=== PATIENT | female | born 1930 | race Caucasian/White ===

== ENCOUNTER → 2016-03-19 | Outpatient (REF) | payer OTHER ==
[2016-03-19 19:08] LABS: PERCENT SATURATION 5.4 % (13.2-37.4)
== END | disposition home or self-care (01) ==
LOC: M LAB REF 16:17
PROVIDERS: ATTEND Internal Medicine
DX: D50.9 Iron deficiency anemia, unspecified (principal)

== ENCOUNTER → 2016-05-18 | Outpatient (REF) | payer OTHER ==
[2016-05-18 20:12] LABS: PERCENT SATURATION 16.5 % (13.2-37.4)
== END ==
LOC: M LAB REF 16:25
PROVIDERS: ATTEND Internal Medicine
DX: D50.9 Iron deficiency anemia, unspecified (principal)

== ENCOUNTER → 2016-08-20 | Outpatient (REF) | payer OTHER ==
[2016-08-20 20:03] LABS: PERCENT SATURATION 17.3 % (13.2-37.4)
== END ==
LOC: M LAB REF 17:29
PROVIDERS: ATTEND Internal Medicine
DX: D50.9 Iron deficiency anemia, unspecified (principal)

== ENCOUNTER 2017-01-02 10:24 | Inpatient (IN) | payer OTHER ==
[~2017-01-02] VITALS: Ht 154.9 cm; Wt 64.1 kg
[2017-01-02] MEDS ORDERED: FLEET ENEMA PR PRN (12:30)
[2017-01-02] MEDS ORDERED: BISACODYL 10 MG SUPP PR PRN (12:30)
[2017-01-02 13:15] VITALS: BP 140/82
[2017-01-02] MEDS ORDERED: FERR1TAB8 PO (15:28)
[2017-01-02] MEDS ORDERED: ATEN25TA PO (15:28)
[2017-01-02] MEDS ORDERED: LOSA100T36 PO (15:28)
[2017-01-02] MEDS ORDERED: SLOWTAB2 PO (15:28)
[2017-01-02] MEDS ORDERED: ATOR40TA75 PO (15:28)
[2017-01-02] MEDS ORDERED: LEVO30TA PO (15:28)
[2017-01-02] MEDS ORDERED: ELIQ5TAB PO (15:28)
[2017-01-02] MEDS: ACETAMINOPHEN TAB 650MG DOSE (2X325MG) PO PRN ×2 (15:52→21:15)
[2017-01-02] MEDS: CIPROFLOXACIN 250 MG TAB PO SCH (16:58)
[2017-01-02] MEDS ORDERED: NON-FORMULARY COMPOUNDED MEDICATION TOP PRN (19:00)
[2017-01-02 20:00] VITALS: BP 156/70
--- NOTE | 2017-01-02 21:01 | PMRHPE ---
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 HISTORY OF PRESENT ILLNESS: Patient is an 86-year-old white female with longstanding history of atherosclerotic cardiovascular disease including atrial fibrillation, hypertension, hyperlipidemia. She was in her usual state of health until late in the evening of 12/27/2016 when she had sudden onset of the left sided weakness and sensory deficits along with droop and slurring of speech. She was seen within a few minutes of the emergency room at [facility] and then transported by air lift to [facility] for consideration of TPA treatment. The patient was assessed there and found to be inside the therapeutic window, had treatment with TPA, which cleared the right M1 but not M2 arteries. Patient continued to have problems with her non dominant left upper and lower extremities involving both motor and sensory deficits and the left homonymous hemianopsia, dysarthria, dysphagia for which she is on a restricted diet of pureed food and honey-thick liquids. PAST MEDICAL HISTORY: Includes [place] fibrillation Dyslipidemia. Hypertension Arthritis. Hypothyroidism. Prior polyp removal. Prior back surgery. Status post appendectomy. Bilateral cataract surgery. Bilateral hip replacement. Hysterectomy, Skin biopsy, Tonsillectomy. FAMILY HISTORY: Non-contributory in this 86-year-old lady. SOCIAL HISTORY: Patient lives with her son. She had modified independence to independence in ADLs and mobility's prior to this event. Does not use tobacco, alcohol or illicit drugs. ALLERGIES: MORPHINE and RELATED OPIATES causing cognitive problems. SULFA DRUGS, and SULFA DRUG CROSS REACTORS. MEDICATIONS: On admission Tylenol, Eliquis, atenolol, atorvastatin, Dulcolax suppository, Cipro for urinary tract infection detected with pending culture and sensitivity that was taken yesterday, ferrous sulfate, Synthroid, losartan, Slow Mag, and Fleet enema. REVIEW OF SYSTEMS: The symptoms noted above. Otherwise patient noting headache since arriving for which Tylenol was ordered. Otherwise negative 10-point review of systems. PHYSICAL EXAMINATION: Patient is a short, mildly overweight, elderly white female in very mild distress who is alert and well-oriented. She is 5' 1", weighs 68 kg on admission. VITAL SIGNS: Temperature 98.6, blood pressure 140/82, pulse 62, respirations 16, pulse oximetry 100% on room air. HEENT: Patient with some left facial droop, right tongue deviation which is mild, very mild dysarthria of speech, oral pharynx without other lesions, nares is clear, septum is midline and straight. Extraocular motion have decreased range and observation to the left space, but she does go two-thirds of the way across to the left and is fairly good and tracking without any nystagmus. Pupils are equal, round and do react to light and accommodation. Extraocular motions are described above. Hearing is fairly good. Neck is supple. LUNGS: Clear in all de paz to auscultation. CORONARY: Shows an irregularly irregular rate and rhythm with pulses in the 60 to 70 range that are 2 out of 4 in strength bilateral wrist. ABDOMEN: Is mildly obese. Bowel sounds are presents in all quadrants. No palpable tenderness or masses noted. EXTREMITIES: With functional range of motion. Decreased motor control in the left lower extremity. Upper extremity is now showing antigravity motions in the forearm musculature for pronation and supination along with flexion and extension of the elbow, adduction and abduction, forward flexion and extension of the shoulder and shoulder shrug which are generally in the 4 to 4+ range but trace left hand, left lower extremity 3+ to 4, right upper and lower extremity in the 4 to 5 range. <<9:54>> is good. NEURO: Patient is alert and oriented to person and place, time and situation and is pleasant and cooperative to examination. ASSESSMENT AND PLAN: DIAGNOSES: 1. Rehabilitation of right middle cerebral artery from embolic cerebrovascular accident (CVA) causing left homonymous hemianopsia, left hemiparesis, left hemisensory deficits, dysarthria, dysphagia: Patient admitted for neuro rehabilitation with physical, occupational and speech therapy to participate in three hours of therapy per day which based on her prior performance at [facility] she should be able to do. She is highly motivated and has a very good support system and is from the [facility]. She does have medical complexity between the atrial fibrillation and need for ongoing anticoagulation and blood pressure control to have tighter monitoring then skilled facility and will be followed here by rehabilitation nursing, physiatry and medicine service. 2. Atrial fibrillation on Eliquis with atherosclerotic cardiovascular disease including hypertension and hyperlipidemia: Patient will continue on Eliquis for clot prevention and continue on atenolol and losartan for blood pressure control along with atorvastatin for lipid control. Medicine consultants will review this and make adjustments as appropriate. Target systolic blood pressure should be in the 130s to 140s ideally. 3. Hypothyroidism. We will continue Synthroid. 4. Urinary tract infection. Patient had culture sensitive yesterday, however was recommended to be started on Bactrim even though she is allergic to Sulfa drugs, therefore we ill go ahead with Cipro 250 mg twice a day that she is not allergic to for the next 7 days and we will follow up for urinary tract infection culture and sensitivity and make appropriate changes. POST ADMISSION PHYSICIAN EVALUATION: Patient is consistent with the prior information received and preadmission screen, She does have multiple deficits both facially and motor as well as dysphagia, though very little dysarthria at this time, which does need to learn compensation for the return to living with her son locally. Patient does not have any barricades to doing three hours of therapy per day, I think she will be able to do this and benefit from it. I am anticipating a good prognosis for a return to home and 17 day estimated length of stay. TIME SPENT ON CHART REVIEW, H P AND DOCUMENTATION: Greater than 70 minutes.
[2017-01-02] MEDS: APIXABAN 5 MG TAB (ELIQUIS) PO SCH (21:08)
[2017-01-02] MEDS: MAGNESIUM CHLORIDE 64 MG TABCR (SLO MAG) PO SCH (21:12)
[2017-01-03 05:45] VITALS: BP 158/86
[2017-01-03] MEDS: LEVOTHYROXINE 25MCG TABLET (0.025MG) PO SCH (05:52)
[2017-01-03] MEDS: CIPROFLOXACIN 250 MG TAB PO SCH ×2 (05:52→18:16)
[2017-01-03 07:22] LABS: BASO % 0.6 % (0.0-1.0); EOS # 0.3 10^3/uL (0.0-0.50); EOS % 4.8 % (0.0-3.0); IMMATURE GRANULOCYTE % 0.6 % (0-0); LYMPH # 0.7 10^3/uL (1.5-4.5); MEAN CORPUSCULAR HEMOGLOBIN 28.7 pg (27.0-33.0); MEAN CORPUSCULAR HGB CONC 32.7 g/dl (32.0-36.5); MEAN CORPUSCULAR VOLUME 87.8 fl (80.0-96.0); MONO # 0.5 10^3/uL (0.0-0.8); MONO % 8.9 % (0.0-5.0); NEUTROPHILS # 3.9 10^3/uL (1.8-7.7); NEUTROPHILS % 72.1 % (36.0-66.0); PLATELET COUNT, AUTOMATED 224 10^3/uL (150-450); RED CELL DISTRIBUTION WIDTH 13.6 % (11.5-14.5); WHITE BLOOD COUNT 5.4 10^3/uL (4.0-10.0)
[2017-01-03 07:53] LABS: ALBUMIN 2.8 GM/DL (3.2-5.2); ALKALINE PHOSPHATASE 81 U/L (45-117); ALT/SGPT 27 U/L (12-78); ANION GAP 9 MEQ/L (8-16); AST/SGOT 17 U/L (15-37); BILIRUBIN,TOTAL 0.6 MG/DL (0.2-1.0); BLOOD UREA NITROGEN 15 MG/DL (7-18); CALCIUM LEVEL 8.8 MG/DL (8.8-10.2); CARBON DIOXIDE LEVEL 26 MEQ/L (21-32); CHLORIDE LEVEL 107 MEQ/L (98-107); CREATININE FOR GFR 0.65 MG/DL (0.55-1.02); GLOMERULAR FILTRATION RATE > 60.0 (>32); GLUCOSE, FASTING 107 MG/DL (83-110); SODIUM LEVEL 142 MEQ/L (136-145); TOTAL PROTEIN 5.6 GM/DL (6.4-8.2)
[2017-01-03] MEDS: APIXABAN 5 MG TAB (ELIQUIS) PO SCH ×2 (08:59→21:18)
[2017-01-03] MEDS: FERROUS SULFATE 325MG TAB PO SCH (08:59)
[2017-01-03] MEDS: ATENOLOL 25 MG TAB PO SCH (08:59)
[2017-01-03] MEDS: MAGNESIUM CHLORIDE 64 MG TABCR (SLO MAG) PO SCH ×2 (09:00→21:22)
[2017-01-03] MEDS: LOSARTAN 50 MG TAB PO SCH (09:00)
[2017-01-03] MEDS: ACETAMINOPHEN TAB 650MG DOSE (2X325MG) PO PRN ×2 (11:29→21:18)
--- NOTE | 2017-01-03 12:40 | CR.PDOC ---
[facility] Consultation Consultation CONSULTATION REPORT FOR: Dr Noriega REASON FOR CONSULTATION: Medical Management DATE OF VISIT: 01/03/17 ATTENDING: Dr. Kp Roque PCP: Dr Partida HPI: 86year oldF with a past medical history significant for embolic CVA with left hemiparesis and neglect treated with TPA [facility]. Pt was transferred to the care of JOSH Leon [facility] 01/02/17. Pt states she did not sleep well last PM. Some FERRIS currently, given tylenol. [place] dizzy when she was OOB to chair, but now resolved with resting in bed. Denies any fevers, chills, weakness, Chest Pain, Shortness of breath, cough, palpitations, abdominal pain, N/V/D or changes in bowel or bladder habits. PMHx: Embolic CVA 12/27/16 s/p TPA [facility]. Afib. eliquis anticoagulation. dyslipidemia HTN OA Hypothyroid H/O Mane's/Gastritis/H Pylori Fe def anemia PSHX: Tonsillectomy Appendectomy cataract surgery B/L Hip replacement hysterectomy back surgery colonoscopy/EGD 03/25 Michel. adenomatous polyp/gastritis. SOCHX: Resides in: [place] Marital Status: Tobacco use: denies ETOH: denies Illicit Drugs: Denies Advanced directives: none FAMHX: non contributory ROS: As noted in HPI, otherwise 11pt ROS of systems reviewed and unremarkable. PE: GEN: 86yoF, appears stated age. Well-nourished, well developed. No acute distress. Alert and oriented x 3. Pleasant, interactive. HEENT: Normocephalic, atraumatic. Pupils are equal, round, and reactive to light. Rightward gaze noted. No nystagmus appreciated. Sclera are nonicteric. Conjunctiva without injection. Nose midline. Nasal turbinates without bogginess. Left facial droop. Mild dysarthria. Moist mucous membranes. Pharynx pink and moist. Neck supple, trachea midline. No lymphadenopathy or thyromegaly appreciated. CHEST: irreg irreg, +S1, +S2. LUNGS: Clear to auscultation bilaterally. No wheezes, rales, or rhonchi. Breathing appears symmetric and easy. Patient is speaking in full sentences. No accessory muscle use. ABD: Round, soft, non-tender, non-distended. +Bowel sounds throughout. No rebound or guarding. No costovertebral angle tenderness. EXT: Pulses 2+ bilaterally dorsalis pedis and radial. No lower extremity edema appreciated. SKIN: [place], dry, warm. Capillary refill <2sec. No rashes. NEURO: Alert and oriented x 3. Left sided weakness. A&P: 86year oldF with a past medical history significant for embolic CVA with left hemiparesis and neglect treated with TPA [facility]. Pt was transferred to the care of JOSH Leon [facility] 01/02/17. 1. S/P embolic CVA/Left hemiparesis/dysarthria/dysphagia. Mgmt as per Dr Noriega/JOSH. PT/OT as per Dr Noriega/JOSH. ST as per Dr Noriega/JOSH. Bowel care as per Dr Noriega/JOSH. Pain mgmt as per Dr Noriega/JOSH. 2. Dysphagia. ST. Pureed diet/Honey thick 3. Afib, chronic. Eliquis anticoagulation. Atenolol rate control. (70s-80s) 4. HLD. Cont lipitor 40 mg daily. 5. Hypothyroid. Cont supplement. 6. HTN. Cozaar with hold parameters. Monitor need for additional antihypertensive. 7. Hypomagnesemia. Cont supplement. Check mag level. 8. Fe def anemia. Cont supplement. Monitor Hgb, trend 10-11. Fe studies WNL 08/25. 9. UTI. Plan for Cipro po x 7 days. DVT prophylaxis. Pt is on Eliquis. Thank you for your consultation. We will continue to follow along with you. Vital Signs/I&O Vital Signs Date Time Temp Pulse Resp B/P (MAP) Pulse Ox O2 Delivery O2 Flow Rate FiO2 01/03/17 08:59 85 158/86 01/03/17 05:45 98.6 18 97 Room Air I&O- Last 24 Hours up to 6 AM 01/04/17 06:00 Intake Total 120 ml Balance 120 ml Laboratory Data Labs 24H Laboratory Tests 2 01/03/17 06:31: Immature Granulocyte % (Auto) 0.6H, White Blood Count 5.4, Red Blood Count 3.76L , Hemoglobin 10.8L, Hematocrit 33.0L, Mean Corpuscular Volume 87.8, Mean Corpuscular Hemoglobin 28.7, Mean Corpuscular Hemoglobin Concent 32.7, Red Cell Distribution Width 13.6, Platelet Count 224, Neutrophils (%) (Auto) 72.1H, Lymphocytes (%) (Auto) 13.0L, Monocytes (%) (Auto) 8.9H, Eosinophils (%) (Auto) 4.8H, Basophils (%) (Auto) 0.6, Neutrophils # (Auto) 3.9, Lymphocytes # (Auto) 0.7L, Monocytes # (Auto) 0.5, Eosinophils # (Auto) 0.3, Basophils # (Auto) 0.0, Immature Granulocyte # (Auto) 0.0, Nucleated Red Blood Cells % (auto) 0.0, Anion Gap 9, Glomerular Filtration Rate > 60.0, Blood Urea Nitrogen 15, Creatinine 0.65, Sodium Level 142, Potassium Level 4.0, Chloride Level 107, Carbon Dioxide Level 26, Calcium Level 8.8, Aspartate Amino Transf (AST/SGOT) 17 , Alanine Aminotransferase (ALT/SGPT) 27, Alkaline Phosphatase 81, Total Bilirubin 0.6, Total Protein 5.6L, Albumin 2.8L, Albumin/Globulin Ratio 1.00 CBC/BMP Laboratory Tests 01/03/17 06:31 Red Blood Count 3.76 L, Mean Corpuscular Volume 87.8, Mean Corpuscular Hemoglobin 28.7, Mean Corpuscular Hemoglobin Concent 32.7, Red Cell Distribution Width 13.6, Neutrophils (%) (Auto) 72.1 H, Lymphocytes (%) (Auto) 13.0 L, Monocytes (%) (Auto) 8.9 H, Eosinophils (%) (Auto) 4.8 H, Basophils (%) (Auto) 0.6, Neutrophils # (Auto) 3.9, Lymphocytes # (Auto) 0.7 L, Monocytes # ( Auto) 0.5, Eosinophils # (Auto) 0.3, Basophils # (Auto) 0.0, Calcium Level 8.8, Aspartate Amino Transf (AST/SGOT) 17, Alanine Aminotransferase (ALT/SGPT) 27, Alkaline Phosphatase 81, Total Bilirubin 0.6, Total Protein 5.6 L, Albumin 2.8 L Allergies Coded Allergies: Sulfa Drugs (Verified Allergy, Mild, 4/2/13) RASH & N/V Sulfa Drugs Cross Reactors (Verified Allergy, Mild, 06/10/12) RASH & N/V Morphine and Related (Verified Adverse Reaction, Unknown, 01/02/17) Home Medications Scheduled Apixaban Base (Eliquis) 5 Mg Tab, 5 MG PO BID, (Reported) Atenolol (Atenolol) 25 Mg Tab, 25 MG PO DAILY, (Reported) Atorvastatin Calcium (Atorvastatin Calcium) 40 Mg Tab, 40 MG PO DAILY, (Reported ) Ferrous Sulfate (Ferrous Sulfate) 325 Mg Tab, 325 MG PO DAILY, (Reported) Levothyroxine Sodium (Levo-T) 25 Mcg Tab, 25 MCG PO DAILY, (Reported) Losartan Potassium (Losartan Potassium) 100 Mg Tab, 100 MG PO DAILY, (Reported) Magnesium Chloride (Slow-Mag 71.5-119 mg) 1 Tab Tab, 1 TAB PO BID, (Reported) Marlyn Lynn Jan 03, 2017 12:40
[2017-01-03 14:00] VITALS: BP 152/72
--- NOTE | 2017-01-03 17:40 | IPNPDOC ---
PM&R Progress Note Vegetable Grader Progress Note DATE OF SERVICE: 01/03/17 DATE OF ADMISSION: Jan 02, 2017 at 12:53 INPATIENT REHABILITATION ADMISSION DAY: #2 SUBJECTIVE: Patient is an 86-year-old white female with longstanding history of atherosclerotic cardiovascular disease including atrial fibrillation, hypertension, hyperlipidemia. She was in her usual state of health until late in the evening of 12/27/2016 when she had sudden onset of the left sided weakness and sensory deficits along with droop and slurring of speech. She was seen within a few minutes of the emergency room at [facility] and then transported by air lift to [facility] for consideration of TPA treatment. The patient was assessed there and found to be inside the therapeutic window, had treatment with TPA, which cleared the right M1 but not M2 arteries. Patient continued to have problems with her non dominant left upper and lower extremities involving both motor and sensory deficits and the left homonymous hemianopsia, dysarthria, dysphagia for which she is on a restricted diet of pureed food and honey-thick liquids. Patient seen inside her room today and notes some headache and left distal upper extremity tenderness as well as trouble sleeping last night. ALLERGIES: See Below MEDICATIONS: Reviewed, see below. OBJECTIVE: VITAL SIGNS: Please see below. PHYSICAL EXAMINATION: GENERAL: Short overweight elderly white female with fair proximal and poor distal upper extremity function and notable ranging from yellow to brownish purple in color and mild/moderate edema of the distal left upper extremity. Patient is alert and well oriented and in mild musculoskeletal distress. HEENT: Relatively unchanged from last night with left facial droop and visual field cut and mild right tongue deviation. CARDIOVASCULAR: Irregularly irregular rate and rhythm with 2 out 4 bilateral lateral radial pulses. LUNGS: All de paz clear to auscultation. ABDOMEN: Benign, nontender no palpable masses and normal bowel sounds in all quadrants. NEUROLOGICAL: Patient is alert and oriented to person, place, time and situation. Speech with mild dysarthria. Affect is slightly anxious with a little bit flattening. Memory is fair to good. Some left neglect noted. Good minus right upper and lower extremity and fair left lower extremity motor. SKIN: Left upper extremity edema with with ecchymoses ranging from yellow to brownish purple in color. LABORATORY DATA: Reviewed. Please see below. MICROBIOLOGY: Please see below. IMAGING: No new imaging. DVT prophylaxis ordered?: Christine lazcano. ASSESSMENT AND PLAN: 1. 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 Patient appears able to participate in all 3 therapies for combined 3 hours of therapy per day. 2. Anemia: H&H is 10.8 and 33.0%. 3. Atherosclerotic cardiovascular disease( atrial fibrillation, hypertension and hyperlipidemia): Currently patient is rate controlled her blood pressure running a little bit time this morning at 158/86. Medicine retirement sales consultant will review and work on adjusting medications as appropriate. REHAB. TEAM ROUNDS: Patient reviewed by rehabilitation team today and well patient at this time is a little focused on headaches and other complaints she is participating in therapy as felt to be able to the intensity and gaining from at we do anticipate this time her expected length of stay will be 21 days to achieve a level of skills that will allow her to return home with her son. Please see rehabilitation notes attached below. Patient: Kenna Nagel : 1930 Age/Sex: 86/F Unit#: [id number] Room/Bed: M4144/ User: Josephine Cheema OT OT Date: 01/03/17 16:04 Type: OT Evaluation Time In * 11:15 Time Out * 12:15 OT Treatment Time-Minutes * 60 mins Type of Therapy Provided * Individual Unit * Acute Inpatient Rehab Occupational Therapy Evaluation * Initial Diagnosis * Right MCA CVA Doctor's Order * Evaluation & Treatment Doctor's Order Details * Eval and treat 1.5 hours per day. 5 days per week. Balance, gait, left hemiparesis, left neglect and sesory deficits, L visual History of Present Illness * Pt was in her usual state of health until late in the evening of 12/27/2016 when she had sudden onset of the left sided weakness and sensory deficits along with droop and slurring of speech. She was seen within a few minutes of the emergency room at [facility] and then transported by air lift to [facility] for consideration of TPA treatment. The patient was assessed there and found to be inside the therapeutic window, had treatment with TPA. Precautions * Fall * Other * Aspiration Other Precautions * L neglect Subjective * Pt supine upon OT arrival with HOB elevated; agreeable to tx. Pt reports she is dizzy initially during eval. Prior to admission Pt was Independent ADL's * Yes Prior to Admission Other Assist Pt Required * Pt reports she was independent/mod I with all ADL at baseline. Pt does have cane for use outside of the home and standard walker she uses to assist with transferring in/out of tub at baseline. Pt does complete all cooking and laundry at home; her youngest son lives with her and completes all cleaning at home. Pain: Start of Session * 10 Pain: End of Session * 7 Pain Assessment Label * Anterior Head * Pain Note Pt c/o 12/18 headache; Angela notified and delivered medication. Upper Extremity Dominance * Right Range of Motion Assessment Label * Bilateral Shoulder * Active or Passive Active * ROM Within Normal Limits Impaired * Comment B frozen shoulders at baseline, LUE PROM WFL. Muscle Tone Assessment Label * Left Shoulder Elbow Wrist Fingers * Upper Extremity Status Tone/Synergy Decreased Strength Assessment Label * Right * Upper Extremity Strength Location Elbow Wrist Eye Specialist * Upper Extremity Status Strength 4-/5 * Comment: R shoulder- 2-/5; ANIYAH trace Movement Assessment Label * Bilateral * Upper Extremity Status Gross Motor Impaired * Other-Upper Extremity Status Gross Motor BUE shoulders significantly impaired prior to CVA. RUE distally WFL; LUE noted to have trace movement with muscle facilitation through all planes this date. Upper Body Muscle Tone Label * Bilateral * Upper Extremity Status Fine Motor Impaired * Other-Upper Extremity Status Fine Motor Pt able to complete serial oppostion with RUE with [id number] VCs for sequencing. Pt noted to have significant L neglect during evaluation, interferring with ability to attend to whole hand during testing. Sensation Assessment Label * Left * Upper Extremity Status Sensation Impaired * Other-Upper Extremity Status Sensation Pt verbally reports feeling throughout BUE, though inconsistent with LUE. Edema Present * Yes Edema Assessment Label * Left * Upper Extremity Status Edema 1+ * Edema comment Increased edema throughout LUE; recommend good support on pillows for joint protection and edema control. Eating (Feeding) * Minimum Assist Dressing-Upper Body * Total Assist Dressing-Lower Body * Total Assist Toileting * Total Assist Toilet/Commode Transfer * Total Assist Transfers * Total Assist Bed Mobility * Maximum Assist ADL Status Note * Supine to sit EOB with max assist for trunk and BLE to EOB, though pt able to initiate BLE toward EOB. Pt initially requiring min/mod assist to maintain sitting balance with use of RUE on bed rail, though with assist to come to upright and VCs for posture, pt able to prgoress to sit EOB with CGA only. Pt transferred stand pivot toward R side from EOB to w/c with max assist x2, as pt noted to lean posteriorly and laterally toward L side. Assit to readjust in chair. Pt completed UB dressing with dependent assist for BUE and pulling overhead due to significantly decreased RUE mobility. LB dressing- pt requires total assist to thread BLE and stand with assist x2 to pull up pants. Pt, again, noted to lean posteriorly with transfer. Pt returned to w/c with leg rests and pillow support for LUE. Lunch set-up in front of pt, though pt requires ongoing VCs to attend to items on L side of tray, as well as assist for minimal spillage out of L side of mouth. Pt remained seated in w/c at completion of tx with all needs met, call light in reach. Per PT; pt requires total assist for toileting transfer to commode, as well as clothing management and hygiene with assist x2 for safety. A. Eating (include only those with PO intake): * 04.Sup/Touch Assist Eating Comments: * See ADL note. C. Toileting Hygiene (not transfers): * 01.Dependent Toileting Hygiene Comments: * See ADL note. F. Upper Body Dressing (includes bra, not hospital gown): * 01.Dependent Upper Body Dressing Comments: * See ADL note. G. Lower Body Dressing (includes briefs and knee braces): * 01.Dependent H. Putting on/taking off footwear (includes TEDS and AFO): * 01.Dependent Putting on/taking off footwear Comments: * See ADL note. Sitting: Static * F+ Sitting: Dynamic * F- Standing: Static * P Standing: Dynamic * P Functional Endurance * Fair Living Quarters * House Number of Steps Inside Home * 14 Number of Steps Outside Home * 2 Home Has * Walker Other Home Accessibility Comments * Pt reports her bedroom is on the 2nd floor, with potential to set up bedroom on 1st floor. Pts home has 1/2 bath on main floor with full bath on 2nd floor. Will continue to assess DME needs. Visual Acuity * Impaired Visual Spatial * Impaired Right/Left Neglect * Not Present Midline * Impaired Proprioceptive/Kinesthesia * Impaired Praxis * Impaired Orientation * Intact Follows Commands * Intact Safety Awareness * Impaired Problem Solving * Impaired Behavior/Affect * Impaired Perception/Cognition/Psychosocial Comment * Pt A&Ox self and place. Pt noted to have flat affect and significant L neglect, impacting safety and ability to complete ADLs. Other Home Safety Status Issues * Pt noted to have 14 steps to enter bedroom. Other Discharge Recommendations * Will continue to assess. Occupational Therapy Evaluation Notes * Pt demonstrates significantly decreased independence from baseline due to recent CVA. Pt will benefit from skilled OT to maximize independence with ADL, functional transfers, visual scanning, strengthening, and safety awareness for safe discharge to least restrictive environment. OT Recommendations * OOB all meals, supervision/assistance for all meals, encourage participation with all ADL. See Acute In-Patient Rehab POC * Yes OT Interventions * Functional Training * Safety/Precautions * D/C Needs * HEP * ADL Training * Bed Mobility * Therapeutic Exercise * Balance Activities * Pt/Family Education Patient Education Completed * Yes Patient: Kenna Nagel : 1930 Age/Sex: 86/F Unit#: [id number] [facility] User: St Jareth Wray SP Date: 01/03/17 15:09 Type: ST: Adult Language Evaluation Reason for Referral * CVA Evaluation Components * Chart Review * Test Record Scanned EMR Evaluation Components Comment * [facility] Speech/Language Assessment Guide Patient Characteristics * Left Hemiparesis * Alert * Visual Deficit Visual Acuity * Glasses * Impaired * Visual Perceptual Deficit Comments * Left sided visual field cut Left neglect Weak phonation Fluency * Adequate Listening Comprehension * Follows 2 Step Commands * Follows Complex Commands * Follows Conservation * Accurately Yes/No Ques * Consistently Verbal Expression * Within Normal Limits * Low Volume Reading Comprehension * Did Not Test Reading Comprehension Comment * Will assess tomorrow Written Expression * Did Not Test Written Expression Comment * Will assess tomorrow Social Language Skills * Appropriate Eye Contact * Takes Turns * Maintains Topics Listening Deficit * Within Functional Limits Speaking Deficit * Within Functional Limits Recommendations * No Further Follow Up After Evaluation Verbal Report Provided to * Dr. Ochoa and [facility] team Problem List * Supervising PORCELAIN WAXER present throughout evaluation. Agrees w/ dx and recommendations. Kendra Hogue MS, [facility] [employer]. Patient: Kenna Nagel : 1930 Age/Sex: 86/F Unit#: [id number] Room/Bed: M4144/01 User: St Jareth Wray SP Date: 01/03/17 14:53 Type: ST: Clinical Swallowing Evalua... History * CVA/TIA Verbal expression * Adequate Able to follow commands * Adequate Cognition * Functional Nutrition/Intake method * Total Oral Current diet * Puree * Honey thick fluid Oral Structures * Upper Dentures * Lower Dentures Face and lip function * Decreased ROM * Decreased Strength Tongue function * Decreased ROM Right * Decreased Strength Left * Deviates (R)/ Protrusion Velar functioning * Left Weakness Laryngeal function * Decreased Loudness Speech Clarity * WFL Honey Thick Liquids - Oral stage difficulties * Anterior Leakage Honey Thick Liquids - Pharyngeal stage difficulties * None Suspected Honey Thick Liquids - Severity * WFL Puree - Oral stage difficulties * Anterior Leakage Puree - Pharyngeal stage difficulties * None Suspected Puree - Severity * WFL Aspiration Risk * No Visible S/S Aspiration Problem List * Weakness and decreased sensation to left side cause increased risk for aspiration. Pt has dec ROM in her neck since March, which limits her ability to use a compensatory head turn. Recommended Diet * Pureed Recommended Liquids * Honey Thick Liquid Recommended positioning * Upright in chair, as able * Head Turn Left Recommended Oral Care * Three Times per Day Compensatory Strategies Comment * Supervision during meals w/ assistance as needed Recommend Dysphagia Therapy * Yes - oral motor, breath support, compensatory strategies Other Recommendations * Meds in puree assist. Check oral cavity for residue after swallow. Supervising PORCELAIN WAXER present throughout evaluation, agrees w/ dx and recommendations. Kendra Hogue MS, [facility] [employer]. After Evaluation/Treatment Report Provided to: * Dr. Ochoa and ARU team Patient: Kenna Nagel : 1930 Age/Sex: 86/F Unit#: [id number] Room/Bed: M4144/01 User: St Kamala Turbine Room Attendant SP Date: 01/03/17 15:14 Type: ST: Cognitive Linguistic Eval Reason for Referal * CVA Location of Evaluation * [facility] Unit Cognitive Communication Evaluation Components * CLQT Language Testing Completed * Yes - WFL Oral Motor/Speech Skills WFL * No Hearing WFL * Yes Clinical Observations * L Neglect * Vision Impaired * Cooperative * Socially Appropriate Cognitive-Communication: Other Clinical Observations * Wears glasses, left visual field cut Patient Orientation * Adequate Pragmatics * WFL Memory * WFL Organization * Dec. Spatial Org For Wri. * Dec. Visual Scanning Cognitive-Communication Organization Comment * Significant left neglect Reasoning * WFL Executive Function * Dec. Flexibility Severity of Cognitive-Communication Deficit * Moderate Recommendations * Sp. Tx for Cog-Comm Skill Recommendations Comment * Supervising P[employer]CELAIN WAXER present throughout evaluation. Agrees with dx and recommendations. Kendra Hogue MS, [facility]. After Evaluation/Treatment Report Provided to: * Dr. Ochoa and ARU team TIME SPENT: Chart Review, examination and documentation minutes. Allergies Coded Allergies: Sulfa Drugs (Verified Allergy, Mild, 06/10/12) RASH & N/V Sulfa Drugs Cross Reactors (Verified Allergy, Mild, 06/10/12) RASH & N/V Morphine and Related (Verified Adverse Reaction, Unknown, 01/02/17) Vital Signs Vital Signs Date Time Temp Pulse Resp B/P (MAP) Pulse Ox O2 Delivery O2 Flow Rate FiO2 01/03/17 14:00 98.9 101 20 152/72 (98) 98 Room Air Laboratory Data CBC/BMP Laboratory Tests 01/03/17 06:31 Red Blood Count 3.76 L, Mean Corpuscular Volume 87.8, Mean Corpuscular Hemoglobin 28.7, Mean Corpuscular Hemoglobin Concent 32.7, Red Cell Distribution Width 13.6, Neutrophils (%) (Auto) 72.1 H, Lymphocytes (%) (Auto) 13.0 L, Monocytes (%) (Auto) 8.9 H, Eosinophils (%) (Auto) 4.8 H, Basophils (%) (Auto) 0.6, Neutrophils # (Auto) 3.9, Lymphocytes # (Auto) 0.7 L, Monocytes # ( Auto) 0.5, Eosinophils # (Auto) 0.3, Basophils # (Auto) 0.0, Calcium Level 8.8, Aspartate Amino Transf (AST/SGOT) 17, Alanine Aminotransferase (ALT/SGPT) 27, Alkaline Phosphatase 81, Total Bilirubin 0.6, Total Protein 5.6 L, Albumin 2.8 L Labs 24H Laboratory Tests 2 01/03/17 06:31: Immature Granulocyte % (Auto) 0.6H, White Blood Count 5.4, Red Blood Count 3.76L , Hemoglobin 10.8L, Hematocrit 33.0L, Mean Corpuscular Volume 87.8, Mean Corpuscular Hemoglobin 28.7, Mean Corpuscular Hemoglobin Concent 32.7, Red Cell Distribution Width 13.6, Platelet Count 224, Neutrophils (%) (Auto) 72.1H, Lymphocytes (%) (Auto) 13.0L, Monocytes (%) (Auto) 8.9H, Eosinophils (%) (Auto) 4.8H, Basophils (%) (Auto) 0.6, Neutrophils # (Auto) 3.9, Lymphocytes # (Auto) 0.7L, Monocytes # (Auto) 0.5, Eosinophils # (Auto) 0.3, Basophils # (Auto) 0.0, Immature Granulocyte # (Auto) 0.0, Nucleated Red Blood Cells % (auto) 0.0, Anion Gap 9, Glomerular Filtration Rate > 60.0, Blood Urea Nitrogen 15, Creatinine 0.65, Sodium Level 142, Potassium Level 4.0, Chloride Level 107, Carbon Dioxide Level 26, Calcium Level 8.8, Aspartate Amino Transf (AST/SGOT) 17 , Alanine Aminotransferase (ALT/SGPT) 27, Alkaline Phosphatase 81, Total Bilirubin 0.6, Total Protein 5.6L, Albumin 2.8L, Magnesium Level 2.0, Albumin/ Globulin Ratio 1.00 Current Medications Current Medications Current Medications Acetaminophen (Tylenol Tab) 650 mg Q6HP PRN PO PAIN / FEVER Last administered on 01/03/17 11:29; Start 01/02/17 at 15:45; Stop 02/01/17 at 15:44 Apixaban (Eliquis) 5 mg BID PO Last administered on 01/03/17 08:59; Start at 21:00; Stop 01/09/17 at 20:59 Atenolol (Tenormin) 25 mg DAILY PO Last administered on 01/03/17 08:59; Start 01/03/17 at 09:00; Stop 02/02/17 at 08:59 Atorvastatin Calcium (Lipitor) 40 mg QHS PO ; Start 01/03/17 at 21:00; Stop at 20:59 Bisacodyl (Dulcolax Suppository) 10 mg DAILYPRN PRN [place] CONSTIPATION; Start at 12:30; Stop 02/01/17 at 12:29 Ciprofloxacin (Cipro) 250 mg BID@06,18 PO Last administered on 01/03/17 05:52 ; Start 01/02/17 at 18:00; Stop 01/09/17 at 17:59 Ferrous Sulfate (Ferrous Sulfate) 325 mg DAILY PO Last administered on 08:59; Start 01/03/17 at 09:00; Stop 02/02/17 at 08:59 Home Med (Med Rec Complete!) ASDIRECTED XX ; Start 01/02/17 at 15:45; Stop at 15:45; Status DC Levothyroxine Sodium (Synthroid) 25 mcg DAILY@06 PO Last administered on 05:52; Start 01/03/17 at 06:00; Stop 02/02/17 at 05:59 Losartan Potassium (Cozaar) 100 mg DAILY PO Last administered on 01/03/17 09: 00; Start 01/03/17 at 09:00; Stop 02/02/17 at 08:59 Magnesium Chloride (Slow-Mag) 64 mg BID PO Last administered on 01/03/17 09: 00; Start 01/02/17 at 21:00; Stop 02/01/17 at 20:59 Miscellaneous (Unresolved Patient Own Med Order) SEE LABEL COMMENTS UNRESOLVED XX Last administered on 01/03/17 00:01; Start 01/03/17 at 00:01; Stop 01/03 at 10:45; Status DC Non-Formulary Medication Patient may use rubb... TIDP PRN TOP PAIN; Start at 19:00; Stop 01/03/17 at 10:52; Status DC Patient Own Medication (Patient'S Own Med) apply to neck and shoulders TIDP PRN TOP ACHES; Start 01/03/17 at 11:00; Stop 02/02/17 at 10:59 Sodium Biphosphate/ Sodium Phosphate (Fleet Enema) 1 ea DAILYPRN PRN [place] CONSTIPATION; Start 01/02/17 at 12:30; Stop 02/01/17 at 12:29 THERESA OCHOA MD Jan 03, 2017 17:40
[2017-01-03] MEDS: ATORVASTATIN 20 MG TAB PO SCH (21:18)
[2017-01-03 22:00] VITALS: BP 146/83
[2017-01-04] MEDS: CIPROFLOXACIN 250 MG TAB PO SCH ×2 (05:28→17:08)
[2017-01-04] MEDS: ACETAMINOPHEN TAB 650MG DOSE (2X325MG) PO PRN ×3 (05:29→19:44)
[2017-01-04] MEDS: LEVOTHYROXINE 25MCG TABLET (0.025MG) PO SCH (05:36)
[2017-01-04 06:00] VITALS: BP 134/74
[2017-01-04] MEDS: FERROUS SULFATE 325MG TAB PO SCH (08:23)
[2017-01-04] MEDS: MAGNESIUM CHLORIDE 64 MG TABCR (SLO MAG) PO SCH ×2 (08:23→21:02)
[2017-01-04] MEDS: ATENOLOL 25 MG TAB PO SCH (08:23)
[2017-01-04] MEDS: APIXABAN 5 MG TAB (ELIQUIS) PO SCH ×2 (08:23→21:02)
[2017-01-04] MEDS: LOSARTAN 50 MG TAB PO SCH (08:24)
--- NOTE | 2017-01-04 11:59 | IPNPDOC ---
PM&R Progress Note Supply Specialist Progress Note DATE OF SERVICE: 01/04/17 DATE OF ADMISSION: Jan 02, 2017 at 12:53 INPATIENT REHABILITATION ADMISSION DAY: #3 SUBJECTIVE: Patient is an 86-year-old white female with longstanding history of atherosclerotic cardiovascular disease including atrial fibrillation, hypertension, hyperlipidemia. She was in her usual state of health until late in the evening of 12/27/2016 when she had sudden onset of the left sided weakness and sensory deficits along with droop and slurring of speech. She was seen within a few minutes of the emergency room at [facility] and then transported by air lift to [facility] for consideration of TPA treatment. The patient was assessed there and found to be inside the therapeutic window, had treatment with TPA, which cleared the right M1 but not M2 arteries. Patient continued to have problems with her non dominant left upper and lower extremities involving both motor and sensory deficits and the left homonymous hemianopsia, dysarthria, dysphagia for which she is on a restricted diet of pureed food and honey-thick liquids. Patient seen inside her room today and notes some headache and left distal upper extremity tenderness as well as trouble sleeping last night. ALLERGIES: See Below MEDICATIONS: Reviewed, see below. OBJECTIVE: VITAL SIGNS: Please see below. PHYSICAL EXAMINATION: GENERAL: Short overweight elderly white female with fair proximal and poor distal upper extremity function and notable ranging from yellow to brownish purple in color and mild/moderate edema of the distal left upper extremity. Patient is alert and well oriented and in mild musculoskeletal distress. HEENT: Relatively unchanged from last night with left facial droop and visual field cut and mild right tongue deviation. CARDIOVASCULAR: Irregularly irregular rate and rhythm with 2 out 4 bilateral lateral radial pulses. LUNGS: All de paz clear to auscultation. ABDOMEN: Benign, nontender no palpable masses and normal bowel sounds in all quadrants. NEUROLOGICAL: Patient is alert and oriented to person, place, time and situation. Speech with mild dysarthria. Affect is slightly anxious with a little bit flattening. Memory is fair to good. Some left neglect noted. Good minus right upper and lower extremity and fair left lower extremity motor. SKIN: Left upper extremity edema with with ecchymoses ranging from yellow to brownish purple in color. LABORATORY DATA: Reviewed. Please see below. MICROBIOLOGY: Please see below. IMAGING: No new imaging. DVT prophylaxis ordered?: Tomas lazcano. ASSESSMENT AND PLAN: 1. 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 Patient appears able to participate in all 3 therapies for combined 3 hours of therapy per day. Patient reviewed by rehabilitation team yesterday. We will work away from patient's focus on headaches and other complaints she is participating in therapy as felt to be able to the intensity and gaining from at we do anticipate this time her expected length of stay will be 21 days to achieve a level of skills that will allow her to return home with her son. Anticipated Discharge Date is 01/23/17. 2. Anemia: H&H is 10.8 and 33.0%. 3. Atherosclerotic cardiovascular disease( atrial fibrillation, hypertension and hyperlipidemia): Currently patient is rate controlled her blood pressure running a little bit time this morning at 158/86. Medicine oracle application consultant will review and work on adjusting medications as appropriate. TIME SPENT: Chart Review, examination and documentation require greater than 25 minutes. Allergies Coded Allergies: Sulfa Drugs (Verified Allergy, Mild, 06/10/12) RASH & N/V Sulfa Drugs Cross Reactors (Verified Allergy, Mild, 06/10/12) RASH & N/V Morphine and Related (Verified Adverse Reaction, Unknown, 01/02/17) Vital Signs Vital Signs Date Time Temp Pulse Resp B/P (MAP) Pulse Ox O2 Delivery O2 Flow Rate FiO2 01/04/17 08:24 134/74 01/04/17 08:23 87 01/04/17 06:00 98.7 18 96 Room Air Current Medications Current Medications Current Medications Acetaminophen (Tylenol Tab) 650 mg Q6HP PRN PO PAIN / FEVER Last administered on 01/04/17 05:29; Start 01/02/17 at 15:45; Stop 02/01/17 at 15:44 Apixaban (Eliquis) 5 mg BID PO Last administered on 01/04/17 08:23; Start at 21:00; Stop 01/09/17 at 20:59 Atenolol (Tenormin) 25 mg DAILY PO Last administered on 01/04/17 08:23; Start 01/03/17 at 09:00; Stop 02/02/17 at 08:59 Atorvastatin Calcium (Lipitor) 40 mg QHS PO Last administered on 01/03/17 21: 18; Start 01/03/17 at 21:00; Stop 02/02/17 at 20:59 Bisacodyl (Dulcolax Suppository) 10 mg DAILYPRN PRN [place] CONSTIPATION; Start at 12:30; Stop 02/01/17 at 12:29 Ciprofloxacin (Cipro) 250 mg BID@06,18 PO Last administered on 01/04/17 05:28 ; Start 01/02/17 at 18:00; Stop 01/09/17 at 17:59 Ferrous Sulfate (Ferrous Sulfate) 325 mg DAILY PO Last administered on 08:23; Start 01/03/17 at 09:00; Stop 02/02/17 at 08:59 Home Med (Med Rec Complete!) ASDIRECTED XX ; Start 01/02/17 at 15:45; Stop at 15:45; Status DC Levothyroxine Sodium (Synthroid) 25 mcg DAILY@06 PO Last administered on 05:36; Start 01/03/17 at 06:00; Stop 02/02/17 at 05:59 Losartan Potassium (Cozaar) 100 mg DAILY PO Last administered on 01/04/17 08: 24; Start 01/03/17 at 09:00; Stop 02/02/17 at 08:59 Magnesium Chloride (Slow-Mag) 64 mg BID PO Last administered on 01/04/17 08: 23; Start 01/02/17 at 21:00; Stop 02/01/17 at 20:59 Miscellaneous (Unresolved Patient Own Med Order) SEE LABEL COMMENTS UNRESOLVED XX Last administered on 01/03/17 00:01; Start 01/03/17 at 00:01; Stop 01/03 at 10:45; Status DC Non-Formulary Medication Patient may use rubb... TIDP PRN TOP PAIN; Start at 19:00; Stop 01/03/17 at 10:52; Status DC Patient Own Medication (Patient'S Own Med) apply to neck and shoulders TIDP PRN TOP ACHES; Start 01/03/17 at 11:00; Stop 02/02/17 at 10:59 Sodium Biphosphate/ Sodium Phosphate (Fleet Enema) 1 ea DAILYPRN PRN [place] CONSTIPATION; Start 01/02/17 at 12:30; Stop 02/01/17 at 12:29 THERESA OCHOA MD Jan 04, 2017 11:59
[2017-01-04 14:00] VITALS: BP 146/72
[2017-01-04 20:00] VITALS: BP 148/74
[2017-01-04] MEDS: ATORVASTATIN 20 MG TAB PO SCH (21:02)
[2017-01-05 06:00] VITALS: BP 158/72
[2017-01-05] MEDS: LEVOTHYROXINE 25MCG TABLET (0.025MG) PO SCH (06:05)
[2017-01-05] MEDS: CIPROFLOXACIN 250 MG TAB PO SCH ×2 (06:05→17:53)
[2017-01-05] MEDS: ACETAMINOPHEN TAB 650MG DOSE (2X325MG) PO PRN ×3 (06:09→20:42)
[2017-01-05] MEDS: ATENOLOL 25 MG TAB PO SCH (09:15)
[2017-01-05] MEDS: MAGNESIUM CHLORIDE 64 MG TABCR (SLO MAG) PO SCH ×2 (09:15→20:42)
[2017-01-05] MEDS: LOSARTAN 50 MG TAB PO SCH (09:15)
[2017-01-05] MEDS: FERROUS SULFATE 325MG TAB PO SCH (09:15)
[2017-01-05] MEDS: APIXABAN 5 MG TAB (ELIQUIS) PO SCH ×2 (09:15→20:42)
[2017-01-05 14:00] VITALS: BP 123/58
[2017-01-05 20:00] VITALS: BP 142/80
[2017-01-05] MEDS: ATORVASTATIN 20 MG TAB PO SCH (20:42)
[2017-01-06] MEDS: MUSCLE RUB TOP PRN ×2 (01:46→21:10)
[2017-01-06] MEDS: ACETAMINOPHEN TAB 650MG DOSE (2X325MG) PO PRN ×3 (03:43→22:29)
[2017-01-06 06:00] VITALS: BP 146/62
[2017-01-06] MEDS: LEVOTHYROXINE 25MCG TABLET (0.025MG) PO SCH (06:21)
[2017-01-06] MEDS: CIPROFLOXACIN 250 MG TAB PO SCH ×2 (06:21→17:44)
[2017-01-06 07:07] LABS: MEAN CORPUSCULAR HEMOGLOBIN 28.2 pg (27.0-33.0); MEAN CORPUSCULAR HGB CONC 31.8 g/dl (32.0-36.5); MEAN CORPUSCULAR VOLUME 88.5 fl (80.0-96.0); PLATELET COUNT, AUTOMATED 210 10^3/uL (150-450); RED CELL DISTRIBUTION WIDTH 13.6 % (11.5-14.5); WHITE BLOOD COUNT 4.9 10^3/uL (4.0-10.0)
[2017-01-06] MEDS: MAGNESIUM CHLORIDE 64 MG TABCR (SLO MAG) PO SCH ×2 (08:42→20:56)
[2017-01-06] MEDS: APIXABAN 5 MG TAB (ELIQUIS) PO SCH ×2 (08:43→20:56)
[2017-01-06] MEDS: LOSARTAN 50 MG TAB PO SCH (08:43)
[2017-01-06] MEDS: FERROUS SULFATE 325MG TAB PO SCH (08:43)
[2017-01-06] MEDS: ATENOLOL 25 MG TAB PO SCH (08:43)
[2017-01-06 14:00] VITALS: BP 144/67
[2017-01-06] MEDS: ATORVASTATIN 20 MG TAB PO SCH (20:56)
[2017-01-06 20:58] VITALS: BP 158/68
[2017-01-07] MEDS: ACETAMINOPHEN TAB 650MG DOSE (2X325MG) PO PRN ×3 (03:47→17:42)
[2017-01-07 06:27] VITALS: BP 137/65
[2017-01-07] MEDS: LEVOTHYROXINE 25MCG TABLET (0.025MG) PO SCH (06:53)
[2017-01-07] MEDS: CIPROFLOXACIN 250 MG TAB PO SCH ×2 (06:53→17:42)
[2017-01-07] MEDS: LOSARTAN 50 MG TAB PO SCH (08:42)
[2017-01-07] MEDS: ATENOLOL 25 MG TAB PO SCH (08:42)
[2017-01-07] MEDS: APIXABAN 5 MG TAB (ELIQUIS) PO SCH ×2 (08:42→20:16)
[2017-01-07] MEDS: FERROUS SULFATE 325MG TAB PO SCH (08:43)
[2017-01-07] MEDS: MAGNESIUM CHLORIDE 64 MG TABCR (SLO MAG) PO SCH ×2 (08:43→20:16)
--- NOTE | 2017-01-07 11:28 | IPNPDOC ---
PM&R Progress Note Build Manager Progress Note DATE OF SERVICE: 01/07/17 DATE OF ADMISSION: Jan 02, 2017 at 12:53 INPATIENT REHABILITATION ADMISSION DAY: #6 SUBJECTIVE: Patient is an 86-year-old white female with longstanding history of atherosclerotic cardiovascular disease including atrial fibrillation, hypertension, hyperlipidemia. She was in her usual state of health until late in the evening of 12/27/2016 when she had sudden onset of the left sided weakness and sensory deficits along with droop and slurring of speech. She was seen within a few minutes of the emergency room at [facility] and then transported by air lift to [facility] for consideration of TPA treatment. The patient was assessed there and found to be inside the therapeutic window, had treatment with TPA, which cleared the right M1 but not M2 arteries. Patient continued to have problems with her non dominant left upper and lower extremities involving both motor and sensory deficits and the left homonymous hemianopsia, dysarthria, dysphagia for which she is on a restricted diet of pureed food and honey-thick liquids. Patient seen inside her room today and notes some headache and left distal upper extremity tenderness as well as trouble sleeping last night. ALLERGIES: See Below MEDICATIONS: Reviewed, see below. OBJECTIVE: VITAL SIGNS: Please see below. PHYSICAL EXAMINATION: GENERAL: Short overweight elderly white female with fair proximal and poor distal upper extremity function and notable ranging from yellow to brownish purple in color and mild/moderate edema of the distal left upper extremity. Patient is alert and well oriented and in mild musculoskeletal distress. HEENT: Mild left facial droop that is improving and visual field cut and mild right tongue deviation. CARDIOVASCULAR: Currently, Regular S1, S2 without S3, S4, or gallops. 2 out 4 bilateral lateral radial pulses. LUNGS: All de paz clear to auscultation. ABDOMEN: Benign, nontender no palpable masses and normal bowel sounds in all quadrants. NEUROLOGICAL: Patient is alert and oriented to person, place, time and situation. Speech with mild dysarthria. Affect is slightly anxious with a little bit flattening. Memory is fair to good. Some left neglect noted. Good minus right upper and lower extremity and fair left lower extremity motor. Fair proximal LUE to trace distally. SKIN: Left upper extremity edema with with ecchymoses ranging from yellow to brownish in color and fading. LABORATORY DATA: Reviewed. Please see below. MICROBIOLOGY: Please see below. IMAGING: No new imaging. DVT prophylaxis ordered?: Lew and TIA lazcano. ASSESSMENT AND PLAN: 1. 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 Patient appears able to participate in all 3 therapies for combined 3 hours of therapy per day. Patient reviewed by rehabilitation team yesterday. We will work away from patient's focus on headaches and other complaints she is participating in therapy as felt to be able to the intensity and gaining from at we do anticipate this time her expected length of stay will be 21 days to achieve a level of skills that will allow her to return home with her son. Anticipated Discharge Date is 01/23/17. 2. Anemia: H&H is 9.8 and 30.8%. 3. Atherosclerotic cardiovascular disease( atrial fibrillation, hypertension and hyperlipidemia): Currently patient is sounds to be in sinus rhythm with BP 137/65. Medicine operational risk consultant will continue to review and work on adjusting medications as appropriate. REHAB. TEAM ROUNDS: Patient reviewed with team today. She is having problems with urinary retention so, I will try some Minipress 1 mg QHS for that. She is making progress in [facility] with communication, some with swallowing, though she tends to be left body decreased awareness helped with the mirror at meals, but bolus unawareness is a risk as well, so we will restrict her meal to be brought to nursing and Tablespoon removed, and patient to be observed and coached on bolus sizes, rate and using techniques to clear the oral and oral pharynx before initiating any more feeding. In PT/OT patient is making some slow but steady progress as noted below. Anticipated D/C Date is 01/23/17. TIME SPENT: Chart Review, examination and documentation require greater than 25 minutes. Patient: Kenna Nagel : 1930 Age/Sex: 86/F Unit#: [id number] Room/Bed: M4144/01 User: Josephine CheemaJESU OT Date: 01/07/17 11:07 Type: OT Progress Time In * 07:30 Time Out * 08:40 OT Treatment Time-Minutes * 70 mins Type of Therapy Provided * Individual Precautions * Fall * Aspiration Unit * Acute Inpatient Rehab Pain Comment * No formal c/o pain this date. Subjective * Pt supine upon OT arrival, agreeable to tx. Cognition * Impaired Cognition Comments * A&Ox3. Left neglect noted, able to attend with cuing. Supine to Sit * Minimum Assist Bed Mobility Notes * Min A supine to sit EOB for support at trunk only. Pt utilizes bed rail for transfer. Sit to Stand * Moderate Assist Stand to Sit * Minimum Assist Bed to Chair * Moderate Assist Functional Transfer Notes: * Mod assist stand pivot transfer from EOB to w/c. Pt requires mod assist for sit<>stand transfers during ADLs. Bathing * Moderate Assist Dressing-Upper Body * Total Assist Dressing-Lower Body * Total Assist Grooming * Moderate Assist Eating * Minimum Assist ADL Training Note * Pt transferred to w/c and taken to bathroom for ADLs. Pt able to complete sponge bathing while seated EOB, pt able to wash chest, abdomen, and LUE with increased time, as well as B thighs. Pt requires assist for all other areas. UB dressing- pt requires assist to thread BUE into bra, adjust and fasten. Assist for threading BUE into shirt, pulling overhead, and adjusting over torso. LB dressing- pt requires assist to thread LLE into pants, pt able to thread RLE, though unable to reach to ground to pull up over leg. Pt requires assist to stand and pull up pants bilaterally. Grooming- pt able to take dentures out, requires assist to clean, and able to put back in only. Pt able to comb hair with min assist to reach the back due to decreased shoulder ROM. Following ADLs, pt remained in w/c with breakfast set-up in front of her. Pt requires assist to open all packages/items on tray, as well as orient to L side of tray. Pt able to scoop food and feed self with minimal spillage and ongoing VCs throughout meal to take rest breaks between bites for increased safety. A. Eating (include only those with PO intake): * 04.Sup/Touch Assist Eating Comments: * See ADL note. B. Oral Hygiene (includes gums in edentulous pts): * 02.Substantial/Max Assist Oral Hygiene Comments: * See ADL note. E. Shower/Bathe Self (not transfers, can be sponge bath): * 03.Partial/Mod Assist Shower/Bathe Self Comments: * See ADL note F. Upper Body Dressing (includes bra, not hospital gown): * 01.Dependent Upper Body Dressing Comments: * See ADL note G. Lower Body Dressing (includes briefs and knee braces): * 01.Dependent Lower Body Dressing Comments: * See ADL note. H. Putting on/taking off footwear (includes TEDS and AFO): * 01.Dependent Putting on/taking off footwear Comments: * See ADL note. Sit-Static * G- Sit-Dynamic * F+ Stand-Static * F Stand-Dynamic * P+ Balance Training Note * pt sitting balance assessed sitting EOB; standing assessed with use of HW. OT Intervention Note * See ADL note above. Pt remained seated in w/c with all needs met, call light in reach, awaiting PT. Safe for discharge at this time * No Patient: Kenna Nagel : 1930 Age/Sex: 86/F Unit#: [id number] [facility] User: Corinna Houston PT PT Date: 01/07/17 09:43 Type: PT Progress Note Time In * 08:50 Time Out * 09:20 PT Treatment Time-Minutes * 30 mins Type of Therapy Provided * Individual Precautions * Fall * Aspiration Unit * Acute Inpatient Rehab Pain Start of Session * 0 Pain End of Session * 0 Pain Comment * pt reports pain in her neck after being up in the w/c for a while. Nursing states they ahve given pain meds at this time. She does not rate pain and otherwise does not c/o pain. Subjective * Pt was in good spirits and willign to participate in therapy a this time. She appears to be flat in affect however does verbalize toward end of session motivation to complete therapy. "Its not happening fast enough" Cognition * Impaired Cognition Comments * A&Ox3. Left neglect noted, able to attend with cuing. Supine to Sit * Not Tested Sit to Supine * Moderate Assist Rolling * Not Tested Bed Mobility Notes * Mod A for sit to supine getting in on the left side of the bed. pt needs assist at the left side to get it safely into bed. Sit to Stand * Minimum Assist Stand to Sit * Contact Guard Assist Bed to Chair * Not Tested Chair to Bed * Moderate Assist Toilet/Commode * Total Assist Transfer Training Notes * sit to stand with CGAx1; requires Min A on initial standing secondary to posterior lean; able to correct with VCs for anterior weight shift. Min A for sitting to control descent; Min A for bed to chair for safety without use of AD to the right; SPT to R side towards wc. Needing second for transfer to the left simply due to difficulty controlling LLE to abduction. Sit-Static * G- Sit-Dynamic * F+ Stand-Static * F Stand-Dynamic * P+ Balance Training Note * pt sitting balance assessed sitting EOB; standing assessed with use of HW. Assistive Device Used * Pablo-Walker * Gait Belt Able to Maintain Weight Bearing Status * No Gait Training Note * not tested at this time due to pt needing to use the bathroom at this time. Wheelchair Distance * 25 feet Wheelchair Mobility Level of Assist * Minimum Assist Wheelchair Mobility Comment * pt self propels manual wc with B LEs from bathroom with Max VCs for safety and attention to L side. assistance to manuver in bed Level of Assist for Stairs * Not Tested Stair Training Note * not safe at this time A. Roll Left and Right: * 88.Not Attempted B. Sit to Lying: * 03.Partial/Mod Assist C. Lying to Sitting on Side of Bed: * 88.Not Attempted D. Sit to Stand: * 03.Partial/Mod Assist E. Chair/Qyr-gr-Ajigi Transfer: * 03.Partial/Mod Assist F. Toilet Transfer: * 01.Dependent G. Car Transfer: * 88.Not Attempted H. Does the patient walk?: * 1. No, indicated I. Walk 10 Feet: * 88.Not Attempted J. Walk 50' with Two Turns: * 88.Not Attempted K. Walk 150 Feet: * 88.Not Attempted L. Walking 10' on uneven surfaces: * 88.Not Attempted M. 1 Step (curb): * 88.Not Attempted N. 4 Steps (with or without railing): * 88.Not Attempted O. 12 Steps (with or without railing): * 88.Not Attempted P. Picking up Object from the Floor (from a standing): * 88.Not Attempted Q. Does the patient use a w/c (other than just transport): * 1. Yes R. Wheel 50' with 2 Turns(seated in w/c): * 88.Not Attempted RR. What type of w/c?: * 1. Manual S. Wheel 150' (seated in w/c): * 88.Not Attempted SS. What type of w/c?: * 1. Manual Lower Extremity Exercised * Bilateral Standing Exercises * Other Other Standing Exercises * sit to stand x 5 CGA to stand Min A upon gaining standing. then notes need to use the bathroom. Therapeutic Exercises Note * VCs for each sit to stand for R hand placement for safety PT Interventions * Gait Training * Wheelchair Mobility * Therapeutic Excercise * Functional Training * Bed Mobility * Balance Activities * Safety/Precautions * HEP * Pt./Family Education * D/C Needs * Neuro Re-Education PT Progress Note * Pt was agreeable and willing to work in all therapy. she does appear more motivated this session then some previous sessions however at times seems very flat in affect. Pt was willing to complete all asked of her and is very greatful for help. Pt was left supine in bed to rest with her call claros in reach prior to ST. PT Goal Note * OOB all meals. pt would benefit from over toilet commode to complete SPT Discharge Recommendations * Home w/services Safe for discharge at this time * No Patient: Kenna Nagel : 1930 Age/Sex: 86/F Unit#: [id number] Room/Bed: M4144/01 User: St Jareth Wray SP Date: 01/07/17 12:45 Type: ST Scott Cognitive Lingusti... Exercise Education Label * Executive Function * Other Cognitive Linguistic Visual scanning exercises targeting left neglect * Level of Assistance Maximal Assist Moderate Assist * Level of Assistance Comment Verbal and visual reminders to attend to left side * Tolerance Excellent * Therapeutic Exercise Yes Pt/Family Education * Therapeutic Exercise Comment Supervising [facility] present, agrees w/ tx and outcomes. MS Morena, [facility]. Patient: Kenna Nagel : 1930 Age/Sex: 86/F Unit#: [id number] Room/Bed: [place] [address] User: St Jareth Wray Date: 01/07/17 12:41 Type: ST Scott-Dysphagia Manageme... Exercise Education Label * Range of Motion Exercise * Other Dysphagia Management Abdominal breathing, sustained ah, inspirometer, OME face/lip/tongue * Measure Neck ROM and massage, bite portion control, self-monitoring * Level of Assistance Maximal Assist Moderate Assist Multi-modality Cues * Level Of Assistance Comment Clinician models, verbal cues, visual biofeedback w/ mirror * Tolerance Excellent * Therapeutic Exercise Yes Compensatory Strategies Pt/Family Education * Therapeutic Exercise Comment Supervising [facility] present, agrees w/ tx and outcomes. MS Morena, [facility]. Allergies Coded Allergies: Sulfa Drugs (Verified Allergy, Mild, 06/10/12) RASH & N/V Sulfa Drugs Cross Reactors (Verified Allergy, Mild, 06/10/12) RASH & N/V Morphine and Related (Verified Adverse Reaction, Unknown, 01/02/17) Vital Signs Vital Signs Date Time Temp Pulse Resp B/P (MAP) Pulse Ox O2 Delivery O2 Flow Rate FiO2 01/07/17 08:42 137/65 01/07/17 08:42 67 01/07/17 06:27 97.9 18 97 Room Air Current Medications Current Medications Current Medications Acetaminophen (Tylenol Tab) 650 mg Q6HP PRN PO PAIN / FEVER Last administered on 01/07/17 08:43; Start 01/02/17 at 15:45; Stop 02/01/17 at 15:44 Apixaban (Eliquis) 5 mg BID PO Last administered on 01/07/17 08:42; Start at 21:00; Stop 01/21/17 at 23:55 Atenolol (Tenormin) 25 mg DAILY PO Last administered on 01/07/17 08:42; Start 01/03/17 at 09:00; Stop 02/02/17 at 08:59 Atorvastatin Calcium (Lipitor) 40 mg QHS PO Last administered on 01/06/17 20: 56; Start 01/03/17 at 21:00; Stop 02/02/17 at 20:59 Bisacodyl (Dulcolax Suppository) 10 mg DAILYPRN PRN [place] CONSTIPATION; Start at 12:30; Stop 02/01/17 at 12:29 Ciprofloxacin (Cipro) 250 mg BID@,18 PO Last administered on 01/07/17 06:53 ; Start 01/02/17 at 18:00; Stop 01/09/17 at 17:59 Ferrous Sulfate (Ferrous Sulfate) 325 mg DAILY PO Last administered on 08:43; Start 01/03/17 at 09:00; Stop 02/02/17 at 08:59 Home Med (Med Rec Complete!) ASDIRECTED XX ; Start 01/02/17 at 15:45; Stop at 15:45; Status DC Levothyroxine Sodium (Synthroid) 25 mcg DAILY@06 PO Last administered on 06:53; Start 01/03/17 at 06:00; Stop 02/02/17 at 05:59 Losartan Potassium (Cozaar) 100 mg DAILY PO Last administered on 01/07/17 08: 42; Start 01/03/17 at 09:00; Stop 02/02/17 at 08:59 Magnesium Chloride (Slow-Mag) 64 mg BID PO Last administered on 01/07/17 08: 43; Start 01/02/17 at 21:00; Stop 02/01/17 at 20:59 Miscellaneous (Unresolved Patient Own Med Order) SEE LABEL COMMENTS UNRESOLVED XX Last administered on 01/03/17 00:01; Start 01/03/17 at 00:01; Stop 01/03 at 10:45; Status DC Non-Formulary Medication Patient may use rubb... TIDP PRN TOP PAIN; Start at 19:00; Stop 01/03/17 at 10:52; Status DC Patient Own Medication (Patient'S Own Med) apply to neck and shoulders TIDP PRN TOP ACHES Last administered on 01/06/17 21:10; Start 01/03/17 at 11:00; Stop 02/02/17 at 10:59 Sodium Biphosphate/ Sodium Phosphate (Fleet Enema) 1 ea DAILYPRN PRN [place] CONSTIPATION; Start 01/02/17 at 12:30; Stop 02/01/17 at 12:29 THERESA OCHOA MD Jan 07, 2017 11:28
[2017-01-07 14:00] VITALS: BP 151/69
[2017-01-07 20:00] VITALS: BP 124/60
[2017-01-07] MEDS: ATORVASTATIN 20 MG TAB PO SCH (20:16)
[2017-01-07] MEDS: PRAZOSIN 1 MG CAP PO SCH (20:16)
[2017-01-08] MEDS: ACETAMINOPHEN TAB 650MG DOSE (2X325MG) PO PRN ×2 (01:13→21:43)
[2017-01-08 06:00] VITALS: BP 139/62
[2017-01-08] MEDS: LEVOTHYROXINE 25MCG TABLET (0.025MG) PO SCH (06:10)
[2017-01-08] MEDS: CIPROFLOXACIN 250 MG TAB PO SCH ×2 (06:10→17:31)
[2017-01-08] MEDS: APIXABAN 5 MG TAB (ELIQUIS) PO SCH ×2 (08:29→21:42)
[2017-01-08] MEDS: MAGNESIUM CHLORIDE 64 MG TABCR (SLO MAG) PO SCH ×2 (08:29→21:42)
[2017-01-08] MEDS: FERROUS SULFATE 325MG TAB PO SCH (08:29)
[2017-01-08] MEDS: ATENOLOL 25 MG TAB PO SCH (08:33)
[2017-01-08] MEDS: LOSARTAN 50 MG TAB PO SCH (08:33)
--- NOTE | 2017-01-08 09:54 | IPNPDOC ---
PM&R Progress Note Pulp Grinder And Blender Progress Note DATE OF SERVICE: 01/08/17 DATE OF ADMISSION: Jan 02, 2017 at 12:53 INPATIENT REHABILITATION ADMISSION DAY: #7 SUBJECTIVE: Patient is an 86-year-old white female with longstanding history of atherosclerotic cardiovascular disease including atrial fibrillation, hypertension, hyperlipidemia. She was in her usual state of health until late in the evening of 12/27/2016 when she had sudden onset of the left sided weakness and sensory deficits along with droop and slurring of speech. She was seen within a few minutes of the emergency room at [facility] and then transported by air lift to [facility] for consideration of TPA treatment. The patient was assessed there and found to be inside the therapeutic window, had treatment with TPA, which cleared the right M1 but not M2 arteries. Patient continued to have problems with her non dominant left upper and lower extremities involving both motor and sensory deficits and the left homonymous hemianopsia, dysarthria, dysphagia for which she is on a restricted diet of pureed food and honey-thick liquids. Patient seen inside her room today, then in the serna after her gaiting with PT. She note no problems except for trouble sleeping at night. ALLERGIES: See Below MEDICATIONS: Reviewed, see below. OBJECTIVE: VITAL SIGNS: Please see below. PHYSICAL EXAMINATION: GENERAL: Short overweight elderly white female with fair proximal and poor distal upper extremity function and notable ranging from yellow to brownish purple in color and mild/moderate edema of the distal left upper extremity. Patient is alert and well oriented and in mild musculoskeletal distress. HEENT: Mild left facial droop that is improving and visual field cut and mild right tongue deviation. CARDIOVASCULAR: Currently, Regular S1, S2 without S3, S4, or gallops. 2 out 4 bilateral lateral radial pulses. LUNGS: All de paz clear to auscultation. ABDOMEN: Benign, nontender no palpable masses and normal bowel sounds in all quadrants. NEUROLOGICAL: Patient is alert and oriented to person, place, time and situation. Speech with mild dysarthria. Affect is slightly anxious with a little bit flattening. Memory is fair to good. Some left neglect noted. Good minus right upper and lower extremity and fair left lower extremity motor. Fair proximal LUE to trace distally. SKIN: Left upper extremity edema with with ecchymoses ranging from yellow to brownish in color and fading. LABORATORY DATA: Reviewed. Please see below. MICROBIOLOGY: Please see below. IMAGING: No new imaging. DVT prophylaxis ordered?: Lew and TIA lazcano. ASSESSMENT AND PLAN: 1. 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 Patient appears able to participate in all 3 therapies for combined 3 hours of therapy per day. 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 We will restrict her meal to be brought to nursing and Tablespoon removed, and patient to be observed and coached on bolus sizes, rate and using techniques to clear the oral and oral pharynx before initiating any more feeding. In PT/OT patient is making some slow but steady progress. This morning, she was able to ambulate with Pablo-Walker from her room about 1/3rd the length of the serna. Patient happy with the effort and the improvement. We will continue to reinforce this. Anticipated Discharge Date is 01/23/17. 2. Anemia: H&H is 9.8 and 30.8%. 3. Atherosclerotic cardiovascular disease( atrial fibrillation, hypertension and hyperlipidemia): Currently patient is sounds to be in sinus rhythm with BP 137/65. Medicine building consultant will continue to review and work on adjusting medications as appropriate. 4. Urinary Retention: Patient is having problems with urinary retention. I have started Minipress 1 mg QHS for that with some apparent early success. We will continue to monitor. 5. Insomnia: Patient getting some sleep at night but nursing notes are not clear. I will try some melatonin tonight. TIME SPENT: Chart Review, examination and documentation require greater than 25 minutes. Allergies Coded Allergies: Sulfa Drugs (Verified Allergy, Mild, 06/10/12) RASH & N/V Sulfa Drugs Cross Reactors (Verified Allergy, Mild, 06/10/12) RASH & N/V Morphine and Related (Verified Adverse Reaction, Unknown, 01/02/17) Vital Signs Vital Signs Date Time Temp Pulse Resp B/P (MAP) Pulse Ox O2 Delivery O2 Flow Rate FiO2 01/08/17 08:33 70 132/50 01/08/17 06:00 99.0 18 98 Room Air Current Medications Current Medications Current Medications Acetaminophen (Tylenol Tab) 650 mg Q6HP PRN PO PAIN / FEVER Last administered on 01/08/17 01:13; Start 01/02/17 at 15:45; Stop 02/01/17 at 15:44 Apixaban (Eliquis) 5 mg BID PO Last administered on 01/08/17 08:29; Start at 21:00; Stop 01/21/17 at 23:55 Atenolol (Tenormin) 25 mg DAILY PO Last administered on 01/08/17 08:33; Start 01/03/17 at 09:00; Stop 02/02/17 at 08:59 Atorvastatin Calcium (Lipitor) 40 mg QHS PO Last administered on 01/07/17 20: 16; Start 01/03/17 at 21:00; Stop 02/02/17 at 20:59 Bisacodyl (Dulcolax Suppository) 10 mg DAILYPRN PRN [place] CONSTIPATION; Start at 12:30; Stop 02/01/17 at 12:29 Ciprofloxacin (Cipro) 250 mg BID@06,18 PO Last administered on 01/08/17 06:10 ; Start 01/02/17 at 18:00; Stop 01/09/17 at 17:59 Ferrous Sulfate (Ferrous Sulfate) 325 mg DAILY PO Last administered on 08:29; Start 01/03/17 at 09:00; Stop 02/02/17 at 08:59 Home Med (Med Rec Complete!) ASDIRECTED XX ; Start 01/02/17 at 15:45; Stop at 15:45; Status DC Levothyroxine Sodium (Synthroid) 25 mcg DAILY@06 PO Last administered on 06:10; Start 01/03/17 at 06:00; Stop 02/02/17 at 05:59 Losartan Potassium (Cozaar) 100 mg DAILY PO Last administered on 01/08/17 08: 33; Start 01/03/17 at 09:00; Stop 02/02/17 at 08:59 Magnesium Chloride (Slow-Mag) 64 mg BID PO Last administered on 01/08/17 08: 29; Start 01/02/17 at 21:00; Stop 02/01/17 at 20:59 Miscellaneous (Unresolved Patient Own Med Order) SEE LABEL COMMENTS UNRESOLVED XX Last administered on 01/03/17 00:01; Start 01/03/17 at 00:01; Stop 01/03 at 10:45; Status DC Non-Formulary Medication Patient may use rubb... TIDP PRN TOP PAIN; Start at 19:00; Stop 01/03/17 at 10:52; Status DC Patient Own Medication (Patient'S Own Med) apply to neck and shoulders TIDP PRN TOP ACHES Last administered on 01/06/17 21:10; Start 01/03/17 at 11:00; Stop 02/02/17 at 10:59 Prazosin HCl (Minipress) 1 mg QHS PO Last administered on 01/07/17 20:16; Start 01/07/17 at 21:00; Stop 02/06/17 at 20:59 Sodium Biphosphate/ Sodium Phosphate (Fleet Enema) 1 ea DAILYPRN PRN [place] CONSTIPATION; Start 01/02/17 at 12:30; Stop 02/01/17 at 12:29 THERESA OCHOA MD Jan 08, 2017 09:54
--- NOTE | 2017-01-08 13:42 | IPNPDOC ---
Date Seen The patient was seen on 01/08/17. 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 Pt was transferred to the care of [facility] 01/02/17. Pt is currently OOB to chair eating lunch. Denies any fevers, chills, weakness, Chest Pain, Shortness of breath, cough, palpitations, abdominal pain, N/V/D or changes in bowel or bladder habits. 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 Afib. eliquis anticoagulation. dyslipidemia HTN OA Hypothyroid H/O Mane's/Gastritis/H Pylori Fe def anemia PSHX: Tonsillectomy Appendectomy cataract surgery B/L Hip replacement hysterectomy back surgery colonoscopy/EGD 03/25 Michel. adenomatous polyp/gastritis. PE: GEN: 86yoF, appears stated age. Well-nourished, well developed. No acute distress. HEENT: Normocephalic, atraumatic. Rightward gaze noted. Left facial droop. Mild dysarthria. Moist mucous membranes. CHEST: irreg irreg, +S1, +S2. LUNGS: Clear to auscultation bilaterally. No wheezes, rales, or rhonchi. Breathing appears symmetric and easy. ABD: Round, soft, non-tender, non-distended. +Bowel sounds throughout. No rebound or guarding. No costovertebral angle tenderness. EXT: No lower extremity edema appreciated. SKIN: [place], dry, warm. No rashes. NEURO: Alert and oriented x 3. Left sided weakness. A&P: 86year oldF with a past medical history significant for embolic CVA with left hemiparesis and neglect treated with TPA [facility]. Pt was transferred to the care of [facility] 01/02/17. 1. S/P embolic CVA/Left hemiparesis/dysarthria/dysphagia. Mgmt as per Dr Noriega/JOSH. PT/OT as per Dr Young. ST as per Dr Noriega/JOSH. Bowel care as per Dr Noriega/ARU. Pain mgmt as per Dr Noriega/JOSH. 2. Dysphagia. ST. Pureed diet/Honey thick 3. Afib, chronic. Eliquis anticoagulation. Atenolol rate control. (70s-80s) 4. HLD. Cont lipitor 40 mg daily. 5. Hypothyroid. Cont supplement. 6. HTN. Cozaar with hold parameters. 7. Hypomagnesemia. Cont supplement. Mag level 2.2. 8. Fe def anemia. Cont supplement. Monitor Hgb, trend 12-19. Fe studies WNL 08/25. 9. UTI. Plan for Cipro po x 7 days. DVT prophylaxis. Pt is on Eliquis. VS, I&O, 24H, Fishbone Vital Signs/I&O Vital Signs Date Time Temp Pulse Resp B/P (MAP) Pulse Ox O2 Delivery O2 Flow Rate FiO2 01/08/17 08:33 70 132/50 01/08/17 06:00 99.0 18 98 Room Air I&O- Last 24 Hours up to 6 AM 01/09/17 06:00 Intake Total 720 ml Output Total 789 ml Balance -69 ml Marlyn Lynn Jan 08, 2017 13:42
[2017-01-08 13:47] VITALS: BP 138/66
[2017-01-08 19:52] VITALS: BP 132/68
[2017-01-08] MEDS ORDERED: MAALOX 30 ML SUSP *UDC PO ONE (20:45)
[2017-01-08] MEDS: PRAZOSIN 1 MG CAP PO SCH (21:42)
[2017-01-08] MEDS: ATORVASTATIN 20 MG TAB PO SCH (21:42)
[2017-01-08] MEDS: traZODone 50 MG TAB PO SCH (21:42)
[2017-01-09] MEDS: CIPROFLOXACIN 250 MG TAB PO SCH (05:58)
[2017-01-09] MEDS: LEVOTHYROXINE 25MCG TABLET (0.025MG) PO SCH (05:58)
[2017-01-09 06:00] VITALS: BP 127/60
[2017-01-09] MEDS: FERROUS SULFATE 325MG TAB PO SCH (08:23)
[2017-01-09] MEDS: ATENOLOL 25 MG TAB PO SCH (08:23)
[2017-01-09] MEDS: APIXABAN 5 MG TAB (ELIQUIS) PO SCH ×2 (08:24→20:55)
[2017-01-09] MEDS: LOSARTAN 50 MG TAB PO SCH (08:24)
[2017-01-09] MEDS: MAGNESIUM CHLORIDE 64 MG TABCR (SLO MAG) PO SCH ×2 (08:24→20:55)
--- NOTE | 2017-01-09 10:24 | IPNPDOC ---
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 She was in her usual state of health until late in the evening of 12/27/2016 when she had sudden onset of the left sided weakness and sensory deficits along with droop and slurring of speech. She was seen within a few minutes of the emergency room at [facility] and then transported by air lift to [facility] for consideration of TPA treatment. The patient was assessed there and found to be inside the therapeutic window, had treatment with TPA, which cleared the right M1 but not M2 arteries. Patient continued to have problems with her non dominant left upper and lower extremities involving both motor and sensory deficits and the left homonymous hemianopsia, dysarthria, dysphagia for which she is on a restricted diet of pureed food and honey-thick liquids. She note no problems except for being tired. ALLERGIES: See Below MEDICATIONS: Reviewed, see below. OBJECTIVE: VITAL SIGNS: Please see below. PHYSICAL EXAMINATION: GENERAL: Short overweight elderly white female with fair proximal and poor distal upper extremity function and notable ranging from yellow to brownish purple in color and mild/moderate edema of the distal left upper extremity. Patient is alert and well oriented and in mild musculoskeletal distress. HEENT: Mild left facial droop that is improving and visual field cut and mild right tongue deviation. CARDIOVASCULAR: Currently irregularly irregular. 2 out 4 bilateral lateral radial pulses. LUNGS: All de paz clear to auscultation. ABDOMEN: Benign, nontender no palpable masses and normal bowel sounds in all quadrants. NEUROLOGICAL: Patient is alert and oriented to person, place, time and situation. Speech with mild dysarthria. Affect is slightly anxious with a little bit flattening. Memory is fair to good. Some left neglect noted. Good minus right upper and lower extremity and fair left lower extremity motor. Fair proximal LUE to trace distally. Patient turns to right and neglects left space unless directed to it. SKIN: Left upper extremity edema with with ecchymoses ranging from yellow to brownish in color and fading. LABORATORY DATA: Reviewed. Please see below. MICROBIOLOGY: Please see below. IMAGING: No new imaging. DVT prophylaxis ordered?: Lew and TIA lazcano. ASSESSMENT AND PLAN: 1. 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 Patient appears able to participate in all 3 therapies for combined 3 hours of therapy per day. She is making progress in PHOTO INTERN with communication, some with swallowing, though she tends to be left body decreased awareness helped with the mirror at meals, but bolus unawareness is a risk as well. We will restrict her meal to be brought to nursing and Tablespoon removed, and patient to be observed and coached on bolus sizes, rate and using techniques to clear the oral and oral pharynx before initiating any more feeding. In PT/OT patient is making some slow but steady progress. This morning, she is increasing her ambulation with Pablo-Walker. Patient is happy with her effort and the improvement. We will continue to reinforce this. Anticipated Discharge Date is 01/23/17. 2. Anemia: H&H is 9.8 and 30.8% on 01/07/17. 3. Atherosclerotic cardiovascular disease( atrial fibrillation, hypertension and hyperlipidemia): Currently patient is in A-Fib. with BP 127/60 and HR 60 this morning, though in the ninety's in PT gym after a walk. Medicine sap payroll consultant will continue to review and work on adjusting medications as appropriate. 4. Urinary Retention: Patient was having problems with urinary retention. I have started Minipress 1 mg QHS for that with apparent success as patient with little to no residuals on PVR. 5. Insomnia: Patient got good sleep last night on the Trazodone, so I will continue it. TIME SPENT: Chart Review, examination and documentation require greater than 25 minutes. Allergies Coded Allergies: Sulfa Drugs (Verified Allergy, Mild, 06/10/12) RASH & N/V Sulfa Drugs Cross Reactors (Verified Allergy, Mild, 06/10/12) RASH & N/V Morphine and Related (Verified Adverse Reaction, Unknown, 01/02/17) Vital Signs Vital Signs Date Time Temp Pulse Resp B/P (MAP) Pulse Ox O2 Delivery O2 Flow Rate FiO2 01/09/17 08:23 75 127/60 01/09/17 06:00 98.4 18 98 Room Air Current Medications Current Medications Current Medications Acetaminophen (Tylenol Tab) 650 mg Q6HP PRN PO PAIN / FEVER Last administered on 01/08/17 21:43; Start 01/02/17 at 15:45; Stop 02/01/17 at 15:44 Apixaban (Eliquis) 5 mg BID PO Last administered on 01/09/17 08:24; Start at 21:00; Stop 01/21/17 at 23:55 Atenolol (Tenormin) 25 mg DAILY PO Last administered on 01/09/17 08:23; Start 01/03/17 at 09:00; Stop 02/02/17 at 08:59 Atorvastatin Calcium (Lipitor) 40 mg QHS PO Last administered on 01/08/17 21: 42; Start 01/03/17 at 21:00; Stop 02/02/17 at 20:59 Bisacodyl (Dulcolax Suppository) 10 mg DAILYPRN PRN [place] CONSTIPATION; Start at 12:30; Stop 02/01/17 at 12:29 Ciprofloxacin (Cipro) 250 mg BID@06,18 PO Last administered on 01/09/17 05:58 ; Start 01/02/17 at 18:00; Stop 01/09/17 at 17:59 Ferrous Sulfate (Ferrous Sulfate) 325 mg DAILY PO Last administered on 08:23; Start 01/03/17 at 09:00; Stop 02/02/17 at 08:59 Home Med (Med Rec Complete!) ASDIRECTED XX ; Start 01/02/17 at 15:45; Stop at 15:45; Status DC Levothyroxine Sodium (Synthroid) 25 mcg DAILY@06 PO Last administered on 05:58; Start 01/03/17 at 06:00; Stop 02/02/17 at 05:59 Losartan Potassium (Cozaar) 100 mg DAILY PO Last administered on 01/09/17 08: 24; Start 01/03/17 at 09:00; Stop 02/02/17 at 08:59 Magnesium Chloride (Slow-Mag) 64 mg BID PO Last administered on 01/09/17 08:24 ; Start 01/02/17 at 21:00; Stop 02/01/17 at 20:59 Miscellaneous (Unresolved Patient Own Med Order) SEE LABEL COMMENTS UNRESOLVED XX Last administered on 01/03/17 00:01; Start 01/03/17 at 00:01; Stop 01/03 at 10:45; Status DC Non-Formulary Medication Patient may use rubb... TIDP PRN TOP PAIN; Start at 19:00; Stop 01/03/17 at 10:52; Status DC Patient Own Medication (Patient'S Own Med) apply to neck and shoulders TIDP PRN TOP ACHES Last administered on 01/06/17 21:10; Start 01/03/17 at 11:00; Stop 02/02/17 at 10:59 Prazosin HCl (Minipress) 1 mg QHS PO Last administered on 01/08/17 21:42; Start 01/07/17 at 21:00; Stop 02/06/17 at 20:59 Sodium Biphosphate/ Sodium Phosphate (Fleet Enema) 1 ea DAILYPRN PRN [place] CONSTIPATION; Start 01/02/17 at 12:30; Stop 02/01/17 at 12:29 Trazodone HCl (Desyrel) 50 mg QHS PO Last administered on 01/08/17 21:42; Start 01/08/17 at 21:00; Stop 02/07/17 at 20:59 THERESA OCHOA MD Jan 09, 2017 10:24
[2017-01-09] MEDS: ACETAMINOPHEN TAB 650MG DOSE (2X325MG) PO PRN ×2 (11:34→22:49)
[2017-01-09 14:00] VITALS: BP 130/60
[2017-01-09] MEDS ORDERED: MAALOX 30 ML SUSP *UDC PO PRN (16:30)
[2017-01-09 20:45] VITALS: BP 143/67
[2017-01-09] MEDS: ATORVASTATIN 20 MG TAB PO SCH (20:55)
[2017-01-09] MEDS: PRAZOSIN 1 MG CAP PO SCH (20:55)
[2017-01-09] MEDS: traZODone 50 MG TAB PO SCH (20:55)
[2017-01-09] MEDS: MUSCLE RUB TOP PRN (20:56)
[2017-01-10 06:00] VITALS: BP 148/67
[2017-01-10] MEDS: LEVOTHYROXINE 25MCG TABLET (0.025MG) PO SCH (06:20)
[2017-01-10] MEDS: MAGNESIUM CHLORIDE 64 MG TABCR (SLO MAG) PO SCH ×2 (08:40→20:05)
[2017-01-10] MEDS: FERROUS SULFATE 325MG TAB PO SCH (08:41)
[2017-01-10] MEDS: ATENOLOL 25 MG TAB PO SCH (08:41)
[2017-01-10] MEDS: APIXABAN 5 MG TAB (ELIQUIS) PO SCH ×2 (08:41→20:06)
[2017-01-10] MEDS: ACETAMINOPHEN TAB 650MG DOSE (2X325MG) PO PRN ×2 (08:41→20:12)
[2017-01-10] MEDS: LOSARTAN 50 MG TAB PO SCH (08:42)
[2017-01-10] MEDS: MUSCLE RUB TOP PRN ×2 (08:42→19:50)
[2017-01-10] MEDS: PANTOPRAZOLE 40MG TAB (PROTONIX) PO SCH (11:56)
[2017-01-10 14:00] VITALS: BP 143/61
[2017-01-10 20:00] VITALS: BP 133/61
[2017-01-10] MEDS: traZODone 50 MG TAB PO SCH (20:06)
[2017-01-10] MEDS: ATORVASTATIN 20 MG TAB PO SCH (20:06)
[2017-01-10] MEDS: PRAZOSIN 1 MG CAP PO SCH (20:06)
[2017-01-11] MEDS: LEVOTHYROXINE 25MCG TABLET (0.025MG) PO SCH (05:37)
[2017-01-11 06:00] VITALS: BP 134/63
[2017-01-11 07:09] LABS: MEAN CORPUSCULAR HEMOGLOBIN 28.4 pg (27.0-33.0); MEAN CORPUSCULAR HGB CONC 31.6 g/dl (32.0-36.5); MEAN CORPUSCULAR VOLUME 89.9 fl (80.0-96.0); PLATELET COUNT, AUTOMATED 201 10^3/uL (150-450); RED CELL DISTRIBUTION WIDTH 13.8 % (11.5-14.5); WHITE BLOOD COUNT 5.7 10^3/uL (4.0-10.0)
[2017-01-11] MEDS: LOSARTAN 50 MG TAB PO SCH (08:09)
[2017-01-11] MEDS: MAGNESIUM CHLORIDE 64 MG TABCR (SLO MAG) PO SCH ×2 (08:09→20:52)
[2017-01-11] MEDS: ACETAMINOPHEN TAB 650MG DOSE (2X325MG) PO PRN ×3 (08:10→20:53)
[2017-01-11] MEDS: FERROUS SULFATE 325MG TAB PO SCH (08:10)
[2017-01-11] MEDS: APIXABAN 5 MG TAB (ELIQUIS) PO SCH ×2 (08:10→20:49)
[2017-01-11] MEDS: PANTOPRAZOLE 40MG TAB (PROTONIX) PO SCH (08:10)
[2017-01-11] MEDS: ATENOLOL 25 MG TAB PO SCH (08:10)
--- NOTE | 2017-01-11 11:25 | IPNPDOC ---
PM&R Progress Note Java Designer Progress Note DATE OF SERVICE: 01/11/17 DATE OF ADMISSION: Jan 02, 2017 at 12:53 INPATIENT REHABILITATION ADMISSION DAY: #10 SUBJECTIVE: Patient is an 86-year-old white female with longstanding history of atherosclerotic cardiovascular disease including atrial fibrillation, hypertension, hyperlipidemia. She was in her usual state of health until late in the evening of 12/27/2016 when she had sudden onset of the left sided weakness and sensory deficits along with droop and slurring of speech. She was seen within a few minutes of the emergency room at [facility] and then transported by air lift to [facility] for consideration of TPA treatment. The patient was assessed there and found to be inside the therapeutic window, had treatment with TPA, which cleared the right M1 but not M2 arteries. Patient continued to have problems with her non dominant left upper and lower extremities involving both motor and sensory deficits and the left homonymous hemianopsia, dysarthria, dysphagia for which she is on a restricted diet of pureed food and honey-thick liquids. She note no problems except for being tired. ALLERGIES: See Below MEDICATIONS: Reviewed, see below. OBJECTIVE: VITAL SIGNS: Please see below. PHYSICAL EXAMINATION: GENERAL: Short overweight elderly white female with fair + proximal and poor + distal Left upper extremity function. Patient is alert and well oriented and in mild musculoskeletal distress. HEENT: Mild left facial droop that is improving and visual field cut and mild right tongue deviation. CARDIOVASCULAR: Currently irregularly irregular. 2 out 4 bilateral lateral radial pulses. LUNGS: All de paz clear to auscultation. ABDOMEN: Benign, nontender no palpable masses and normal bowel sounds in all quadrants. NEUROLOGICAL: Patient is alert and oriented to person, place, time and situation. Speech with mild dysarthria. Affect is slightly anxious with a little bit flattening. Memory is fair to good. Some left neglect noted. Good minus right upper and lower extremity and fair left lower extremity motor. Fair proximal LUE to trace distally. Patient turns to right and neglects left space unless directed to it. SKIN: Grossly intact. LABORATORY DATA: Reviewed. Please see below. MICROBIOLOGY: Please see below. IMAGING: No new imaging. DVT prophylaxis ordered?: Lew and TIA lazcano. ASSESSMENT AND PLAN: 1. 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 Patient appears able to participate in all 3 therapies for combined 3 hours of therapy per day. She is making progress in INTERSTATE PLANNER with communication, some with swallowing, though she tends to be left body decreased awareness helped with the mirror at meals, but bolus unawareness is a risk as well. In PT/OT patient is making some slow but steady progress. Patient is happy with her effort and the improvement. We will continue to reinforce this. 2. Anemia: H&H is 9.8 and 30.8% on 01/07/17. 3. Atherosclerotic cardiovascular disease( atrial fibrillation, hypertension and hyperlipidemia): Currently patient is in A-Fib. with BP 127/60 and HR 60 this morning, though in the ninety's in PT gym after a walk. Medicine food consultant will continue to review and work on adjusting medications as appropriate. 4. Urinary Retention: Patient was having problems with urinary retention. I have started Minipress 1 mg QHS for that with apparent success as patient with little to no residuals on PVR. REHAB. TEAM ROUNDS: Patient's main problem is with left body awareness and spacial awareness and coordinating left body into ADL's and mobility limiting her rate of progress. She gets some benefit with mirrors, but needs more sensory integration to allow better progress. Patient also has changed to Full Code today. We will try to get family in to assist patient during training to be ready for her to return home. Anticipated Discharge Date is still 01/23/17. TIME SPENT: Chart Review, examination and documentation require greater than 25 minutes. Patient: Kenna Nagel : 1930 Age/Sex: 86/F Unit#: [id number] Room/Bed: M4144/01 User: CAMPBELL Wood Date: 01/11/17 10:01 Type: OT Progress Time In * 07:15 Time Out * 08:24 OT Treatment Time-Minutes * 69 mins Precautions * Fall * Aspiration Unit * Acute Inpatient Rehab Pain Start of Session * 10 Pain: During Session * 10 Pain End of Session * 10 Pain Comment * pt reports 10/10 pain in back of head and neck. nursing aware and addresing. Subjective * pt agreeable to ot session, denies other c/o. Cognition * Impaired Cognition Comments * pt does demonstrate improved task initiation this session during adl routine. fewer cues to attend to task Supine to Sit * Minimum Assist Bed Mobility Notes * min assist and increased time for supine to sit t/f Sit to Stand * Contact Guard Assist Stand to Sit * Contact Guard Assist Functional Transfer Notes: * sit to/from stand x 3 trials at EOB; CGA up to min assist as pt fatigues, cues for hand placement and to control descent to bed. bed to w/c t/f with Bathing * Moderate Assist Dressing-Lower Body * Maximum Assist ADL Training Note * sponge bathing completed with min assist for buttocks/balance in standing. pt is able to use LH sponge but carryover from previous sessions appears limited. pt completes manny area while seated. UB dressing with max assist; pt lifts (lt) UE to move through bra strap and sleeve, however, does not utilize hand over hand method despite cues. pt is able to lace (rt) UE into bra strap and LS shirt. pt requires assist for fastening bra, pulling (lt) sleeve to shoulder and pulling shirt over head. grooming with min assist; pt is able to apply adhesive to dentures with assist for opening tube, cues for technique and cues to correctly orient dentures to mouth. LB dressing with max assist; pt is able to thread (rt) LE into attends and pants with assist for (lt) despite trialing dressing stick. pt is able to pull up (rt) side of each in standing with min assist for balance, assist for pulling up/down (lt). B. Oral Hygiene (includes gums in edentulous pts): * 03.Partial/Mod Assist E. Shower/Bathe Self (not transfers, can be sponge bath): * 03.Partial/Mod Assist F. Upper Body Dressing (includes bra, not hospital gown): * 02.Substantial/Max Assist G. Lower Body Dressing (includes briefs and knee braces): * 02.Substantial/Max Assist H. Putting on/taking off footwear (includes TEDS and AFO): * 01.Dependent Putting on/taking off footwear Comments: * pt is dependent at her baseline; per pt, daughter completed prior to admit Sit-Static * G- Sit-Dynamic * G- Stand-Static * F+ Stand-Dynamic * F Balance Training Note * pt requires up to moderate assist for dynamic standing balance when removing (rt) hand to engage in LB adl. supervision with cues to correct (lt) lateral lean during dynamic sitting. OT Intervention Note * pt also engages in weight bearing through all joints (lt) UE x 4 reps each (5 second hold), arom wirst, digits and shoulder shrugs, a/arom elbow flexion/ext. and forearm supination/pronation. pt does demonstrate improved task initiation as compared to previous session with this casualty underwriter. would recommend nursing/aide begin completing bathing with pt prior to ot session in order for increased focus on regaining functional dynamic standing balance and functional movement in (lt) UE. pt left in w/c with call light and bed alarm in place, (lt) arm positioned for comfort at end of session Safe for discharge at this time * No Patient: Kenna Nagel : 1930 Age/Sex: 86/F Unit#: [id number] Room/Bed: M4144/01 User: Shawanda Celaya PT [facility] PT Date: 01/11/17 12:33 Type: PT Progress Note Time In * 09:00 Time Out * 10:00 PT Treatment Time-Minutes * 60 mins Type of Therapy Provided * Individual Precautions * Fall * Aspiration Unit * Acute Inpatient Rehab Pain Comment * Pt states was given pain meds for neck pain and it has improved. Did not rate Subjective * Pt willing to participate. States that son works seasonally and is home with her for the winter. Also, has neice that will help as caregiver upon return home. 2 steps into house. moving bed to first floor. Cognition * Impaired Supine to Sit * Not Tested Sit to Supine * Not Tested Rolling * Not Tested Sit to Stand * Contact Guard Assist Stand to Sit * Contact Guard Assist Bed to Chair * Minimum Assist Chair to Bed * Minimum Assist Toilet/Commode * Moderate Assist Transfer Training Notes * needed greater assist with commode holley, possibly due to urgency to get to commode. Sit-Static * G- Sit-Dynamic * G- Stand-Static * F+ Stand-Dynamic * F Balance Training Note * dec base of support due to left LE tone often interfers with standing balance. . Ambulation Distance * 40 Feet Ambulation Level of Assist * Moderate Assist Assistive Device Used * Pablo-Walker * Gait Belt Able to Maintain Weight Bearing Status * No Gait Training Note * Verbal cues to inc left step length periodically. Narrow base of support generally. Has some difficulty controlling placement of left foot. Drifts right during amb. Wheelchair Distance * 120 feet Wheelchair Mobility Level of Assist * Moderate Assist Wheelchair Mobility Comment * Attempted using right UE but inc difficulty avoiding obstackles. Freq needing assist to get away from wall. Number of Stairs Completed * 2 Stairs Railing * Yes Railing Side * Right & Left Level of Assist for Stairs * Moderate Assist Able to Maintain Weight Bearing Status on Stairs * Yes Stair Training Note * asc/desc 4" step x 2. Verbal cues for sequence still required following initial verbal cues with instruction. A. Roll Left and Right: * 88.Not Attempted Roll Left and Right Comments: * roll to L B. Sit to Lying: * 88.Not Attempted C. Lying to Sitting on Side of Bed: * 88.Not Attempted D. Sit to Stand: * 03.Partial/Mod Assist E. Chair/Ody-zd-Axhcc Transfer: * 03.Partial/Mod Assist F. Toilet Transfer: * 03.Partial/Mod Assist G. Car Transfer: * 88.Not Attempted H. Does the patient walk?: * 2. Yes I. Walk 10 Feet: * 03.Partial/Mod Assist Walk 10 Feet Comments: * See gait note J. Walk 50' with Two Turns: * 88.Not Attempted K. Walk 150 Feet: * 88.Not Attempted L. Walking 10' on uneven surfaces: * 88.Not Attempted M. 1 Step (curb): * 88.Not Attempted N. 4 Steps (with or without railing): * 88.Not Attempted O. 12 Steps (with or without railing): * 88.Not Attempted P. Picking up Object from the Floor (from a standing): * 88.Not Attempted Q. Does the patient use a w/c (other than just transport): * 1. Yes R. Wheel 50' with 2 Turns(seated in w/c): * 88.Not Attempted RR. What type of w/c?: * 1. Manual Wheel 50' with 2 Turns Comments: * VCs for navigation S. Wheel 150' (seated in w/c): * 88.Not Attempted SS. What type of w/c?: * 1. Manual Lower Extremity Exercised * Bilateral Supine Exercises * Ankle Pumps * Quad Sets * Heel Slides * Hip Abductions * Short Arc Quads * Straight Leg Raises * Hip Adduction Sitting Exercises * Long Arc Quads * Marching * Hip Abduction * Toe Raises * Heel Raises * Other Other Sitting Exercises * with verbal and visual cues shoulder shrugs Sit-ups with ball, side leans left into ball Number of Reps Sitting * 15-20 Reps Standing Exercises * Squats Other Standing Exercises * sit to stand x 15 total Number of Reps Standing * 10-15 Reps Therapeutic Exercises Note * lacks full range with left side. Fatigues easily PT Interventions * Gait Training * Wheelchair Mobility * Therapeutic Excercise * Functional Training * Bed Mobility * Balance Activities * Safety/Precautions * HEP * Pt./Family Education * D/C Needs * Neuro Re-Education PT Progress Note * Improved ambulation distance today. Still req support to maintain balance and occ cues for sequence and symmetry with step length. Left LE drags behind with fatigue. PT Goal Note * OOB all meals. pt would benefit from over toilet commode to complete SPT Discharge Recommendations * Home w/services Patient: Kenna Nagel : 1930 Age/Sex: 86/F Unit#: [id number] Room/Bed: M4144/01 User: St Jareth Wray SP Date: 01/10/17 14:58 Type: ST Scott Cognitive Lingkaris... Exercise Education Label * Executive Function * Other Cognitive Linguistic Visual scanning targeting left neglect * Level of Assistance Maximal Assist Moderate Assist Multi-modality Cues * Level of Assistance Comment Verbal and visual cues to attend to left side * Tolerance Excellent * Therapeutic Exercise Yes Pt/Family Education * Therapeutic Exercise Comment Supervising INTERSTATE PLANNER present, agrees w/ tx and outcomes. MS Morena, [facility]INTERSTATE PLANNER. Patient: Kenna Nagel : 1930 Age/Sex: 86/F Unit#: [id number] Room/Bed: [place] [address] User: St Jareth Wray Date: 01/10/17 14:59 Type: ST Scott-Dysphagia Manageme... Exercise Education Label * Range of Motion Exercise * Other Dysphagia Management Breath support, vocal fold adduction, compensatory strategies during meal * Measure Stretching & breathing w/ min verbal cue. Max verbal cue use comp strategie * Level of Assistance Maximal Assist Moderate Assist Inconsistently * Level Of Assistance Comment Audible swallow, burp, cough during meal. Educated on risk of asp pna. * Tolerance Good * Therapeutic Exercise Yes Compensatory Strategies Pt/Family Education * Therapeutic Exercise Comment Allergies Coded Allergies: Sulfa Drugs (Verified Allergy, Mild, 06/10/12) RASH & N/V Sulfa Drugs Cross Reactors (Verified Allergy, Mild, 06/10/12) RASH & N/V Morphine and Related (Verified Adverse Reaction, Unknown, 01/02/17) Vital Signs Vital Signs Date Time Temp Pulse Resp B/P (MAP) Pulse Ox O2 Delivery O2 Flow Rate FiO2 01/11/17 08:09 134/63 01/11/17 06:00 97.6 66 18 100 Room Air Laboratory Data CBC/BMP Laboratory Tests 01/11/17 06:49 Red Blood Count 3.27 L, Mean Corpuscular Volume 89.9, Mean Corpuscular Hemoglobin 28.4, Mean Corpuscular Hemoglobin Concent 31.6 L, Red Cell Distribution Width 13.8 Labs 24H Laboratory Tests 2 01/11/17 06:49: Nucleated Red Blood Cells % (auto) 0.0 Current Medications Current Medications Current Medications Acetaminophen (Tylenol Tab) 650 mg Q6HP PRN PO PAIN / FEVER Last administered on 01/11/17 08:10; Start 01/02/17 at 15:45; Stop 02/01/17 at 15:44 Al Hydrox/Mg Hydrox/Simethicone (Mylanta) 20 ml BIDP PRN PO INDIGESTION Last administered on 01/09/17 17:03; Start 01/09/17 at 16:30; Stop 02/08/17 at 16:29 Apixaban (Eliquis) 5 mg BID PO Last administered on 01/11/17 08:10; Start at 21:00; Stop 01/21/17 at 23:55 Atenolol (Tenormin) 25 mg DAILY PO Last administered on 01/11/17 08:10; Start 01/03/17 at 09:00; Stop 02/02/17 at 08:59 Atorvastatin Calcium (Lipitor) 40 mg QHS PO Last administered on 01/10/17 20: 06; Start 01/03/17 at 21:00; Stop 02/02/17 at 20:59 Bisacodyl (Dulcolax Suppository) 10 mg DAILYPRN PRN OK CONSTIPATION; Start at 12:30; Stop 02/01/17 at 12:29 Ciprofloxacin (Cipro) 250 mg BID@06,18 PO Last administered on 01/09/17 05:58 ; Start 01/02/17 at 18:00; Stop 01/09/17 at 17:59; Status DC Ferrous Sulfate (Ferrous Sulfate) 325 mg DAILY PO Last administered on 08:10; Start 01/03/17 at 09:00; Stop 02/02/17 at 08:59 Home Med (Med Rec Complete!) ASDIRECTED XX ; Start 01/02/17 at 15:45; Stop at 15:45; Status DC Levothyroxine Sodium (Synthroid) 25 mcg DAILY@06 PO Last administered on 05:37; Start 01/03/17 at 06:00; Stop 02/02/17 at 05:59 Losartan Potassium (Cozaar) 100 mg DAILY PO Last administered on 01/11/17 08: 09; Start 01/03/17 at 09:00; Stop 02/02/17 at 08:59 Magnesium Chloride (Slow-Mag) 64 mg BID PO Last administered on 01/11/17 08:09 ; Start 01/02/17 at 21:00; Stop 02/01/17 at 20:59 Miscellaneous (Unresolved Patient Own Med Order) SEE LABEL COMMENTS UNRESOLVED XX Last administered on 01/03/17 00:01; Start 01/03/17 at 00:01; Stop 01/03 at 10:45; Status DC Non-Formulary Medication Patient may use rubb... TIDP PRN TOP PAIN; Start at 19:00; Stop 01/03/17 at 10:52; Status DC Pantoprazole Sodium (Protonix) 40 mg DAILY PO Last administered on 01/11/17 08 :10; Start 01/10/17 at 09:00; Stop 02/09/17 at 08:59 Patient Own Medication (Patient'S Own Med) apply to neck and shoulders TIDP PRN TOP ACHES Last administered on 01/10/17 19:50; Start 01/03/17 at 11:00; Stop 02/02/17 at 10:59 Prazosin HCl (Minipress) 1 mg QHS PO Last administered on 01/10/17 20:06; Start 01/07/17 at 21:00; Stop 02/06/17 at 20:59 Sodium Biphosphate/ Sodium Phosphate (Fleet Enema) 1 ea DAILYPRN PRN OK CONSTIPATION; Start 01/02/17 at 12:30; Stop 02/01/17 at 12:29 Trazodone HCl (Desyrel) 50 mg QHS PO Last administered on 01/10/17 20:06; Start 01/08/17 at 21:00; Stop 02/07/17 at 20:59 THERESA OCHOA MD Jan 11, 2017 11:25
--- NOTE | 2017-01-11 11:38 | IPNPDOC ---
Date Seen The patient was seen on 01/11/17. 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 Pt was transferred to the care of JOSH Leon [facility] 01/02/17. Pt is currently in bed and states she is feeling better overall. States she had a FERRIS this AM, but better now following Tylenol. Dtr inquiring re f/u CT head 1 week recommended as per D/C Instructions . Was recommended for f/u, Pt on Eliquis. Denies any fevers, chills, Chest Pain, Shortness of breath, cough, palpitations , abdominal pain, N/V/D or changes in bowel or bladder habits. 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 Afib. eliquis anticoagulation. dyslipidemia HTN OA Hypothyroid H/O Mane's/Gastritis/H Pylori Fe def anemia PSHX: Tonsillectomy Appendectomy cataract surgery B/L Hip replacement hysterectomy back surgery colonoscopy/EGD 03/25 Michel. adenomatous polyp/gastritis. PE: GEN: 86yoF, appears stated age. Well-nourished, well developed. No acute distress. HEENT: Normocephalic, atraumatic. Rightward gaze persists. Left facial droop. Mild dysarthria. Moist mucous membranes. CHEST: irreg irreg, +S1, +S2. LUNGS: Clear to auscultation bilaterally. No wheezes, rales, or rhonchi. Breathing appears symmetric and easy. ABD: Round, soft, non-tender, non-distended. +Bowel sounds throughout. No rebound or guarding. No costovertebral angle tenderness. EXT: No lower extremity edema appreciated. SKIN: Balm, dry, warm. No rashes. NEURO: Alert and oriented x 3. Left sided weakness. A&P: 86year oldF with a past medical history significant for embolic CVA with left hemiparesis and neglect treated with TPA [facility]. Pt was transferred to the care of JOSH Leon [facility] 01/02/17. 1. S/P embolic CVA/Left hemiparesis/dysarthria/dysphagia. Mgmt as per Dr Noriega/JOSH. PT/OT as per Dr Noriega/JOSH. ST as per Dr Noriega/JOSH. Bowel care as per Dr Noriega/JOSH. Pain mgmt as per Dr Noriega/JOSH. Outpt F/U with neurology. F/U CT head was recommended 1 week as per D/C instructions, ordered today. Pending. 2. Dysphagia. ST. Pureed diet/Honey thick 3. Afib, chronic. Eliquis anticoagulation. Atenolol rate control. (60s-70s) 4. HLD. Cont lipitor 40 mg daily. 5. Hypothyroid. Cont supplement. 6. HTN. Cozaar with hold parameters. 7. Hypomagnesemia. Cont supplement. Mag level 2.2. 8. Fe def anemia. Cont supplement. Monitor Hgb, trend 9-10. Fe studies WNL 08/25. 9. UTI. Completed Cipro po x 7 days. DVT prophylaxis. Pt is on Eliquis. VS, I&O, 24H, [facility] Vital Signs/I&O Vital Signs Date Time Temp Pulse Resp B/P (MAP) Pulse Ox O2 Delivery O2 Flow Rate FiO2 01/11/17 08:09 134/63 01/11/17 06:00 97.6 66 18 100 Room Air I&O- Last 24 Hours up to 6 AM 01/12/17 06:00 Output Total 150 ml Balance -150 ml Laboratory Data 24H LABS Laboratory Tests 2 01/11/17 06:49: Nucleated Red Blood Cells % (auto) 0.0 CBC/BMP Laboratory Tests 01/11/17 06:49 Red Blood Count 3.27 L, Mean Corpuscular Volume 89.9, Mean Corpuscular Hemoglobin 28.4, Mean Corpuscular Hemoglobin Concent 31.6 L, Red Cell Distribution Width 13.8 Marlyn Lynn Jan 11, 2017 11:38
--- NOTE | 2017-01-11 13:03 | REP ---
CT HEAD WITHOUT CONTRAST: Infarction. Areas of decreased attentuation are present in the periventricular and subcortical white matter. This represents small vessel ischemic disease. There is no intraparenchymal hemorrhage, acute infarct, mass, or midline shift. The ventricular system and cortical sulci are dilated consistent with minimal volume loss. There is no extracerebral collection. The visualized sinuses are clear. IMPRESSION: 1. Small vessel ischemic disease. 2. Minimal volume loss. Unreviewed
[2017-01-11 14:00] VITALS: BP 146/65
[2017-01-11 20:30] VITALS: BP 168/72
[2017-01-11] MEDS: traZODone 50 MG TAB PO SCH (20:49)
[2017-01-11] MEDS: PRAZOSIN 1 MG CAP PO SCH (20:52)
[2017-01-11] MEDS: ATORVASTATIN 20 MG TAB PO SCH (20:53)
[2017-01-11] MEDS: MUSCLE RUB TOP PRN (21:01)
[2017-01-12] MEDS: ACETAMINOPHEN TAB 650MG DOSE (2X325MG) PO PRN ×3 (04:05→18:14)
[2017-01-12] MEDS: LEVOTHYROXINE 25MCG TABLET (0.025MG) PO SCH (05:43)
[2017-01-12 05:44] VITALS: BP 142/64
[2017-01-12] MEDS: PANTOPRAZOLE 40MG TAB (PROTONIX) PO SCH (08:33)
[2017-01-12] MEDS: APIXABAN 5 MG TAB (ELIQUIS) PO SCH ×2 (08:34→21:17)
[2017-01-12] MEDS: LOSARTAN 50 MG TAB PO SCH (08:34)
[2017-01-12] MEDS: FERROUS SULFATE 325MG TAB PO SCH (08:34)
[2017-01-12] MEDS: ATENOLOL 25 MG TAB PO SCH (08:34)
[2017-01-12] MEDS: MAGNESIUM CHLORIDE 64 MG TABCR (SLO MAG) PO SCH ×2 (08:35→21:20)
[2017-01-12 14:00] VITALS: BP 140/64
[2017-01-12 20:00] VITALS: BP 140/65
[2017-01-12] MEDS: ATORVASTATIN 20 MG TAB PO SCH (21:17)
[2017-01-12] MEDS: PRAZOSIN 1 MG CAP PO SCH (21:19)
[2017-01-12] MEDS: traZODone 50 MG TAB PO SCH (21:19)
[2017-01-12] MEDS: MUSCLE RUB TOP PRN (21:22)
[2017-01-13] MEDS: ACETAMINOPHEN TAB 650MG DOSE (2X325MG) PO PRN ×4 (01:21→20:19)
[2017-01-13] MEDS: LEVOTHYROXINE 25MCG TABLET (0.025MG) PO SCH (05:40)
[2017-01-13 06:00] VITALS: BP 142/60
[2017-01-13 06:27] LABS: MEAN CORPUSCULAR HEMOGLOBIN 28.6 pg (27.0-33.0); MEAN CORPUSCULAR HGB CONC 31.9 g/dl (32.0-36.5); MEAN CORPUSCULAR VOLUME 89.5 fl (80.0-96.0); PLATELET COUNT, AUTOMATED 212 10^3/uL (150-450); RED CELL DISTRIBUTION WIDTH 13.7 % (11.5-14.5); WHITE BLOOD COUNT 5.8 10^3/uL (4.0-10.0)
[2017-01-13 07:05] LABS: ALKALINE PHOSPHATASE 83 U/L (45-117); ALT/SGPT 59 U/L (12-78); ANION GAP 7 MEQ/L (8-16); AST/SGOT 40 U/L (7-37); BILIRUBIN,TOTAL 0.5 MG/DL (0.2-1.0); BLOOD UREA NITROGEN 20 MG/DL (7-18); CALCIUM LEVEL 8.6 MG/DL (8.8-10.2); CARBON DIOXIDE LEVEL 28 MEQ/L (21-32); CHLORIDE LEVEL 107 MEQ/L (98-107); CREATININE FOR GFR 0.61 MG/DL (0.55-1.02); GLOMERULAR FILTRATION RATE > 60.0 (>32); GLUCOSE, FASTING 83 MG/DL (83-110); POTASSIUM SERUM 4.9 MEQ/L (3.5-5.1); SODIUM LEVEL 142 MEQ/L (136-145); TOTAL PROTEIN 5.3 GM/DL (6.4-8.2)
[2017-01-13] MEDS: PANTOPRAZOLE 40MG TAB (PROTONIX) PO SCH (09:18)
[2017-01-13] MEDS: FERROUS SULFATE 325MG TAB PO SCH (09:18)
[2017-01-13] MEDS: ATENOLOL 25 MG TAB PO SCH (09:19)
[2017-01-13] MEDS: APIXABAN 5 MG TAB (ELIQUIS) PO SCH ×2 (09:19→20:20)
[2017-01-13] MEDS: LOSARTAN 50 MG TAB PO SCH (09:19)
[2017-01-13] MEDS: MAGNESIUM CHLORIDE 64 MG TABCR (SLO MAG) PO SCH ×2 (09:20→20:19)
[2017-01-13 14:00] VITALS: BP 135/61
[2017-01-13 20:00] VITALS: BP 125/59
[2017-01-13] MEDS: MUSCLE RUB TOP PRN (20:19)
[2017-01-13] MEDS: traZODone 50 MG TAB PO SCH (20:20)
[2017-01-13] MEDS: PRAZOSIN 1 MG CAP PO SCH (20:20)
[2017-01-13] MEDS: ATORVASTATIN 20 MG TAB PO SCH (20:20)
[2017-01-14] MEDS: ACETAMINOPHEN TAB 650MG DOSE (2X325MG) PO PRN ×3 (03:59→21:32)
[2017-01-14] MEDS: LEVOTHYROXINE 25MCG TABLET (0.025MG) PO SCH (05:27)
[2017-01-14 06:00] VITALS: BP 116/56
[2017-01-14] MEDS: APIXABAN 5 MG TAB (ELIQUIS) PO SCH ×2 (09:58→21:31)
[2017-01-14] MEDS: FERROUS SULFATE 325MG TAB PO SCH (09:58)
[2017-01-14] MEDS: MAGNESIUM CHLORIDE 64 MG TABCR (SLO MAG) PO SCH ×2 (09:58→21:31)
[2017-01-14] MEDS: LOSARTAN 50 MG TAB PO SCH (09:59)
[2017-01-14] MEDS: PANTOPRAZOLE 40MG TAB (PROTONIX) PO SCH (09:59)
[2017-01-14] MEDS: ATENOLOL 25 MG TAB PO SCH (09:59)
--- NOTE | 2017-01-14 12:11 | IPNPDOC ---
Date Seen The patient was seen on 01/14/17. 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 Pt was transferred to the care of JOSH Leon [facility] 01/02/17. Pt is currently in OOB and states she is feeling better overall. Denies any fevers, chills, Chest Pain, Shortness of breath, cough, palpitations , abdominal pain, N/V/D or changes in bowel or bladder habits. 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 Afib. eliquis anticoagulation. dyslipidemia HTN OA Hypothyroid H/O Mane's/Gastritis/H Pylori Fe def anemia PSHX: Tonsillectomy Appendectomy cataract surgery B/L Hip replacement hysterectomy back surgery colonoscopy/EGD 03/25 Michel. adenomatous polyp/gastritis. PE: GEN: 86yoF, appears stated age. Well-nourished, well developed. No acute distress. HEENT: Normocephalic, atraumatic. Rightward gaze persists. Left facial droop. Mild dysarthria. Moist mucous membranes. CHEST: irreg irreg, +S1, +S2. LUNGS: Clear to auscultation bilaterally. No wheezes, rales, or rhonchi. Breathing appears symmetric and easy. ABD: Round, soft, non-tender, non-distended. +Bowel sounds throughout. No rebound or guarding. No costovertebral angle tenderness. EXT: No lower extremity edema appreciated. SKIN: [place], dry, warm. No rashes. NEURO: Alert and oriented x 3. Left sided weakness. 01/11/17 CT Head 1. Small vessel ischemic disease. 2. Minimal volume loss. A&P: 86year oldF with a past medical history significant for embolic CVA with left hemiparesis and neglect treated with TPA [facility]. Pt was transferred to the care of JOSH Leon [facility] 01/02/17. 1. S/P embolic CVA/Left hemiparesis/dysarthria/dysphagia. Mgmt as per Dr Noriega/JOSH. PT/OT as per Dr Noriega/ARU. ST as per Dr Noriega/JOSH. Bowel care as per Dr Noriega/JOSH. Pain mgmt as per Dr Noriega/JOSH. Outpt F/U with neurology. 2. Dysphagia. ST. Pureed diet/Honey thick 3. Afib, chronic. Eliquis anticoagulation. Atenolol rate control. (60s-70s) 4. HLD. Cont lipitor 40 mg daily. 5. Hypothyroid. Cont supplement. 6. HTN. Cozaar with hold parameters. 7. Hypomagnesemia. Cont supplement. Mag level 2.2. Recheck Mag level in AM. 8. Fe def anemia. Cont supplement. Monitor Hgb, trend 9-10. Fe studies WNL 08/25. 9. UTI. Completed Cipro po x 7 days. DVT prophylaxis. Pt is on Eliquis. VS, I&O, 24H, Fishbone Vital Signs/I&O Vital Signs Date Time Temp Pulse Resp B/P (MAP) Pulse Ox O2 Delivery O2 Flow Rate FiO2 01/14/17 09:59 120/60 01/14/17 09:59 70 01/14/17 06:00 99.0 18 95 Room Air Marlyn Lynn Jan 14, 2017 12:11
[2017-01-14 14:00] VITALS: BP 131/71
[2017-01-14] MEDS: NYSTATIN 500,000 U/5 ML SUSP UDC SSP SCH ×2 (15:27→21:31)
[2017-01-14 21:00] VITALS: BP 131/62
[2017-01-14] MEDS: ATORVASTATIN 20 MG TAB PO SCH (21:31)
[2017-01-14] MEDS: PRAZOSIN 1 MG CAP PO SCH (21:31)
[2017-01-14] MEDS: traZODone 50 MG TAB PO SCH (21:31)
[2017-01-14] MEDS: MUSCLE RUB TOP PRN (21:32)
[2017-01-15] MEDS: LEVOTHYROXINE 25MCG TABLET (0.025MG) PO SCH (05:57)
[2017-01-15 06:00] VITALS: BP 152/64
[2017-01-15 07:10] LABS: ALBUMIN/GLOBULIN RATIO 0.97 (1.00-1.93); ALKALINE PHOSPHATASE 81 U/L (45-117); ALT/SGPT 62 U/L (12-78); ANION GAP 4 MEQ/L (8-16); AST/SGOT 30 U/L (7-37); BILIRUBIN,TOTAL 0.5 MG/DL (0.2-1.0); BLOOD UREA NITROGEN 16 MG/DL (7-18); CALCIUM LEVEL 8.7 MG/DL (8.8-10.2); CARBON DIOXIDE LEVEL 29 MEQ/L (21-32); CHLORIDE LEVEL 107 MEQ/L (98-107); CREATININE FOR GFR 0.57 MG/DL (0.55-1.02); GLOMERULAR FILTRATION RATE > 60.0 (>32); GLUCOSE, FASTING 98 MG/DL (83-110); MAGNESIUM LEVEL 1.8 MG/DL (1.8-2.4); POTASSIUM SERUM 4.6 MEQ/L (3.5-5.1); SODIUM LEVEL 140 MEQ/L (136-145); TOTAL PROTEIN 6.1 GM/DL (6.4-8.2)
[2017-01-15] MEDS: ACETAMINOPHEN TAB 650MG DOSE (2X325MG) PO PRN ×3 (07:29→21:00)
[2017-01-15] MEDS: MAGNESIUM CHLORIDE 64 MG TABCR (SLO MAG) PO SCH ×2 (08:47→22:28)
[2017-01-15] MEDS: FERROUS SULFATE 325MG TAB PO SCH (08:48)
[2017-01-15] MEDS: NYSTATIN 500,000 U/5 ML SUSP UDC SSP SCH ×3 (08:48→22:28)
[2017-01-15] MEDS: PANTOPRAZOLE 40MG TAB (PROTONIX) PO SCH (08:48)
[2017-01-15] MEDS: ATENOLOL 25 MG TAB PO SCH (08:48)
[2017-01-15] MEDS: APIXABAN 5 MG TAB (ELIQUIS) PO SCH ×2 (08:48→22:31)
[2017-01-15] MEDS: LOSARTAN 50 MG TAB PO SCH (08:49)
[2017-01-15 14:00] VITALS: BP 150/62
--- NOTE | 2017-01-15 15:10 | IPNPDOC ---
PM&R Progress Note Scouts Progress Note DATE OF SERVICE: 01/15/17 DATE OF ADMISSION: Jan 02, 2017 at 12:53 INPATIENT REHABILITATION ADMISSION DAY: #14 SUBJECTIVE: Patient is an 86-year-old white female with longstanding history of atherosclerotic cardiovascular disease including atrial fibrillation, hypertension, hyperlipidemia. She was in her usual state of health until late in the evening of 12/27/2016 when she had sudden onset of the left sided weakness and sensory deficits along with droop and slurring of speech. She was seen within a few minutes of the emergency room at [facility] and then transported by air lift to [facility] for consideration of TPA treatment. The patient was assessed there and found to be inside the therapeutic window, had treatment with TPA, which cleared the right M1 but not M2 arteries. Patient continued to have problems with her non dominant left upper and lower extremities involving both motor and sensory deficits and the left homonymous hemianopsia, dysarthria, dysphagia for which she is on a restricted diet of pureed food and honey-thick liquids. Patient report parietal midline headache increased with activity and time sitting up and decreased with laying down and resting. ALLERGIES: See Below MEDICATIONS: Reviewed, see below. OBJECTIVE: VITAL SIGNS: Please see below. PHYSICAL EXAMINATION: GENERAL: Short overweight elderly white female with fair + proximal and poor + distal Left upper extremity function. Patient is alert and well oriented and in mild musculoskeletal distress. HEENT: Mild left facial droop that is improving and visual field cut and mild right tongue deviation. CARDIOVASCULAR: Currently irregularly irregular. 2/4 bilateral lateral radial pulses. LUNGS: All de paz clear to auscultation. ABDOMEN: Benign, nontender no palpable masses and normal bowel sounds in all quadrants. NEUROLOGICAL: Patient is alert and oriented to person, place, time and situation. Speech with mild dysarthria. Affect is slightly anxious with a little bit flattening. Memory is fair to good. Some left neglect noted. Good minus right upper and lower extremity and fair left lower extremity motor. Fair proximal LUE to trace distally. Patient turns to right and neglects left space unless directed to it. SKIN: Grossly intact. LABORATORY DATA: Reviewed. Please see below. MICROBIOLOGY: Please see below. IMAGING: No new imaging. DVT prophylaxis ordered?: Tomas lazcano. ASSESSMENT AND PLAN: 1. 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 Patient appears able to participate in all 3 therapies for combined 3 hours of therapy per day. She is making progress in [employer] with communication, some with swallowing, though she tends to be left body decreased awareness helped with the mirror at meals, but bolus unawareness is a risk as well. In PT/OT patient is making some slow and unsteady progress this last half week. Patient is happy with her effort and the improvement. We will continue to reinforce this. 2. Anemia: H&H is 9.8 and 30.7% on 01/13/17. 3. Atherosclerotic cardiovascular disease( atrial fibrillation, hypertension and hyperlipidemia): Currently patient is in A-Fib. Medicine wardrobe image consultant will continue to review and work on adjusting medications as appropriate. 4. Urinary Retention: Patient was having problems with urinary retention. I have started Minipress 1 mg QHS for that with apparent success as patient with little to no residuals on PVR. REHAB. TEAM ROUNDS: Patient's main problem is with left body awareness and spacial awareness and coordinating left body into ADL's and mobility limiting her rate of progress. She gets some benefit with mirrors, but needs more sensory integration to allow better progress. She is not progressing well in PT/ OT; however much better gains in [employer]. We will look to have Patient/Family Conference soon to try and motivate patient and to get family in to assist patient during training to be ready for her to return home. Anticipated Discharge Date is still 01/23/17. Please see therapy notes attached below. TIME SPENT: Chart Review, examination and documentation require greater than 25 minutes. Patient: Kenna Nagel : 1930 Age/Sex: 86/F Unit#: [id number] Room/Bed: M4144/01 User: Trudy Casey OT [facility] OT Date: 01/15/17 08:37 Type: OT Progress Time In * 07:15 Time Out * 08:27 OT Treatment Time-Minutes * 72 mins Type of Therapy Provided * Individual Precautions * Fall * Aspiration Unit * Acute Inpatient Rehab Pain Start of Session * 10 Pain End of Session * 0 Pain Comment * Pt initially reported 10/10 headache at top of head; RN informed and pt received pain medication. Pt reported relief by the end of the session, Subjective * Pt received for session supine in bed, pleasant and agreeable to OT session. Cognition * Impaired Cognition Comments * Ability to follow commands and L neglect appear improved today. Supine to Sit * Moderate Assist Bed Mobility Notes * Pt performed supine>sit to EOB with HOB elevated using bed rail to R side with mod A at posterior trunk and mod cues to scoot forward. Sit to Stand * Contact Guard Assist Stand to Sit * Minimum Assist Bed to Chair * Minimum Assist Functional Transfer Notes: * Pt perf sit>stand with hemiwalker with CGA but required min A to maintain standing balance once up with RUE support on hemiwalker due to L lateral lean; pt able to correct with cuing today. Pt perf functional transfers to R side with hemiwalker bed>wc and wc<>mat table with min A and cuing to slow pace; pt required assist for safe stand>sit during first two transfers as pt demo tendency to sit early, but was able to perform with CGA and verbal cue to step all the way back to the chair on third transfer. Pt also participated with wc propulsion using LEs from room>therapy gym with min assist for steering. Grooming * Minimum Assist ADL Training Note * Pt performed grooming tasks in sitting at sink including combing hair and denture care. Pt required assistance to reach back of head with combing hair due to limited R shoulder ROM and may benefit from long-handled comb. Pt issued suction cup denture brush today and was able to brush dentures with VCs only. Pt applied adhesive to dentures and inserted dentures with VCs; pt did not carry over technique to insert dentures on left side first from yesterday, but required less assistance with adjusting dentures once they were in her mouth. A. Eating (include only those with PO intake): * 05.Setup/clean up Asst Eating Comments: * See ADL note. B. Oral Hygiene (includes gums in edentulous pts): * 03.Partial/Mod Assist Oral Hygiene Comments: * See ADL note. C. Toileting Hygiene (not transfers): * 88.Not Attempted Toileting Hygiene Comments: * See ADL note. E. Shower/Bathe Self (not transfers, can be sponge bath): * 88.Not Attempted Shower/Bathe Self Comments: * Pt received sponge bath overnight; per RN, max assist required. F. Upper Body Dressing (includes bra, not hospital gown): * 02.Substantial/Max Assist G. Lower Body Dressing (includes briefs and knee braces): * 02.Substantial/Max Assist H. Putting on/taking off footwear (includes TEDS and AFO): * 02.Substantial/Max Assist Sit-Static * F+ Sit-Dynamic * F- Stand-Static * P+ Stand-Dynamic * P Balance Training Note * Sitting observed at EOB and on mat table, standing [facility] Intervention Note * Pt participated with grooming and functional mobility tasks as noted above. Pt seen in therapy gym for remainder of session. P/AAROM provided to LUE in all planes; return in pronation/supination, elbow flexion/extension and wrist flexion noted. Trace contractions palpated in L deltoid with passive shoulder flexion and abduction. Pt participated with table slide therex using RUE to support LUE x 3 sets 10 reps in orded to increase LUE strength for functional use with bilateral tasks. While seated on mat table, pt participated with dyn sitting bal task involving reaching for clips to R side, rotating at trunk and placing clips on bar set up on L side while wb through LUE in extension. Activity incorporated into treatment to counter L neglect, strengthen LUE through weight-bearing and facilitate increased core strength/sitting balance as it relates to participating with ADL routines. Pt returned to room at end of session with breakfast tray set up and call claros in reach. OT Goal Note * Continue with OT plan of care. Discharge Recommendations * Cont Rehab after D/C Patient: Kenna Nagel : 1930 Age/Sex: 86/F Unit#: [id number] Room/Bed: M4144/01 User: Shawanda Celaya, PT [facility] PT Date: 01/15/17 12:40 Type: PT Progress Note Time In * 11:30 Time Out * 12:00 PT Treatment Time-Minutes * 30 mins Type of Therapy Provided * Individual Precautions * Fall * Aspiration Unit * Acute Inpatient Rehab Pain Start of Session * 0 Pain End of Session * 0 Pain Comment * not rated but pt c/o headache. MD in room at time of PT arrival and pt informed MD of headache Cognition * Impaired Supine to Sit * Not Tested Sit to Supine * Not Tested Rolling * Not Tested Sit to Stand * Minimum Assist Stand to Sit * Minimum Assist Bed to Chair * Moderate Assist Chair to Bed * Not Tested Toilet/Commode * Not Tested Transfer Training Notes * Mod (A) for stand pivot with turn. occ verbal cues to reach for arm of chair or push from arm. often requires min phys assist to properly position self in front of chair and verbal cues for left LE positioning. Dec safety awarenss and occ attempts to sit inappropriately. left neglect causing inc difficulty with transfer to left this session. Sit-Static * F+ Sit-Dynamic * F- Stand-Static * P+ Stand-Dynamic * P Balance Training Note * standing observed with hemiwalker Ambulation Distance * 42 Feet Ambulation Level of Assist * Minimum Assist Assistive Device Used * Pablo-Walker * Gait Belt Able to Maintain Weight Bearing Status * No Gait Training Note * Verbal cues to inc step length with left. Occ loss of sequence so inc assist with support to maintain upright safely with dec base of support and poor positioning of pablo walker. Verbal cues to amb more slowly Wheelchair Distance * 0 feet Wheelchair Mobility Level of Assist * Not Tested Number of Stairs Completed * 0 Stairs Railing * Yes Railing Side * Right & Left Level of Assist for Stairs * Minimum Assist Able to Maintain Weight Bearing Status on Stairs * Yes A. Roll Left and Right: * 88.Not Attempted B. Sit to Lying: * 88.Not Attempted C. Lying to Sitting on Side of Bed: * 88.Not Attempted D. Sit to Stand: * 03.Partial/Mod Assist E. Chair/Cli-vl-Krsvh Transfer: * 03.Partial/Mod Assist Chair/Hnl-qs-Svimr Transfer Comments: * poor left LE placement which limits safety with SPT, left neglect influencing ability to safely position self F. Toilet Transfer: * 88.Not Attempted G. Car Transfer: * 88.Not Attempted H. Does the patient walk?: * 2. Yes I. Walk 10 Feet: * 03.Partial/Mod Assist Walk 10 Feet Comments: * See gait note J. Walk 50' with Two Turns: * 88.Not Attempted K. Walk 150 Feet: * 88.Not Attempted L. Walking 10' on uneven surfaces: * 88.Not Attempted M. 1 Step (curb): * 88.Not Attempted N. 4 Steps (with or without railing): * 88.Not Attempted O. 12 Steps (with or without railing): * 88.Not Attempted P. Picking up Object from the Floor (from a standing): * 88.Not Attempted Q. Does the patient use a w/c (other than just transport): * 1. Yes R. Wheel 50' with 2 Turns(seated in w/c): * 88.Not Attempted RR. What type of w/c?: * 1. Manual S. Wheel 150' (seated in w/c): * 88.Not Attempted SS. What type of w/c?: * 1. Manual Lower Extremity Exercised * Bilateral Supine Exercises * Ankle Pumps * Quad Sets * Glut Sets * Heel Slides * Hip Abductions * Short Arc Quads * Straight Leg Raises * Bridges Other Supine Exercises * 15 reps x 2 for all Sitting Exercises * Long Arc Quads * Marching * Hip Abduction * Hip Adduction * Toe Raises * Heel Raises Other Sitting Exercises * sit to stand x 10. v.cues initially manual resistance and green t-band used for hip abd/add Number of Reps Sitting * 10-15 Reps Other Standing Exercises * wt shifting with various placement goals left to improve placement of left LE Number of Reps Standing * 10-15 Reps Therapeutic Exercises Note * Great difficulty positioning left LE where desired. PT Interventions * Gait Training * Wheelchair Mobility * Therapeutic Excercise * Functional Training * Bed Mobility * Balance Activities * Safety/Precautions * HEP * Pt./Family Education * D/C Needs * Neuro Re-Education PT Progress Note * Pt continues to have limited safety awareness as evidenced by inc assist required with SPT due to poor positioning - particularly left LE. Good effort overall. Pt states is trying her best though continues to have difficulty progressing with endurance or dec assist needed with transfers or ambulation. PT Goal Note * OOB all meals. pt would benefit from over toilet commode to complete SPT Discharge Recommendations * Cont Rehab after D/C Patient: Kenna Nagel : 1930 Age/Sex: 86/F Unit#: [id number] Room/Bed: M4144/01 User: Ainsley [facility]agon [facility] SP Date: 01/14/17 13:29 Type: Tyler Cognitive Lingusti... Exercise Education Label * Executive Function * Other Cognitive Linguistic Visual scanning exercises targeting peripersonal & extrapersonal L neglect * Measure Increase in FIMS for expression and memory today. * Level of Assistance Independent Minimum Assist * Level of Assistance Comment Attends to L-side with slight time delay. Minimal verbal cues required. * Tolerance Good * Therapeutic Exercise Yes Pt/Family Education * Therapeutic Exercise Comment Supervising [employer] present, agrees w/ tx and outcomes. MS Morena, [facility]. Patient: Kenna Nagel : 1930 Age/Sex: 86/F Unit#: [id number] Room/Bed: M4144/01 User: Ainsley Aragon [facility] SP Date: 01/14/17 13:26 Type: Tyler-Dysphagia Manageme... Exercise Education Label * Range of Motion Exercise * Other Dysphagia Management Abdominal breathing, inspirometer, facial massage, compensatory strategies * Measure VF adduction w/ improved vocal quality and duration of sustained ah today * Level of Assistance Moderate Assist Minimum Assist * Level Of Assistance Comment Independent w/ 2/5 compensatory strategies. Verbal cues for 3/5. * Tolerance Good * Therapeutic Exercise Yes Pt/Family Education * Therapeutic Exercise Comment Supervising [employer] present, agrees w/ tx and outcomes. MS Morena, [facility]. Allergies Coded Allergies: Sulfa Drugs (Verified Allergy, Mild, 06/10/12) RASH & N/V Sulfa Drugs Cross Reactors (Verified Allergy, Mild, 06/10/12) RASH & N/V Morphine and Related (Verified Adverse Reaction, Unknown, 01/02/17) Vital Signs Vital Signs Date Time Temp Pulse Resp B/P (MAP) Pulse Ox O2 Delivery O2 Flow Rate FiO2 01/15/17 08:48 70 148/64 01/15/17 06:00 97.9 18 98 Room Air 97.9 Laboratory Data CBC/BMP Laboratory Tests 01/15/17 06:28 Calcium Level 8.7 L, Aspartate Amino Transf (AST/SGOT) 30, Alanine Aminotransferase (ALT/SGPT) 62, Alkaline Phosphatase 81, Total Bilirubin 0.5, Total Protein 6.1 L, Albumin 3.0 L Labs 24H Laboratory Tests 2 01/15/17 06:28: Anion Gap 4L, Glomerular Filtration Rate > 60.0, Blood Urea Nitrogen 16, Creatinine 0.57, Sodium Level 140, Potassium Level 4.6, Chloride Level 107, Carbon Dioxide Level 29, Calcium Level 8.7L, Aspartate Amino Transf (AST/SGOT) 30, Alanine Aminotransferase (ALT/SGPT) 62, Alkaline Phosphatase 81, Total Bilirubin 0.5, Total Protein 6.1L, Albumin 3.0L, Magnesium Level 1.8, Albumin/ Globulin Ratio 0.97L Current Medications Current Medications Current Medications Acetaminophen (Tylenol Tab) 650 mg Q6HP PRN PO PAIN / FEVER Last administered on 01/15/17 14:06; Start 01/02/17 at 15:45; Stop 02/01/17 at 15:44 Al Hydrox/Mg Hydrox/Simethicone (Mylanta) 20 ml BIDP PRN PO INDIGESTION Last administered on 01/09/17 17:03; Start 01/09/17 at 16:30; Stop 02/08/17 at 16:29 Apixaban (Eliquis) 5 mg BID PO Last administered on 01/15/17 08:48; Start at 21:00; Stop 01/21/17 at 23:55 Atenolol (Tenormin) 25 mg DAILY PO Last administered on 01/15/17 08:48; Start 01/03/17 at 09:00; Stop 02/02/17 at 08:59 Atorvastatin Calcium (Lipitor) 40 mg QHS PO Last administered on 01/14/17 21: 31; Start 01/03/17 at 21:00; Stop 02/02/17 at 20:59 Bisacodyl (Dulcolax Suppository) 10 mg DAILYPRN PRN [place] CONSTIPATION; Start at 12:30; Stop 02/01/17 at 12:29 Ciprofloxacin (Cipro) 250 mg BID@06,18 PO Last administered on 01/09/17 05:58 ; Start 01/02/17 at 18:00; Stop 01/09/17 at 17:59; Status DC Ferrous Sulfate (Ferrous Sulfate) 325 mg DAILY PO Last administered on 08:48; Start 01/03/17 at 09:00; Stop 02/02/17 at 08:59 Home Med (Med Rec Complete!) ASDIRECTED XX ; Start 01/02/17 at 15:45; Stop at 15:45; Status DC Levothyroxine Sodium (Synthroid) 25 mcg DAILY@06 PO Last administered on 05:57; Start 01/03/17 at 06:00; Stop 02/02/17 at 05:59 Losartan Potassium (Cozaar) 100 mg DAILY PO Last administered on 01/15/17 08: 49; Start 01/03/17 at 09:00; Stop 02/02/17 at 08:59 Magnesium Chloride (Slow-Mag) 64 mg BID PO Last administered on 01/15/17 08:47 ; Start 01/02/17 at 21:00; Stop 02/01/17 at 20:59 Miscellaneous (Unresolved Patient Own Med Order) SEE LABEL COMMENTS UNRESOLVED XX Last administered on 01/03/17 00:01; Start 01/03/17 at 00:01; Stop 01/03 at 10:45; Status DC Non-Formulary Medication Patient may use rubb... TIDP PRN TOP PAIN; Start at 19:00; Stop 01/03/17 at 10:52; Status DC Nystatin (Mycostatin) 5 ml TID SSP Last administered on 01/15/17 08:48; Start 01/14/17 at 16:00; Stop 01/19/17 at 15:59 Pantoprazole Sodium (Protonix) 40 mg DAILY PO Last administered on 01/15/17 08 :48; Start 01/10/17 at 09:00; Stop 02/09/17 at 08:59 Patient Own Medication (Patient'S Own Med) apply to neck and shoulders TIDP PRN TOP ACHES Last administered on 01/14/17 21:32; Start 01/03/17 at 11:00; Stop 02/02/17 at 10:59 Prazosin HCl (Minipress) 1 mg QHS PO Last administered on 01/14/17 21:31; Start 01/07/17 at 21:00; Stop 02/06/17 at 20:59 Sodium Biphosphate/ Sodium Phosphate (Fleet Enema) 1 ea DAILYPRN PRN [place] CONSTIPATION; Start 01/02/17 at 12:30; Stop 02/01/17 at 12:29 Trazodone HCl (Desyrel) 50 mg QHS PO Last administered on 01/14/17 21:31; Start 01/08/17 at 21:00; Stop 02/07/17 at 20:59 THERESA OCHOA MD Jan 15, 2017 15:10
[2017-01-15 20:00] VITALS: BP 154/73
[2017-01-15] MEDS: ATORVASTATIN 20 MG TAB PO SCH (22:28)
[2017-01-15] MEDS: traZODone 50 MG TAB PO SCH (22:30)
[2017-01-15] MEDS: PRAZOSIN 1 MG CAP PO SCH (22:30)
[2017-01-16] MEDS: LEVOTHYROXINE 25MCG TABLET (0.025MG) PO SCH (05:42)
[2017-01-16] MEDS: ACETAMINOPHEN TAB 650MG DOSE (2X325MG) PO PRN ×3 (05:42→20:22)
[2017-01-16 06:00] VITALS: BP 125/57
[2017-01-16] MEDS: LOSARTAN 50 MG TAB PO SCH (08:33)
[2017-01-16] MEDS: APIXABAN 5 MG TAB (ELIQUIS) PO SCH ×2 (08:33→20:23)
[2017-01-16] MEDS: NYSTATIN 500,000 U/5 ML SUSP UDC SSP SCH ×3 (08:33→20:23)
[2017-01-16] MEDS: FERROUS SULFATE 325MG TAB PO SCH (08:33)
[2017-01-16] MEDS: PANTOPRAZOLE 40MG TAB (PROTONIX) PO SCH (08:33)
[2017-01-16] MEDS: ATENOLOL 25 MG TAB PO SCH (08:34)
[2017-01-16] MEDS: MAGNESIUM CHLORIDE 64 MG TABCR (SLO MAG) PO SCH ×2 (08:34→20:21)
[2017-01-16 14:00] VITALS: BP 128/60
--- NOTE | 2017-01-16 15:04 | IPNPDOC ---
PM&R Progress Note Surgical Assistant Progress Note DATE OF SERVICE: 01/16/17 DATE OF ADMISSION: Jan 02, 2017 at 12:53 INPATIENT REHABILITATION ADMISSION DAY: #15 SUBJECTIVE: Patient is an 86-year-old white female with longstanding history of atherosclerotic cardiovascular disease including atrial fibrillation, hypertension, hyperlipidemia. She was in her usual state of health until late in the evening of 12/27/2016 when she had sudden onset of the left sided weakness and sensory deficits along with droop and slurring of speech. She was seen within a few minutes of the emergency room at [facility] and then transported by air lift to [facility] for consideration of TPA treatment. The patient was assessed there and found to be inside the therapeutic window, had treatment with TPA, which cleared the right M1 but not M2 arteries. Patient continued to have problems with her non dominant left upper and lower extremities involving both motor and sensory deficits and the left homonymous hemianopsia, dysarthria, dysphagia for which she is on a restricted diet of pureed food and honey-thick liquids. No pain or other complaints today. Need to keep her focused on needed skills for return to home within the family's ability to assist her. ALLERGIES: See Below MEDICATIONS: Reviewed, see below. OBJECTIVE: VITAL SIGNS: Please see below. PHYSICAL EXAMINATION: GENERAL: Short overweight elderly white female with fair + proximal and poor + distal Left upper extremity function. Patient is alert and well oriented and in mild musculoskeletal distress. HEENT: Mild left facial droop that is improving and visual field cut and mild right tongue deviation. CARDIOVASCULAR: Currently irregularly irregular. 2/4 bilateral lateral radial pulses. LUNGS: All de paz clear to auscultation. ABDOMEN: Benign, nontender no palpable masses and normal bowel sounds in all quadrants. NEUROLOGICAL: Patient is alert and oriented to person, place, time and situation. Speech with mild dysarthria. Affect is slightly anxious with a little bit flattening. Memory is fair to good. Some left neglect noted. Good minus right upper and lower extremity and fair left lower extremity motor. Fair proximal LUE to trace distally. Patient turns to right and neglects left space unless directed to it. SKIN: Grossly intact. LABORATORY DATA: Reviewed. Please see below. MICROBIOLOGY: Please see below. IMAGING: No new imaging. DVT prophylaxis ordered?: Tomas lazcano. ASSESSMENT AND PLAN: 1. 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 Patient appears able to participate in all 3 therapies for combined 3 hours of therapy per day. Patient 's main problem is with left body awareness and spacial awareness and coordinating left body into ADL's and mobility limiting her rate of progress. She gets some benefit with mirrors, but needs more sensory integration to allow better progress. 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 We will look to have Patient/Family Conference soon to try and motivate patient and to get family in to assist patient during training to be ready for her to return home. Anticipated Discharge Date is still 01/23/17. 2. Anemia: H&H is 9.8 and 30.7% on 01/13/17. 3. Atherosclerotic cardiovascular disease (atrial fibrillation, hypertension and hyperlipidemia): Currently patient is in A-Fib. Medicine managed services sales consultant will continue to review and work on adjusting medications as appropriate. 4. Urinary Retention: Patient was having problems with urinary retention. I have started Minipress 1 mg QHS for that with apparent success as patient with little to no residuals on PVR. TIME SPENT: Chart Review, examination and documentation require greater than 25 minutes. Allergies Coded Allergies: Sulfa Drugs (Verified Allergy, Mild, 06/10/12) RASH & N/V Sulfa Drugs Cross Reactors (Verified Allergy, Mild, 06/10/12) RASH & N/V Morphine and Related (Verified Adverse Reaction, Unknown, 01/02/17) Vital Signs Vital Signs Date Time Temp Pulse Resp B/P (MAP) Pulse Ox O2 Delivery O2 Flow Rate FiO2 01/16/17 14:00 98.7 73 18 128/60 (82) 96 Room Air Current Medications Current Medications Current Medications Acetaminophen (Tylenol Tab) 650 mg Q6HP PRN PO PAIN / FEVER Last administered on 01/16/17 13:44; Start 01/02/17 at 15:45; Stop 02/01/17 at 15:44 Al Hydrox/Mg Hydrox/Simethicone (Mylanta) 20 ml BIDP PRN PO INDIGESTION Last administered on 01/09/17 17:03; Start 01/09/17 at 16:30; Stop 02/08/17 at 16:29 Apixaban (Eliquis) 5 mg BID PO Last administered on 01/16/17 08:33; Start at 21:00; Stop 01/21/17 at 23:55 Atenolol (Tenormin) 25 mg DAILY PO Last administered on 01/16/17 08:34; Start 01/03/17 at 09:00; Stop 02/02/17 at 08:59 Atorvastatin Calcium (Lipitor) 40 mg QHS PO Last administered on 01/15/17 22: 28; Start 01/03/17 at 21:00; Stop 02/02/17 at 20:59 Bisacodyl (Dulcolax Suppository) 10 mg DAILYPRN PRN [place] CONSTIPATION; Start at 12:30; Stop 02/01/17 at 12:29 Ciprofloxacin (Cipro) 250 mg BID@06,18 PO Last administered on 01/09/17 05:58 ; Start 01/02/17 at 18:00; Stop 01/09/17 at 17:59; Status DC Ferrous Sulfate (Ferrous Sulfate) 325 mg DAILY PO Last administered on 08:33; Start 01/03/17 at 09:00; Stop 02/02/17 at 08:59 Home Med (Med Rec Complete!) ASDIRECTED XX ; Start 01/02/17 at 15:45; Stop at 15:45; Status DC Levothyroxine Sodium (Synthroid) 25 mcg DAILY@06 PO Last administered on 05:42; Start 01/03/17 at 06:00; Stop 02/02/17 at 05:59 Losartan Potassium (Cozaar) 100 mg DAILY PO Last administered on 01/16/17 08: 33; Start 01/03/17 at 09:00; Stop 02/02/17 at 08:59 Magnesium Chloride (Slow-Mag) 64 mg BID PO Last administered on 01/16/17 08:34 ; Start 01/02/17 at 21:00; Stop 02/01/17 at 20:59 Miscellaneous (Unresolved Patient Own Med Order) SEE LABEL COMMENTS UNRESOLVED XX Last administered on 01/03/17 00:01; Start 01/03/17 at 00:01; Stop 01/03 at 10:45; Status DC Non-Formulary Medication Patient may use rubb... TIDP PRN TOP PAIN; Start at 19:00; Stop 01/03/17 at 10:52; Status DC Nystatin (Mycostatin) 5 ml TID SSP Last administered on 01/16/17 08:33; Start 01/14/17 at 16:00; Stop 01/19/17 at 15:59 Pantoprazole Sodium (Protonix) 40 mg DAILY PO Last administered on 01/16/17 08 :33; Start 01/10/17 at 09:00; Stop 02/09/17 at 08:59 Patient Own Medication (Patient'S Own Med) apply to neck and shoulders TIDP PRN TOP ACHES Last administered on 01/14/17 21:32; Start 01/03/17 at 11:00; Stop 02/02/17 at 10:59 Prazosin HCl (Minipress) 1 mg QHS PO Last administered on 01/15/17 22:30; Start 01/07/17 at 21:00; Stop 02/06/17 at 20:59 Sodium Biphosphate/ Sodium Phosphate (Fleet Enema) 1 ea DAILYPRN PRN [place] CONSTIPATION; Start 01/02/17 at 12:30; Stop 02/01/17 at 12:29 Trazodone HCl (Desyrel) 50 mg QHS PO Last administered on 01/15/17 22:30; Start 01/08/17 at 21:00; Stop 02/07/17 at 20:59 THERESA OCHOA MD Jan 16, 2017 15:04
[2017-01-16 20:00] VITALS: BP 130/50
[2017-01-16] MEDS: ATORVASTATIN 20 MG TAB PO SCH (20:23)
[2017-01-16] MEDS: PRAZOSIN 1 MG CAP PO SCH (20:23)
[2017-01-16] MEDS: traZODone 50 MG TAB PO SCH (20:23)
[2017-01-16] MEDS: MUSCLE RUB TOP PRN (20:27)
[2017-01-17] MEDS: LEVOTHYROXINE 25MCG TABLET (0.025MG) PO SCH (05:36)
[2017-01-17 05:47] VITALS: BP 140/58
[2017-01-17] MEDS: ACETAMINOPHEN TAB 650MG DOSE (2X325MG) PO PRN ×2 (06:13→16:34)
[2017-01-17] MEDS: MAGNESIUM CHLORIDE 64 MG TABCR (SLO MAG) PO SCH ×2 (08:51→20:32)
[2017-01-17] MEDS: LOSARTAN 50 MG TAB PO SCH (08:51)
[2017-01-17] MEDS: FERROUS SULFATE 325MG TAB PO SCH (08:52)
[2017-01-17] MEDS: ATENOLOL 25 MG TAB PO SCH (08:52)
[2017-01-17] MEDS: APIXABAN 5 MG TAB (ELIQUIS) PO SCH ×2 (08:52→20:31)
[2017-01-17] MEDS: PANTOPRAZOLE 40MG TAB (PROTONIX) PO SCH (08:52)
[2017-01-17] MEDS: NYSTATIN 500,000 U/5 ML SUSP UDC SSP SCH ×3 (08:52→20:30)
--- NOTE | 2017-01-17 10:46 | IPNPDOC ---
Date Seen The patient was seen on 01/17/17. 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 Pt was transferred to the care of [facility] 01/02/17. Pt is currently in bed and states she is feeling fine. No new concerns at this time. Denies any fevers, chills, Chest Pain, Shortness of breath, cough, palpitations , abdominal pain, N/V/D or changes in bowel or bladder habits. 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 Afib. eliquis anticoagulation. dyslipidemia HTN OA Hypothyroid H/O Mane's/Gastritis/H Pylori Fe def anemia PSHX: Tonsillectomy Appendectomy cataract surgery B/L Hip replacement hysterectomy back surgery colonoscopy/EGD 03/25 Michel. adenomatous polyp/gastritis. PE: GEN: 86yoF, appears stated age. Well-nourished, well developed. No acute distress. HEENT: Normocephalic, atraumatic. Rightward gaze persists. Left facial droop. Mild dysarthria. Moist mucous membranes. CHEST: irreg irreg, +S1, +S2. LUNGS: Clear to auscultation bilaterally. No wheezes, rales, or rhonchi. Breathing appears symmetric and easy. ABD: Round, soft, non-tender, non-distended. +Bowel sounds throughout. No rebound or guarding. No costovertebral angle tenderness. EXT: No lower extremity edema appreciated. SKIN: [place], dry, warm. No rashes. NEURO: Alert and oriented x 3. Left sided weakness. 01/11/17 CT Head 1. Small vessel ischemic disease. 2. Minimal volume loss. 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 Pt was transferred to the care of [facility] 01/02/17. 1. S/P embolic CVA/Left hemiparesis/dysarthria/dysphagia. Mgmt as per Dr Noriega/[facility]. PT/OT as per Dr Young. ST as per Dr Noriega/[facility]. Bowel care as per Dr Noriega/[facility]. Pain mgmt as per Dr Noriega/[facility]. Outpt F/U with neurology. 2. Dysphagia. ST. Pureed diet/Honey thick 3. Afib, chronic. Eliquis anticoagulation. Atenolol rate control. (60s-70s) 4. HLD. Cont lipitor 40 mg daily. 5. Hypothyroid. Cont supplement. 6. HTN. Cozaar with hold parameters. 7. Hypomagnesemia. Cont supplement. Mag level 2.2. Recheck Mag level in AM. 8. Fe def anemia. Cont supplement. Monitor Hgb, trend 9-10. Fe studies WNL 08/25. 9. UTI. Completed Cipro po x 7 days. DVT prophylaxis. Pt is on Eliquis. VS, I&O, 24H, Fishbone Vital Signs/I&O Vital Signs Date Time Temp Pulse Resp B/P (MAP) Pulse Ox O2 Delivery O2 Flow Rate FiO2 01/17/17 08:51 140/58 01/17/17 05:47 97.8 79 18 97 Room Air I&O- Last 24 Hours up to 6 AM 01/18/17 05:59 Intake Total 320 ml Balance 320 ml Marlyn Lynn Jan 17, 2017 10:46
[2017-01-17 14:00] VITALS: BP 105/61
--- NOTE | 2017-01-17 15:54 | IPNPDOC ---
PM&R Progress Note Fuels Engineer Progress Note DATE OF SERVICE:01/17/17 DATE OF ADMISSION: Jan 02, 2017 at 12:53 INPATIENT REHABILITATION ADMISSION DAY: #16 SUBJECTIVE: Patient is an 86-year-old white female with longstanding history of atherosclerotic cardiovascular disease including atrial fibrillation, hypertension, hyperlipidemia. She was in her usual state of health until late in the evening of 12/27/2016 when she had sudden onset of the left sided weakness and sensory deficits along with droop and slurring of speech. She was seen within a few minutes of the emergency room at [facility] and then transported by air lift to [facility] for consideration of TPA treatment. The patient was assessed there and found to be inside the therapeutic window, had treatment with TPA, which cleared the right M1 but not M2 arteries. Patient continued to have problems with her non dominant left upper and lower extremities involving both motor and sensory deficits and the left homonymous hemianopsia, dysarthria, dysphagia for which she is on a restricted diet of pureed food and honey-thick liquids. No pain or other complaints today. Need to keep her focused on needed skills for return to home within the family's ability to assist her. ALLERGIES: See Below MEDICATIONS: Reviewed, see below. OBJECTIVE: VITAL SIGNS: Please see below. PHYSICAL EXAMINATION: GENERAL: Short overweight elderly white female with fair + proximal and poor + distal Left upper extremity function. Patient is alert and well oriented and in mild musculoskeletal distress. HEENT: Mild left facial droop that is improving and visual field cut and mild right tongue deviation. CARDIOVASCULAR: Currently irregularly irregular. 2/4 bilateral lateral radial pulses. LUNGS: All de paz clear to auscultation. ABDOMEN: Benign, nontender no palpable masses and normal bowel sounds in all quadrants. NEUROLOGICAL: Patient is alert and oriented to person, place, time and situation. Speech with mild dysarthria. Affect is slightly anxious with a little bit flattening. Memory is fair to good. Some left neglect noted. Good minus right upper and lower extremity and fair left lower extremity motor. Fair proximal LUE to trace distally. Patient turns to right and neglects left space unless directed to it. SKIN: Grossly intact. LABORATORY DATA: Reviewed. Please see below. MICROBIOLOGY: Please see below. IMAGING: No new imaging. DVT prophylaxis ordered?: Tomas lazcano. ASSESSMENT AND PLAN: 1. 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 Patient appears able to participate in all 3 therapies for combined 3 hours of therapy per day. Patient 's main problem is with left body awareness and spacial awareness and coordinating left body into ADL's and mobility limiting her rate of progress. She gets some benefit with mirrors, but needs more sensory integration to allow better progress. 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 2. Anemia: H&H is 9.8 and 30.7% on 01/13/17. 3. Atherosclerotic cardiovascular disease (atrial fibrillation, hypertension and hyperlipidemia): Currently patient is in A-Fib. Medicine otm consultant will continue to review and work on adjusting medications as appropriate. 4. Urinary Retention: Patient was having problems with urinary retention. I have started Minipress 1 mg QHS for that with apparent success as patient with little to no residuals on PVR. 5. Atrial Fibrillation: Rate remains controlled and Eliquis is prophylactic against further clots. REHAB. TEAM ROUNDS: Patient continues to a more focused on speech-language pathology therapy seems to provide greater effort there. We need to continue to reinforce to her the importance of physical & occupational therapy, especially if she wishes to return home which she states she does. There was a slight improvement in therapy today for PT/OT but we will need better if patient is to return home. Patient/Family Conference is planned for Saturday to address these issues with her and her family and alternative care options. Estimated discharge date remains 01/23/17. Please see attached therapy notes below. TIME SPENT: Chart Review, examination and documentation require greater than 25 minutes. Allergies Coded Allergies: Sulfa Drugs (Verified Allergy, Mild, 06/10/12) RASH & N/V Sulfa Drugs Cross Reactors (Verified Allergy, Mild, 06/10/12) RASH & N/V Morphine and Related (Verified Adverse Reaction, Unknown, 01/02/17) Vital Signs Vital Signs Date Time Temp Pulse Resp B/P (MAP) Pulse Ox O2 Delivery O2 Flow Rate FiO2 01/17/17 14:00 98.7 68 18 105/61 (76) 99 Room Air Current Medications Current Medications Current Medications Acetaminophen (Tylenol Tab) 650 mg Q6HP PRN PO PAIN / FEVER Last administered on 01/17/17 06:13; Start 01/02/17 at 15:45; Stop 02/01/17 at 15:44 Al Hydrox/Mg Hydrox/Simethicone (Mylanta) 20 ml BIDP PRN PO INDIGESTION Last administered on 01/09/17 17:03; Start 01/09/17 at 16:30; Stop 02/08/17 at 16:29 Apixaban (Eliquis) 5 mg BID PO Last administered on 01/17/17 08:52; Start at 21:00; Stop 01/21/17 at 23:55 Atenolol (Tenormin) 25 mg DAILY PO Last administered on 01/17/17 08:52; Start 01/03/17 at 09:00; Stop 02/02/17 at 08:59 Atorvastatin Calcium (Lipitor) 40 mg QHS PO Last administered on 01/16/17 20: 23; Start 01/03/17 at 21:00; Stop 02/02/17 at 20:59 Bisacodyl (Dulcolax Suppository) 10 mg DAILYPRN PRN [place] CONSTIPATION; Start at 12:30; Stop 02/01/17 at 12:29 Ciprofloxacin (Cipro) 250 mg BID@,18 PO Last administered on 01/09/17 05:58 ; Start 01/02/17 at 18:00; Stop 01/09/17 at 17:59; Status DC Ferrous Sulfate (Ferrous Sulfate) 325 mg DAILY PO Last administered on 08:52; Start 01/03/17 at 09:00; Stop 02/02/17 at 08:59 Home Med (Med Rec Complete!) ASDIRECTED XX ; Start 01/02/17 at 15:45; Stop at 15:45; Status DC Levothyroxine Sodium (Synthroid) 25 mcg DAILY@06 PO Last administered on 05:36; Start 01/03/17 at 06:00; Stop 02/02/17 at 05:59 Losartan Potassium (Cozaar) 100 mg DAILY PO Last administered on 01/17/17 08: 51; Start 01/03/17 at 09:00; Stop 02/02/17 at 08:59 Magnesium Chloride (Slow-Mag) 64 mg BID PO Last administered on 01/17/17 08:51 ; Start 01/02/17 at 21:00; Stop 02/01/17 at 20:59 Miscellaneous (Unresolved Patient Own Med Order) SEE LABEL COMMENTS UNRESOLVED XX Last administered on 01/03/17 00:01; Start 01/03/17 at 00:01; Stop 01/03 at 10:45; Status DC Non-Formulary Medication Patient may use rubb... TIDP PRN TOP PAIN; Start at 19:00; Stop 01/03/17 at 10:52; Status DC Nystatin (Mycostatin) 5 ml TID SSP Last administered on 01/17/17 15:14; Start 01/14/17 at 16:00; Stop 01/19/17 at 15:59 Pantoprazole Sodium (Protonix) 40 mg DAILY PO Last administered on 01/17/17 08 :52; Start 01/10/17 at 09:00; Stop 02/09/17 at 08:59 Patient Own Medication (Patient'S Own Med) apply to neck and shoulders TIDP PRN TOP ACHES Last administered on 01/16/17 20:27; Start 01/03/17 at 11:00; Stop 02/02/17 at 10:59 Prazosin HCl (Minipress) 1 mg QHS PO Last administered on 01/16/17 20:23; Start 01/07/17 at 21:00; Stop 02/06/17 at 20:59 Sodium Biphosphate/ Sodium Phosphate (Fleet Enema) 1 ea DAILYPRN PRN [place] CONSTIPATION; Start 01/02/17 at 12:30; Stop 02/01/17 at 12:29 Trazodone HCl (Desyrel) 50 mg QHS PO Last administered on 01/16/17 20:23; Start 01/08/17 at 21:00; Stop 02/07/17 at 20:59 THERESA OCHOA MD Jan 17, 2017 15:54
[2017-01-17 20:00] VITALS: BP 132/52
[2017-01-17] MEDS: ATORVASTATIN 20 MG TAB PO SCH (20:30)
[2017-01-17] MEDS: traZODone 50 MG TAB PO SCH (20:30)
[2017-01-17] MEDS: PRAZOSIN 1 MG CAP PO SCH (20:31)
[2017-01-17] MEDS: MUSCLE RUB TOP PRN (21:00)
[2017-01-18] MEDS: ACETAMINOPHEN TAB 650MG DOSE (2X325MG) PO PRN ×2 (04:31→21:48)
[2017-01-18 04:53] VITALS: BP 160/68
[2017-01-18 06:48] LABS: MEAN CORPUSCULAR HEMOGLOBIN 28.2 pg (27.0-33.0); MEAN CORPUSCULAR VOLUME 88.3 fl (80.0-96.0); PLATELET COUNT, AUTOMATED 216 10^3/uL (150-450); RED CELL DISTRIBUTION WIDTH 13.2 % (11.5-14.5); WHITE BLOOD COUNT 5.6 10^3/uL (4.0-10.0)
[2017-01-18] MEDS: LEVOTHYROXINE 25MCG TABLET (0.025MG) PO SCH (06:55)
[2017-01-18 07:19] LABS: ALBUMIN 2.6 GM/DL (3.2-5.2); ALKALINE PHOSPHATASE 73 U/L (45-117); ALT/SGPT 34 U/L (12-78); ANION GAP 5 MEQ/L (8-16); AST/SGOT 13 U/L (7-37); BILIRUBIN,TOTAL 0.4 MG/DL (0.2-1.0); BLOOD UREA NITROGEN 19 MG/DL (7-18); CALCIUM LEVEL 8.5 MG/DL (8.8-10.2); CARBON DIOXIDE LEVEL 29 MEQ/L (21-32); CHLORIDE LEVEL 108 MEQ/L (98-107); CREATININE FOR GFR 0.69 MG/DL (0.55-1.02); GLOMERULAR FILTRATION RATE > 60.0 (>32); GLUCOSE, FASTING 93 MG/DL (83-110); POTASSIUM SERUM 4.9 MEQ/L (3.5-5.1); SODIUM LEVEL 142 MEQ/L (136-145); TOTAL PROTEIN 5.5 GM/DL (6.4-8.2)
[2017-01-18] MEDS: NYSTATIN 500,000 U/5 ML SUSP UDC SSP SCH ×3 (08:12→21:47)
[2017-01-18] MEDS: PANTOPRAZOLE 40MG TAB (PROTONIX) PO SCH (08:12)
[2017-01-18] MEDS: FERROUS SULFATE 325MG TAB PO SCH (08:12)
[2017-01-18] MEDS: APIXABAN 5 MG TAB (ELIQUIS) PO SCH ×2 (08:12→21:47)
[2017-01-18] MEDS: MAGNESIUM CHLORIDE 64 MG TABCR (SLO MAG) PO SCH ×2 (08:12→21:45)
[2017-01-18] MEDS: ATENOLOL 25 MG TAB PO SCH (08:12)
[2017-01-18] MEDS: LOSARTAN 50 MG TAB PO SCH (08:13)
--- NOTE | 2017-01-18 12:13 | IPNPDOC ---
PM&R Progress Note [employer] Progress Note DATE OF SERVICE: 01/18/17 DATE OF ADMISSION: Jan 02, 2017 at 12:53 INPATIENT REHABILITATION ADMISSION DAY: #17 SUBJECTIVE: Patient is an 86-year-old white female with longstanding history of atherosclerotic cardiovascular disease including atrial fibrillation, hypertension, hyperlipidemia. She was in her usual state of health until late in the evening of 12/27/2016 when she had sudden onset of the left sided weakness and sensory deficits along with droop and slurring of speech. She was seen within a few minutes of the emergency room at [facility] and then transported by air lift to [facility] for consideration of TPA treatment. The patient was assessed there and found to be inside the therapeutic window, had treatment with TPA, which cleared the right M1 but not M2 arteries. Patient continued to have problems with her non dominant left upper and lower extremities involving both motor and sensory deficits and the left homonymous hemianopsia, dysarthria, dysphagia for which she is on a restricted diet of pureed food and honey-thick liquids. No pain or other complaints today. Need to keep her focused on needed skills for return to home within the family's ability to assist her. ALLERGIES: See Below MEDICATIONS: Reviewed, see below. OBJECTIVE: VITAL SIGNS: Please see below. PHYSICAL EXAMINATION: GENERAL: Short overweight elderly white female with fair + proximal and poor + distal Left upper extremity function. Patient is alert and well oriented and in mild musculoskeletal distress. HEENT: Mild left facial droop that is improving and visual field cut and mild right tongue deviation. CARDIOVASCULAR: Currently irregularly irregular. 2/4 bilateral lateral radial pulses. LUNGS: All de paz clear to auscultation. ABDOMEN: Benign, nontender no palpable masses and normal bowel sounds in all quadrants. NEUROLOGICAL: Patient is alert and oriented to person, place, time and situation. Speech with mild dysarthria. Affect is slightly anxious with a little bit flattening. Memory is fair to good. Some left neglect noted. Good minus right upper and lower extremity and fair left lower extremity motor. Fair proximal LUE to trace distally. Patient still tends to turns to right and neglects left space unless directed to it, but less difficult to redirect. SKIN: Grossly intact. LABORATORY DATA: Reviewed. Please see below. MICROBIOLOGY: Please see below. IMAGING: No new imaging. DVT prophylaxis ordered?: Tomas lazcano. ASSESSMENT AND PLAN: 1. 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 Patient appears able to participate in all 3 therapies for combined 3 hours of therapy per day. Patient 's main problem is with left body awareness and spacial awareness and coordinating left body into ADL's and mobility limiting her rate of progress. She gets some benefit with mirrors, but needs more sensory integration to allow better progress. 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 Estimated date of discharge 01/23/17 to be reviewed at patient family conference Saturday01/21/17. 2. Anemia: H&H was 9.8 and 30.7% on 01/13/17, now improved to 10.1 & 31.6% on 12/25. 3. Atherosclerotic cardiovascular disease (atrial fibrillation, hypertension and hyperlipidemia): Currently patient is in A-Fib. Medicine client experience consultant will continue to review and work on adjusting medications as appropriate. 4. Urinary Retention: Patient was having problems with urinary retention. I have started Minipress 1 mg QHS for that with apparent success as patient with little to no residuals on PVR. 5. Atrial Fibrillation: Rate remains controlled and Eliquis is prophylactic against further clots. TIME SPENT: Chart Review, examination and documentation require greater than 25 minutes. Allergies Coded Allergies: Sulfa Drugs (Verified Allergy, Mild, 06/10/12) RASH & N/V Sulfa Drugs Cross Reactors (Verified Allergy, Mild, 06/10/12) RASH & N/V Morphine and Related (Verified Adverse Reaction, Unknown, 01/02/17) Vital Signs Vital Signs Date Time Temp Pulse Resp B/P (MAP) Pulse Ox O2 Delivery O2 Flow Rate FiO2 01/18/17 08:13 160/68 01/18/17 08:12 76 01/18/17 04:53 98.3 18 98 Room Air Laboratory Data CBC/BMP Laboratory Tests 01/18/17 06:39 Red Blood Count 3.58 L, Mean Corpuscular Volume 88.3, Mean Corpuscular Hemoglobin 28.2, Mean Corpuscular Hemoglobin Concent 32.0, Red Cell Distribution Width 13.2, Calcium Level 8.5 L, Aspartate Amino Transf (AST/SGOT) 13, Alanine Aminotransferase (ALT/SGPT) 34, Alkaline Phosphatase 73, Total Bilirubin 0.4, Total Protein 5.5 L, Albumin 2.6 L Labs 24H Laboratory Tests 2 01/18/17 06:39: Nucleated Red Blood Cells % (auto) 0.0, Anion Gap 5L, Glomerular Filtration Rate > 60.0, Blood Urea Nitrogen 19H, Creatinine 0.69, Sodium Level 142, Potassium Level 4.9, Chloride Level 108H, Carbon Dioxide Level 29, Calcium Level 8.5L, Aspartate Amino Transf (AST/SGOT) 13, Alanine Aminotransferase (ALT/ SGPT) 34, Alkaline Phosphatase 73, Total Bilirubin 0.4, Total Protein 5.5L, Albumin 2.6L, Albumin/Globulin Ratio 0.90L Current Medications Current Medications Current Medications Acetaminophen (Tylenol Tab) 650 mg Q6HP PRN PO PAIN / FEVER Last administered on 01/18/17 04:31; Start 01/02/17 at 15:45; Stop 02/01/17 at 15:44 Al Hydrox/Mg Hydrox/Simethicone (Mylanta) 20 ml BIDP PRN PO INDIGESTION Last administered on 01/09/17 17:03; Start 01/09/17 at 16:30; Stop 02/08/17 at 16:29 Apixaban (Eliquis) 5 mg BID PO Last administered on 01/18/17 08:12; Start at 21:00; Stop 01/25/17 at 23:55 Atenolol (Tenormin) 25 mg DAILY PO Last administered on 01/18/17 08:12; Start 01/03/17 at 09:00; Stop 02/02/17 at 08:59 Atorvastatin Calcium (Lipitor) 40 mg QHS PO Last administered on 01/17/17 20: 30; Start 01/03/17 at 21:00; Stop 02/02/17 at 20:59 Bisacodyl (Dulcolax Suppository) 10 mg DAILYPRN PRN RI CONSTIPATION; Start at 12:30; Stop 02/01/17 at 12:29 Ciprofloxacin (Cipro) 250 mg BID@18 PO Last administered on 01/09/17 05:58 ; Start 01/02/17 at 18:00; Stop 01/09/17 at 17:59; Status DC Ferrous Sulfate (Ferrous Sulfate) 325 mg DAILY PO Last administered on 08:12; Start 01/03/17 at 09:00; Stop 02/02/17 at 08:59 Home Med (Med Rec Complete!) ASDIRECTED XX ; Start 01/02/17 at 15:45; Stop at 15:45; Status DC Levothyroxine Sodium (Synthroid) 25 mcg DAILY@06 PO Last administered on 06:55; Start 01/03/17 at 06:00; Stop 02/02/17 at 05:59 Losartan Potassium (Cozaar) 100 mg DAILY PO Last administered on 01/18/17 08: 13; Start 01/03/17 at 09:00; Stop 02/02/17 at 08:59 Magnesium Chloride (Slow-Mag) 64 mg BID PO Last administered on 01/18/17 08: 12; Start 01/02/17 at 21:00; Stop 02/01/17 at 20:59 Miscellaneous (Unresolved Patient Own Med Order) SEE LABEL COMMENTS UNRESOLVED XX Last administered on 01/03/17 00:01; Start 01/03/17 at 00:01; Stop 01/03 at 10:45; Status DC Non-Formulary Medication Patient may use rubb... TIDP PRN TOP PAIN; Start at 19:00; Stop 01/03/17 at 10:52; Status DC Nystatin (Mycostatin) 5 ml TID SSP Last administered on 01/18/17 08:12; Start 01/14/17 at 16:00; Stop 01/19/17 at 15:59 Pantoprazole Sodium (Protonix) 40 mg DAILY PO Last administered on 01/18/17 08:12; Start 01/10/17 at 09:00; Stop 02/09/17 at 08:59 Patient Own Medication (Patient'S Own Med) apply to neck and shoulders TIDP PRN TOP ACHES Last administered on 01/17/17 21:00; Start 01/03/17 at 11:00; Stop 02/02/17 at 10:59 Prazosin HCl (Minipress) 1 mg QHS PO Last administered on 01/17/17 20:31; Start 01/07/17 at 21:00; Stop 02/06/17 at 20:59 Sodium Biphosphate/ Sodium Phosphate (Fleet Enema) 1 ea DAILYPRN PRN RI CONSTIPATION; Start 01/02/17 at 12:30; Stop 02/01/17 at 12:29 Trazodone HCl (Desyrel) 50 mg QHS PO Last administered on 01/17/17 20:30; Start 01/08/17 at 21:00; Stop 02/07/17 at 20:59 THERESA OCHOA MD Jan 18, 2017 12:13
[2017-01-18 14:00] VITALS: BP 120/73
[2017-01-18 21:30] VITALS: BP 127/61
[2017-01-18] MEDS: ATORVASTATIN 20 MG TAB PO SCH (21:47)
[2017-01-18] MEDS: PRAZOSIN 1 MG CAP PO SCH (21:47)
[2017-01-18] MEDS: traZODone 50 MG TAB PO SCH (21:47)
[2017-01-18] MEDS: MUSCLE RUB TOP PRN (21:48)
[2017-01-19] MEDS: LEVOTHYROXINE 25MCG TABLET (0.025MG) PO SCH (05:55)
[2017-01-19 06:00] VITALS: BP 131/68
[2017-01-19] MEDS: ACETAMINOPHEN TAB 650MG DOSE (2X325MG) PO PRN ×2 (08:50→16:58)
[2017-01-19] MEDS: NYSTATIN 500,000 U/5 ML SUSP UDC SSP SCH (08:50)
[2017-01-19] MEDS: APIXABAN 5 MG TAB (ELIQUIS) PO SCH ×2 (08:50→21:23)
[2017-01-19] MEDS: FERROUS SULFATE 325MG TAB PO SCH (08:50)
[2017-01-19] MEDS: LOSARTAN 50 MG TAB PO SCH (08:51)
[2017-01-19] MEDS: MAGNESIUM CHLORIDE 64 MG TABCR (SLO MAG) PO SCH ×2 (08:51→21:23)
[2017-01-19] MEDS: PANTOPRAZOLE 40MG TAB (PROTONIX) PO SCH (08:51)
[2017-01-19] MEDS: ATENOLOL 25 MG TAB PO SCH (08:51)
[2017-01-19 14:00] VITALS: BP_SYST 113; BP_SYST 150; BP_DIAS 56; BP_DIAS 68
[2017-01-19 21:15] VITALS: BP 149/70
[2017-01-19] MEDS: ATORVASTATIN 20 MG TAB PO SCH (21:22)
[2017-01-19] MEDS: PRAZOSIN 1 MG CAP PO SCH (21:23)
[2017-01-19] MEDS: MUSCLE RUB TOP PRN (21:23)
[2017-01-19] MEDS: traZODone 50 MG TAB PO SCH (21:23)
[2017-01-20 06:00] VITALS: BP 145/65
[2017-01-20] MEDS: LEVOTHYROXINE 25MCG TABLET (0.025MG) PO SCH (06:27)
[2017-01-20] MEDS: ACETAMINOPHEN TAB 650MG DOSE (2X325MG) PO PRN ×3 (06:27→19:38)
[2017-01-20] MEDS: APIXABAN 5 MG TAB (ELIQUIS) PO SCH ×2 (08:58→19:38)
[2017-01-20] MEDS: LOSARTAN 50 MG TAB PO SCH (08:58)
[2017-01-20] MEDS: PANTOPRAZOLE 40MG TAB (PROTONIX) PO SCH (08:58)
[2017-01-20] MEDS: ATENOLOL 25 MG TAB PO SCH (08:58)
[2017-01-20] MEDS: FERROUS SULFATE 325MG TAB PO SCH (08:58)
[2017-01-20] MEDS: MAGNESIUM CHLORIDE 64 MG TABCR (SLO MAG) PO SCH ×2 (08:59→19:39)
[2017-01-20 14:00] VITALS: BP 136/70
[2017-01-20] MEDS: traZODone 50 MG TAB PO SCH (19:38)
[2017-01-20] MEDS: ATORVASTATIN 20 MG TAB PO SCH (19:38)
[2017-01-20] MEDS: PRAZOSIN 1 MG CAP PO SCH (19:39)
[2017-01-20 19:58] VITALS: BP 136/74
[2017-01-21] MEDS: ACETAMINOPHEN TAB 650MG DOSE (2X325MG) PO PRN ×3 (02:53→19:52)
[2017-01-21 06:00] VITALS: BP 115/61
[2017-01-21] MEDS: LEVOTHYROXINE 25MCG TABLET (0.025MG) PO SCH (06:20)
[2017-01-21] MEDS: MAGNESIUM CHLORIDE 64 MG TABCR (SLO MAG) PO SCH ×2 (09:13→20:04)
[2017-01-21] MEDS: ATENOLOL 25 MG TAB PO SCH (09:13)
[2017-01-21] MEDS: FERROUS SULFATE 325MG TAB PO SCH (09:13)
[2017-01-21] MEDS: PANTOPRAZOLE 40MG TAB (PROTONIX) PO SCH (09:13)
[2017-01-21] MEDS: LOSARTAN 50 MG TAB PO SCH (09:14)
[2017-01-21] MEDS: APIXABAN 5 MG TAB (ELIQUIS) PO SCH ×2 (09:14→20:03)
[2017-01-21 14:00] VITALS: BP 108/55
--- NOTE | 2017-01-21 16:26 | IPNPDOC ---
PM&R Progress Note Table Setter Progress Note DATE OF SERVICE: 01/21/17 DATE OF ADMISSION: Jan 02, 2017 at 12:53 INPATIENT REHABILITATION ADMISSION DAY: #20 SUBJECTIVE: Patient is an 86-year-old white female with longstanding history of atherosclerotic cardiovascular disease including atrial fibrillation, hypertension, hyperlipidemia. She was in her usual state of health until late in the evening of 12/27/2016 when she had sudden onset of the left sided weakness and sensory deficits along with droop and slurring of speech. She was seen within a few minutes of the emergency room at [facility] and then transported by air lift to [facility] for consideration of TPA treatment. The patient was assessed there and found to be inside the therapeutic window, had treatment with TPA, which cleared the right M1 but not M2 arteries. Patient continued to have problems with her non dominant left upper and lower extremities involving both motor and sensory deficits and the left homonymous hemianopsia, dysarthria, dysphagia for which she is on a restricted diet of pureed food and honey-thick liquids. No pain or other complaints today. Need to keep her focused on needed skills for return to home within the family's ability to assist her. ALLERGIES: See Below MEDICATIONS: Reviewed, see below. OBJECTIVE: VITAL SIGNS: Please see below. PHYSICAL EXAMINATION: GENERAL: Short overweight elderly white female with fair + proximal and poor + distal Left upper extremity function. Patient is alert and well oriented and in mild musculoskeletal distress. HEENT: Mild left facial droop that is improving and visual field cut and mild right tongue deviation. CARDIOVASCULAR: Currently irregularly irregular. 2/4 bilateral lateral radial pulses. LUNGS: All de paz clear to auscultation. ABDOMEN: Benign, nontender no palpable masses and normal bowel sounds in all quadrants. NEUROLOGICAL: Patient is alert and oriented to person, place, time and situation. Speech with mild dysarthria. Affect is slightly anxious with a little bit flattening. Memory is fair to good. Some left neglect noted. Good minus right upper and lower extremity and fair left lower extremity motor. Fair proximal LUE to trace distally. Patient still tends to turns to right and neglects left space unless directed to it, but less difficult to redirect. SKIN: Grossly intact. LABORATORY DATA: Reviewed. Please see below. MICROBIOLOGY: Please see below. IMAGING: No new imaging. DVT prophylaxis ordered?: Tomas lazcano. ASSESSMENT AND PLAN: 1. 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 Patient appears able to participate in all 3 therapies for combined 3 hours of therapy per day. Patient 's main problem is with left body awareness and spacial awareness and coordinating left body into ADL's and mobility limiting her rate of progress. She gets some benefit with mirrors, but needs more sensory integration to allow better progress. She is not progressing well in PT/OT; however much better gains in DRY ROLLER. Estimated date of discharge 01/24/17 after review with patient & family today Saturday01/21/17, as PT/OT/RN, Academic Computing Director and Physiatry met with the patient and 2 daughters, a son and son-in-law. They report they will be able to take her home on with HomeCare RN/Aide, PT, OT & DRY ROLLER. Some family training occurred today. REHAB. TEAM ROUNDS: As noted for Patient/Family Conference. Patient to need W/C , Pablo-walker, Commode, and Shower Chair. Please see therapy notes attached below. 2. Anemia: H&H was 10.1 & 31.6% on 01/18/17. 3. Atherosclerotic cardiovascular disease (atrial fibrillation, hypertension and hyperlipidemia): Currently patient is in A-Fib. Medicine ergonomics consultant will continue to review and work on adjusting medications as appropriate. 4. Urinary Retention: Patient was having problems with urinary retention. I have started Minipress 1 mg QHS for that with apparent success as patient with little to no residuals on PVR. Patient with some urinary incontinence noted on Saturday and Saturday. 5. Atrial Fibrillation: Rate remains controlled and Eliquis is prophylactic against further clots. TIME SPENT: Chart Review, examination and documentation require greater than 25 minutes. Patient: Kenna Nagel : 1930 Age/Sex: 86/F Unit#: [id number] Room/Bed: M4144/01 User: Trudy Casey OT [facility] Date: 01/21/17 11:41 Type: OT Progress Time In * 08:05 Time Out * 09:05 OT Treatment Time-Minutes * 60 mins Type of Therapy Provided * Individual Precautions * Fall * Aspiration Unit * Acute Inpatient Rehab Pain Comment * Pt with no c/o pain this session. Subjective * Pt received for session seated in recliner, pleasant and agreeable to OT session. Cognition * Impaired Cognition Comments * mild problem solving difficulty noted Bed Mobility Notes * pt oob t/o session Sit to Stand * Contact Guard Assist Stand to Sit * Contact Guard Assist Toilet/Commode * Contact Guard Assist Functional Transfer Notes: * Pt completed spt recliner<>wc and wc<>commode with HW, CGA and cuing to positiong self and HW all the way to chair prior to sitting. Bathing * Contact Guard Assist Dressing-Upper Body * Maximum Assist Dressing-Lower Body * Moderate Assist Grooming * Minimum Assist Toileting * Contact Guard Assist ADL Training Note * Pt completed toileting s/p void in standing with CGA for safety. Pt participated with sponge bath in sitting in wc at sink with CGA for washing buttocks only. Max A required to don bra and t-shirt but pt attempted to use adaptive technique with fewer cues needed. Pt cont to be limited by impaired R shoulder ROM. Pt doffed liz socks with dressing stick with VCs for placement; total A required to don socks which is consistent with pt's baseline. Pt able to thread brief and pants over feet with elevator repairer with max step by step cuing and occasional assistance with straightening pant legs. Although pt able to participate, pt required assistance with donning pants to waist in standing as pt was fatigued and having increased difficulty maintaining bal by end of session. Pt combed hair with assistance to comb back of head while seated in wc. C. Toileting Hygiene (not transfers): * 04.Sup/Touch Assist Toileting Hygiene Comments: * See ADL note. E. Shower/Bathe Self (not transfers, can be sponge bath): * 04.Sup/Touch Assist Shower/Bathe Self Comments: * Please see ADL note. F. Upper Body Dressing (includes bra, not hospital gown): * 02.Substantial/Max Assist Upper Body Dressing Comments: * Please see ADL note G. Lower Body Dressing (includes briefs and knee braces): * 03.Partial/Mod Assist Lower Body Dressing Comments: * please see ADL note H. Putting on/taking off footwear (includes TEDS and AFO): * 02.Substantial/Max Assist Putting on/taking off footwear Comments: * See ADl note. Sit-Static * G Sit-Dynamic * G- Stand-Static * G- Stand-Dynamic * F+ Balance Training Note * Sitting balance assessed at EOB, standing with HW. OT Intervention Note * Pt participated with ADLs as noted above and demonstrates slow but steady progress. Pt left seated in recliner at end of session with call claros in reach and all needs met. OT Goal Note * Continue with OT plan of care. Discharge Recommendations * Home w/services Comment * per family meeting this date, plan is for pt to return home with 24h supervision and home PT/OT/Speech Safe for discharge at this time * No Comment * Pt's son will be staying with pt and will need to participate with family training. Patient: Kenna Nagel : 1930 Age/Sex: 86/F Unit#: [id number] Room/Bed: M4144/01 User: Shawanda Celaya, PT [facility] PT Date: 01/21/17 14:49 Type: PT Progress Note Time In * 10:45 Time Out * 11:45 PT Treatment Time-Minutes * 60 mins Type of Therapy Provided * Individual Precautions * Fall * Aspiration Unit * Acute Inpatient Rehab Pain Start of Session * 8 Pain End of Session * 0 Pain Comment * Headache, nurse aware and is getting tylenol Cognition * Impaired Cognition Comments * mild problem solving difficulty noted Supine to Sit * Not Tested Sit to Supine * Not Tested Rolling * Not Tested Bed Mobility Notes * pt oob t/o session Sit to Stand * Contact Guard Assist Stand to Sit * Contact Guard Assist Bed to Chair * Minimum Assist Chair to Bed * Minimum Assist Toilet/Commode * Contact Guard Assist Transfer Training Notes * Pt continues to be CGA for safety with sit to stand transfers;Pt rq min assist for SPT. Continues to have difficulty with left foot proprioception and kinesthetic awareness, placing it too close to right or not moving in direction of surface. Sit-Static * G Sit-Dynamic * G- Stand-Static * G- Stand-Dynamic * F+ Balance Training Note * Sitting balance assessed at EOB, standing with HW. Ambulation Distance * 30 Feet Ambulation Level of Assist * Minimum Assist Assistive Device Used * Pablo-Walker * Gait Belt Able to Maintain Weight Bearing Status * No Gait Training Note * Pt ambulated 30'x 1 and 20'x1 and 10'x4 with HW Vannesa, Son providing assistance for amb x 3 following initial instruction. continues to have difficulty placing left foot approp for sequence and safety with ambulation. Wheelchair Distance * 0 feet Wheelchair Mobility Level of Assist * Minimum Assist Number of Stairs Completed * 4 Stairs Railing * Yes Railing Side * Right & Left Level of Assist for Stairs * Minimum Assist Able to Maintain Weight Bearing Status on Stairs * Yes Stair Training Note * 4" steps x 1 and 6" steps x 1 with right rail up and down. hemiwalker on top of stairs for turn to descend. Verbal cues for sequence with patient primarily attempting to desc with right rather than left. left foot too close to right with asc but no LOB with rail support A. Roll Left and Right: * 88.Not Attempted B. Sit to Lying: * 88.Not Attempted C. Lying to Sitting on Side of Bed: * 88.Not Attempted D. Sit to Stand: * 04.Sup/Touch Assist E. Chair/Mcq-jq-Vbyip Transfer: * 03.Partial/Mod Assist Chair/Vqk-nn-Jshep Transfer Comments: * poor left LE placement which limits safety with SPT, left neglect influencing ability to safely position self F. Toilet Transfer: * 03.Partial/Mod Assist Toilet Transfer Comments: * son assisted pt with toilet transfer G. Car Transfer: * 88.Not Attempted Car Transfer Comments: * Son to bring car in AM for car transfer training. H. Does the patient walk?: * 2. Yes I. Walk 10 Feet: * 03.Partial/Mod Assist Walk 10 Feet Comments: * See gait note J. Walk 50' with Two Turns: * 88.Not Attempted K. Walk 150 Feet: * 88.Not Attempted L. Walking 10' on uneven surfaces: * 88.Not Attempted M. 1 Step (curb): * 88.Not Attempted N. 4 Steps (with or without railing): * 88.Not Attempted 4 Steps (with or without railing) Comments: * see stair training note O. 12 Steps (with or without railing): * 88.Not Attempted P. Picking up Object from the Floor (from a standing): * 88.Not Attempted Q. Does the patient use a w/c (other than just transport): * 1. Yes R. Wheel 50' with 2 Turns(seated in w/c): * 88.Not Attempted RR. What type of w/c?: * 1. Manual Wheel 50' with 2 Turns Comments: * BLE and Rt UE assist S. Wheel 150' (seated in w/c): * 88.Not Attempted SS. What type of w/c?: * 1. Manual Lower Extremity Exercised * Bilateral Sitting Exercises * Long Arc Quads * Marching * Hip Abduction * Hip Adduction Other Sitting Exercises * sit to stand x 12 reps, VC for proper hand placement initially. Nu-Step x6 minutes at resistance 6 B LEs only Number of Reps Sitting * 15-20 Reps Standing Exercises * Squats * Hip Flexion * Hip Abductions * Hip Extension * Hamstring Curls Other Standing Exercises * Squats and heel raises 2x10 each with CGA for safety; occasional VCs to maintain knee extension with heel raises as L knee tends to flex with fatigue and neglect. sidesteppng bilat Number of Reps Standing * 10-15 Reps Therapeutic Exercises Note * Pt requires VC's throughout exercises to perform properly and stay on task PT Interventions * Gait Training * Therapeutic Excercise * Functional Training * Bed Mobility * Balance Activities * Safety/Precautions * Pt./Family Education PT Progress Note * initial instruction and supervision of son went will for preparation for discharge. Good effort with stairs. Continues to have difficulty with sequencing despite cues. Foot placement with transfer and amb still difficulty for pt. PT Goal Note * OOB all meals. use commode over toilet Discharge Recommendations * Home w/services Safe for discharge at this time * No Patient: Kenna Nagel : 1930 Age/Sex: 86/F Unit#: [id number] Room/Bed: M4144/01 User: [facility] Date: 01/21/17 11:46 Type: Tyler Cognitive Lingusti... Exercise Education Label * Executive Function * Other Cognitive Linguistic Compensatory strategies * Level of Assistance Independent Minimum Assist * Level of Assistance Comment Min cueing to use strategies. Memory for strategies improved today. * Tolerance Excellent * Therapeutic Exercise Yes Compensatory Strategies Pt/Family Education * Therapeutic Exercise Comment Supervising DRY ROLLER present, agrees w/ tx and outcomes. MS Morena, [facility]-DRY ROLLER Patient: Kenna Nagel : 1930 Age/Sex: 86/F Unit#: [id number] Room/Bed: M4144/01 User: Ainsley Aragon, [facility] SP Date: 01/21/17 11:48 Type: Tyler-Dysphagia Manageme... Exercise Education Label * Range of Motion Exercise * Other Dysphagia Management Oral care, VF adduction, breath support, effortful swallow, linette * Measure Pitch glides w/ dec pitch range today and weak vocal quality * Level of Assistance Moderate Assist Minimum Assist * Level Of Assistance Comment Completes HEP w/ min verbal cues. Linette unsuccessful today. * Tolerance Excellent * Therapeutic Exercise Yes Pt/Family Education * Therapeutic Exercise Comment Supervising DRY ROLLER present, agrees w/ tx and outcomes. MS Morena, [facility]-DRY ROLLER. Allergies Coded Allergies: Sulfa Drugs (Verified Allergy, Mild, 06/10/12) RASH & N/V Sulfa Drugs Cross Reactors (Verified Allergy, Mild, 06/10/12) RASH & N/V Morphine and Related (Verified Adverse Reaction, Unknown, 01/02/17) Vital Signs Vital Signs Date Time Temp Pulse Resp B/P (MAP) Pulse Ox O2 Delivery O2 Flow Rate FiO2 01/21/17 14:00 99.7 80 20 108/55 (72) 97 Room Air Current Medications Current Medications Current Medications Acetaminophen (Tylenol Tab) 650 mg Q6HP PRN PO PAIN / FEVER Last administered on 01/21/17 11:51; Start 01/02/17 at 15:45; Stop 02/01/17 at 15:44 Al Hydrox/Mg Hydrox/Simethicone (Mylanta) 20 ml BIDP PRN PO INDIGESTION Last administered on 01/09/17 17:03; Start 01/09/17 at 16:30; Stop 02/08/17 at 16:29 Apixaban (Eliquis) 5 mg BID PO Last administered on 01/21/17 09:14; Start at 21:00; Stop 01/25/17 at 23:55 Atenolol (Tenormin) 25 mg DAILY PO Last administered on 01/21/17 09:13; Start 01/03/17 at 09:00; Stop 02/02/17 at 08:59 Atorvastatin Calcium (Lipitor) 40 mg QHS PO Last administered on 01/20/17 19: 38; Start 01/03/17 at 21:00; Stop 02/02/17 at 20:59 Bisacodyl (Dulcolax Suppository) 10 mg DAILYPRN PRN CA CONSTIPATION; Start at 12:30; Stop 02/01/17 at 12:29 Ciprofloxacin (Cipro) 250 mg BID@06,18 PO Last administered on 01/09/17 05:58 ; Start 01/02/17 at 18:00; Stop 01/09/17 at 17:59; Status DC Ferrous Sulfate (Ferrous Sulfate) 325 mg DAILY PO Last administered on 09:13; Start 01/03/17 at 09:00; Stop 02/02/17 at 08:59 Home Med (Med Rec Complete!) ASDIRECTED XX ; Start 01/02/17 at 15:45; Stop at 15:45; Status DC Levothyroxine Sodium (Synthroid) 25 mcg DAILY@06 PO Last administered on 06:20; Start 01/03/17 at 06:00; Stop 02/02/17 at 05:59 Losartan Potassium (Cozaar) 100 mg DAILY PO Last administered on 01/21/17 09: 14; Start 01/03/17 at 09:00; Stop 02/02/17 at 08:59 Magnesium Chloride (Slow-Mag) 64 mg BID PO Last administered on 01/21/17 09: 13; Start 01/02/17 at 21:00; Stop 02/01/17 at 20:59 Miscellaneous (Unresolved Patient Own Med Order) SEE LABEL COMMENTS UNRESOLVED XX Last administered on 01/03/17 00:01; Start 01/03/17 at 00:01; Stop 01/03 at 10:45; Status DC Non-Formulary Medication Patient may use rubb... TIDP PRN TOP PAIN; Start at 19:00; Stop 01/03/17 at 10:52; Status DC Nystatin (Mycostatin) 5 ml TID SSP Last administered on 01/19/17 08:50; Start 01/14/17 at 16:00; Stop 01/19/17 at 15:59; Status DC Pantoprazole Sodium (Protonix) 40 mg DAILY PO Last administered on 01/21/17 09:13; Start 01/10/17 at 09:00; Stop 02/09/17 at 08:59 Patient Own Medication (Patient'S Own Med) apply to neck and shoulders TIDP PRN TOP ACHES Last administered on 01/19/17 21:23; Start 01/03/17 at 11:00; Stop 02/02/17 at 10:59 Prazosin HCl (Minipress) 1 mg QHS PO Last administered on 01/20/17 19:39; Start 01/07/17 at 21:00; Stop 02/06/17 at 20:59 Sodium Biphosphate/ Sodium Phosphate (Fleet Enema) 1 ea DAILYPRN PRN CA CONSTIPATION; Start 01/02/17 at 12:30; Stop 02/01/17 at 12:29 Trazodone HCl (Desyrel) 50 mg QHS PO Last administered on 01/20/17 19:38; Start 01/08/17 at 21:00; Stop 02/07/17 at 20:59 THERESA OCHOA MD Jan 21, 2017 16:26
[2017-01-21 20:00] VITALS: BP 120/54
[2017-01-21] MEDS: ATORVASTATIN 20 MG TAB PO SCH (20:03)
[2017-01-21] MEDS: MUSCLE RUB TOP PRN (20:04)
[2017-01-21] MEDS: PRAZOSIN 1 MG CAP PO SCH (20:04)
[2017-01-21] MEDS: traZODone 50 MG TAB PO SCH (20:04)
[2017-01-22] MEDS: LEVOTHYROXINE 25MCG TABLET (0.025MG) PO SCH (05:17)
[2017-01-22 05:34] VITALS: BP 110/52
[2017-01-22 06:51] LABS: MEAN CORPUSCULAR HEMOGLOBIN 28.2 pg (27.0-33.0); MEAN CORPUSCULAR HGB CONC 32.2 g/dl (32.0-36.5); MEAN CORPUSCULAR VOLUME 87.5 fl (80.0-96.0); PLATELET COUNT, AUTOMATED 202 10^3/uL (150-450); RED CELL DISTRIBUTION WIDTH 13.1 % (11.5-14.5); WHITE BLOOD COUNT 5.2 10^3/uL (4.0-10.0)
[2017-01-22 07:14] LABS: ANION GAP 6 MEQ/L (8-16); BLOOD UREA NITROGEN 18 MG/DL (7-18); CALCIUM LEVEL 8.8 MG/DL (8.8-10.2); CARBON DIOXIDE LEVEL 29 MEQ/L (21-32); CHLORIDE LEVEL 106 MEQ/L (98-107); CREATININE FOR GFR 0.64 MG/DL (0.55-1.02); GLOMERULAR FILTRATION RATE > 60.0 (>32); GLUCOSE, FASTING 91 MG/DL (83-110); POTASSIUM SERUM 4.1 MEQ/L (3.5-5.1); SODIUM LEVEL 141 MEQ/L (136-145)
[2017-01-22] MEDS: FERROUS SULFATE 325MG TAB PO SCH (08:55)
[2017-01-22] MEDS: MUSCLE RUB TOP PRN ×2 (08:55→22:05)
[2017-01-22] MEDS: ACETAMINOPHEN TAB 650MG DOSE (2X325MG) PO PRN ×2 (08:55→22:03)
[2017-01-22] MEDS: ATENOLOL 25 MG TAB PO SCH (08:55)
[2017-01-22] MEDS: PANTOPRAZOLE 40MG TAB (PROTONIX) PO SCH (08:55)
[2017-01-22] MEDS: APIXABAN 5 MG TAB (ELIQUIS) PO SCH ×2 (08:55→22:03)
[2017-01-22] MEDS: MAGNESIUM CHLORIDE 64 MG TABCR (SLO MAG) PO SCH ×2 (08:56→22:04)
[2017-01-22] MEDS: LOSARTAN 50 MG TAB PO SCH (08:56)
--- NOTE | 2017-01-22 10:52 | IPNPDOC ---
PM&R Progress Note Electrician Supervisor Airplane Progress Note DATE OF SERVICE: 01/22/17 DATE OF ADMISSION: Jan 02, 2017 at 12:53 INPATIENT REHABILITATION ADMISSION DAY: #21 SUBJECTIVE: Patient is an 86-year-old white female with longstanding history of atherosclerotic cardiovascular disease including atrial fibrillation, hypertension, hyperlipidemia. She was in her usual state of health until late in the evening of 12/27/2016 when she had sudden onset of the left sided weakness and sensory deficits along with droop and slurring of speech. She was seen within a few minutes of the emergency room at [facility] and then transported by air lift to [facility] for consideration of TPA treatment. The patient was assessed there and found to be inside the therapeutic window, had treatment with TPA, which cleared the right M1 but not M2 arteries. Patient continued to have problems with her non dominant left upper and lower extremities involving both motor and sensory deficits and the left homonymous hemianopsia, dysarthria, dysphagia for which she is on a restricted diet of pureed food and honey-thick liquids. No pain or other complaints today. Need to keep her focused on needed skills for return to home within the family's ability to assist her. ALLERGIES: See Below MEDICATIONS: Reviewed, see below. OBJECTIVE: VITAL SIGNS: Please see below. PHYSICAL EXAMINATION: GENERAL: Short overweight elderly white female with fair + proximal and poor + distal Left upper extremity function. Patient is alert and well oriented and in mild musculoskeletal distress. HEENT: Mild left facial droop that is improving and visual field cut and mild right tongue deviation. CARDIOVASCULAR: Currently irregularly irregular. 2/4 bilateral lateral radial pulses. LUNGS: All de paz clear to auscultation. ABDOMEN: Benign, nontender no palpable masses and normal bowel sounds in all quadrants. NEUROLOGICAL: Patient is alert and oriented to person, place, time and situation. Speech with mild dysarthria. Affect is slightly anxious with a little bit flattening. Memory is fair to good. Some left neglect noted. Good minus right upper and lower extremity and fair left lower extremity motor. Fair proximal LUE to trace distally. Patient still tends to turns to right and neglects left space unless directed to it, but less difficult to redirect. SKIN: Grossly intact. LABORATORY DATA: Reviewed. Please see below. MICROBIOLOGY: Please see below. IMAGING: No new imaging. DVT prophylaxis ordered?: Tomas lazcano. ASSESSMENT AND PLAN: 1. 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 Patient appears able to participate in all 3 therapies for combined 3 hours of therapy per day. Patient 's main problem is with left body awareness and spacial awareness and coordinating left body into ADL's and mobility limiting her rate of progress. She gets some benefit with mirrors, but needs more sensory integration to allow better progress. She is not progressing well in PT/OT; however much better gains in BILINGUAL RESEARCH INTERVIEWER. Estimated date of discharge 01/24/17 after review with patient & family today Saturday01/21/17, as PT/OT/RN, Logistics Planning Manager and Physiatry met with the patient and 2 daughters, a son and son-in-law. They report they will be able to take her home on with [facility] RN/Aide, PT, OT & BILINGUAL RESEARCH INTERVIEWER. Some family training occurred today. 2. Anemia: H&H was 9.7 & 30.1% on 01/22/17. 3. Atherosclerotic cardiovascular disease (atrial fibrillation, hypertension and hyperlipidemia): Currently patient is in A-Fib. Medicine underwriting consultant continues to review and manage as appropriate. 4. Urinary Retention: Patient was having problems with urinary retention. I have started Minipress 1 mg QHS for that with apparent success as patient with little to no residuals on PVR. Patient with some urinary incontinence noted. 5. Atrial Fibrillation: Rate remains controlled and Eliquis is prophylactic against further clots. TIME SPENT: Chart Review, examination and documentation require greater than 25 minutes. Allergies Coded Allergies: Sulfa Drugs (Verified Allergy, Mild, 06/10/12) RASH & N/V Sulfa Drugs Cross Reactors (Verified Allergy, Mild, 06/10/12) RASH & N/V Morphine and Related (Verified Adverse Reaction, Unknown, 01/02/17) Vital Signs Vital Signs Date Time Temp Pulse Resp B/P (MAP) Pulse Ox O2 Delivery O2 Flow Rate FiO2 01/22/17 09:00 Room Air 01/22/17 08:55 64 110/52 01/22/17 05:34 100.0 18 94 Laboratory Data CBC/BMP Laboratory Tests 01/22/17 06:38 Red Blood Count 3.44 L, Mean Corpuscular Volume 87.5, Mean Corpuscular Hemoglobin 28.2, Mean Corpuscular Hemoglobin Concent 32.2, Red Cell Distribution Width 13.1, Calcium Level 8.8 Labs 24H Laboratory Tests 2 01/22/17 06:38: Nucleated Red Blood Cells % (auto) 0.0, Anion Gap 6L, Glomerular Filtration Rate > 60.0, Blood Urea Nitrogen 18, Creatinine 0.64, Sodium Level 141, Potassium Level 4.1, Chloride Level 106, Carbon Dioxide Level 29, Calcium Level 8.8 Current Medications Current Medications Current Medications Acetaminophen (Tylenol Tab) 650 mg Q6HP PRN PO PAIN / FEVER Last administered on 01/22/17 08:55; Start 01/02/17 at 15:45; Stop 02/01/17 at 15:44 Al Hydrox/Mg Hydrox/Simethicone (Mylanta) 20 ml BIDP PRN PO INDIGESTION Last administered on 01/09/17 17:03; Start 01/09/17 at 16:30; Stop 02/08/17 at 16:29 Apixaban (Eliquis) 5 mg BID PO Last administered on 01/22/17 08:55; Start at 21:00; Stop 01/25/17 at 23:55 Atenolol (Tenormin) 25 mg DAILY PO Last administered on 01/22/17 08:55; Start 01/03/17 at 09:00; Stop 02/02/17 at 08:59 Atorvastatin Calcium (Lipitor) 40 mg QHS PO Last administered on 01/21/17 20: 03; Start 01/03/17 at 21:00; Stop 02/02/17 at 20:59 Bisacodyl (Dulcolax Suppository) 10 mg DAILYPRN PRN [place] CONSTIPATION; Start at 12:30; Stop 02/01/17 at 12:29 Ciprofloxacin (Cipro) 250 mg BID@,18 PO Last administered on 01/09/17 05:58 ; Start 01/02/17 at 18:00; Stop 01/09/17 at 17:59; Status DC Ferrous Sulfate (Ferrous Sulfate) 325 mg DAILY PO Last administered on 08:55; Start 01/03/17 at 09:00; Stop 02/02/17 at 08:59 Home Med (Med Rec Complete!) ASDIRECTED XX ; Start 01/02/17 at 15:45; Stop at 15:45; Status DC Levothyroxine Sodium (Synthroid) 25 mcg DAILY@06 PO Last administered on 05:17; Start 01/03/17 at 06:00; Stop 02/02/17 at 05:59 Losartan Potassium (Cozaar) 100 mg DAILY PO Last administered on 01/22/17 08: 56; Start 01/03/17 at 09:00; Stop 02/02/17 at 08:59 Magnesium Chloride (Slow-Mag) 64 mg BID PO Last administered on 01/22/17 08: 56; Start 01/02/17 at 21:00; Stop 02/01/17 at 20:59 Miscellaneous (Unresolved Patient Own Med Order) SEE LABEL COMMENTS UNRESOLVED XX Last administered on 01/03/17 00:01; Start 01/03/17 at 00:01; Stop 01/03 at 10:45; Status DC Non-Formulary Medication Patient may use rubb... TIDP PRN TOP PAIN; Start at 19:00; Stop 01/03/17 at 10:52; Status DC Nystatin (Mycostatin) 5 ml TID SSP Last administered on 01/19/17 08:50; Start 01/14/17 at 16:00; Stop 01/19/17 at 15:59; Status DC Pantoprazole Sodium (Protonix) 40 mg DAILY PO Last administered on 01/22/17 08:55; Start 01/10/17 at 09:00; Stop 02/09/17 at 08:59 Patient Own Medication (Patient'S Own Med) apply to neck and shoulders TIDP PRN TOP ACHES Last administered on 01/22/17 08:55; Start 01/03/17 at 11:00; Stop 02/02/17 at 10:59 Prazosin HCl (Minipress) 1 mg QHS PO Last administered on 01/21/17 20:04; Start 01/07/17 at 21:00; Stop 02/06/17 at 20:59 Sodium Biphosphate/ Sodium Phosphate (Fleet Enema) 1 ea DAILYPRN PRN [place] CONSTIPATION; Start 01/02/17 at 12:30; Stop 02/01/17 at 12:29 Trazodone HCl (Desyrel) 50 mg QHS PO Last administered on 01/21/17t 20:04; Start 01/08/17 at 21:00; Stop 02/07/17 at 20:59 THERESA OCHOA MD Jan 22, 2017 10:52
[2017-01-22 14:00] VITALS: BP 142/72
--- NOTE | 2017-01-22 14:34 | IPNPDOC ---
Date Seen The patient was seen on 01/22/17. 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 [facility] Pt is currently in bed and states she is feeling "better". No new concerns at this time. Pt noted with Tmax 100.0. Nursing states she keeps her room very warm, states she feels cold all the time, requests extra blankets. Pt has been c/o neck pain as per nursing but sounds like it has been a chronic issue for her, uses a neck pillow to help. Denies any fevers, chills, Chest Pain, Shortness of breath, cough, palpitations , abdominal pain, N/V/D or changes in bowel or bladder habits. 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 Afib. eliquis anticoagulation. dyslipidemia HTN OA Hypothyroid H/O Mane's/Gastritis/H Pylori Fe def anemia PSHX: Tonsillectomy Appendectomy cataract surgery B/L Hip replacement hysterectomy back surgery colonoscopy/EGD 03/25 Michel. adenomatous polyp/gastritis. PE: GEN: 86yoF, appears stated age. Well-nourished, well developed. No acute distress. HEENT: Normocephalic, atraumatic. Rightward gaze persists. Left facial droop. Mild dysarthria. Moist mucous membranes. CHEST: irreg irreg, +S1, +S2. LUNGS: Clear to auscultation bilaterally. No wheezes, rales, or rhonchi. Breathing appears symmetric and easy. ABD: Round, soft, non-tender, non-distended. +Bowel sounds throughout. No rebound or guarding. No costovertebral angle tenderness. EXT: No lower extremity edema appreciated. SKIN: [place], dry, warm. No rashes. NEURO: Alert and oriented x 3. Left sided weakness. 01/11/17 CT Head 1. Small vessel ischemic disease. 2. Minimal volume loss. A&P: 86year oldF with a past medical history significant for embolic CVA with left hemiparesis and neglect treated with TPA [facility] [place]. Pt was transferred to the care of [facility] 01/02/17. 1. S/P embolic CVA/Left hemiparesis/dysarthria/dysphagia. Mgmt as per Dr Noriega/JOSH. PT/OT as per Dr Noriega/JOSH. ST as per Dr Noriega/JOSH. Bowel care as per Dr Noriega/JOSH. Pain mgmt as per Dr Noriega/JOSH. Outpt F/U with neurology. DVT prophylaxis. Pt is on Eliquis. 2. Dysphagia. ST. Pureed diet/Honey thick 3. Afib, chronic. Eliquis anticoagulation. Atenolol rate control. (60s-70s) 4. HLD. Cont lipitor 40 mg daily. 5. Hypothyroid. Cont supplement. Update TSH. 6. HTN. Cozaar with hold parameters. 7. Hypomagnesemia. Cont supplement. Mag level 1.8. 8. Fe def anemia. Cont supplement. Monitor Hgb, trend 9-10. Fe studies WNL 08/25. 9. UTI. Completed Cipro po x 7 days. 10. Tmax 100.5 this afternoon. No leukocytosis as per labs this AM. Recheck UA/UC. CXR. Encourage OOB, I/S. 11. Chronic neck pain. XR C spine requested. VS, I&O, 24H, Fishbone Vital Signs/I&O Vital Signs Date Time Temp Pulse Resp B/P (MAP) Pulse Ox O2 Delivery O2 Flow Rate FiO2 01/22/17 09:00 Room Air 01/22/17 08:55 64 110/52 01/22/17 05:34 100.0 18 94 I&O- Last 24 Hours up to 6 AM 01/23/17 05:59 Intake Total 360 ml Balance 360 ml Laboratory Data 24H LABS Laboratory Tests 2 01/22/17 06:38: Nucleated Red Blood Cells % (auto) 0.0, Anion Gap 6L, Glomerular Filtration Rate > 60.0, Blood Urea Nitrogen 18, Creatinine 0.64, Sodium Level 141, Potassium Level 4.1, Chloride Level 106, Carbon Dioxide Level 29, Calcium Level 8.8 CBC/BMP Laboratory Tests 01/22/17 06:38 Red Blood Count 3.44 L, Mean Corpuscular Volume 87.5, Mean Corpuscular Hemoglobin 28.2, Mean Corpuscular Hemoglobin Concent 32.2, Red Cell Distribution Width 13.1, Calcium Level 8.8 Marlyn Lynn Jan 22, 2017 14:34
--- NOTE | 2017-01-22 16:50 | REP ---
Clinical: Febrile. Technique: PA and lateral. Comparison: 01/09/2016. Findings: Mediastinum and cardiac silhouette are normal. Lung de paz demonstrate diffuse chronic interstitial changes without acute consolidation, effusion, or pneumothorax. Skeletal structures demonstrate osteopenia and degenerative changes. Impression: Chronic stable changes. No obvious acute cardiopulmonary process. Signed by Kamron Adams MD 01/22/2017 04:41 P
--- NOTE | 2017-01-22 17:54 | REP ---
CERVICAL SPINE, SEVEN VIEWS: HISTORY: Neck pain. COMPARISON: 08/27/2008. The cervical spine is visualized from C1-2 to the C6-7 level in the lateral radiographs. There is no acute fracture. The C2-3 through C6-7 intervertebral discs are decreased in height consistent with disc degeneration. Osteophytes are present on C3 through 6. There is narrowing of the right C4 and 5 and left C3 and 4 neural foramina secondary to uncinate process hypertrophy. There are 3 mm of anterior subluxation of C2 on 3. This is unchanged with flexion and extension. IMPRESSION:Degenerative change as described above. Signed by Sloan Cherry MD 01/23/2017 08:26 A
[2017-01-22 20:00] VITALS: BP 150/60
[2017-01-22] MEDS: ATORVASTATIN 20 MG TAB PO SCH (22:03)
[2017-01-22] MEDS: PRAZOSIN 1 MG CAP PO SCH (22:04)
[2017-01-22] MEDS: traZODone 50 MG TAB PO SCH (22:04)
[2017-01-23 05:19] VITALS: BP 146/68
[2017-01-23] MEDS: LEVOTHYROXINE 25MCG TABLET (0.025MG) PO SCH (05:19)
[2017-01-23 07:15] LABS: MEAN CORPUSCULAR HEMOGLOBIN 28.5 pg (27.0-33.0); MEAN CORPUSCULAR HGB CONC 32.4 g/dl (32.0-36.5); MEAN CORPUSCULAR VOLUME 87.9 fl (80.0-96.0); PLATELET COUNT, AUTOMATED 185 10^3/uL (150-450); WHITE BLOOD COUNT 5.1 10^3/uL (4.0-10.0)
[2017-01-23 07:39] LABS: ALBUMIN 2.9 GM/DL (3.2-5.2); ALBUMIN/GLOBULIN RATIO 1.04 (1.00-1.93); ALKALINE PHOSPHATASE 71 U/L (45-117); ALT/SGPT 22 U/L (12-78); ANION GAP 6 MEQ/L (8-16); AST/SGOT 8 U/L (7-37); BILIRUBIN,TOTAL 0.4 MG/DL (0.2-1.0); BLOOD UREA NITROGEN 15 MG/DL (7-18); CALCIUM LEVEL 8.9 MG/DL (8.8-10.2); CARBON DIOXIDE LEVEL 28 MEQ/L (21-32); CHLORIDE LEVEL 108 MEQ/L (98-107); GLOMERULAR FILTRATION RATE > 60.0 (>32); GLUCOSE, FASTING 90 MG/DL (83-110); MAGNESIUM LEVEL 1.9 MG/DL (1.8-2.4); POTASSIUM SERUM 4.1 MEQ/L (3.5-5.1); SODIUM LEVEL 142 MEQ/L (136-145); TOTAL PROTEIN 5.7 GM/DL (6.4-8.2)
[2017-01-23] MEDS: FERROUS SULFATE 325MG TAB PO SCH (08:30)
[2017-01-23] MEDS: MAGNESIUM CHLORIDE 64 MG TABCR (SLO MAG) PO SCH ×2 (08:30→21:37)
[2017-01-23] MEDS: PANTOPRAZOLE 40MG TAB (PROTONIX) PO SCH (08:30)
[2017-01-23] MEDS: APIXABAN 5 MG TAB (ELIQUIS) PO SCH ×2 (08:31→21:38)
[2017-01-23] MEDS: ATENOLOL 25 MG TAB PO SCH (08:31)
[2017-01-23] MEDS: LOSARTAN 50 MG TAB PO SCH (08:31)
--- NOTE | 2017-01-23 11:01 | IPNPDOC ---
PM&R Progress Note Bleach Tester Progress Note DATE OF SERVICE: 01/23/17 DATE OF ADMISSION: Jan 02, 2017 at 12:53 INPATIENT REHABILITATION ADMISSION DAY: #22 SUBJECTIVE: Patient is an 86-year-old white female with longstanding history of atherosclerotic cardiovascular disease including atrial fibrillation, hypertension, hyperlipidemia. She was in her usual state of health until late in the evening of 12/27/2016 when she had sudden onset of the left sided weakness and sensory deficits along with droop and slurring of speech. She was seen within a few minutes of the emergency room at [facility] and then transported by air lift to [facility] for consideration of TPA treatment. The patient was assessed there and found to be inside the therapeutic window, had treatment with TPA, which cleared the right M1 but not M2 arteries. Patient continued to have problems with her non dominant left upper and lower extremities involving both motor and sensory deficits and the left homonymous hemianopsia, dysarthria, dysphagia for which she is on a restricted diet of pureed food and honey-thick liquids. No pain or other complaints today. Need to keep her focused on needed skills for return to home within the family's ability to assist her. ALLERGIES: See Below MEDICATIONS: Reviewed, see below. OBJECTIVE: VITAL SIGNS: Please see below. PHYSICAL EXAMINATION: GENERAL: Short overweight elderly white female with fair + proximal and poor + distal Left upper extremity function. Patient is alert and well oriented and in mild musculoskeletal distress. HEENT: Mild left facial droop that is improving and visual field cut and mild right tongue deviation. CARDIOVASCULAR: Currently irregularly irregular. 2/4 bilateral lateral radial pulses. LUNGS: All de paz clear to auscultation. ABDOMEN: Benign, nontender no palpable masses and normal bowel sounds in all quadrants. NEUROLOGICAL: Patient is alert and oriented to person, place, time and situation. Speech with mild dysarthria. Affect is slightly anxious with a little bit flattening. Memory is fair to good. Some left neglect noted. Good minus right upper and lower extremity and fair left lower extremity motor. Fair proximal LUE to trace distally. Patient still tends to turns to right and neglects left space unless directed to it, but less difficult to redirect. SKIN: Grossly intact. LABORATORY DATA: Reviewed. Please see below. MICROBIOLOGY: Please see below. IMAGING: No new imaging. DVT prophylaxis ordered?: Tomas lazcano. ASSESSMENT AND PLAN: 1. 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 Patient appears able to participate in all 3 therapies for combined 3 hours of therapy per day. Patient 's main problem is with left body awareness and spacial awareness and coordinating left body into ADL's and mobility limiting her rate of progress. She gets some benefit with mirrors, but needs more sensory integration to allow better progress. She is not progressing well in PT/OT; however much better gains in MANUFACTURING MAINTENANCE MANAGER. Estimated date of discharge 01/24/17 after review with patient & family today Saturday01/21/17, as PT/OT/RN, Chief Client Officer and Physiatry met with the patient and 2 daughters, a son and son-in-law. They report they will be able to take her home on with [facility] RN/Aide, PT, OT & MANUFACTURING MAINTENANCE MANAGER. Discharge to home tomorrow. 2. Anemia: H&H was 10.4 & 32.1% on 01/23/17. 3. Atherosclerotic cardiovascular disease (atrial fibrillation, hypertension and hyperlipidemia): Currently patient is in A-Fib. Medicine jd edwards consultant continues to review and manage as appropriate. 4. Urinary Retention: Patient was having problems with urinary retention. I have started Minipress 1 mg QHS for that with apparent success as patient with little to no residuals on PVR. Patient with some urinary incontinence noted. 5. Atrial Fibrillation: Rate remains controlled and Eliquis is prophylactic against further clots. TIME SPENT: Chart Review, examination and documentation require greater than 25 minutes. Allergies Coded Allergies: Sulfa Drugs (Verified Allergy, Mild, 06/10/12) RASH & N/V Sulfa Drugs Cross Reactors (Verified Allergy, Mild, 06/10/12) RASH & N/V Morphine and Related (Verified Adverse Reaction, Unknown, 01/02/17) Vital Signs Vital Signs Date Time Temp Pulse Resp B/P (MAP) Pulse Ox O2 Delivery O2 Flow Rate FiO2 01/23/17 08:31 146/68 01/23/17 08:31 68 01/23/17 05:19 98.2 20 96 01/22/17 20:00 Room Air Laboratory Data CBC/BMP Laboratory Tests 01/23/17 06:55 Red Blood Count 3.65 L, Mean Corpuscular Volume 87.9, Mean Corpuscular Hemoglobin 28.5, Mean Corpuscular Hemoglobin Concent 32.4, Red Cell Distribution Width 13.0, Calcium Level 8.9, Aspartate Amino Transf (AST/SGOT) 8 , Alanine Aminotransferase (ALT/SGPT) 22, Alkaline Phosphatase 71, Total Bilirubin 0.4, Total Protein 5.7 L, Albumin 2.9 L Labs 24H Laboratory Tests 2 01/22/17 14:56: Urine Appearance CLEAR, Urine Color STRAW, Urine pH 5.0, Urine Specific Rex 1.005, Urine Protein NEGATIVE, Urine Glucose (UA) NEGATIVE, Urine Ketones NEGATIVE, Urine Urobilinogen 0.2, Urine Bilirubin NEGATIVE, Urine Leukocyte Esterase NEGATIVE, Urine Blood 1+H, Urine Nitrite NEGATIVE, Urine WBC (Auto) 1, Urine RBC (Auto) 8H, Urine Hyaline Casts (Auto) 0, Urine Bacteria (Auto) 1+H, Urine Squamous Epithelial Cells 0, Urine Mucus (Auto) SMALL, Urine Sperm (Auto) 01/23/17 06:55: Nucleated Red Blood Cells % (auto) 0.0, Anion Gap 6L, Glomerular Filtration Rate > 60.0, Blood Urea Nitrogen 15, Creatinine 0.70, Sodium Level 142, Potassium Level 4.1, Chloride Level 108H, Carbon Dioxide Level 28, Calcium Level 8.9, Aspartate Amino Transf (AST/SGOT) 8, Alanine Aminotransferase (ALT/ SGPT) 22, Alkaline Phosphatase 71, Total Bilirubin 0.4, Total Protein 5.7L, Albumin 2.9L, Magnesium Level 1.9, Albumin/Globulin Ratio 1.04 Microbiology Microbiology 01/22/17 Urine Culture, Received Pending Current Medications Current Medications Current Medications Acetaminophen (Tylenol Tab) 650 mg Q6HP PRN PO PAIN / FEVER Last administered on 01/22/17 22:03; Start 01/02/17 at 15:45; Stop 02/01/17 at 15:44 Al Hydrox/Mg Hydrox/Simethicone (Mylanta) 20 ml BIDP PRN PO INDIGESTION Last administered on 01/09/17 17:03; Start 01/09/17 at 16:30; Stop 02/08/17 at 16:29 Apixaban (Eliquis) 5 mg BID PO Last administered on 01/23/17 08:31; Start at 21:00; Stop 01/28/17 at 23:55 Atenolol (Tenormin) 25 mg DAILY PO Last administered on 01/23/17 08:31; Start 01/03/17 at 09:00; Stop 02/02/17 at 08:59 Atorvastatin Calcium (Lipitor) 40 mg QHS PO Last administered on 01/22/17 22: 03; Start 01/03/17 at 21:00; Stop 02/02/17 at 20:59 Bisacodyl (Dulcolax Suppository) 10 mg DAILYPRN PRN [place] CONSTIPATION; Start at 12:30; Stop 02/01/17 at 12:29 Ciprofloxacin (Cipro) 250 mg BID@06,18 PO Last administered on 01/09/17 05:58 ; Start 01/02/17 at 18:00; Stop 01/09/17 at 17:59; Status DC Ferrous Sulfate (Ferrous Sulfate) 325 mg DAILY PO Last administered on 08:30; Start 01/03/17 at 09:00; Stop 02/02/17 at 08:59 Home Med (Med Rec Complete!) ASDIRECTED XX ; Start 01/02/17 at 15:45; Stop at 15:45; Status DC Levothyroxine Sodium (Synthroid) 25 mcg DAILY@06 PO Last administered on 05:19; Start 01/03/17 at 06:00; Stop 02/02/17 at 05:59 Losartan Potassium (Cozaar) 100 mg DAILY PO Last administered on 01/23/17 08: 31; Start 01/03/17 at 09:00; Stop 02/02/17 at 08:59 Magnesium Chloride (Slow-Mag) 64 mg BID PO Last administered on 01/23/17 08: 30; Start 01/02/17 at 21:00; Stop 02/01/17 at 20:59 Miscellaneous (Unresolved Patient Own Med Order) SEE LABEL COMMENTS UNRESOLVED XX Last administered on 01/03/17 00:01; Start 01/03/17 at 00:01; Stop 01/03 at 10:45; Status DC Non-Formulary Medication Patient may use rubb... TIDP PRN TOP PAIN; Start at 19:00; Stop 01/03/17 at 10:52; Status DC Nystatin (Mycostatin) 5 ml TID SSP Last administered on 01/19/17 08:50; Start 01/14/17 at 16:00; Stop 01/19/17 at 15:59; Status DC Pantoprazole Sodium (Protonix) 40 mg DAILY PO Last administered on 01/23/17 08:30; Start 01/10/17 at 09:00; Stop 02/09/17 at 08:59 Patient Own Medication (Patient'S Own Med) apply to neck and shoulders TIDP PRN TOP ACHES Last administered on 01/22/17 22:05; Start 01/03/17 at 11:00; Stop 02/02/17 at 10:59 Prazosin HCl (Minipress) 1 mg QHS PO Last administered on 01/22/17 22:04; Start 01/07/17 at 21:00; Stop 02/06/17 at 20:59 Sodium Biphosphate/ Sodium Phosphate (Fleet Enema) 1 ea DAILYPRN PRN [place] CONSTIPATION; Start 01/02/17 at 12:30; Stop 02/01/17 at 12:29 Trazodone HCl (Desyrel) 50 mg QHS PO Last administered on 01/22/17 22:04; Start 01/08/17 at 21:00; Stop 02/07/17 at 20:59 THERESA OCHOA MD Jan 23, 2017 11:00
[2017-01-23] MEDS ORDERED: LEVO30TA PO (11:14)
[2017-01-23] MEDS ORDERED: ELIQ5TAB PO (11:14)
[2017-01-23] MEDS ORDERED: LOSA100T36 PO (11:14)
[2017-01-23] MEDS ORDERED: ATOR40TA75 PO (11:14)
[2017-01-23] MEDS ORDERED: MINI1CAP PO (11:14)
[2017-01-23] MEDS ORDERED: SLOWTAB2 PO (11:14)
[2017-01-23] MEDS ORDERED: FERR1TAB8 PO (11:14)
[2017-01-23] MEDS ORDERED: ATEN25TA PO (11:14)
[2017-01-23 14:00] VITALS: BP 122/61
[2017-01-23] MEDS: ACETAMINOPHEN TAB 650MG DOSE (2X325MG) PO PRN ×2 (15:07→21:38)
[2017-01-23 21:00] VITALS: BP 133/64
[2017-01-23] MEDS: PRAZOSIN 1 MG CAP PO SCH (21:38)
[2017-01-23] MEDS: ATORVASTATIN 20 MG TAB PO SCH (21:38)
[2017-01-23] MEDS: traZODone 50 MG TAB PO SCH (21:38)
[2017-01-24 06:00] VITALS: BP 132/68
[2017-01-24] MEDS: LEVOTHYROXINE 25MCG TABLET (0.025MG) PO SCH (06:06)
[2017-01-24] MEDS: ACETAMINOPHEN TAB 650MG DOSE (2X325MG) PO PRN (06:06)
[2017-01-24 08:43] VITALS: BP 132/68
[2017-01-24] MEDS: PANTOPRAZOLE 40MG TAB (PROTONIX) PO SCH (08:43)
[2017-01-24] MEDS: ATENOLOL 25 MG TAB PO SCH (08:43)
[2017-01-24] MEDS: APIXABAN 5 MG TAB (ELIQUIS) PO SCH (08:43)
[2017-01-24] MEDS: FERROUS SULFATE 325MG TAB PO SCH (08:43)
[2017-01-24] MEDS: MAGNESIUM CHLORIDE 64 MG TABCR (SLO MAG) PO SCH (08:44)
[2017-01-24] MEDS: LOSARTAN 50 MG TAB PO SCH (08:44)
--- NOTE | 2017-01-24 17:04 | PMRDS ---
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 HISTORY: Patient is an 86-year-old right-handed female who on 12/27/2016 developed sudden onset of deficits in the left body, face, and was seen and taken to [facility] ([facility]), where tPA was performed, and patient had clearing of the M2 section but not the M1 section of the right middle cerebral artery. Patient was medically stabilized, blood pressure treated, and started in therapy, and on 01/02/2017 patient was felt to be appropriate for admission for acute neurorehabilitation at [facility]. PAST MEDICAL HISTORY: Include: 1. Atrial fibrillation. 2. Hyperlipidemia. 3. Hypertension. 4. Arthritis. 5. Hypothyroidism. 6. Prior polyp removal. 7. Prior back surgery. 8. Status post appendectomy. 9. Bilateral cataract surgery. 10. Bilateral hip replacement. 11. Status post hysterectomy. 12. Prior skin biopsy. 13. Tonsillectomy. PROCEDURES PERFORMED HERE: Included CT head on 01/11/2017, chest x-ray and spine x-ray on 01/22/2017, which did not disclose any significant new findings. DIAGNOSTIC LABORATORY: Patient with anemia, hemoglobin and hematocrit of 10.8 and 33.0% at time of admission and remained stable at 10.4 for a hemoglobin and hematocrit of 32.1 prior to discharge. Chemistry showed fairly stable function. Occasional elevation of BUN and a low albumin but made some slight improvement from 2.8 to before discharge to 0.9. HOSPITAL COURSE: Patient was admitted on 01/02/2017 and had a fairly uneventful course except for occasional spikes in temperature, which led to imaging studies and an apparent contaminated urine culture. Patient, however, participated in physical, occupational and speech therapy. Showed marked improvement in her speech and advanced in her diet; however, continued to have significant problems with left spacial awareness and her left homonymous hemianopsia. Physical therapy: Patient has very supportive family, who will be able to assist her. Progressed from moderate maximal assist to contact-guard assistance, though with difficulty with balance, dynamic standing balance due to decreased left-sided awareness; however, she is safest with manual wheelchair, which her family can assist her with for gaiting. She is able to ambulate 45 feet with a paulino-walker and minimal assist and do three stairs. On occupational therapy (OT), patient did advance to minimal assistance to standby assistance in most activities of daily living (ADLs) except for dressing due to shoulder problems. She is maximal assist for the upper extremity and moderate assist for the lower extremity, bur family is able to assist her with that and also bathing and toileting. Patient and family conference was held, and this was reviewed with them, and planning commenced, and they have elected to take patient home. Patient is discharged to home today, 01/24/2017, with home care services. DISCHARGE MEDICATIONS: - Minipress 1 mg at bedtime for urinary retention - Eliquis 5 mg twice a day for atrial fibrillation - atenolol 25 mg to control rate on atrial fibrillation and blood pressure and for hypertension - atorvastatin 40 mg daily for cholesterol control and to prevent further plaques and strokes - iron sulfate for anemia, 325 mg a day - levothyroxine 25 mcg per day for hypothyroidism - losartan 100 mg daily for hypertension - Slow-Mag 71.5/119 mg one tablet twice a day Patient is on a pureed diet with honey-thick liquids. Patient to have home care. Patient to see primary care provider within 2 weeks and to followup with [facility] within 2 months. TIME SPENT ON DISCHARGE: Greater than 35 minutes.
== END 2017-01-24 15:40 | disposition home health service (06) | DRG 57 ==
LOC: M PM&R 12:53
PROVIDERS: ADMIT Physical Medicine & Rehabilitation; ATTEND Physical Medicine & Rehabilitation
DX: I69.354 Hemiplegia and hemiparesis following cerebral infarction affecting left non-dominant side (principal); N39.0 Urinary tract infection, site not specified; H53.462 Homonymous bilateral field defects, left side; I69.398 Other sequelae of cerebral infarction; I69.392 Facial weakness following cerebral infarction; I69.322 Dysarthria following cerebral infarction; I69.391 Dysphagia following cerebral infarction; R13.10 Dysphagia, unspecified; I25.10 Atherosclerotic heart disease of native coronary artery without angina pectoris; I48.2 Chronic atrial fibrillation; Z66 Do not resuscitate; K22.70 Barrett's esophagus without dysplasia; E78.5 Hyperlipidemia, unspecified; G47.00 Insomnia, unspecified; I10 Essential (primary) hypertension; R32 Unspecified urinary incontinence; R33.9 Retention of urine, unspecified; R51 Headache; D50.9 Iron deficiency anemia, unspecified; E66.3 Overweight; E83.42 Hypomagnesemia; M19.90 Unspecified osteoarthritis, unspecified site; E03.9 Hypothyroidism, unspecified; Z96.643 Presence of artificial hip joint, bilateral; Z88.2 Allergy status to sulfonamides; Z79.01 Long term (current) use of anticoagulants; Z88.5 Allergy status to narcotic agent; Z79.899 Other long term (current) drug therapy

== ENCOUNTER 2017-01-27 08:36 | Emergency (ER) | payer OTHER ==
[~2017-01-27] VITALS: Ht 144.8 cm; Wt 63.5 kg
[~2017-01-27 08:36] MED LIST: ATEN25TA PO; ATOR40TA75 PO; ELIQ5TAB PO; FERR1TAB8 PO; LEVO30TA PO; LOSA100T36 PO; MINI1CAP PO; SLOWTAB2 PO
[2017-01-27] MEDS ORDERED: TYLE500T78 PO (08:59)
[2017-01-27] MEDS ORDERED: ASPIRIN 81 MG CHEW TABLET PO ONE (09:00)
[2017-01-27 09:19] LABS: BASO # 0.1 10^3/uL (0.0-0.2); BASO % 0.8 % (0.0-1.0); EOS # 0.2 10^3/uL (0.0-0.50); EOS % 2.4 % (0.0-3.0); IMMATURE GRANULOCYTE % 0.5 % (0-0); LYMPH % 16.1 % (24.0-44.0); MEAN CORPUSCULAR HGB CONC 32.1 g/dl (32.0-36.5); MEAN CORPUSCULAR VOLUME 87.2 fl (80.0-96.0); MONO # 0.5 10^3/uL (0.0-0.8); MONO % 7.5 % (0.0-5.0); NEUTROPHILS # 4.6 10^3/uL (1.8-7.7); NEUTROPHILS % 72.7 % (36.0-66.0); PLATELET COUNT, AUTOMATED 213 10^3/uL (150-450); WHITE BLOOD COUNT 6.3 10^3/uL (4.0-10.0)
[2017-01-27] MEDS ORDERED: LOSARTAN 50 MG TAB PO ONE (09:30)
[2017-01-27] MEDS ORDERED: ATENOLOL 25 MG TAB PO ONE (09:30)
[2017-01-27 09:44] LABS: ANION GAP 5 MEQ/L (8-16); BLOOD UREA NITROGEN 10 MG/DL (7-18); CALCIUM LEVEL 9.1 MG/DL (8.8-10.2); CARBON DIOXIDE LEVEL 29 MEQ/L (21-32); CHLORIDE LEVEL 109 MEQ/L (98-107); CREATININE FOR GFR 0.68 MG/DL (0.55-1.02); GLOMERULAR FILTRATION RATE > 60.0 (>32); GLUCOSE, FASTING 87 MG/DL (83-110); POTASSIUM SERUM 4.1 MEQ/L (3.5-5.1); SODIUM LEVEL 143 MEQ/L (136-145)
[2017-01-27 09:50] VITALS: BP 183/84
[2017-01-27] MEDS ORDERED: FUROSEMIDE 40 MG/4 ML VIAL (J1940) IV ONE (10:15)
[2017-01-27 10:57] VITALS: BP 155/89
--- NOTE | 2017-01-27 12:14 | REP ---
CHEST, PORTABLE: AP portable view of the chest is performed. Heart is upper limits or normal in size. There is no change in the mediastinal silhouette compared to prior studies. There is diffuse interstitial fibrotic change without evidence of acute infiltrate. IMPRESSION: No acute infiltrate. Chronic changes are stable. Signed by Jos Morin MD 01/27/2017 05:35 P
--- NOTE | 2017-01-29 05:34 | ECGEPIP ---
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
== END 2017-01-27 11:15 | disposition home or self-care (01) ==
LOC: M ED 08:36 → EDBD 08:36 → M ED 11:15
DX: R00.2 Palpitations (principal); I48.91 Unspecified atrial fibrillation; F41.9 Anxiety disorder, unspecified; Z79.01 Long term (current) use of anticoagulants; Z79.899 Other long term (current) drug therapy; Z88.2 Allergy status to sulfonamides; Z88.5 Allergy status to narcotic agent; Z86.73 Personal history of transient ischemic attack (TIA), and cerebral infarction without residual deficits
CPT/HCPCS: 71010; 80048; 82550; 82553; 83880; 84484; 85025; 93005; 93041; 94760; 96374; 99285; J1940

== ENCOUNTER → 2017-02-27 | Outpatient (REF) | payer OTHER ==
[~2017-02-27] MED LIST changes: +TYLE500T78 PO
[2017-02-27 11:50] LABS: MICROSCOPIC INDICATED? MAN YES (NO)
[2017-02-27 12:01] LABS: BACTERIA, URINE SMALL AMOUNT; HYALINE CAST, URINE NONE SEEN /lpf (0-1); MICROSCOPIC EXAM PERFORMED; RBC, URINE 0-1 /hpf (0-3); SQUAMOUS EPITHELIAL CELL URINE SMALL AMOUNT /hpf (SMALL AMT); WBC, URINE NONE SEEN /hpf (0-3)
== END ==
LOC: M LAB REF 11:20
PROVIDERS: ATTEND Internal Medicine
DX: N39.0 Urinary tract infection, site not specified (principal)

== ENCOUNTER → 2017-03-01 | Outpatient (REF) | payer OTHER | LOC: M SFHCLERA 12:13 | PROVIDERS: ATTEND Physician Assistant | DX: R30.0 Dysuria (principal) ==

== ENCOUNTER 2017-09-05 06:31 | Emergency (ER) | payer OTHER ==
[2017-09-05 07:01] LABS: BASO % 0.7 % (0.0-1.0); EOS # 0.1 10^3/uL (0.0-0.50); EOS % 1.7 % (0.0-3.0); HEMATOCRIT 38.7 % (36.0-47.0); HEMOGLOBIN 12.9 g/dl (12.0-15.5); IMMATURE GRANULOCYTE % 0.3 % (0-3.0); LYMPH # 1.2 10^3/uL (1.5-4.5); LYMPH % 19.9 % (24.0-44.0); MEAN CORPUSCULAR HEMOGLOBIN 29.9 pg (27.0-33.0); MEAN CORPUSCULAR HGB CONC 33.3 g/dl (32.0-36.5); MEAN CORPUSCULAR VOLUME 89.6 fl (80.0-96.0); MONO # 0.5 10^3/uL (0.0-0.8); MONO % 8.3 % (0.0-5.0); NEUTROPHILS # 4.1 10^3/uL (1.8-7.7); NEUTROPHILS % 69.1 % (36.0-66.0); PLATELET COUNT, AUTOMATED 171 10^3/uL (150-450); RED BLOOD COUNT 4.32 10^6/uL (4.00-5.40); RED CELL DISTRIBUTION WIDTH 12.7 % (11.5-14.5)
[2017-09-05 07:29] LABS: ANION GAP 8 MEQ/L (8-16); BLOOD UREA NITROGEN 29 MG/DL (7-18); CALCIUM LEVEL 8.8 MG/DL (8.8-10.2); CARBON DIOXIDE LEVEL 27 MEQ/L (21-32); CHLORIDE LEVEL 108 MEQ/L (98-107); CK-MB VALUE MASS 1.9 NG/ML (<3.6); CPK CREATINE PHOSPHOKINASE 75 U/L (26-192); CREATININE FOR GFR 0.73 MG/DL (0.55-1.30); GLOMERULAR FILTRATION RATE > 60.0 (>32); GLUCOSE, FASTING 107 MG/DL (70-100); MB/CK RELATIVE INDEX 2.53 (< OR =4); POTASSIUM SERUM 4.4 MEQ/L (3.5-5.1); SODIUM LEVEL 143 MEQ/L (136-145); TROPONIN I < 0.02 NG/ML (< 0.10)
[2017-09-05 12:50] LABS: CK-MB VALUE MASS 1.4 NG/ML (<3.6); CPK CREATINE PHOSPHOKINASE 62 U/L (26-192); MB/CK RELATIVE INDEX 2.25 (< OR =4); TROPONIN I < 0.02 NG/ML (< 0.10)
== END 2017-09-05 14:26 | disposition home or self-care (01) ==
LOC: M ED 06:31
DX: R07.9 Chest pain, unspecified (principal); I48.91 Unspecified atrial fibrillation; I10 Essential (primary) hypertension; E78.5 Hyperlipidemia, unspecified; Z86.73 Personal history of transient ischemic attack (TIA), and cerebral infarction without residual deficits; Z79.899 Other long term (current) drug therapy; Z88.5 Allergy status to narcotic agent; Z88.2 Allergy status to sulfonamides
CPT/HCPCS: 71045

== ENCOUNTER → 2017-09-09 | Outpatient (CLI) | payer OTHER | LOC: M PAIN 13:30 | DX: M54.2 Cervicalgia (principal); M79.1 Myalgia; G89.29 Other chronic pain; I48.91 Unspecified atrial fibrillation; E03.9 Hypothyroidism, unspecified; E78.00 Pure hypercholesterolemia, unspecified; M19.90 Unspecified osteoarthritis, unspecified site; M85.80 Other specified disorders of bone density and structure, unspecified site; Z79.01 Long term (current) use of anticoagulants; Z79.899 Other long term (current) drug therapy; Z88.0 Allergy status to penicillin; Z88.2 Allergy status to sulfonamides; Z88.5 Allergy status to narcotic agent; Z86.73 Personal history of transient ischemic attack (TIA), and cerebral infarction without residual deficits; Z96.643 Presence of artificial hip joint, bilateral | CPT/HCPCS: G0463 ==

== ENCOUNTER → 2017-10-11 | Outpatient (CLI) | payer OTHER ==
[~2017-10-11] MED LIST changes: -ATEN25TA PO; -ATOR40TA75 PO; +BUPIVACAINE HCL 0.25% 10 ML VIAL As Ordered; +BUPIVACAINE HCL 0.25% 30 ML VIAL As Ordered; -ELIQ5TAB PO; -FERR1TAB8 PO; -LEVO30TA PO; -LOSA100T36 PO; -MINI1CAP PO; -SLOWTAB2 PO; +TRIAMCINOLONE ACETONIDE SUSP 40 MG/ML VIAL (J3301) As Ordered; -TYLE500T78 PO
== END ==
LOC: M PAIN 10:45
DX: G89.29 Other chronic pain (principal); M79.1 Myalgia; M54.2 Cervicalgia; E78.00 Pure hypercholesterolemia, unspecified; E03.9 Hypothyroidism, unspecified; M19.90 Unspecified osteoarthritis, unspecified site; M85.80 Other specified disorders of bone density and structure, unspecified site; Z79.01 Long term (current) use of anticoagulants; Z79.899 Other long term (current) drug therapy; Z88.0 Allergy status to penicillin; Z88.2 Allergy status to sulfonamides; Z88.5 Allergy status to narcotic agent; Z96.643 Presence of artificial hip joint, bilateral; Z86.73 Personal history of transient ischemic attack (TIA), and cerebral infarction without residual deficits; Z86.79 Personal history of other diseases of the circulatory system
CPT/HCPCS: J3301

== ENCOUNTER → 2017-11-07 | Outpatient (CLI) | payer OTHER | LOC: M PAIN 09:15 | DX: M54.2 Cervicalgia (principal); M79.1 Myalgia; I48.91 Unspecified atrial fibrillation; E78.00 Pure hypercholesterolemia, unspecified; E03.9 Hypothyroidism, unspecified; M19.90 Unspecified osteoarthritis, unspecified site; M85.80 Other specified disorders of bone density and structure, unspecified site; Z79.01 Long term (current) use of anticoagulants; Z79.899 Other long term (current) drug therapy; Z88.0 Allergy status to penicillin; Z88.2 Allergy status to sulfonamides; Z88.5 Allergy status to narcotic agent; Z96.653 Presence of artificial knee joint, bilateral; Z86.73 Personal history of transient ischemic attack (TIA), and cerebral infarction without residual deficits | CPT/HCPCS: G0463 ==

== ENCOUNTER → 2017-11-28 | Outpatient (CLI) | payer OTHER | LOC: M PAIN 10:45 | DX: M79.1 Myalgia (principal); I48.91 Unspecified atrial fibrillation; E78.00 Pure hypercholesterolemia, unspecified; E03.9 Hypothyroidism, unspecified; M19.90 Unspecified osteoarthritis, unspecified site; M81.0 Age-related osteoporosis without current pathological fracture; Z96.643 Presence of artificial hip joint, bilateral; Z79.01 Long term (current) use of anticoagulants; Z79.899 Other long term (current) drug therapy; Z88.0 Allergy status to penicillin; Z88.2 Allergy status to sulfonamides; Z88.5 Allergy status to narcotic agent | CPT/HCPCS: J3301 ==

== ENCOUNTER → 2017-12-23 | Outpatient (CLI) | payer OTHER | LOC: M PAIN 10:45 | DX: M54.2 Cervicalgia (principal); M79.18 Myalgia, other site; I48.91 Unspecified atrial fibrillation; E78.00 Pure hypercholesterolemia, unspecified; E03.9 Hypothyroidism, unspecified; M19.90 Unspecified osteoarthritis, unspecified site; M81.8 Other osteoporosis without current pathological fracture; Z79.01 Long term (current) use of anticoagulants; Z79.899 Other long term (current) drug therapy; Z88.0 Allergy status to penicillin; Z88.2 Allergy status to sulfonamides; Z88.5 Allergy status to narcotic agent; Z96.643 Presence of artificial hip joint, bilateral; Z86.73 Personal history of transient ischemic attack (TIA), and cerebral infarction without residual deficits | CPT/HCPCS: G0463 ==

== ENCOUNTER → 2018-02-03 | Outpatient (CLI) | payer OTHER ==
[~2018-02-03] MED LIST changes: -BUPIVACAINE HCL 0.25% 10 ML VIAL As Ordered
== END ==
LOC: M PAIN 08:30
DX: M79.18 Myalgia, other site (principal); M54.2 Cervicalgia; M25.512 Pain in left shoulder; E78.00 Pure hypercholesterolemia, unspecified; E03.9 Hypothyroidism, unspecified; M19.90 Unspecified osteoarthritis, unspecified site; M81.0 Age-related osteoporosis without current pathological fracture; Z79.01 Long term (current) use of anticoagulants; Z79.899 Other long term (current) drug therapy; Z88.0 Allergy status to penicillin; Z88.2 Allergy status to sulfonamides; Z88.5 Allergy status to narcotic agent; Z86.79 Personal history of other diseases of the circulatory system; Z96.643 Presence of artificial hip joint, bilateral
CPT/HCPCS: J3301

== ENCOUNTER → 2018-02-24 | Outpatient (CLI) | payer OTHER ==
[~2018-02-24] MED LIST changes: +ATEN25TA PO; +ATOR40TA75 PO; -BUPIVACAINE HCL 0.25% 30 ML VIAL As Ordered; +ELIQ5TAB PO; +FERR1TAB8 PO; +LEVO30TA PO; +LOSA100T50 PO; +MINI1CAP PO; +SLOWTAB2 PO; -TRIAMCINOLONE ACETONIDE SUSP 40 MG/ML VIAL (J3301) As Ordered; +TYLE500T78 PO
--- NOTE | 2018-03-20 01:03 | ECWPNPC ---
PATIENT NAME: HARITHA CAMERON : 1930 GENDER: FEMALE VISIT DATE: 02/24/2018 DISCHARGE DATE: 02/24/18 1012 VISIT LOCKED DATE TIME: PHYSICIAN: LILI BEAULIEU RESOURCE: LILI BEAULIEU REASON FOR APPOINTMENT 1. POST TPI HISTORY OF PRESENT ILLNESS DEPRESSION SCREENING: PHQ-2 IN LAST TWO WEEKS HAVE YOU BEEN BOTHERED BY LITTLE INTEREST OR PLEASURE IN DOING THINGSNO FEELING DOWN, DEPRESSED, OR HOPELESSNO HISTORY OF PRESENT ILLNESS: HERE FOR POST PROCEDURE F/U.HAS HAD TPI [id number].OVERALL SHE IS HAPPY WITH PAIN RELIEF SHE GETS WITH TPI.SHE DOESNT WANT TO BE OFF ELIQUIS TO CONSIDER MORE INVASIVE PROCEDURES DUE TO POTENTIAL RISK OF ANOTHER STROKE.RATING PAIN VAS 0/10.SHE IS HAPPY WITH IMPROVED ABILITY TO TOLERATE ACTIVITY. PAIN THE PATIENT DESCRIBES THE PAIN... THE PATIENT DESCRIBES THE PAIN... FALL RISK SCREENING: SCREENING :NO FALLS IN THE PAST YEAR CURRENT MEDICATIONS TAKING LEVOTHYROXINE SODIUM 25 MCG TABLET 1 TABLET ON AN EMPTY STOMACH IN THE MORNING ORALLY ONCE A DAY TAKING ELIQUIS 5 MG TABLET ORALLY BID TAKING ATENOLOL 25 MG TABLET 1 TABLET ORALLY ONCE A DAY TAKING FERROUS SULFATE 325 (65 FE) MG TABLET 1 TABLET ORALLY ONCE A DAY TAKING LOSARTAN POTASSIUM 100 MG TABLET 1 TABLET ORALLY ONCE A DAY TAKING SLOW-MAG 71.5-119 MG TABLET DELAYED RELEASE 1 TABLETS ORALLY BID TAKING ACETAMINOPHEN 500 MG TABLET 2 TABLETS NEEDED ORALLY BID TAKING ATORVASTATIN CALCIUM 40 MG TABLET 1 TABLET ORALLY ONCE A DAY TAKING INDAPAMIDE 1.25 MG TABLET 1 TABLET IN THE MORNING ORALLY ONCE A DAY TAKING TIZANIDINE HCL 4 MG TABLET 1 TAB ORALLY BEFORE BEDTIME TAKING OMEPRAZOLE 20 MG CAPSULE DELAYED RELEASE 1 ORALLY DAILY TAKING HYDROCORTISONE 2.5 % CREAM RECTAL PRN UNKNOWN PHENAZOPYRIDINE HCL 95 MG TABLET 2 TABLETS AFTER MEALS ORALLY THREE TIMES A DAY UNKNOWN CIPRO 250 MG TABLET 1 TAB(S) ORALLY EVERY 12 HRS MEDICATION LIST REVIEWED AND RECONCILED WITH THE PATIENT PAST MEDICAL HISTORY ATRIAL FIB STROKE December HIGH CHOLESTEROL HYPOTHYROID OSTEOARTHRITIS OSTEOPORISIS ALLERGIES SULFA (FOR ALLERGY USE ONLY): RASH PENICILLIN (FOR ALLERGIES USE ONLY): RASH CODEINE PHOSPHATE: NAUSEA/VOMITING SURGICAL HISTORY LEFT HIP REPLACEMENT 1976 LEFT HIP RELACEMENT 1987 RIGHT HIP REPLACEMENT 1989 BACK SURGERY L4-L5 1952 BACK SURGERY L4-L5 1969 BACK SURGERY L4-L5 1975 BILATERAL CARPAL TUNNEL 2003 APPENDECTOMY TUBAL LIGATION HYSTERECTOMY RIGHT EYE LASIK 2017 LEFT EYE LASIK 2018 FAMILY HISTORY FATHER: MOTHER: 9 BROTHER(S) , 8 SISTER(S) - HEALTHY. 4 SON(S) , 3 DAUGHTER(S) . 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 SOCIAL HISTORY GENERAL: TOBACCO USE ARE YOU A:NONSMOKER RECREATIONAL DRUG USE DRUG USE?NO BAPTISM [id number] MORMONISM LANGUAGE LANGUAGES SPOKEN:TAMAZIGHT EDUCATION LEVEL OF EDUCATION:HIGH SCHOOL LEARNING BARRIERS / SPECIAL NEEDS BARRIERS TO LEARNING?NO HEARING IMPAIRED?NO VISION IMPAIRED?YES :CORRECTIVE LENSES COGNITIVELY IMPAIRED?NO READINESS TO LEARN?YES LEARNING PREFERENCES?NO EMOTIONAL BARRIERS?NO SPECIAL DEVICES?YES :[facility] PFS, CLERGY, PUBLIC HEALTH REFERRALS HAS THE PATIENT BEEN EDUCATED REGARDING HIS/HER PLAN OF CARE?YES HAS THE PATIENT BEEN EDUCATED REGARDING PAIN, THE RISK FOR PAIN, THE IMPORTANCE OF EFFECTIVE PAIN MANAGEMENT, AND THE PAIN ASSESSMENT PROCESS?YES ADVANCE DIRECTIVE ADVANCE DIRECTIVE DISCUSSED WITH PATIENT:YES HCP - DI RILEY (DAUGHTER) REVIEWED WITH PT 11/28/17 1149 BVREVIEWED WITH PATIENT 12/23/17 1118 JS. HOSPITALIZATION/MAJOR DIAGNOSTIC PROCEDURE SURGERY RELATED REVIEW OF SYSTEMS REVIEWED BY: PROVIDER: LILI ABDUL . CONSTITUTIONAL: ANY CHANGE IN YOUR MEDICAL CONDITION? NO . CHILLS NO . FEVER NO . INFECTION: DO YOU HAVE NEW INFECTIONS? NO . DO YOU HAVE HISTORY OF MRSA? NO . MUSCULOSKELETAL: ANY NEW PATTERNS OF PAIN OR NUMBNESS? NO . GASTROENTEROLOGY: ANY NEW CHANGE IN BOWEL CONTROL? NO . GENITOURINARY: ANY NEW CHANGE IN BLADDER CONTROL? NO . IS THERE A CHANCE YOU COULD BE ? NO . HEMATOLOGY/LYMPH: DO YOU TAKE ANY BLOOD THINNERS? (FOR EXAMPLE- COUMADIN, PLAVIX, AGGRENOX, PLATEL, PRADAXA, OR XARELTO) YES . WHEN WAS YOUR LAST DOSE? DATE: TIME: . NEUROLOGY: HAVE YOU FALLEN IN THE PAST 6 MONTHS? NO . ANY NEW EXTREMITY NUMBNESS OR WEAKNESS? NO . CARDIOLOGY: DO YOU HAVE A PACEMAKER OR DEFIBRILLATOR? NO . RESPIRATORY: HAVE YOU BEEN SICK IN THE PAST WEEK? NO . FEVER NO . FLU LIKE SYMPTOMS? NO . COUGH NO . INTEGUMENTARY: DO YOU HAVE ANY RASHES OR OPEN SORES? NO . ALLERGIC/IMMUNO: ARE YOU ALLERGIC TO SHELLFISH OR IV DYE? NO . ANY NEW ALLERGIES? NO . PSYCHIATRIC: DO YOU HAVE THOUGHTS OF HURTING YOURSELF OR SOMEONE ELSE? NO . ARE YOU ABUSED, NEGLECTED, OR IN AN UNSAFE ENVIRONMENT? NO . ENDOCRINOLOGY: ARE YOU DIABETIC? NO . OTHER: DO YOU NEED ANY PRESCRIPTIONS? NO . IF YES, PLEASE LIST: ____ . ANY NEW PROBLEMS WITH YOUR MEDICATIONS? NO . WHEN DID YOU LAST EAT? ____ . WHEN DID YOU LAST DRINK? ____ . WHAT DID YOU LAST DRINK? ____ . NAME OF PERSON DRIVING YOU HOME? ____ . DO YOU HAVE ANY OTHER QUESTIONS OR CONCERNS NO . VITAL SIGNS WT 132 LBS, HT 62 IN, BMI 24.14 INDEX, BP 159/99 MM HG, HR 89 /MIN, RR 16 /MIN, TEMP 98.0 F, OXYGEN SAT % 96%, NA INITIALS AW 0944. EXAMINATION GENERAL EXAMINATION: GENERAL APPEARANCE:AWAKE,ALERT ,PLEAASANT . PSYCHAFFECT NORMAL . LUNGS:LUNG HADDAD ARE CLEAR TO AUSCULTATION BILATERALLY. GOOD MOVEMENT OF AIR . HEART:S1, S2 IN A REGULAR RATE AND RHYTHM. NO SIGNIFICANT MURMURS, RUBS OR GALLOPS NOTED . ASSESSMENTS CERVICALGIA - M54.2 (PRIMARY) MYALGIA - M79.1 TREATMENT CERVICALGIA NOTES: HOME STRETCHING EXCERSISES. PROCEDURE CODES FA211 ESTABILISHED PATIENT [facility] CHARGE DISPOSITION & COMMUNICATION FOLLOW UP 3 MONTHS ELECTRONICALLY SIGNED BY FRANKO AMIN ON 03/19/2018 AT 09:28 AM EST DISCLAIMER : THIS IS A VISIT SUMMARY EXTRACTED FROM THE [place] CHART. IT IS NOT A COPY OF THE [employer] PROGRESS NOTE. HENOK
== END ==
LOC: M PAIN 09:15
PROVIDERS: ATTEND Nurse Practitioner Family
DX: M54.2 Cervicalgia (principal); M79.18 Myalgia, other site; E03.9 Hypothyroidism, unspecified; E78.00 Pure hypercholesterolemia, unspecified; M19.90 Unspecified osteoarthritis, unspecified site; M81.0 Age-related osteoporosis without current pathological fracture; Z79.01 Long term (current) use of anticoagulants; Z79.899 Other long term (current) drug therapy; Z86.73 Personal history of transient ischemic attack (TIA), and cerebral infarction without residual deficits; Z86.79 Personal history of other diseases of the circulatory system; Z96.643 Presence of artificial hip joint, bilateral

== ENCOUNTER 2018-03-30 23:44 | Emergency (ER) | payer OTHER ==
[~2018-03-30] VITALS: Ht 144.8 cm; Wt 58.2 kg
[2018-03-31 00:03] VITALS: BP 123/60
[2018-03-31] MEDS ORDERED: TIZA4CAP OR (00:08)
[2018-03-31 00:51] LABS: BASO % 0.3 % (0.0-1.0); EOS % 0.4 % (0.0-3.0); HEMATOCRIT 39.3 % (36.0-47.0); HEMOGLOBIN 13.2 g/dl (12.0-15.5); LYMPH # 1.2 10^3/uL (1.5-4.5); LYMPH % 12.4 % (24.0-44.0); MEAN CORPUSCULAR HEMOGLOBIN 30.1 pg (27.0-33.0); MEAN CORPUSCULAR HGB CONC 33.6 g/dl (32.0-36.5); MEAN CORPUSCULAR VOLUME 89.5 fl (80.0-96.0); MONO # 0.9 10^3/uL (0.0-0.8); MONO % 9.1 % (0.0-5.0); NEUTROPHILS # 7.6 10^3/uL (1.8-7.7); NEUTROPHILS % 77.4 % (36.0-66.0); PLATELET COUNT, AUTOMATED 197 10^3/uL (150-450); RED BLOOD COUNT 4.39 10^6/uL (4.00-5.40); WHITE BLOOD COUNT 9.8 10^3/uL (4.0-10.0)
[2018-03-31 01:06] LABS: BLOOD UREA NITROGEN 27 MG/DL (7-18); CALCIUM LEVEL 8.6 MG/DL (8.8-10.2); CARBON DIOXIDE LEVEL 22 MEQ/L (21-32); CHLORIDE LEVEL 105 MEQ/L (98-107); CPK CREATINE PHOSPHOKINASE 56 U/L (26-192); GLOMERULAR FILTRATION RATE > 60.0 (>32); GLUCOSE, FASTING 154 MG/DL (70-100); MAGNESIUM LEVEL 1.9 MG/DL (1.8-2.4); MB/CK RELATIVE INDEX 2.32 (< OR =4); SODIUM LEVEL 138 MEQ/L (136-145); TROPONIN I 0.04 NG/ML (< 0.10)
[2018-03-31] MEDS ORDERED: NS 500 ML IV ONE (01:15)
--- NOTE | 2018-03-31 06:38 | ECGEPIP ---
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
== END 2018-03-31 02:02 | disposition home or self-care (01) ==
LOC: M ED 23:44
DX: I48.91 Unspecified atrial fibrillation (principal); E86.0 Dehydration; I10 Essential (primary) hypertension; E03.9 Hypothyroidism, unspecified; Z79.899 Other long term (current) drug therapy; Z79.890 Hormone replacement therapy; Z79.01 Long term (current) use of anticoagulants; Z88.2 Allergy status to sulfonamides; Z88.5 Allergy status to narcotic agent

== ENCOUNTER → 2018-05-07 | Outpatient (REF) | payer MEDICARE ==
[~2018-05-07] MED LIST changes: +TIZA4CAP OR
== END ==
LOC: M LAB REF 17:14
PROVIDERS: ATTEND Nurse Practitioner Adult Health
DX: M25.551 Pain in right hip (principal)

== ENCOUNTER 2018-05-11 19:16 | Inpatient (IN) | payer MEDICARE ==
[~2018-05-11] VITALS: Ht 154.9 cm; Wt 63.5 kg
[~2018-05-11 19:16] MED LIST changes: -TIZA4CAP OR; +TIZA4CAP PO
[2018-05-11] MEDS ORDERED: GLUCAGON FOR INJ 1 MG VIAL (J1610) IV STA (19:47)
--- NOTE | 2018-05-11 20:22 | REP ---
Clinical: Syncope. Comparison: 08/28/2017. Technique: Single portable upright view. Findings: Mediastinum and cardiac silhouette are stable and within normal limits. Lung de paz demonstrate diffuse chronic interstitial changes without acute consolidation, effusion, or pneumothorax. Skeletal structures demonstrate extensive osteopenia and degenerative changes. Impression: No acute consolidation. Electronically Signed by Kamron Adams MD 05/11/2018 08:13 P
[2018-05-11 20:50] LABS: BASO % 0.7 % (0.0-1.0); EOS # 0.1 10^3/uL (0.0-0.50); EOS % 1.7 % (0.0-3.0); HEMATOCRIT 39.3 % (36.0-47.0); LYMPH # 1.4 10^3/uL (1.5-4.5); MEAN CORPUSCULAR HEMOGLOBIN 29.9 pg (27.0-33.0); MEAN CORPUSCULAR HGB CONC 33.1 g/dl (32.0-36.5); MEAN CORPUSCULAR VOLUME 90.3 fl (80.0-96.0); MONO # 0.6 10^3/uL (0.0-0.8); MONO % 10.8 % (0.0-5.0); NEUTROPHILS # 3.2 10^3/uL (1.8-7.7); NEUTROPHILS % 60.2 % (36.0-66.0); PLATELET COUNT, AUTOMATED 194 10^3/uL (150-450); RED BLOOD COUNT 4.35 10^6/uL (4.00-5.40); WHITE BLOOD COUNT 5.4 10^3/uL (4.0-10.0)
[2018-05-11 20:54] LABS: INR 1.11; PROTHROMBIN TIME 14.4 SECONDS (12.1-14.4)
[2018-05-11 21:11] LABS: BLOOD UREA NITROGEN 28 MG/DL (7-18); CALCIUM LEVEL 8.7 MG/DL (8.8-10.2); CARBON DIOXIDE LEVEL 27 MEQ/L (21-32); CHLORIDE LEVEL 107 MEQ/L (98-107); CPK CREATINE PHOSPHOKINASE 68 U/L (26-192); CREATININE FOR GFR 0.84 MG/DL (0.55-1.30); FREE T4 0.94 NG/DL (0.76-1.46); GLOMERULAR FILTRATION RATE > 60.0 (>32); GLUCOSE, FASTING 93 MG/DL (70-100); MB/CK RELATIVE INDEX 2.79 (< OR =4); POTASSIUM SERUM 4.4 MEQ/L (3.5-5.1); SODIUM LEVEL 141 MEQ/L (136-145); TROPONIN I 0.02 NG/ML (< 0.10)
[2018-05-11] MEDS ORDERED: LOSA50TA88 PO (22:08)
[2018-05-11] MEDS ORDERED: CITRTAB19 PO (22:08)
[2018-05-11] MEDS ORDERED: ATEN25TA PO (22:08)
[2018-05-11] MEDS ORDERED: OMEP20CA3 PO (22:08)
[2018-05-11] MEDS ORDERED: SLOWTAB2 PO (22:08)
[2018-05-11] MEDS ORDERED: LEVO25TA5 PO (22:08)
[2018-05-11] MEDS ORDERED: ELIQ5TAB PO (22:08)
[2018-05-11] MEDS ORDERED: FERR1TAB8 PO (22:08)
[2018-05-11] MEDS ORDERED: ATOR40TA75 PO (22:08)
[2018-05-11] MEDS ORDERED: INDA125TA PO (22:11)
[2018-05-11 23:31] VITALS: BP 188/94
[2018-05-12] VITALS (22 sets, daily range): BP systolic 94–161; BP diastolic 48–84
[2018-05-12] MEDS ORDERED: hydrOXYzine 25 MG TAB PO ONE
[2018-05-12] MEDS: LOSARTAN 50 MG TAB PO SCH ×2 (00:36→21:31)
[2018-05-12] MEDS: ATORVASTATIN 20 MG TAB PO SCH ×2 (00:36→21:30)
[2018-05-12 02:32] LABS: APPEARANCE, URINE CLEAR (CLEAR); BACTERIA, URINE AUTO NEGATIVE (NEGATIVE); BILIRUBIN, URINE AUTO NEGATIVE (NEGATIVE); BLOOD, URINE BLOOD NEGATIVE (NEGATIVE); COLOR, URINE STRAW (YELLOW); GLUCOSE, URINE (UA) AUTO NEGATIVE (NEGATIVE); KETONE, URINE AUTO NEGATIVE (NEGATIVE); LEUKOCYTE ESTERASE, URINE AUTO NEGATIVE (NEGATIVE); MUCUS, URINE SMALL (NEGATIVE); NITRITE, URINE AUTO NEGATIVE (NEGATIVE); PROTEIN, URINE AUTO NEGATIVE (NEGATIVE); RBC, URINE AUTO 0 /HPF (0-3); SPECIFIC GRAVITY URINE AUTO 1.005 (1.002-1.035); SQUAMOUS EPITHELIAL CELL UR AU 0 /HPF (0-6); UROBILINOGEN, URINE AUTO 0.2 mg/dL (0.0-2.0); WBC, URINE AUTO 0 /HPF (0-3)
[2018-05-12 05:05] LABS: HEMATOCRIT 35.7 % (36.0-47.0); HEMOGLOBIN 11.7 g/dl (12.0-15.5); MEAN CORPUSCULAR HEMOGLOBIN 29.3 pg (27.0-33.0); MEAN CORPUSCULAR HGB CONC 32.8 g/dl (32.0-36.5); MEAN CORPUSCULAR VOLUME 89.5 fl (80.0-96.0); PLATELET COUNT, AUTOMATED 174 10^3/uL (150-450); RED BLOOD COUNT 3.99 10^6/uL (4.00-5.40); WHITE BLOOD COUNT 5.5 10^3/uL (4.0-10.0)
[2018-05-12 05:16] LABS: BLOOD UREA NITROGEN 26 MG/DL (7-18); CALCIUM LEVEL 8.7 MG/DL (8.8-10.2); CARBON DIOXIDE LEVEL 27 MEQ/L (21-32); CHLORIDE LEVEL 107 MEQ/L (98-107); CREATININE FOR GFR 0.66 MG/DL (0.55-1.30); GLOMERULAR FILTRATION RATE > 60.0 (>32); GLUCOSE, FASTING 84 MG/DL (70-100); POTASSIUM SERUM 3.9 MEQ/L (3.5-5.1); SODIUM LEVEL 141 MEQ/L (136-145); TROPONIN I 0.04 NG/ML (< 0.10)
[2018-05-12] MEDS: IPRATROPIUM 0.5MG/ALBUTEROL 2.5MG INH SOL UD 3ML (DUONEB)(J7620) NEB SCH ×4 (05:33→21:25)
[2018-05-12] MEDS ORDERED: HEPARIN SOD (PORCINE) 5000 UNITS/ML VIAL SQ SCH (06:00)
--- NOTE | 2018-05-12 06:29 | ECGEPIP ---
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
[2018-05-12] MEDS: LEVOTHYROXINE 25MCG TABLET (0.025MG) PO SCH (06:45)
--- NOTE | 2018-05-12 07:34 | HPE ---
DATE OF ADMISSION: 05/11/2018 CHIEF COMPLAINT: Dizziness. HISTORY OF PRESENT ILLNESS: The patient is an 87-year-old female with significant past medical history of coronary artery disease (CAD), hypertension, hyperlipidemia, atrial fibrillation on Eliquis, hypothyroidism, cerebrovascular accident (CVA), who presented to the emergency room with dizziness. Patient states that, over the last few days, first on Saturday, she had episodes of dizziness. She went to see her primary care provider (PCP), Dr. Partida. She subsequently went home and continued to have dizziness today, feeling a new syncopal episode. She denies any shortness of breath, chest pain, and denies any loss of consciousness. She denies any cough, fevers, chills, urinary symptoms, abdominal pain, constipation or diarrhea. Upon presentation to the emergency room, the patient was noted to have sinus pauses. She follows typically with Dr. Montes of cardiology. PAST MEDICAL HISTORY: See history of present illness (HPI). PAST SURGICAL HISTORY: Appendectomy. Cataract surgery. Hysterectomy. Skin biopsy. Tonsillectomy. HOME MEDICATIONS: - Tylenol - Eliquis - atenolol - Lipitor - ferrous sulfate - Synthroid - losartan - magnesium chloride - omeprazole - tizanidine ALLERGIES: CODEINE, MORPHINE and related SULFA DRUG, SULFA DRUG CROSS REACTORS. SOCIAL HISTORY: Denies tobacco, alcohol or illicit drug use. FAMILY HISTORY: Noncontributory. REVIEW OF SYSTEMS: A 12-point review of systems was completed all of which were negative except those listed in the HPI. Vital signs on admission: Temperature 97.7, pulse 73, respirations 16, blood pressure 162/70, saturating at 93% on room air. PHYSICAL EXAMINATION: General: She is well-nourished in no apparent distress. Head is normocephalic atraumatic. Eyes: Extraocular movements are intact. Pupils equal, round, and reactive to light. Neck is supple with no jugular venous pulse (JVP). Lungs: Minimal wheezing. Diminished breath sounds. No crackles. Cardiovascular: Irregular, irregular rhythm. Normal S1, and S2. No murmurs, gallops or rubs. The abdomen is soft, nontender, nondistended. Positive bowel sounds. No rebound or guarding. Extremities: She has 1+ edema. No calf tenderness. Skin is intact. No rashes, lesions or breakdown. Neurological exam: Alert and oriented times three. No focal deficit appreciated on the exam. LABS/IMAGING: Completed in the emergency room. White count 5, hemoglobin and hematocrit 13/39, platelet count 194. Coagulations: INR 1.11, PTT 31, PT 14. Troponins are negative. TSH within normal limits. BUN and creatinine 22/0.84, fingerstick 102. Chest x-ray shows no acute disease. ASSESSMENT/PLAN: Dizziness secondary to pauses of sinus arrest. Will recycle the troponins, EKG, place on telemetry to rule out TCS. Will get an echocardiogram. Will check electrolytes and keep magnesium greater than 2, potassium greater than 4. Cardiology consulted, Dr. Montes for possible pacemaker on Saturday. Eliquis to be held for possible pacemaker. Patient will need to be nothing by mouth after midnight with medications adjusted according on Saturday night. For atrial fibrillation, she is appropriately rate controlled. Eliquis to be held. Atenolol also will be held. AV nguyễn blockers also will be held in the setting of sinus pauses and sinus arrests. Hypertension: Continue losartan. Hypothyroidism: Continue Synthroid. Gastroesophageal reflux disease (GERD): Continue omeprazole. Hyperlipidemia: Continue Lipitor. History of stroke: Aspirin to be held. Supportive deep venous thrombosis (DVT) prophylaxis: Sequential compression devices. Gastrointestinal (GI) prophylaxis is not indicated. Diet: Cardiac for now. Peripheral edema: She has a history of varicose veins and venous insufficiency. Thromboembolic deterrent stockings (TEDS) will be a benefit to her.
[2018-05-12] MEDS: OMEPRAZOLE 20 MG CAP PO SCH (09:15)
[2018-05-12] MEDS: FERROUS SULFATE 325MG TAB PO SCH (09:16)
[2018-05-12] MEDS: INDAPAMIDE 1.25MG TABLET PO SCH (09:16)
[2018-05-12] MEDS: MAGNESIUM CHLORIDE 64 MG TABCR (SLO MAG) PO SCH (09:16)
--- NOTE | 2018-05-12 10:42 | IPNPDOC ---
Text Note Date of Service The patient was seen on 05/12/18. NOTE Subjective: Patient is an 87-year-old female who presented to the hospital last night with a chief complaint of dizziness. Patient had seen her primary care physician on 05/07/2018 with a complaint of feeling dizzy. She says she was feeling better at that time. She did begin to feel dizzy again over the weekend and went into the emergency room. In the emergency room she was found to have sinus pauses on telemetry and on EKG. Patient follows with Dr. Montes of cardiology. Patient says that although she feels dizzy, she has not passed out. She has not lost consciousness. She denies having any other issues at this time. Review of systems General: Patient denies fevers HEENT: Patient denies headaches Cardiovascular: Patient denies chest pain Respiratory: Patient denies shortness of breath, cough GI: Patient denies abdominal pain, nausea, vomiting, diarrhea : Patient denies pain or difficulty with urination Neurological: Patient denies numbness or tingling in extremities Extremities: Patient denies swelling or pain in extremities Objective: Vitals: (see below) General: Alert and oriented elderly female who was laying in bed. Patient was in no acute distress HEENT: Normocephalic, atraumatic, moist mucous membranes. Neck: No JVD or lymphadenopathy Cardiac: RRR, No murmurs Pulm: Clear to auscultation b/l. No wheezing, rhonchi Abd: NT/ND + BS Ext: Trace pitting edema. Varicose veins present. Radial, posterior tibial, and dorsalis pedis pulses equal bilaterally. Labs (see below) Images: A chest x-ray performed on 05/11/2018 showed no acute consolidation. Assessment/Plan 1. Dizziness most likely secondary to sinus pauses. Dr. Montes has been not ified and will see the patient in consultation. Patient's eliquis has been held for possible pacemaker placement tomorrow. We appreciate Dr. Montes seen the patient and his input. We will continue to monitor. Patient's atenolol has also been held. 2. Atrial fibrillation. At this time we have held rate control medications because of the sinus pauses. Eliquis is also being held at this time for pending procedure. These medications can be restarted after procedure tomorrow. 3. Hypertension. Continue losartan. 4. Hypothyroidism. Continue levothyroxine. 5. Hyperlipidemia. Continue Lipitor. 6. History of cerebrovascular disease. Aspirin to be held pending procedure. 7. Gastroesophageal reflux disease. Continue omeprazole. DVT prophy: Sequential compression devices and thromboembolic deterrent stockings. Dispo: Pending placement of pacemaker. VS,Fishbone, I+O VS, Fishbone, I+O Laboratory Tests 05/11/18 19:48 Red Blood Count 4.35, Mean Corpuscular Volume 90.3, Mean Corpuscular Hemoglobin 29.9, Mean Corpuscular Hemoglobin Concent 33.1, Red Cell Distribution Width 13.1, Neutrophils (%) (Auto) 60.2, Lymphocytes (%) (Auto) 26.0, Monocytes (%) (Auto) 10.8 H, Eosinophils (%) (Auto) 1.7, Basophils (%) (Auto) 0.7, Neutrophils # (Auto) 3.2, Lymphocytes # (Auto) 1.4 L, Monocytes # (Auto) 0.6, Eosinophils # (Auto) 0.1, Basophils # (Auto) 0.0, Calcium Level 8.7 L, Total Creatine Kinase 68 05/12/18 04:36 Red Blood Count 3.99 L, Mean Corpuscular Volume 89.5, Mean Corpuscular Hemoglobin 29.3, Mean Corpuscular Hemoglobin Concent 32.8, Red Cell Distribution Width 13.2, Calcium Level 8.7 L Vital Signs Date Time Temp Pulse Resp B/P (MAP) Pulse Ox O2 Delivery O2 Flow Rate FiO2 05/12/18 09:00 89 16 122/57 (78) 97 05/12/18 08:00 97.5 05/11/18 19:16 Room Air I&O- Last 24 Hours up to 6 AM 05/12/18 06:00 Intake Total 480 ml Output Total 925 ml Balance -445 ml GME ATTESTATION GME ATTESTATION My faculty preceptor for this patient encounter was physically present during the encounter and was fully available. All aspects of the patient interview, examination, medical decision making process, and medical care plan development were reviewed and approved by the faculty preceptor. The faculty preceptor is aware and concurs with the plan as stated in the body of this note and will attest to such by his/her cosignature. ATTENDING NOTE I have both independently examined this patient as well as reviewed the note I have discussed in detail the findings and plan of treatment as documented in the note. I will continue to follow the patient and offer further guidance to the patients care as necessary during this hospital stay. GERALD Steve MD, DO May 12, 2018 10:42 EUFEMIA FATIMA MD May 16, 2018 17:34
--- NOTE | 2018-05-12 14:31 | ECGEPIP ---
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
--- NOTE | 2018-05-12 15:16 | CR.PDOC ---
General Date of Consultation: May 12, 2018 Referring Provider: SATURDAY,SIMÓN COHEN Attending Physician: Kp Montes Consultation REASON FOR CONSULTATION/CHIEF COMPLAINT: Dizziness and presyncope HISTORY OF PRESENT ILLNESS: Kenna Nagel is an 87 YO F with persistent atrial fibrillation on Eliquis ([id number]= 5) and hypertensive heart disease who presents with several episodes of presyncope within the last week. She states she first felt an episode of dizziness about a week ago and went to see her PCP, Dr. Partida, who found no abnormalities and sent her home. She was standing in her kitchen when her first episode started, and she describes feeling very "nauseated and cold." She immediately sat down and her symptoms went away after about 10 minutes. Yesterday she had her second episode, and she states she was sitting down watching television when she started to again feel very "nauseous and cold." She decided to go back to bed and rest to see if this would alleviate her symptoms. When she awoke 30 minutes later, she felt well again. She denies any recent illness, fevers, chills, SOB, CP, weight loss, exertional dyspnea, orthopnea, PND or palpitations. She has not had any leg or ankle swelling. She reports mild headache and feelings of lightheadedness and nausea during her syncopal episodes as described previously. She has had recent history of diarrhea. She has been taking all of her medications as prescribed. Her son brought her to the ED for further evaluation. In the ED, she was found to be in NSR with several 2-3 second pauses. Cardiology was consulted for consideration for pacemaker placement. ALLERGIES: Please see below. HOME MEDICATIONS: Please see below. PAST MEDICAL HISTORY: 1. Persistent Atrial fibrillation ([id number] = 5 HTN, age> 75, stroke, female) 2. Chest pain unspecified 3. Systemic Hypertension 4. Hypertensive heart disease (without CHF) 5. Dilated aortic root 6. Mitral Annular Calcification/Mitral Regurgitation 7. Hypercholesterolemia 8. Obesity 9. Hypothyroidism 10. History of stroke (12/27/2016) 11. Vitamin D deficiency 12. Mane's esophagus 13. Anemia PAST SURGICAL HISTORY: 1. Appendectomy 2. Cataract surgery 3. Hysterectomy 4. Skin biopsy 5. Tonsillectomy 6. Hip replacement x3 7. Back surgery x3 8. Colon resection FAMILY HISTORY: Father- (stroke) Mother- (leukemia) Children- 8, 2 Daughter- (cancer) SOCIAL HISTORY: , lives at home with her son. Gets around using a walker Tobacco use:never smoker ETOH: none Illicit drug use: none REVIEW OF SYSTEMS: CONST: no recent fevers, chills, weight loss EYES: no visual problems ENT, MOUTH: no reduced hearing, no tinnitus CV: no palpitations, no chest pain RESP: no cough, no hemoptysis, no SOB GI: recent watery diarrhea : no polyuria MSK: pain in R hip, back pain INTEGUMENT: no new rashes NEURO: some headaches, lightheadedness, dizziness PSYCH: no anxiety, altered mood HEME/LYMPH: no bleeding, anemia, lumps PHYSICAL EXAMINATION: VITAL SIGNS: Please see below. GENERAL APPEARANCE: calm, laying comfortably in bed, in no distress, thin- appearing but well-developed female EYES: normal inspection of conjunctiva and eyelids, PERRLA, all extra-ocular movements intact ENT/MOUTH: normal teeth, gums, and palate; oral mucosa is appropriately moist NECK: no JVD noted, thyroid not enlarged RESPIRATORY: clear to auscultation bilaterally, no adventitious breath sounds appreciated, symmetrical chest expansion and respiratory effort CARDIOVASCULAR: Regular rate and rhythm without murmurs/rubs/gallops; normal S1 and S2, no S3/4 heard, no JVD or peripheral edema appreciated; PMI non- displaced; Carotid upstroke normal ABDOMEN: soft, nontender, +BS, no masses or LAD appreciated EXTREMITIES: no clubbing/cyanosis/edema; no splinter hemorrhages in nails MUSCULOSKELETAL: normal curvature of the spine, unable to assess gait, normal t one SKIN: normal skin without lesions, pallor or icterus NEUROLOGICAL: No focal deficits appreciated. Strength 4/5 in LUE, 5/5 in RUE, strength 5/5 in bilateral lower extremities PSYCHIATRIC: AAOx3, normal mood, normal affect LABORATORY DATA: Please see below. IMAGING: ECHO (11/01/17): LVEF 65% -Mild concentric LVH with preserved systolic function. At least mildly dilated left atrium with doppler suggesting a mildly elevated mean left atrial pressure. Normal right heart chamber sizes and motion with mild pulmonary hypertension. Normal IVC size and collapsed against an elevated central venous pressure. Subtle aortic valvular sclerosis with mildly dilated aortic root and very mild insufficiency. Severe mitral annular calcification with some thickening of the mitral leaflets but no mitral stenosis and mild-moderate insufficiency. EKG (05/11/2018): -Atrial fibrillation with several ventricular premature complexes and significant pauses CXR (05/11/2018): -Mediastinum and cardiac silhouette are stable and WNL. No acute consolidation. ASSESSMENT/PLAN: Kenna Nagel is an 87 YO F with history of AF, Hypertensive heart disease and history of stroke who presents with several episodes of dizziness and near syncope found to have several 2-3 second pauses of sinus arrest on EKG to be considered for pacemaker placement. 1. Sick sinus syndrome: Symptomatic sinus arrest and presyncope -Plan to place dual chamber pacemaker tomorrow -Please continue holding beta flynn in setting of presyncope. Patient was intermittently in atrial fibrillation and NSR with 1st degree block throughout the day today -Eliquis being held for procedure 2. Presyncope: The patient experiences somewhat frequent symptomatic sinus pauses. -Most likely 2/2 conversion in and out of atrial fibrillation and sick sinus syndrome 3. Atrial fibrillation with transient conversion to NSR -currently holding rate control (Atenolol) and anticoagulation (Eliquis) 4. 1st degree AV block: -Plan for dual chamber pacemaker placement tomorrow. 5. Hypertension: -Continue Losartan -Continue Indapamide 6. Hypercholesterolemia -Continue Atorvastatin 7. Hypothyroidism: -Continue Levothyroxine Vital Signs/I&O Vital Signs Date Time Temp Pulse Resp B/P (MAP) Pulse Ox O2 Delivery O2 Flow Rate FiO2 05/12/18 09:00 89 16 122/57 (78) 97 05/12/18 08:00 97.5 05/11/18 19:16 Room Air I&O- Last 24 Hours up to 6 AM 05/12/18 06:00 Intake Total 480 ml Output Total 925 ml Balance -445 ml Laboratory Data Labs 24H Laboratory Tests 2 05/11/18 19:48: Immature Granulocyte % (Auto) 0.6, White Blood Count 5.4, Red Blood Count 4.35, Hemoglobin 13.0, Hematocrit 39.3, Mean Corpuscular Volume 90.3, Mean Corpuscular Hemoglobin 29.9, Mean Corpuscular Hemoglobin Concent 33.1, Red Cell Distribution Width 13.1, Platelet Count 194, Neutrophils (%) (Auto) 60.2, Lymphocytes (%) (Auto) 26.0, Monocytes (%) (Auto) 10.8H, Eosinophils (%) (Auto) 1.7, Basophils (%) (Auto) 0.7, Neutrophils # (Auto) 3.2, Lymphocytes # (Auto) 1.4L, Monocytes # (Auto) 0.6, Eosinophils # (Auto) 0.1, Basophils # (Auto) 0.0, Nucleated Red Blood Cells % (auto) 0.0, Prothrombin Time 14.4, Prothromb Time International Ratio 1.11, Activated Partial Thromboplast Time 31.0, Anion Gap 7L, Glomerular Filtration Rate > 60.0, Blood Urea Nitrogen 28H, Creatinine 0.84, Sodium Level 141, Potassium Level 4.4, Chloride Level 107, Carbon Dioxide Level 27, Calcium Level 8.7L, Total Creatine Kinase 68, Magnesium Level 2.0, Creatine Kinase MB 2.0, Creatine Kinase MB Relative Index 2.79, Troponin I 0.02, Thyroid Stimulating Hormone (TSH) 2.200, Free Thyroxine 0.94 05/11/18 20:59: Bedside Glucose (Misc Panel) 102 05/12/18 00:00: Troponin I 0.04# 05/12/18 02:04: Urine Appearance CLEAR, Urine Color STRAW, Urine pH 6.0, Urine Specific Bullock 1.005, Urine Protein NEGATIVE, Urine Glucose (UA) NEGATIVE, Urine Ketones NEGATIVE, Urine Urobilinogen 0.2, Urine Bilirubin NEGATIVE, Urine Leukocyte Esterase NEGATIVE, Urine Blood NEGATIVE, Urine Nitrite NEGATIVE, Urine WBC (Auto) 0, Urine RBC (Auto) 0, Urine Hyaline Casts (Auto) 0, Urine Bacteria (Auto) NEGATIVE, Urine Squamous Epithelial Cells 0, Urine Mucus (Auto) SMALL, Urine Sperm (Auto) 05/12/18 04:36: Nucleated Red Blood Cells % (auto) 0.0, Anion Gap 7L, Glomerular Filtration Rate > 60.0, Blood Urea Nitrogen 26H, Creatinine 0.66, Sodium Level 141, Potassium Level 3.9, Chloride Level 107, Carbon Dioxide Level 27, Calcium Level 8.7L, Magnesium Level 2.0, Troponin I 0.04 CBC/BMP Laboratory Tests 05/11/18 19:48 Red Blood Count 4.35, Mean Corpuscular Volume 90.3, Mean Corpuscular Hemoglobin 29.9, Mean Corpuscular Hemoglobin Concent 33.1, Red Cell Distribution Width 13.1, Neutrophils (%) (Auto) 60.2, Lymphocytes (%) (Auto) 26.0, Monocytes (%) (Auto) 10.8 H, Eosinophils (%) (Auto) 1.7, Basophils (%) (Auto) 0.7, Neutrophils # (Auto) 3.2, Lymphocytes # (Auto) 1.4 L, Monocytes # (Auto) 0.6, Eosinophils # (Auto) 0.1, Basophils # (Auto) 0.0, Calcium Level 8.7 L, Total Creatine Kinase 68 05/12/18 04:36 Red Blood Count 3.99 L, Mean Corpuscular Volume 89.5, Mean Corpuscular Hemoglobin 29.3, Mean Corpuscular Hemoglobin Concent 32.8, Red Cell Distribution Width 13.2, Calcium Level 8.7 L Allergies Coded Allergies: Codeine (Verified Allergy, Intermediate, 05/11/18) Sulfa Drugs (Verified Allergy, Mild, 05/11/18) RASH & N/V Sulfa Drugs Cross Reactors (Verified Allergy, Mild, 05/11/18) RASH & N/V Morphine and Related (Verified Adverse Reaction, Unknown, 05/11/18) Home Medications Scheduled (Citracal Calcium+D S... 600-40-500 mg-mg-Unit) 1 Tab Tab, 1 TAB PO DAILY, (Reported) TAKES AT NOON Acetaminophen (Tylenol Extra Strength) 500 Mg Tab, 1,000 MG PO BID, (Reported) Apixaban Base (Eliquis) 5 Mg Tab, 5 MG PO BID, (Reported) Atenolol (Atenolol) 25 Mg Tab, 25 MG PO DAILY, (Reported) Atorvastatin Calcium (Atorvastatin Calcium) 40 Mg Tab, 40 MG PO QHS, (Reported) Ferrous Sulfate (Ferrous Sulfate) 325 Mg Tab, 325 MG PO DAILY, (Reported) Indapamide (Indapamide) 1.25 Mg Tab, 1.25 MG PO DAILY, (Reported) Levothyroxine Sodium (Synthroid) 25 Mcg Tab, 25 MCG PO DAILY, (Reported) Losartan Potassium (Losartan Potassium) 50 Mg Tab, 50 MG PO QHS, (Reported) Magnesium Chloride (Slow-Mag 71.5-119 mg) 1 Tab Tab, 1 TAB PO BID, (Reported) Omeprazole (Omeprazole) 20 Mg Cap, 20 MG PO DAILY, (Reported) Tizanidine Hydrochloride (Tizanidine HCl) 4 Mg Cap, 4 MG PO QHS, (Reported) GME ATTESTATION GME ATTESTATION My faculty preceptor for this patient encounter was physically present during the encounter and was fully available. All aspects of the patient interview, examination, medical decision making process, and medical care plan development were reviewed and approved by the faculty preceptor. The faculty preceptor is aware and concurs with the plan as stated in the body of this note and will attest to such by his/her cosignature. AMMY LEMUS MD May 12, 2018 13:51
[2018-05-13] VITALS (22 sets, daily range): BP systolic 72–188; BP diastolic 40–99
[2018-05-13] MEDS: IPRATROPIUM 0.5MG/ALBUTEROL 2.5MG INH SOL UD 3ML (DUONEB)(J7620) NEB SCH ×4 (02:00→19:44)
[2018-05-13 04:05] LABS: HEMATOCRIT 37.2 % (36.0-47.0); MEAN CORPUSCULAR HEMOGLOBIN 29.7 pg (27.0-33.0); MEAN CORPUSCULAR HGB CONC 32.3 g/dl (32.0-36.5); MEAN CORPUSCULAR VOLUME 92.1 fl (80.0-96.0); PLATELET COUNT, AUTOMATED 169 10^3/uL (150-450); RED BLOOD COUNT 4.04 10^6/uL (4.00-5.40); WHITE BLOOD COUNT 5.8 10^3/uL (4.0-10.0)
[2018-05-13 04:27] LABS: BLOOD UREA NITROGEN 26 MG/DL (7-18); CALCIUM LEVEL 8.4 MG/DL (8.8-10.2); CARBON DIOXIDE LEVEL 29 MEQ/L (21-32); CHLORIDE LEVEL 104 MEQ/L (98-107); CREATININE FOR GFR 0.75 MG/DL (0.55-1.30); GLOMERULAR FILTRATION RATE > 60.0 (>32); GLUCOSE, FASTING 96 MG/DL (70-100); MAGNESIUM LEVEL 1.9 MG/DL (1.8-2.4); POTASSIUM SERUM 4.2 MEQ/L (3.5-5.1); SODIUM LEVEL 139 MEQ/L (136-145)
[2018-05-13] MEDS: LEVOTHYROXINE 25MCG TABLET (0.025MG) PO SCH (06:46)
[2018-05-13] MEDS ORDERED: ACETAMINOPHEN 325 MG TAB PO PRN (08:00)
[2018-05-13] MEDS ORDERED: LR 1,000 ML IV SCH (08:00)
[2018-05-13] MEDS: MAGNESIUM CHLORIDE 64 MG TABCR (SLO MAG) PO SCH (08:12)
[2018-05-13] MEDS: FERROUS SULFATE 325MG TAB PO SCH (08:13)
[2018-05-13] MEDS: INDAPAMIDE 1.25MG TABLET PO SCH (08:13)
[2018-05-13] MEDS: OMEPRAZOLE 20 MG CAP PO SCH (08:13)
[2018-05-13] MEDS: ACETAMINOPHEN TAB 650MG DOSE (2X325MG) PO PRN ×2 (08:23→12:55)
[2018-05-13] MEDS ORDERED: MUPIROCIN 2% OINT 22 GM TUBE As Ordered ONE (14:54)
[2018-05-13] MEDS ORDERED: LIDOCAINE 1% SDV INJ 30 ML VIAL As Ordered ONE (14:54)
[2018-05-13] MEDS ORDERED: ISOVUE-300 61% 50ML VIAL (Q9967) As Ordered ONE (14:55)
[2018-05-13] MEDS ORDERED: VANCOMYCIN 1000 MG/20 ML VIAL (J3370) As Ordered ONE (14:55)
[2018-05-13] MEDS ORDERED: fentaNYL 100 MCG/2 ML INJECTION (J3010) As Ordered ONE (14:59)
[2018-05-13] MEDS ORDERED: LIDOCAINE 2% INJ 100 MG/5 ML SDV (FOR ANES.) As Ordered ONE (14:59)
[2018-05-13] MEDS ORDERED: MIDAZOLAM INJ 2 MG/2 ML VIAL (J2250) As Ordered ONE (14:59)
[2018-05-13] MEDS ORDERED: PROPOFOL 500 MG/50 ML VIAL As Ordered ONE (15:00)
[2018-05-13] MEDS ORDERED: ceFAZolin SOD 1 GM in D5W MINI-BAG PLUS 50 ML IV ONE (15:00)
[2018-05-13] MEDS ORDERED: ONDANSETRON 4MG/2ML VIAL (J2405) As Ordered ONE (15:02)
[2018-05-13] MEDS ORDERED: dexameTHASONE 4 MG/ML 1ML VIAL (J1100) As Ordered ONE (15:02)
[2018-05-13] MEDS ORDERED: ceFAZolin 1GM INJ (J0690 PER 500MG) As Ordered ONE (15:14)
--- NOTE | 2018-05-13 16:48 | IPNPDOC ---
Text Note Date of Service The patient was seen on 05/13/18. NOTE Subjective: Patient is an 87-year-old female who presented to the emergency department on 05/11/2018 with dizziness. Patient was found to have sinus pauses on EKG. Patient's eliquis and atenolol were held and cardiology was consulted. Cardiology saw the patient and decided to place a pacemaker. Patient was going to get a pacemaker later today. Today patient is complaining of a slight headache. Patient does have a history of prior stroke with left-sided hemiparesis. Patient said she felt nervous for her upcoming procedure. Patient said she has not been dizzy since being in the hospital. She denied having any palpitations. Review of systems General: Patient denies fevers HEENT: Patient has a headache this morning Cardiovascular: Patient denies chest pain Respiratory: Patient denies shortness of breath, cough GI: Patient denies abdominal pain, nausea, vomiting, diarrhea : Patient denies pain or difficulty with urination Neurological: Patient denies numbness or tingling in extremities Extremities: Patient denies swelling or pain in extremities Objective: Vitals: (see below) General: No acute distress, laying comfortably in bed. HEENT: Normocephalic, atraumatic, moist mucous membranes. Neck: No JVD or lymphadenopathy Cardiac: Irregularly irregular rhythm, No murmurs Pulm: Clear to auscultation b/l. No wheezing, rhonchi Abd: NT/ND + BS Ext: No edema or cyanosis. Radial, posterior tibial, and dorsalis pedis pulses equal bilaterally. Labs (see below) Images: Patient has no recent imaging. Assessment/Plan 1. Dizziness most likely secondary to sinus pauses. Dr. Montes has seen the patient and will be taking the patient today for a pacemaker placement. We ap preciate Dr. Montes seeing the patient. After the procedure, anticoagulation and rate control medication can be restarted. 2. Atrial fibrillation. At this time we have held for rate control medication due to sinus pauses. Patient's eliquis is also being held due to procedure. After the procedure both his medication restarted. Patient was in atrial fibrillation on telemetry and on exam today. 3. Hypertension. We'll continue losartan. 4. Hypothyroidism. Continue levothyroxine. 5. Hyperlipidemia. Continue Lipitor. 6. History of cerebrovascular disease. Aspirin is being held for the procedure in the restarted after the procedure. 7. Gastroesophageal reflux disease. Continue omeprazole. DVT prophy: Sequential compression devices and thromboembolic deterrent stockings. Dispo: Pending placement of pacemaker. VS,Fishbone, I+O VS, Fishbone, I+O Laboratory Tests 05/13/18 03:47 Red Blood Count 4.04, Mean Corpuscular Volume 92.1, Mean Corpuscular Hemoglobin 29.7, Mean Corpuscular Hemoglobin Concent 32.3, Red Cell Distribution Width 13.6, Calcium Level 8.4 L Vital Signs Date Time Temp Pulse Resp B/P (MAP) Pulse Ox O2 Delivery O2 Flow Rate FiO2 05/13/18 08:00 97.6 114 18 161/75 (103) 96 05/11/18 19:16 Room Air I&O- Last 24 Hours up to 6 AM 05/13/18 06:00 Intake Total 1220 ml Output Total 1860 ml Balance -640 ml GME ATTESTATION GME ATTESTATION My faculty preceptor for this patient encounter was physically present during the encounter and was fully available. All aspects of the patient interview, examination, medical decision making process, and medical care plan development were reviewed and approved by the faculty preceptor. The faculty preceptor is aware and concurs with the plan as stated in the body of this note and will attest to such by his/her cosignature. GERALD CASTILLO DO May 13, 2018 16:48
--- NOTE | 2018-05-13 17:20 | REP ---
Partial chest x-ray: Three views. History: Pacemaker insertion. 4 minutes and 17 seconds of fluoroscopy time is reported. Findings: A sequence of three last image hold fluoroscopically obtained spot radiographs of the chest document left subclavian transvenous pacemaker lead position. Electronically Signed by Viktor Gates MD 05/13/2018 05:11 P
--- NOTE | 2018-05-13 17:59 | REP ---
Portable chest, 05:38 p.m., AP view, the patient upright, post pacemaker placement: Comparisons are 05/11/2018 and 01/22/2017. There is a dual-chamber pacemaker, not present previously with the pacing tips in satisfactory locations on this single view. There status skin steve adjacent to the pacemaker generator. There is no pneumothorax or pleural fluid collection. Cardiac size is mildly enlarged. There is an unusual lobular density inferior to the right cardiac margin of uncertain significance, vena cava artifact versus mass. The cosme and mediastinum are otherwise unremarkable. There is chronic deforming arthropathy of the shoulders bilaterally, unchanged. There is chronic interstitial coarsening compatible with fibrosis. Electronically Signed by Jos Allred MD 05/13/2018 05:51 P
[2018-05-13] MEDS ORDERED: PILL CRUSHER/CUTTER 1 EACH XX PRN (18:00)
--- NOTE | 2018-05-13 18:53 | RO ---
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 PROCEDURE: Implantation of dual-chamber permanent pacemaker ([employer]). SURGEON: Kp Montes MD BRAINER: None. ANESTHESIA: Lidocaine 1% local/monitored anesthetic care. No specimens. Estimated blood loss: 5 mL. No blood products replaced. No drains. No complications. 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 DESCRIPTION OF PROCEDURE: The patient was prepped and draped over the left pectoral region. 3M Ioban film was applied. Lidocaine 1% was used for local anesthetic. A left subclavian venogram was performed using Isovue, which was diluted with some normal saline, using a total volume of contrast/saline of 20 mL, injected via a peripheral IV in the left upper extremity. The left subclavian vein was entered by percutaneous technique using a micropuncture needle during real-time with the contrast injection of the left subclavian vein. This was then guidewire exchanged for a guidewire that came with one of the 7-Turkish sheaths. Next, an incision was made approximately 2-1/2 inches in length, roughly parallel to the left clavicle, 1 cm below the skin entry site of the guidewire. The incision was then dissected down to the level of the pectoral muscle using the PEAK PlasmaBlade. The pacemaker pocket was then formed in a caudal direction using blunt dissection using two fingers to separate the prepectoral fascia from the Angel's fascia. Next, the guidewire was pulled through the skin into the incision site. Next, a 7-Turkish sheath was placed over the guidewire and was used for vein access for the right ventricle lead. Before placing the right ventricle lead into the 7-Turkish sheath, I obtained a separate venous access more lateral to the sheath and guidewire using a micropuncture needle to serve as a venous access for the atrial lead. The ventricle lead was placed in the more medial of the position sheaths and advanced under fluoroscopic guidance into the right ventricle apex position where it was secured with a total of 10 turns. This position was found to be electrically and anatomically satisfactory and no diaphragm stimulation could be palpated on either side at 10 volts high output pacing. The sheath was broken apart and removed, and the ventricle lead was secured to the pectoral muscle using the supplied tie-down sleeve using two individual sutures consisting of #0 Ethibond. Next, the second 7-Turkish Peel-Away Sheath with introducer was placed over the more lateral of the guidewires and placed into the left subclavian vein. This was used for vein access for the right atrial lead. The right atrial lead was placed into the right atrial appendage position using the assistance of a preformed J-stylet under fluoroscopic guidance. It was secured with a total of 10 turns. This position was found to be electrically and anatomically satisfactory and no diaphragm stimulation could be palpated on either side. The 7-Turkish sheath was then broken apart and removed. The atrial lead was secured to the pectoral muscle using the supplied tie-down sleeve using two individual sutures consisting of #0 Ethibond. Next, another #0 Ethibond suture was placed in the pectoral muscle to serve as the tie-down for the pacemaker pulse generator. The terminal pins of the ventricle and atrial leads were placed into their respective ports in the header of the pacemaker pulse generator and each one was secured by tightening the set screws with the hex screwdriver. The excess lead material was then coiled underneath the pacemaker pulse generator and placed into the pacemaker pocket along with the pacemaker pulse generator with the excess lead material below and pacemaker pulse generator on top. The pacemaker pulse generator was then secured to the pectoral muscle with the previously placed #0 Ethibond suture. The deep layer was closed using individual sutures consisting of #2-0 Vicryl. A few additional #3-0 Vicryl sutures were used to help approximate the more superficial layer. The skin was closed using steve. The patient tolerated the procedure well without any immediate complications. The pacemaker pulse generator implanted was a [employer] MRI with model number [id number] with serial number [id number]. The right ventricle lead implanted was a [employer] Tendril MRI, model number [id number], which was 52 cm in length and had serial number [id number]. Final testing in the operating room for the right ventricle lead in bipolar configuration showed a capture threshold of 0.5 volts at 0.4 milliseconds with R wave amplitude of 16.8 millivolts and a lead impedance of 980 ohms. The right atrial lead implanted was a [employer] Tendril MRI, model number [id number], which was 46 cm in length and had serial number [id number]. Final testing in the operating room of the right atrial lead in bipolar configuration showed a capture threshold of 1.6 volts at 0.4 milliseconds with P wave amplitude of the atrial tachycardia of 1.5 millivolts and a lead impedance of 480 ohms.
[2018-05-13] MEDS: ACETAMINOPHEN 500 MG TAB PO PRN ×2 (19:26→21:33)
[2018-05-13] MEDS: ATORVASTATIN 20 MG TAB PO SCH (20:13)
[2018-05-13] MEDS: ASCORBIC ACID 250 MG TAB PO SCH (20:14)
[2018-05-13] MEDS: LOSARTAN 50 MG TAB PO SCH (20:14)
[2018-05-13] MEDS ORDERED: ATENOLOL 25 MG TAB PO SCH (21:00)
[2018-05-13] MEDS: tiZANidine 4 MG TAB PO SCH (21:31)
--- NOTE | 2018-05-13 23:08 | ECHO ---
DATE OF PROCEDURE: 05/12/2018 REFERRING PHYSICIAN: Jaime Pineda MD INDICATION: Cardiac dysrhythmia, unspecified. HEIGHT: 145 cm WEIGHT: 63 kg 2D MEASUREMENTS: Ventricular septum: 1.04 cm Posterior wall: 0.91 cm Left ventricle diastole: 4.0 cm Aortic root: 3.4 cm Left atrium: 3.9 cm Inferior vena cava: 1.9 cm DOPPLER MEASUREMENTS: Aortic valve velocity: 93.7 cm LVOT velocity: 80.5 cm/s LVOT VTI: 19.0 cm Mild mitral regurgitation. Mild tricuspid regurgitation. Estimated right ventricle systolic pressure: 35-40 mmHg assuming a right atrial pressure of 5-10 mmHg. Very mild pulmonary regurgitation. MITRAL ANNULAR TISSUE DOPPLER: E prime lateral: 8.5 cm/s E prime septal: 8.5 cm/s DESCRIPTION: Rhythm was sinus with marked first degree atrioventricular (AV) block. No pericardial effusion. Image quality was adequate. This was a 2D, M-mode, color flow Doppler and pulse wave Doppler examination that included mitral annular tissue Doppler. CONCLUSIONS: 1. Normal left ventricle internal dimensions and wall thickness. Normal regional left ventricle (LV) wall motion and wall thickening. Normal LV systolic function. Left ventricular ejection fraction (LVEF) 65%. Unable to adequately assess LV diastolic function in the setting of complete E/A fusion. 2. Moderate mitral annular calcification. Mild mitral regurgitation. 3. Mild left atrial dilatation. 4. Mild aortic valve sclerosis of a three-cuspid aortic valve. No aortic regurgitation. 5. Suggestive of mild elevation of estimated right ventricle systolic pressure. Mild tricuspid regurgitation. Central venous pressure estimated to be 5-10 mmHg at the time of this study.
[2018-05-14] VITALS (10 sets, daily range): BP systolic 83–138; BP diastolic 51–72
[2018-05-14] MEDS: IPRATROPIUM 0.5MG/ALBUTEROL 2.5MG INH SOL UD 3ML (DUONEB)(J7620) NEB SCH ×4 (02:00→20:34)
[2018-05-14 05:07] LABS: HEMATOCRIT 36.6 % (36.0-47.0); HEMOGLOBIN 11.9 g/dl (12.0-15.5); MEAN CORPUSCULAR HEMOGLOBIN 29.5 pg (27.0-33.0); MEAN CORPUSCULAR HGB CONC 32.5 g/dl (32.0-36.5); MEAN CORPUSCULAR VOLUME 90.6 fl (80.0-96.0); PLATELET COUNT, AUTOMATED 179 10^3/uL (150-450); RED BLOOD COUNT 4.04 10^6/uL (4.00-5.40); WHITE BLOOD COUNT 6.5 10^3/uL (4.0-10.0)
[2018-05-14 05:26] LABS: BLOOD UREA NITROGEN 21 MG/DL (7-18); CALCIUM LEVEL 8.5 MG/DL (8.8-10.2); CARBON DIOXIDE LEVEL 26 MEQ/L (21-32); CHLORIDE LEVEL 103 MEQ/L (98-107); CREATININE FOR GFR 0.74 MG/DL (0.55-1.30); GLOMERULAR FILTRATION RATE > 60.0 (>32); GLUCOSE, FASTING 87 MG/DL (70-100); POTASSIUM SERUM 4.3 MEQ/L (3.5-5.1); SODIUM LEVEL 138 MEQ/L (136-145)
[2018-05-14] MEDS: LEVOTHYROXINE 25MCG TABLET (0.025MG) PO SCH (05:26)
--- NOTE | 2018-05-14 08:03 | ECGEPIP ---
Stationary ECG Study [facility] Test Date: 2018-05-13 Pat Name: HARITHA CAMERON Department: Room: [place] [address] Gender: F Workers Compensation Coordinator: JUAN CARLOS : 1930 Requested By: Kp Montes Order Number: [id number] Reading MD: Kp Roque Measurements Intervals [place] Rate: 88 P: 263 MS: 236 QRS: -2 QRSD: 98 T: 5 QT: 376 QTc: 456 Interpretive Statements UNCERTAIN IRREGULAR RHYTHM ELECTRONIC VENTRICULAR PACEMAKER -- CONTOUR ANALYSIS BASED ON INTRINSIC RHYTHM Nonspecific ST-T wave abnormalities Electronically Signed On 05-14-2018 8:02:46 EST by Kp Roque
[2018-05-14] MEDS: MAGNESIUM CHLORIDE 64 MG TABCR (SLO MAG) PO SCH (08:42)
[2018-05-14] MEDS: INDAPAMIDE 1.25MG TABLET PO SCH (08:42)
[2018-05-14] MEDS: ASCORBIC ACID 250 MG TAB PO SCH ×2 (08:43→20:07)
[2018-05-14] MEDS: OMEPRAZOLE 20 MG CAP PO SCH (08:43)
[2018-05-14] MEDS: ACETAMINOPHEN 500 MG TAB PO PRN ×2 (08:43→16:41)
[2018-05-14] MEDS: FERROUS SULFATE 325MG TAB PO SCH (08:43)
[2018-05-14] MEDS: ATENOLOL 50 MG TAB PO SCH ×2 (08:48→20:08)
--- NOTE | 2018-05-14 09:42 | REP ---
Chest x-ray: Two views. History: Post dual lead pacemaker placement. Comparison chest x-ray July 13, 2018 and July 11, 2018. Findings: A dual lead transvenous pacemaker is seen in the right heart via the left side. There is no evidence of pneumothorax or hydrothorax. Cardiomediastinal silhouette is unchanged. There are old healed rib fractures on the right as before. Advanced degenerative changes are noted in the shoulders bilaterally. Impression: Pacemaker in place. No complication visible. Electronically Signed by Viktor Gates MD 05/14/2018 09:33 A
--- NOTE | 2018-05-14 18:42 | IPNPDOC ---
Text Note Date of Service The patient was seen on 05/14/18. NOTE Subjective: Patient is an 87-year-old female who presented to the hospital on 05/11/2018 with a chief complaint of dizziness. She was found to have sinus pauses. Patient went and had a pacemaker placed by Dr. Montes yesterday. Patient is doing well since the procedure. Patient is just complaining of some mild pain over the incision site. She does not have a headache at this time. Review of systems General: Patient denies fevers HEENT: Patient denies headaches Cardiovascular: Patient denies chest pain Respiratory: Patient denies shortness of breath, cough GI: Patient denies abdominal pain, nausea, vomiting, diarrhea : Patient denies pain or difficulty with urination Neurological: Patient denies numbness or tingling in extremities Extremities: Patient denies swelling or pain in extremities Objective: Vitals: (see below) General: No acute distress, laying comfortably in bed. HEENT: Normocephalic, atraumatic, moist mucous membranes. Neck: No JVD or lymphadenopathy Cardiac: RRR, No murmurs Pulm: Clear to auscultation b/l. No wheezing, rhonchi Abd: NT/ND + BS Ext: No edema or cyanosis. Radial, posterior tibial, and dorsalis pedis pulses equal bilaterally. Labs (see below) Images: A chest x-ray performed on 05/14/2018 showed pacemaker is in place with no complication visible. Assessment/Plan 1. Dizziness most likely secondary to sinus pauses. Patient had pacemaker placed yesterday. Pending cardiology clearance and physical therapy clearance patient should be safe for discharge. Anticoagulation and beta flynn has been restarted. 2. Atrial fibrillation. Anticoagulation and rate control medication has been restarted. 3. Hypertension. Patient had some episodes of hypotension so her losartan has been held. We'll continue to monitor. 4. Hypothyroidism. Continue levothyroxine. 5. Hyperlipidemia. Continue Lipitor. 6. History of cerebrovascular disease. Aspirin can be restarted. 7. Gastroesophageal reflux disease. Continue omeprazole. DVT prophylaxis: Eliquis Dispo: Pending cardiology and physical therapy clearance VS,Fishbone, I+O VS, Fishbone, I+O Laboratory Tests 05/14/18 04:08 Red Blood Count 4.04, Mean Corpuscular Volume 90.6, Mean Corpuscular Hemoglobin 29.5, Mean Corpuscular Hemoglobin Concent 32.5, Red Cell Distribution Width 13.4, Calcium Level 8.5 L Vital Signs Date Time Temp Pulse Resp B/P (MAP) Pulse Ox O2 Delivery O2 Flow Rate FiO2 05/14/18 15:40 98.5 73 16 121/57 (78) 93 05/13/18 18:05 2 05/11/18 19:16 Room Air I&O- Last 24 Hours up to 6 AM 05/14/18 06:00 Intake Total 1620 ml Output Total 600 ml Balance 1020 ml GME ATTESTATION GME ATTESTATION My faculty preceptor for this patient encounter was physically present during the encounter and was fully available. All aspects of the patient interview, examination, medical decision making process, and medical care plan development were reviewed and approved by the faculty preceptor. The faculty preceptor is aware and concurs with the plan as stated in the body of this note and will attest to such by his/her cosignature. GERALD CASTILLO DO May 14, 2018 18:42
[2018-05-14] MEDS: ATORVASTATIN 20 MG TAB PO SCH (20:06)
[2018-05-14] MEDS: tiZANidine 4 MG TAB PO SCH (20:07)
[2018-05-14] MEDS: APIXABAN 2.5 MG TAB (ELIQUIS) PO SCH (20:08)
[2018-05-15] VITALS: BP 106/55
[2018-05-15] MEDS: IPRATROPIUM 0.5MG/ALBUTEROL 2.5MG INH SOL UD 3ML (DUONEB)(J7620) NEB SCH ×3 (01:13→14:22)
[2018-05-15 04:00] VITALS: BP 107/51
[2018-05-15 05:43] LABS: HEMATOCRIT 33.8 % (36.0-47.0); HEMOGLOBIN 11.2 g/dl (12.0-15.5); MEAN CORPUSCULAR HEMOGLOBIN 29.4 pg (27.0-33.0); MEAN CORPUSCULAR HGB CONC 33.1 g/dl (32.0-36.5); MEAN CORPUSCULAR VOLUME 88.7 fl (80.0-96.0); PLATELET COUNT, AUTOMATED 161 10^3/uL (150-450); RED BLOOD COUNT 3.81 10^6/uL (4.00-5.40); WHITE BLOOD COUNT 5.6 10^3/uL (4.0-10.0)
[2018-05-15] MEDS: LEVOTHYROXINE 25MCG TABLET (0.025MG) PO SCH (06:00)
[2018-05-15 06:05] LABS: BLOOD UREA NITROGEN 22 MG/DL (7-18); CALCIUM LEVEL 8.5 MG/DL (8.8-10.2); CARBON DIOXIDE LEVEL 29 MEQ/L (21-32); CHLORIDE LEVEL 105 MEQ/L (98-107); CREATININE FOR GFR 0.72 MG/DL (0.55-1.30); GLOMERULAR FILTRATION RATE > 60.0 (>32); GLUCOSE, FASTING 93 MG/DL (70-100); MAGNESIUM LEVEL 1.9 MG/DL (1.8-2.4); POTASSIUM SERUM 3.9 MEQ/L (3.5-5.1); SODIUM LEVEL 139 MEQ/L (136-145)
[2018-05-15 08:00] VITALS: BP 146/71
[2018-05-15 09:13] VITALS: BP 146/71
[2018-05-15] MEDS: ATENOLOL 50 MG TAB PO SCH (09:13)
[2018-05-15] MEDS: INDAPAMIDE 1.25MG TABLET PO SCH (09:13)
[2018-05-15] MEDS: OMEPRAZOLE 20 MG CAP PO SCH (09:14)
[2018-05-15] MEDS: ASCORBIC ACID 250 MG TAB PO SCH (09:14)
[2018-05-15] MEDS: APIXABAN 2.5 MG TAB (ELIQUIS) PO SCH (09:14)
[2018-05-15] MEDS: MAGNESIUM CHLORIDE 64 MG TABCR (SLO MAG) PO SCH (09:14)
[2018-05-15] MEDS: FERROUS SULFATE 325MG TAB PO SCH (09:14)
[2018-05-15] MEDS: ACETAMINOPHEN 500 MG TAB PO PRN (09:18)
[2018-05-15 12:00] VITALS: BP 154/71
[2018-05-15] MEDS ORDERED: ELIQ2.5T PO (13:30)
[2018-05-15] MEDS ORDERED: ATEN50TA2 PO (13:30)
--- NOTE | 2018-05-15 14:03 | DS.PDOC ---
Discharge Summary General Date of Admission May 11, 2018 at 22:01 Date of Discharge 05/15/2018 Primary Care Physician: Jr Partida Collins Attending Physician: ZOEY RUST MD Specialist/Consultants Involve: Kp Montes Discharge Summary PROCEDURES PERFORMED DURING STAY: None. ADMITTING/DISCHARGE DIAGNOSES: 1. Dizziness most likely secondary to sinus pauses 2. Atrial fibrillation 3. Hypertension 4. Hypothyroidism 5. Hyperlipidemia 6. History of cerebrovascular disease. 7. Gastroesophageal reflux disease. COMPLICATIONS/CHIEF COMPLAINT: Dizziness HISTORY OF PRESENT ILLNESS/HOSPITAL COURSE: Patient is an 87-year-old female who presented to the emergency room on 05/11/2018 with a chief complaint of dizziness. Patient went to her primary care physician on 05/07/2017 complaining of dizziness. The dizziness did resolve. The dizziness came back on 05/11/2017 and patient went to the hospital. In the hospital patient was found to have sinus positives both on telemetry and on 12-lead EKG. Cardiology was consulted and agreed to place a pacemaker. Procedure was delayed until home 05/13/2018 due to the patient being on eliquis. Eliquis and atenolol were held during the patient's hospitalization. After the procedure, patient was placed back on eliquis 2.5 mg twice a day and atenolol 50 mg twice a day by cardiology. Patient continued to do well and did not complain of any dizziness. After the pacemaker was placed, patient began to work with physical therapy. After working with physical therapy on 05/14/2018 and 05/15/2018 patient was deemed safe for discharge home. Patient was discharged on 05/15/2018. Patient's eliquis was changed from 5 mg twice a day to 2.5 mg twice a day and patient's atenolol was changed from 25 mg once a day to 50 mg twice a day. DISCHARGE MEDICATIONS: Please see below. ALLERGIES: Please see below. PHYSICAL EXAMINATION ON DISCHARGE: Vitals: (see below) General: No acute distress, laying comfortably in bed. HEENT: Moist mucous membranes. Neck: No JVD or lymphadenopathy Cardiac: RRR, No murmurs Pulm: Clear to auscultation b/l. No wheezing, rhonchi Abd: NT/ND + BS Ext: No edema or cyanosis. Varicose veins present on the right lower extremity greater than left lower extremity. LABORATORY DATA: Please see below. IMAGING: A chest x-ray performed on 05/11/2018 showed no acute consolidation. A chest x-ray performed on 05/13/2018 showed dual-chamber pacemaker with pacing tips in the satisfactory locations, there was no pneumothorax or pleural fluid collections. A chest x-ray performed on 05/14/[address] with no complication visible. PROGNOSIS: Fair ACTIVITY: As tolerated. DIET: Cardiac DISCHARGE PLAN/DISPOSITION: Discharge to home with outpatient physical therapy DISCHARGE INSTRUCTIONS: 1. Follow-up with primary care physician within 7-10 days of discharge. 2. Follow up with cardiology as scheduled. DISCHARGE CONDITION: Stable. TIME SPENT ON DISCHARGE: Greater than 30 minutes. Vital Signs/I&Os Vital Signs Date Time Temp Pulse Resp B/P (MAP) Pulse Ox O2 Delivery O2 Flow Rate FiO2 05/15/18 12:00 97.8 70 18 154/71 (98) 94 05/13/18 18:05 2 05/11/18 19:16 Room Air I&O- Last 24 Hours up to 6 AM 05/15/18 06:00 Intake Total 1440 ml Output Total 3200 ml Balance -1760 ml Laboratory Data Labs 24H Laboratory Tests 2 05/15/18 05:18: Nucleated Red Blood Cells % (auto) 0.0, Anion Gap 5L, Glomerular Filtration Rate > 60.0, Blood Urea Nitrogen 22H, Creatinine 0.72, Sodium Level 139, Potassium Level 3.9, Chloride Level 105, Carbon Dioxide Level 29, Calcium Level 8.5L, Magnesium Level 1.9 CBC/BMP Laboratory Tests 05/15/18 05:18 Red Blood Count 3.81 L, Mean Corpuscular Volume 88.7, Mean Corpuscular Hemoglobin 29.4, Mean Corpuscular Hemoglobin Concent 33.1, Red Cell Distribution Width 13.3, Calcium Level 8.5 L Discharge Medications Scheduled (Citracal Calcium+D S... 600-40-500 mg-mg-Unit) 1 Tab Tab, 1 TAB PO DAILY, (Reported) TAKES AT NOON Acetaminophen (Tylenol Extra Strength) 500 Mg Tab, 1,000 MG PO BID, (Reported) Apixaban Base (Eliquis) 2.5 Mg Tab, 2.5 MG PO BID Atenolol (Atenolol) 50 Mg Tab, 50 MG PO BID Atorvastatin Calcium (Atorvastatin Calcium) 40 Mg Tab, 40 MG PO QHS, (Reported) Ferrous Sulfate (Ferrous Sulfate) 325 Mg Tab, 325 MG PO DAILY, (Reported) Indapamide (Indapamide) 1.25 Mg Tab, 1.25 MG PO DAILY, (Reported) Levothyroxine Sodium (Synthroid) 25 Mcg Tab, 25 MCG PO DAILY, (Reported) Losartan Potassium (Losartan Potassium) 50 Mg Tab, 50 MG PO QHS, (Reported) Magnesium Chloride (Slow-Mag 71.5-119 mg) 1 Tab Tab, 1 TAB PO BID, (Reported) Omeprazole (Omeprazole) 20 Mg Cap, 20 MG PO DAILY, (Reported) Tizanidine Hydrochloride (Tizanidine HCl) 4 Mg Cap, 4 MG PO QHS, (Reported) Allergies Coded Allergies: Codeine (Verified Allergy, Intermediate, 05/13/18) pt states her airway closed and she vomitted Sulfa Drugs (Verified Allergy, Mild, 05/11/18) RASH & N/V Sulfa Drugs Cross Reactors (Verified Allergy, Mild, 05/11/18) RASH & N/V Morphine and Related (Verified Adverse Reaction, Unknown, 05/11/18) GME ATTESTATION GME ATTESTATION My faculty preceptor for this patient encounter was physically present during the encounter and was fully available. All aspects of the patient interview, examination, medical decision making process, and medical care plan development were reviewed and approved by the faculty preceptor. The faculty preceptor is aware and concurs with the plan as stated in the body of this note and will attest to such by his/her cosignature. GERALD CASTILLO DO May 15, 2018 14:03
== END 2018-05-15 15:52 | disposition home health service (06) | DRG 243 ==
LOC: M ED 19:16 → M ED INP 22:01 → M ICU 23:25 → M PCU 05-13 21:20
PROVIDERS: ADMIT Internal Medicine; ATTEND Internal Medicine
PROC: 02H63JZ Insertion of Pacemaker Lead into Right Atrium, Percutaneous Approach (ICD-10-PCS; 2018-05-13)
PROC: 02HK3JZ Insertion of Pacemaker Lead into Right Ventricle, Percutaneous Approach (ICD-10-PCS; 2018-05-13)
PROC: 0JH606Z Insertion of Pacemaker, Dual Chamber into Chest Subcutaneous Tissue and Fascia, Open Approach (ICD-10-PCS; principal; 2018-05-13 15:08)
DX: I49.5 Sick sinus syndrome (principal); I48.1 Persistent atrial fibrillation; I25.10 Atherosclerotic heart disease of native coronary artery without angina pectoris; I11.9 Hypertensive heart disease without heart failure; E78.5 Hyperlipidemia, unspecified; E03.9 Hypothyroidism, unspecified; I44.0 Atrioventricular block, first degree; I83.90 Asymptomatic varicose veins of unspecified lower extremity; D64.9 Anemia, unspecified; K21.9 Gastro-esophageal reflux disease without esophagitis; I87.2 Venous insufficiency (chronic) (peripheral); E66.9 Obesity, unspecified; K22.70 Barrett's esophagus without dysplasia; Z86.73 Personal history of transient ischemic attack (TIA), and cerebral infarction without residual deficits; E55.9 Vitamin D deficiency, unspecified; Z79.01 Long term (current) use of anticoagulants; Z90.49 Acquired absence of other specified parts of digestive tract; Z98.49 Cataract extraction status, unspecified eye; Z90.710 Acquired absence of both cervix and uterus; Z79.899 Other long term (current) drug therapy; Z88.5 Allergy status to narcotic agent; Z88.2 Allergy status to sulfonamides

== ENCOUNTER 2018-05-22 02:27 | Emergency (ER) | payer MEDICARE ==
[~2018-05-22 02:27] MED LIST changes: +ATEN50TA2 PO; +CITRTAB19 PO; +ELIQ2.5T PO; +INDA125TA PO; +LEVO25TA5 PO; +LOSA50TA88 PO; +OMEP20CA3 PO
[2018-05-22 02:47] LABS: BASO % 0.7 % (0.0-1.0); EOS # 0.2 10^3/uL (0.0-0.50); EOS % 2.9 % (0.0-3.0); HEMATOCRIT 35.2 % (36.0-47.0); HEMOGLOBIN 11.7 g/dl (12.0-15.5); LYMPH # 1.4 10^3/uL (1.5-4.5); MEAN CORPUSCULAR HEMOGLOBIN 29.8 pg (27.0-33.0); MEAN CORPUSCULAR HGB CONC 33.2 g/dl (32.0-36.5); MEAN CORPUSCULAR VOLUME 89.8 fl (80.0-96.0); MONO # 0.7 10^3/uL (0.0-0.8); MONO % 11.8 % (0.0-5.0); NEUTROPHILS # 3.3 10^3/uL (1.8-7.7); NEUTROPHILS % 59.1 % (36.0-66.0); PLATELET COUNT, AUTOMATED 198 10^3/uL (150-450); RED BLOOD COUNT 3.92 10^6/uL (4.00-5.40); WHITE BLOOD COUNT 5.5 10^3/uL (4.0-10.0)
[2018-05-22] MEDS ORDERED: METAL LOCK LOOP XX ONE (02:50)
[2018-05-22 02:59] LABS: INR 1.07; PROTHROMBIN TIME 14.1 SECONDS (12.1-14.4)
[2018-05-22 03:00] LABS: PARTIAL THROMBOPLASTIN TIME 30.5 SECONDS (25.4-37.6)
--- NOTE | 2018-05-22 03:07 | REP ---
Clinical: Acute chest pain. Technique: AP and lateral. Comparison: 05/14/2018. Findings: Mediastinum and cardiac silhouette are stable and within normal limits. The lung de paz demonstrate diffuse chronic-appearing interstitial changes. Subtle left lower lobe/retrocardiac atelectasis cannot be excluded. No effusion. No pneumothorax. Skeletal structures demonstrate stable osteopenia and degenerative changes. Impression: Primarily chronic stable-appearing changes. Subtle left lower lobe/retrocardiac atelectasis cannot be excluded. Electronically Signed by Kamron Adams MD 05/22/2018 02:58 A
[2018-05-22 03:21] LABS: ALBUMIN 3.4 GM/DL (3.2-5.2); ALT/SGPT 20 U/L (12-78); BILIRUBIN,DIRECT 0.1 MG/DL (0.0-0.2); BILIRUBIN,TOTAL 0.5 MG/DL (0.2-1.0); BLOOD UREA NITROGEN 33 MG/DL (7-18); CALCIUM LEVEL 8.9 MG/DL (8.8-10.2); CARBON DIOXIDE LEVEL 28 MEQ/L (21-32); CHLORIDE LEVEL 106 MEQ/L (98-107); CK-MB VALUE MASS < 1.0 NG/ML (<3.6); CPK CREATINE PHOSPHOKINASE 56 U/L (26-192); FREE T4 1.14 NG/DL (0.76-1.46); GLOMERULAR FILTRATION RATE > 60.0 (>32); GLUCOSE, FASTING 101 MG/DL (70-100); LIPASE 281 U/L (73-393); MB/CK RELATIVE INDEX 1.79 (< OR =4); POTASSIUM SERUM 4.5 MEQ/L (3.5-5.1); SODIUM LEVEL 140 MEQ/L (136-145); TROPONIN I 0.02 NG/ML (< 0.10)
--- NOTE | 2018-05-22 07:51 | ECGEPIP ---
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
[2018-05-22 10:19] LABS: CK-MB VALUE MASS < 1.0 NG/ML (<3.6); CPK CREATINE PHOSPHOKINASE 47 U/L (26-192); MB/CK RELATIVE INDEX 2.13 (< OR =4); TROPONIN I < 0.02 NG/ML (< 0.10)
[2018-05-22 11:13] VITALS: BP 136/67
--- NOTE | 2018-05-22 19:15 | ECGEPIP ---
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
== END 2018-05-22 11:15 | disposition home or self-care (01) ==
LOC: M ED 02:27
DX: R07.9 Chest pain, unspecified (principal); I11.9 Hypertensive heart disease without heart failure; I48.91 Unspecified atrial fibrillation; I25.10 Atherosclerotic heart disease of native coronary artery without angina pectoris; E78.9 Disorder of lipoprotein metabolism, unspecified; E07.9 Disorder of thyroid, unspecified; K21.9 Gastro-esophageal reflux disease without esophagitis; Z86.73 Personal history of transient ischemic attack (TIA), and cerebral infarction without residual deficits; Z95.0 Presence of cardiac pacemaker; Z88.5 Allergy status to narcotic agent; Z88.2 Allergy status to sulfonamides; Z79.899 Other long term (current) drug therapy; Z79.01 Long term (current) use of anticoagulants

== ENCOUNTER → 2018-05-23 | Outpatient (CLI) | payer OTHER ==
--- NOTE | 2018-06-08 00:25 | ECWPNPC ---
PATIENT NAME: HARITHA CAMERON : 1930 GENDER: FEMALE VISIT DATE: 05/23/2018 DISCHARGE DATE: 05/23/18925 VISIT LOCKED DATE TIME: PHYSICIAN: LILI BEAULIEU RESOURCE: LILI BEAULIEU REASON FOR APPOINTMENT 1. 3 MONTHS HISTORY OF PRESENT ILLNESS HISTORY OF PRESENT ILLNESS: HERE FOR F/U OF CHRONIC BILAT. NECK PAIN.CONTINUES WITH NECK PAIN BUT DOES ADMIT THAT IT IS NOT DISRUPTING HER SLEEP AND OVERALL OK.RATING PAIN VAS 0-2/10.DISCUSSED TREATMENT PLAN WITH HER AND HER SON. PAIN THE PATIENT DESCRIBES THE PAIN... FALL RISK SCREENING: SCREENING : NO FALLS IN THE PAST YEAR. CURRENT MEDICATIONS TAKING LEVOTHYROXINE SODIUM 25 MCG TABLET 1 TABLET ON AN EMPTY STOMACH IN THE MORNING ORALLY ONCE A DAY TAKING ELIQUIS 5 MG TABLET ORALLY BID TAKING ATENOLOL 25 MG TABLET 1 TABLET ORALLY ONCE A DAY TAKING FERROUS SULFATE 325 (65 FE) MG TABLET 1 TABLET ORALLY ONCE A DAY TAKING LOSARTAN POTASSIUM 100 MG TABLET 1 TABLET ORALLY ONCE A DAY TAKING SLOW-MAG 71.5-119 MG TABLET DELAYED RELEASE 1 TABLETS ORALLY BID TAKING ACETAMINOPHEN 500 MG TABLET 2 TABLETS NEEDED ORALLY BID TAKING ATORVASTATIN CALCIUM 40 MG TABLET 1 TABLET ORALLY ONCE A DAY TAKING INDAPAMIDE 1.25 MG TABLET 1 TABLET IN THE MORNING ORALLY ONCE A DAY TAKING OMEPRAZOLE 20 MG CAPSULE DELAYED RELEASE 1 ORALLY DAILY TAKING HYDROCORTISONE 2.5 % CREAM RECTAL PRN TAKING TIZANIDINE HCL 4 MG TABLET 1 TAB ORALLY BEFORE BEDTIME NOT-TAKING PHENAZOPYRIDINE HCL 95 MG TABLET 2 TABLETS AFTER MEALS ORALLY THREE TIMES A DAY NOT-TAKING CIPRO 250 MG TABLET 1 TAB(S) ORALLY EVERY 12 HRS MEDICATION LIST REVIEWED AND RECONCILED WITH THE PATIENT PAST MEDICAL HISTORY 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 4 SON(S) , 3 DAUGHTER(S) . 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 SOCIAL HISTORY GENERAL: TOBACCO USE ARE YOU A:NONSMOKER LATEX QUESTIONNAIRE LATEX ALLERGY : HAVE YOU EVER DEVELOPED ANY TYPE OF REACTION AFTER HANDLING LATEX PRODUCTS SUCH RUBBER GLOVES, CONDOMS, DIAPHRAGMS, BALLOONS, SOCKS, OR UNDERWEAR?NO LATEX ALLERGY : HAVE YOU EVER DEVELOPED ANY TYPE OF REACTION DURING OR AFTER DENTAL APPOINTMENT, VAGINAL/RECTAL EXAMINATION, SURGICAL PROCEDURE, OR ANY OTHER EXPOSURE?NO LATEX RISK : HAVE YOU EVER HAD ANY DIFFICULTY BREATHING OR HIVES AFTER EATING OR HANDLING ANY FRUITS, OR VEGETABLES; SUCH KIWI, BANANAS, STONE FRUITS, OR CHESTNUTSNO LATEX RISK : DO YOU HAVE A PREVIOUS PERSONAL HISTORY OF MORE THAN NINE SURGERIES, SPINA BIFIDA, OR REPEATED CATHERTIZATIONS? NO LATEX RISK : ARE YOU FREQUENTLY EXPOSED TO LATEX PRODUCTS IN YOUR OCCUPATION?NO DATE ASKED : 05/23/2018 RECREATIONAL DRUG USE DRUG USE?NO CAODAISM [id number] BAHAI LANGUAGE LANGUAGES SPOKEN:CHILEAN EDUCATION LEVEL OF EDUCATION:HIGH SCHOOL LEARNING BARRIERS / SPECIAL NEEDS BARRIERS TO LEARNING?NO HEARING IMPAIRED?NO VISION IMPAIRED?YES :CORRECTIVE LENSES COGNITIVELY IMPAIRED?NO READINESS TO LEARN?YES LEARNING PREFERENCES?NO EMOTIONAL BARRIERS?NO SPECIAL DEVICES?YES :[facility] PFS, CLERGY, PUBLIC HEALTH REFERRALS HAS THE PATIENT BEEN EDUCATED REGARDING HIS/HER PLAN OF CARE?YES HAS THE PATIENT BEEN EDUCATED REGARDING PAIN, THE RISK FOR PAIN, THE IMPORTANCE OF EFFECTIVE PAIN MANAGEMENT, AND THE PAIN ASSESSMENT PROCESS?YES ADVANCE DIRECTIVE ADVANCE DIRECTIVE DISCUSSED WITH PATIENT:YES REVIEWED WITH PT 11/28/17 3436 BVREVIEWED WITH PATIENT 12/23/17 1114 JS. HOSPITALIZATION/MAJOR DIAGNOSTIC PROCEDURE SURGERY RELATED REVIEW OF SYSTEMS REVIEWED BY: PROVIDER: LILI ABDUL . CONSTITUTIONAL: ANY CHANGE IN YOUR MEDICAL CONDITION? NO . CHILLS NO . FEVER NO . INFECTION: DO YOU HAVE NEW INFECTIONS? NO . DO YOU HAVE HISTORY OF MRSA? NO . MUSCULOSKELETAL: ANY NEW PATTERNS OF PAIN OR NUMBNESS? YES, PT STATES THAT SHE IS STIFF . GASTROENTEROLOGY: ANY NEW CHANGE IN BOWEL CONTROL? NO . GENITOURINARY: ANY NEW CHANGE IN BLADDER CONTROL? NO . IS THERE A CHANCE YOU COULD BE ? NO . HEMATOLOGY/LYMPH: DO YOU TAKE ANY BLOOD THINNERS? (FOR EXAMPLE- COUMADIN, PLAVIX, AGGRENOX, PLATEL, PRADAXA, OR XARELTO) YES, ELIQUIS . WHEN WAS YOUR LAST DOSE? DATE: TIME: . NEUROLOGY: HAVE YOU FALLEN IN THE PAST 12 MONTHS? NO . ANY NEW EXTREMITY NUMBNESS OR WEAKNESS? NO . CARDIOLOGY: DO YOU HAVE A PACEMAKER OR DEFIBRILLATOR? YES, PACEMAKER . RESPIRATORY: HAVE YOU BEEN SICK IN THE PAST WEEK? NO . FEVER NO . FLU LIKE SYMPTOMS? NO . COUGH NO . INTEGUMENTARY: DO YOU HAVE ANY RASHES OR OPEN SORES? NO . ALLERGIC/IMMUNO: ARE YOU ALLERGIC TO IV DYE? NO . ANY NEW ALLERGIES? NO . PSYCHIATRIC: DO YOU HAVE THOUGHTS OF HURTING YOURSELF OR SOMEONE ELSE? NO . ARE YOU ABUSED, NEGLECTED, OR IN AN UNSAFE ENVIRONMENT? NO . ENDOCRINOLOGY: ARE YOU DIABETIC? NO . OTHER: DO YOU NEED ANY PRESCRIPTIONS? NO . IF YES, PLEASE LIST: ____ . ANY NEW PROBLEMS WITH YOUR MEDICATIONS? NO . WHEN DID YOU LAST EAT? ____ . WHEN DID YOU LAST DRINK? ____ . WHAT DID YOU LAST DRINK? ____ . NAME OF PERSON DRIVING YOU HOME? ____ . DO YOU HAVE ANY OTHER QUESTIONS OR CONCERNS NO . VITAL SIGNS WT 143.4 LBS, HT 62 IN, BMI 26.23 INDEX, BP 146/59 MM HG, HR 70 /MIN, RR 16 /MIN, TEMP 96.7 F, OXYGEN SAT % 97%, SAFE IN ENV? (Y/N) Y, NA INITIALS AR 08:54, REVIEWED BY: MARTHA. EXAMINATION GENERAL EXAMINATION: GENERAL APPEARANCE:AWAKE,ALERT ,PLEAASANT . PSYCHAFFECT NORMAL . LUNGS:LUNG HADDAD ARE CLEAR TO AUSCULTATION BILATERALLY. GOOD MOVEMENT OF AIR . HEART:S1, S2 IN A REGULAR RATE AND RHYTHM. NO SIGNIFICANT MURMURS, RUBS OR GALLOPS NOTED . ASSESSMENTS CERVICALGIA - M54.2 (PRIMARY) MYALGIA - M79.1 TREATMENT CERVICALGIA NOTES: CONTINUE CONSERVATIVE CARE. PROCEDURE CODES FA211 ESTABILISHED PATIENT [facility] CHARGE DISPOSITION & COMMUNICATION FOLLOW UP 3 MONTHS ELECTRONICALLY SIGNED BY FRANKO AMIN ON 06/06/2018 AT 03:12 PM EDT DISCLAIMER : THIS IS A VISIT SUMMARY EXTRACTED FROM THE [employer] CHART. IT IS NOT A COPY OF THE [employer] PROGRESS NOTE. HENOK
== END ==
LOC: M PAIN 09:00
PROVIDERS: ATTEND Nurse Practitioner Family
DX: M54.2 Cervicalgia (principal); M79.18 Myalgia, other site; E78.00 Pure hypercholesterolemia, unspecified; E03.9 Hypothyroidism, unspecified; M19.90 Unspecified osteoarthritis, unspecified site; M81.0 Age-related osteoporosis without current pathological fracture; Z79.01 Long term (current) use of anticoagulants; Z79.899 Other long term (current) drug therapy; Z88.0 Allergy status to penicillin; Z88.2 Allergy status to sulfonamides; Z88.5 Allergy status to narcotic agent; Z86.79 Personal history of other diseases of the circulatory system; Z96.643 Presence of artificial hip joint, bilateral; Z95.0 Presence of cardiac pacemaker

== ENCOUNTER 2018-08-24 10:48 | Emergency (ER) | payer MEDICARE, OTHER ==
[~2018-08-24] VITALS: Ht 144.8 cm; Wt 63.6 kg
[2018-08-24 11:43] LABS: BASO % 0.4 % (0.0-1.0); EOS # 0.1 10^3/uL (0.0-0.50); EOS % 1.3 % (0.0-3.0); HEMATOCRIT 36.4 % (36.0-47.0); HEMOGLOBIN 12.1 g/dl (12.0-15.5); LYMPH # 0.9 10^3/uL (1.5-4.5); LYMPH % 12.8 % (24.0-44.0); MEAN CORPUSCULAR HEMOGLOBIN 30.1 pg (27.0-33.0); MEAN CORPUSCULAR HGB CONC 33.2 g/dl (32.0-36.5); MEAN CORPUSCULAR VOLUME 90.5 fl (80.0-96.0); MONO # 0.7 10^3/uL (0.0-0.8); MONO % 10.9 % (0.0-5.0); NEUTROPHILS # 5.1 10^3/uL (1.8-7.7); PLATELET COUNT, AUTOMATED 165 10^3/uL (150-450); RED BLOOD COUNT 4.02 10^6/uL (4.00-5.40); WHITE BLOOD COUNT 6.8 10^3/uL (4.0-10.0)
[2018-08-24 12:19] LABS: ALBUMIN 3.4 GM/DL (3.2-5.2); ALT/SGPT 19 U/L (12-78); BILIRUBIN,TOTAL 0.6 MG/DL (0.2-1.0); BLOOD UREA NITROGEN 32 MG/DL (7-18); CALCIUM LEVEL 8.8 MG/DL (8.8-10.2); CARBON DIOXIDE LEVEL 30 MEQ/L (21-32); CHLORIDE LEVEL 105 MEQ/L (98-107); CK-MB VALUE MASS 2.3 NG/ML (<3.6); CPK CREATINE PHOSPHOKINASE 102 U/L (26-192); CREATININE FOR GFR 0.92 MG/DL (0.55-1.30); GLOMERULAR FILTRATION RATE > 60.0 (>32); GLUCOSE, FASTING 92 MG/DL (70-100); MB/CK RELATIVE INDEX 2.25 (< OR =4); NT-PRO BNP 1386 PG/ML (<450); SODIUM LEVEL 140 MEQ/L (136-145); TOTAL PROTEIN 6.1 GM/DL (6.4-8.2); TROPONIN I 0.03 NG/ML (< 0.10)
[2018-08-24] MEDS ORDERED: FUROSEMIDE 40 MG/4 ML VIAL (J1940) IV ONE (13:00)
[2018-08-24] MEDS ORDERED: LANO125T4 PO (13:40)
[2018-08-24] MEDS ORDERED: HYDR25OIN TOP (13:41)
--- NOTE | 2018-08-24 14:59 | REP ---
CT BRAIN WITHOUT IV CONTRAST: CT brain performed without IV contrast. There is moderate atrophy. There is no midline shift or mass effect. There are extensive ill-defined low densities in the periventricular white matter bilaterally compatible with chronic small vessel ischemic changes. 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 There is no acute intracranial hemorrhage or extra-axial fluid collection. No skull fracture is seen. Vascular calcifications are seen in the carotid siphons. IMPRESSION: No evidence of acute bleed or fracture. Chronic ischemic changes. Chronic atrophy. Electronically Signed by Jos Morin MD 08/24/2018 04:40 P
[2018-08-24 15:04] LABS: DIGOXIN LEVEL 0.4 NG/ML (0.5-2.0)
[2018-08-24] MEDS ORDERED: LASI20TA3 PO (15:15)
[2018-08-24] MEDS ORDERED: POTA1TAB14 PO (15:15)
[2018-08-24 16:00] VITALS: BP 124/56
--- NOTE | 2018-08-24 19:00 | ECGEPIP ---
[facility] - ED Test Date: 2018-08-24 Pat Name: HARITHA CAMERON Department: Room: - Gender: Female Transmission Assembler: JHerbert : 1930 Requested By: Kevin Ty Order Number: [id number] Reading MD: Josephine Burrell Measurements Intervals [place] Rate: 69 P: 251 [place]: 212 QRS: QRSD: 154 T: 91 QT: 439 QTc: 473 Interpretive Statements ELECTRONIC ATRIAL PACEMAKER ELECTRONIC VENTRICULAR PACEMAKER ABNORMAL RHYTHM ECG SIMILAR 05/22/18 Electronically Signed on 08-24-2018 19:00:31 EDT by Josephine Burrell
--- NOTE | 2018-08-25 06:44 | REP ---
CT CERVICAL SPINE: CT cervical spine performed in the axial plane. Sagittal and coronal reconstruction images are performed. There is no compression fracture. There is no prevertebral soft tissue swelling. There is moderate diffuse spurring and disc space narrowing with subchondral sclerosis. Vacuum phenomenon is noted at C6-7 level. There is mild posterior osteophytic ridging at C3-4 through C6-7. There is mild anterolisthesis of C2 on C3 and C3 on C4 unchanged since prior study of 01/09/2016. There does appear to be some degree of spinal stenosis and bilateral foraminal narrowing at C4-5 and C5-6 levels. There is diffuse narrowing, sclerosis and spurring at the posterior facet joints. IMPRESSION: Significant degenerative changes diffusely with spinal stenosis and bilateral foraminal narrowing at C4-5 and C5-6. No evidence of acute fracture or dislocation. Electronically Signed by Jos Morin MD 08/25/2018 08:27 A
--- NOTE | 2018-08-25 06:48 | REP ---
CHEST, TWO VIEWS: Two views of the chest are performed and compared to prior study of 05/22/2018 as well as other prior exams. There is mild cardiomegaly. There is chronic interstitial prominence bilaterally which is stable. I suspect a small right pleural effusion. There is mild retrocardiac medial left base atelectasis/infiltrate which is unchanged. There is a left dual lead pacemaker unchanged. Mediastinal silhouette is unchanged. There are degenerative changes of the spine. IMPRESSION: Cardiomegaly with stable chronic interstitial prominence and stable left retrocardiac atelectasis/infiltrate. Suspect small right effusion. Electronically Signed by Jos Morin MD 08/25/2018 08:27 A
--- NOTE | 2018-08-25 12:45 | ED PDOC ---
Post-Departure Follow-Up dr walker faxed formal report of ct c spine for fu Nel Cates MD Aug 25, 2018 12:45
== END 2018-08-24 16:30 | disposition home or self-care (01) ==
LOC: M ED 10:48
DX: I11.0 Hypertensive heart disease with heart failure (principal); I50.9 Heart failure, unspecified; W01.10XA Fall on same level from slipping, tripping and stumbling with subsequent striking against unspecified object, initial encounter; Y92.9 Unspecified place or not applicable; Y93.9 Activity, unspecified; M25.78 Osteophyte, vertebrae; M48.02 Spinal stenosis, cervical region; Z79.01 Long term (current) use of anticoagulants; Z79.899 Other long term (current) drug therapy; Z86.79 Personal history of other diseases of the circulatory system; Z87.891 Personal history of nicotine dependence; Z95.0 Presence of cardiac pacemaker; Z88.0 Allergy status to penicillin; Z88.2 Allergy status to sulfonamides; Z88.5 Allergy status to narcotic agent
CPT/HCPCS: 70450; 71046; 72125; 80053; 80162; 82550; 82553; 83880; 84484; 85025; 93005; 93041; 96374; 99285; J1940

== ENCOUNTER → 2018-09-16 | Outpatient (CLI) | payer MEDICARE ==
[~2018-09-16] MED LIST changes: +HYDR25OIN TOP; +LANO125T4 PO; +LASI20TA3 PO; -OMEP20CA3 PO; +OMEP20CA4 PO; +POTA1TAB14 PO
--- NOTE | 2018-09-25 00:05 | ECWPNPC ---
PATIENT NAME: HARITHA CAMERON : 1930 GENDER: FEMALE VISIT DATE: 09/16/2018 DISCHARGE DATE: 09/16/18 1224 VISIT LOCKED DATE TIME: PHYSICIAN: LILI BEAULIEU RESOURCE: LILI BEAULIEU REASON FOR APPOINTMENT 1. 3 MOS HISTORY OF PRESENT ILLNESS HISTORY OF PRESENT ILLNESS: HERE FOR F/U OF CHRONIC NECK PAIN.REPORTING AN INCREASE IN NECK STIFFNESS AND PAIN LATELY.RATING PAIN VAS 2/10. PAIN THE PATIENT DESCRIBES THE PAIN... FALL RISK SCREENING: SCREENING :NO FALLS REPORTED IN THE LAST YEAR CURRENT MEDICATIONS TAKING POTASSIUM CHLORIDE ER 20 MEQ TABLET EXTENDED RELEASE 1 TABLET WITH FOOD ORALLY ONCE A DAY TAKING FUROSEMIDE 20 MG TABLET 1 TABLET ORALLY ONCE A DAY TAKING ATENOLOL 50 MG TABLET 1 TABLET ORALLY BID TAKING ELIQUIS 2.5 MG TABLET DIRECTED ORALLY BID TAKING HYDROCORTISONE ACETATE 2.5 % CREAM 1 APPLICATION TO AFFECTED AREA EXTERNALLY TWICE A DAY TAKING DIGOXIN 125 MCG TABLET DIRECTED ORALLY ONCE A DAY TAKING LOSARTAN POTASSIUM 50 MG TABLET 1 TABLET ORALLY ONCE A DAY TAKING ATORVASTATIN CALCIUM 40 MG TABLET 1 TABLET ORALLY ONCE A DAY TAKING CITRACAL +D3 250-107-500 MG-MG-UNIT TABLET CHEWABLE DIRECTED ORALLY TAKING SLOW-MAG 535 (64 MG) MG TABLET EXTENDED RELEASE 1 TABLET ORALLY TWICE A DAY TAKING FERROUS SULFATE 325 MG CAPSULE DIRECTED ORALLY TAKING OMEPRAZOLE 20 MG CAPSULE DELAYED RELEASE 1 CAPSULE ORALLY ONCE A DAY TAKING LEVOTHYROXINE SODIUM 25 MCG TABLET 1 TABLET ON AN EMPTY STOMACH IN THE MORNING ORALLY ONCE A DAY TAKING TIZANIDINE HCL 4 MG TABLET 1 TABLET NEEDED ORALLY BEFORE BEDTIME TAKING ACETAMINOPHEN EXTRA STRENGTH 500 MG TABLET 1 TABLET NEEDED ORALLY EVERY 6 HRS MEDICATION LIST REVIEWED AND RECONCILED WITH THE PATIENT PAST MEDICAL HISTORY 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 4 SON(S) , 3 DAUGHTER(S) . 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 SOCIAL HISTORY GENERAL: TOBACCO USE ARE YOU A:NONSMOKER PAIN CLINIC PFS, CLERGY, PUBLIC HEALTH REFERRALS HAS THE PATIENT BEEN EDUCATED REGARDING HIS/HER PLAN OF CARE?YES HAS THE PATIENT BEEN EDUCATED REGARDING PAIN, THE RISK FOR PAIN, THE IMPORTANCE OF EFFECTIVE PAIN MANAGEMENT, AND THE PAIN ASSESSMENT PROCESS?YES LATEX QUESTIONNAIRE LATEX ALLERGY : HAVE YOU EVER DEVELOPED ANY TYPE OF REACTION AFTER HANDLING LATEX PRODUCTS SUCH RUBBER GLOVES, CONDOMS, DIAPHRAGMS, BALLOONS, SOCKS, OR UNDERWEAR?NO LATEX ALLERGY : HAVE YOU EVER DEVELOPED ANY TYPE OF REACTION DURING OR AFTER DENTAL APPOINTMENT, VAGINAL/RECTAL EXAMINATION, SURGICAL PROCEDURE, OR ANY OTHER EXPOSURE?NO LATEX RISK : HAVE YOU EVER HAD ANY DIFFICULTY BREATHING OR HIVES AFTER EATING OR HANDLING ANY FRUITS, OR VEGETABLES; SUCH KIWI, BANANAS, STONE FRUITS, OR CHESTNUTSNO LATEX RISK : DO YOU HAVE A PREVIOUS PERSONAL HISTORY OF MORE THAN NINE SURGERIES, SPINA BIFIDA, OR REPEATED CATHERTIZATIONS? 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 HOSPITALIZATION/MAJOR DIAGNOSTIC PROCEDURE SURGERY RELATED REVIEW OF SYSTEMS REVIEWED BY: PROVIDER: LILI ABDUL . CONSTITUTIONAL: ANY CHANGE IN YOUR MEDICAL CONDITION? NO . CHILLS NO . FEVER NO . INFECTION: DO YOU HAVE NEW INFECTIONS? NO . DO YOU HAVE HISTORY OF MRSA? NO . MUSCULOSKELETAL: ANY NEW PATTERNS OF PAIN OR NUMBNESS? NO . GASTROENTEROLOGY: ANY NEW CHANGE IN BOWEL CONTROL? NO . GENITOURINARY: ANY NEW CHANGE IN BLADDER CONTROL? NO . IS THERE A CHANCE YOU COULD BE ? NO . HEMATOLOGY/LYMPH: DO YOU TAKE ANY BLOOD THINNERS? (FOR EXAMPLE- COUMADIN, PLAVIX, AGGRENOX, PLATEL, PRADAXA, OR XARELTO) YES ELIQUIS . WHEN WAS YOUR LAST DOSE? DATE: TIME: . NEUROLOGY: HAVE YOU FALLEN IN THE PAST 12 MONTHS? NO . ANY NEW EXTREMITY NUMBNESS OR WEAKNESS? NO . CARDIOLOGY: DO YOU HAVE A PACEMAKER OR DEFIBRILLATOR? NO . RESPIRATORY: HAVE YOU BEEN SICK IN THE PAST WEEK? NO . FEVER NO . FLU LIKE SYMPTOMS? NO . COUGH NO . INTEGUMENTARY: DO YOU HAVE ANY RASHES OR OPEN SORES? NO . ALLERGIC/IMMUNO: ARE YOU ALLERGIC TO IV DYE? NO . ANY NEW ALLERGIES? NO . PSYCHIATRIC: DO YOU HAVE THOUGHTS OF HURTING YOURSELF OR SOMEONE ELSE? NO . ARE YOU ABUSED, NEGLECTED, OR IN AN UNSAFE ENVIRONMENT? NO . ENDOCRINOLOGY: ARE YOU DIABETIC? NO . OTHER: DO YOU NEED ANY PRESCRIPTIONS? NO . IF YES, PLEASE LIST: ____ . ANY NEW PROBLEMS WITH YOUR MEDICATIONS? NO . WHEN DID YOU LAST EAT? ____ . WHEN DID YOU LAST DRINK? ____ . WHAT DID YOU LAST DRINK? ____ . NAME OF PERSON DRIVING YOU HOME? ____ . DO YOU HAVE ANY OTHER QUESTIONS OR CONCERNS NO . VITAL SIGNS WT 143.8 LBS, HT 62 IN, BMI 26.30 INDEX, BP 146/67 MM HG, HR 70 /MIN, RR 16 /MIN, TEMP 98.4 F, OXYGEN SAT % 96%, SAFE IN ENV? (Y/N) YES, NA INITIALS SC 11:38, REVIEWED BY: AVEL. EXAMINATION GENERAL EXAMINATION: GENERALAWAKE,ALERT ,PLEAASANT . PSYCHAFFECT NORMAL . LUNGS:LUNG HADDAD ARE CLEAR TO AUSCULTATION BILATERALLY. GOOD MOVEMENT OF AIR . HEART:S1, S2 IN A REGULAR RATE AND RHYTHM. NO SIGNIFICANT MURMURS, RUBS OR GALLOPS NOTED . CERVICALTRIGGER POINTS: CERVICAL AND TRAPEZIUS BILAT..PAIN IS AGGREVATED WITH ROJM NECK. ASSESSMENTS MYALGIA OF AUXILIARY MUSCLES, HEAD AND NECK - M79.12 (PRIMARY) TREATMENT MYALGIA OF AUXILIARY MUSCLES, HEAD AND NECK NOTES: TPI NECK BILAT. PROCEDURE CODES FA211 ESTABILISHED PATIENT [facility] CHARGE DISPOSITION & COMMUNICATION FOLLOW UP POST (REASON: TPI NECK BILAT) ELECTRONICALLY SIGNED BY FRANKO AMIN ON 09/24/2018 AT 04:30 PM EDT DISCLAIMER : THIS IS A VISIT SUMMARY EXTRACTED FROM THE ECLINICALWORKS CHART. IT IS NOT A COPY OF THE ECLINICALWORKS PROGRESS NOTE. HENOK
== END ==
LOC: M PAIN 11:30
PROVIDERS: ATTEND Nurse Practitioner Family
DX: M79.12 Myalgia of auxiliary muscles, head and neck (principal); I48.91 Unspecified atrial fibrillation; Z86.73 Personal history of transient ischemic attack (TIA), and cerebral infarction without residual deficits; E78.00 Pure hypercholesterolemia, unspecified; E03.9 Hypothyroidism, unspecified; M19.90 Unspecified osteoarthritis, unspecified site; M81.0 Age-related osteoporosis without current pathological fracture; R00.1 Bradycardia, unspecified; Z79.01 Long term (current) use of anticoagulants; Z79.899 Other long term (current) drug therapy; Z96.643 Presence of artificial hip joint, bilateral; Z95.0 Presence of cardiac pacemaker; Z88.0 Allergy status to penicillin; Z88.2 Allergy status to sulfonamides; Z88.5 Allergy status to narcotic agent

== ENCOUNTER 2018-11-09 11:05 | Emergency (ER) | payer MEDICARE ==
[~2018-11-09] VITALS: Ht 160 cm; Wt 64.5 kg
[2018-11-09 11:47] LABS: BASO % 0.5 % (0.0-1.0); EOS # 0.2 10^3/uL (0.0-0.5); EOS % 3.1 % (0.0-3.0); HEMATOCRIT 36.6 % (36.0-47.0); HEMOGLOBIN 12.6 g/dl (12.0-15.5); LYMPH # 0.9 10^3/uL (1.5-5.0); MEAN CORPUSCULAR HGB CONC 34.4 g/dl (32.0-36.5); MEAN CORPUSCULAR VOLUME 87.1 fl (80.0-96.0); MONO # 0.5 10^3/uL (0.0-0.8); MONO % 9.5 % (0.0-5.0); NEUTROPHILS # 3.8 10^3/uL (1.5-8.5); NEUTROPHILS % 69.5 % (36.0-66.0); PLATELET COUNT, AUTOMATED 174 10^3/uL (150-450); WHITE BLOOD COUNT 5.5 10^3/uL (4.0-10.0)
--- NOTE | 2018-11-09 11:58 | REP ---
Clinical: Acute chest pain . Comparison: 08/24/2018 . Findings: Cardiac silhouette is stable. Lung de paz demonstrate diffuse chronic interstitial changes and fibrosis/scarring. Superimposed left lower lobe atelectasis/infiltrate and small pleural effusion noted. Skeletal structures demonstrate osteopenia and degenerative changes. Impression: Diffuse chronic stable interstitial changes. Superimposed left lower lobe atelectasis and small pleural effusion. Electronically Signed by Kamron Adams MD 11/09/2018 11:50 A
[2018-11-09 12:05] LABS: INR 1.11
[2018-11-09 12:06] LABS: PARTIAL THROMBOPLASTIN TIME 34.1 SECONDS (25.0-38.4)
[2018-11-09 12:18] LABS: ALBUMIN 3.7 GM/DL (3.2-5.2); ALT/SGPT 19 U/L (12-78); BILIRUBIN,DIRECT 0.2 MG/DL (0.0-0.2); BILIRUBIN,TOTAL 0.7 MG/DL (0.2-1.0); BLOOD UREA NITROGEN 17 MG/DL (7-18); CARBON DIOXIDE LEVEL 26 MEQ/L (21-32); CHLORIDE LEVEL 100 MEQ/L (98-107); CK-MB VALUE MASS 1.5 NG/ML (<3.6); CPK CREATINE PHOSPHOKINASE 61 U/L (26-192); CREATININE FOR GFR 0.86 MG/DL (0.55-1.30); FREE T4 1.05 NG/DL (0.76-1.46); GLOMERULAR FILTRATION RATE > 60.0 (>32); GLUCOSE, FASTING 112 MG/DL (70-100); LIPASE 191 U/L (73-393); MB/CK RELATIVE INDEX 2.46 (< OR =4); NT-PRO BNP 2113 PG/ML (<450); POTASSIUM SERUM 4.4 MEQ/L (3.5-5.1); SODIUM LEVEL 134 MEQ/L (136-145); TOTAL PROTEIN 6.6 GM/DL (6.4-8.2); TROPONIN I 0.02 NG/ML (< 0.10)
[2018-11-09 12:33] LABS: INFLUENZA A AMPLIFICATION NEGATIVE (NEGATIVE); INFLUENZA B AMPLIFICATION NEGATIVE (NEGATIVE)
[2018-11-09] MEDS ORDERED: NS 250 ML IV ONE (12:45)
[2018-11-09] MEDS ORDERED: NS 500 ML IV ONE (12:45)
[2018-11-09] MEDS ORDERED: NS 1,000 ML IV ONE (12:45)
[2018-11-09] MEDS ORDERED: LIDOCAINE 2% 5ML JELLY UROJET TOP ONE (12:45)
[2018-11-09 13:16] LABS: APPEARANCE, URINE CLEAR (CLEAR); BACTERIA, URINE AUTO NEGATIVE (NEGATIVE); BILIRUBIN, URINE AUTO NEGATIVE (NEGATIVE); BLOOD, URINE BLOOD NEGATIVE (NEGATIVE); COLOR, URINE STRAW (YELLOW); GLUCOSE, URINE (UA) AUTO NEGATIVE (NEGATIVE); KETONE, URINE AUTO NEGATIVE (NEGATIVE); LEUKOCYTE ESTERASE, URINE AUTO NEGATIVE (NEGATIVE); NITRITE, URINE AUTO NEGATIVE (NEGATIVE); PROTEIN, URINE AUTO NEGATIVE (NEGATIVE); RBC, URINE AUTO 0 /HPF (0-3); SPECIFIC GRAVITY URINE AUTO 1.003 (1.002-1.035); SQUAMOUS EPITHELIAL CELL UR AU 0 /HPF (0-6); UROBILINOGEN, URINE AUTO 0.2 mg/dL (0.0-2.0); WBC, URINE AUTO 0 /HPF (0-3)
--- NOTE | 2018-11-09 13:19 | REP ---
Clinical: Acute headache. Comparison: 08/24/2018 . Findings: Age-related with periventricular leukomalacia atrophy and microvascular ischemic changes are appreciated. The ventricles and sulci are symmetric. Morin-white differentiation is maintained. There is no evidence for acute intracranial hemorrhage, mass/mass effect, pathology or infarction. No extra-axial fluid collection. Calvarium is intact. Paranasal sinuses and mastoid air cells are clear. Impression: Age related atrophy and microvascular ischemic changes. No acute intracranial hemorrhage, infarction, or mass/mass effect. Electronically Signed by Kamron Adams MD 11/09/2018 01:11 P
[2018-11-09 14:00] VITALS: BP 138/65
--- NOTE | 2018-11-09 14:24 | ECGEPIP ---
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
--- NOTE | 2018-11-09 15:45 | ED PDOC ---
Post-Departure Follow-Up dr walker faxed formal report of cxr for fu Nel Cates MD Nov 09, 2018 15:45
== END 2018-11-09 14:28 | disposition home or self-care (01) ==
LOC: M ED 11:05
DX: R19.7 Diarrhea, unspecified (principal); R53.1 Weakness; I48.91 Unspecified atrial fibrillation; J98.11 Atelectasis; J90 Pleural effusion, not elsewhere classified; I67.82 Cerebral ischemia; R63.0 Anorexia; E11.9 Type 2 diabetes mellitus without complications; E78.9 Disorder of lipoprotein metabolism, unspecified; K21.9 Gastro-esophageal reflux disease without esophagitis; E07.9 Disorder of thyroid, unspecified; Z95.0 Presence of cardiac pacemaker; Z79.899 Other long term (current) drug therapy; Z79.01 Long term (current) use of anticoagulants; Z88.0 Allergy status to penicillin; Z88.2 Allergy status to sulfonamides; Z88.5 Allergy status to narcotic agent

== ENCOUNTER → 2018-12-11 | Outpatient (CLI) | payer MEDICARE | LOC: M PAIN 10:00 | PROVIDERS: ATTEND Anesthesiology | DX: M79.12 Myalgia of auxiliary muscles, head and neck (principal); Z53.8 Procedure and treatment not carried out for other reasons ==

== ENCOUNTER → 2019-02-19 | Outpatient (CLI) | payer MEDICARE ==
[~2019-02-19] MED LIST changes: +ACET-683 PO; +AZIT-12 PO; +BUPIVACAINE HCL 0.25% 10 ML VIAL As Ordered ONE; +BUPIVACAINE HCL 0.25% 30 ML VIAL As Ordered ONE; +DIGO0.123 PO; +FURO20TA2 PO; +OMEP1CAP73 PO; -OMEP20CA4 PO; +POTA20TA6 PO; +TIZA4TAB4 PO; +TRIAMCINOLONE ACETONIDE SUSP 40 MG/ML VIAL (J3301) As Ordered ONE
--- NOTE | 2019-02-25 01:44 | ECWPNPC ---
PATIENT NAME: HARITHA CAMERON : 1930 GENDER: FEMALE VISIT DATE: 02/19/2019 DISCHARGE DATE: 02/19/191122 VISIT LOCKED DATE TIME: PHYSICIAN: SANJIV LOPEZ MD RESOURCE: SANJIV LOPEZ MD REASON FOR APPOINTMENT 1. TPI CURRENT MEDICATIONS TAKING POTASSIUM CHLORIDE ER 20 MEQ TABLET EXTENDED RELEASE 1 TABLET WITH FOOD ORALLY ONCE A DAY, NOTES: 02-19-19499 TAKING FUROSEMIDE 20 MG TABLET 1 TABLET ORALLY ONCE A DAY, NOTES: 02-19-19899 TAKING ATENOLOL 50 MG TABLET 1 TABLET ORALLY BID, NOTES: 02-19-19499 TAKING ELIQUIS 2.5 MG TABLET DIRECTED ORALLY BID, NOTES: 02-19-19499 TAKING DIGOXIN 125 MCG TABLET DIRECTED ORALLY ONCE A DAY, NOTES: 02-19-19499 TAKING LOSARTAN POTASSIUM 50 MG TABLET 1 TABLET ORALLY ONCE A DAY, NOTES: 02-18-192099 TAKING ATORVASTATIN CALCIUM 40 MG TABLET 1 TABLET ORALLY ONCE A DAY, NOTES: 02-18-192099 TAKING CITRACAL +D3 250-107-500 MG-MG-UNIT TABLET CHEWABLE DIRECTED ORALLY , NOTES: 02-19-19499 TAKING SLOW-MAG 535 (64 MG) MG TABLET EXTENDED RELEASE 1 TABLET ORALLY TWICE A DAY, NOTES: 02-19-19499 TAKING FERROUS SULFATE 325 MG CAPSULE DIRECTED ORALLY , NOTES: 02-19-19499 TAKING OMEPRAZOLE 20 MG CAPSULE DELAYED RELEASE 1 CAPSULE ORALLY ONCE A DAY, NOTES: 02-19-19499 TAKING LEVOTHYROXINE SODIUM 25 MCG TABLET 1 TABLET ON AN EMPTY STOMACH IN THE MORNING ORALLY ONCE A DAY, NOTES: 02-19-19499 TAKING ACETAMINOPHEN EXTRA STRENGTH 500 MG TABLET 1 TABLET NEEDED ORALLY EVERY 6 HRS, NOTES: 02-19-19499 TAKING TIZANIDINE HCL 4 MG TABLET 1 TABLET NEEDED ORALLY BEFORE BEDTIME, NOTES: 02-18-192099 NOT-TAKING HYDROCORTISONE ACETATE 2.5 % CREAM 1 APPLICATION TO AFFECTED AREA EXTERNALLY TWICE A DAY MEDICATION LIST REVIEWED AND RECONCILED WITH THE PATIENT PAST MEDICAL HISTORY 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 4 SON(S) , 3 DAUGHTER(S) . 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 SOCIAL HISTORY GENERAL: TOBACCO USE ARE YOU A:NONSMOKER PAIN CLINIC PFS, CLERGY, PUBLIC HEALTH REFERRALS HAS THE PATIENT BEEN EDUCATED REGARDING HIS/HER PLAN OF CARE?YES HAS THE PATIENT BEEN EDUCATED REGARDING PAIN, THE RISK FOR PAIN, THE IMPORTANCE OF EFFECTIVE PAIN MANAGEMENT, AND THE PAIN ASSESSMENT PROCESS?YES LATEX QUESTIONNAIRE LATEX ALLERGY : HAVE YOU EVER DEVELOPED ANY TYPE OF REACTION AFTER HANDLING LATEX PRODUCTS SUCH RUBBER GLOVES, CONDOMS, DIAPHRAGMS, BALLOONS, SOCKS, OR UNDERWEAR?NO LATEX ALLERGY : HAVE YOU EVER DEVELOPED ANY TYPE OF REACTION DURING OR AFTER DENTAL APPOINTMENT, VAGINAL/RECTAL EXAMINATION, SURGICAL PROCEDURE, OR ANY OTHER EXPOSURE?NO DATE ASKED : 05/23/2018 LATEX RISK : HAVE YOU EVER HAD ANY DIFFICULTY BREATHING OR HIVES AFTER EATING OR HANDLING ANY FRUITS, OR VEGETABLES; SUCH KIWI, BANANAS, STONE FRUITS, OR CHESTNUTSNO LATEX RISK : DO YOU HAVE A PREVIOUS PERSONAL HISTORY OF MORE THAN NINE SURGERIES, SPINA BIFIDA, OR REPEATED CATHERIZATIONS? NO LATEX RISK : ARE YOU FREQUENTLY EXPOSED TO LATEX PRODUCTS IN YOUR OCCUPATION?NO ADVANCE DIRECTIVE ADVANCE DIRECTIVE DISCUSSED WITH PATIENT:YES HCP IS BENITO MCBRIDE [phone] EDUCATION LEVEL OF EDUCATION:HIGH SCHOOL TENRIISM [id number] LANGUAGE LANGUAGES SPOKEN:NEPALI RECREATIONAL DRUG USE DRUG USE?NO LEARNING BARRIERS / SPECIAL NEEDS BARRIERS TO LEARNING?NO HEARING IMPAIRED?NO VISION IMPAIRED?YES COGNITIVELY IMPAIRED?NO :CORRECTIVE LENSES READINESS TO LEARN?YES LEARNING PREFERENCES?NO EMOTIONAL BARRIERS?NO SPECIAL DEVICES?YES :RALPH ARAGON REVIEWED WITH PT 11/28/17 1149 BVREVIEWED WITH PATIENT 12/23/17 1118 JSREVIEWED WITH PATIENT 09/16/18 1155 LASPRE SCREENIHG PHONE CALL 12-3-19 KE. HOSPITALIZATION/MAJOR DIAGNOSTIC PROCEDURE SURGERY RELATED VITAL SIGNS WT 138 LBS, HT 62 IN, BMI 25.24 INDEX, BP 167/74 MM HG, HR 70 /MIN, RR 16 /MIN, TEMP 97%, OXYGEN SAT % 97%, NA INITIALS SC 09:32, REVIEWED BY: KG. ASSESSMENTS MYALGIA, OTHER SITE - M79.18 (PRIMARY) PROCEDURES PN TRIGGER POINT INJECTION WITH STEROIDS PRE PROCEDURE DIAGNOSIS 1. MYALGIA 2. PAIN AT BILATERAL NECK AREA AND BILATERAL SHOULDER AREA. POST PROCEDURE DIAGNOSIS 1. MYALGIA 2. PAIN AT BILATERAL NECK AREA AND BILATERAL SHOULDER AREA. PROCEDURE TRIGGER POINT INJECTION AT RIGHT AND LEFT NECK AREA AND RIGHT AND LEFT SHOULDER AREA. SURGEON DR. SANJIV LOPEZ PONY RIDE ATTENDANT NONE ANESTHESIA LOCAL PRE PROCEDURE NOTE THE PATIENT HAS A HISTORY OF CHRONIC PAIN AT THE RIGHT AND LEFT NECK AREA AND RIGHT AND LEFT SHOULDER AREA. I EVALUATED THE PATIENT AND REVIEWED THE CHART. THERE IS EVIDENCE OF BANDS OF TISSUE WITH RESTRICTION OF MOVEMENT AND PRESENCE OF TRIGGER POINT AT THE AFFECTED AREA. I WENT OVER THE RISKS, ALTERNATIVES, AND BENEFITS ASSOCIATED WITH THIS PROCEDURE. THE PATIENT WOULD LIKE TO PROCEED AND GIVES CONSENT TO PERFORM THE PROCEDURE. THE PATIENT DENIES UNEXPLAINABLE WEIGHT LOSS, FEVER, CHILLS, OR NEW CHANGES IN URINARY OR BOWEL CONTROL DESCRIPTION OF PROCEDURE THE PATIENT WAS BROUGHT TO THE PROCEDURE ROOM AND PLACED IN THE SITTING POSITION. THE AREA WAS CLEANED WITH ALCOHOL. THE PROCEDURE WAS DONE USING ASEPTIC STERILE TECHNIQUE. I CHECKED LATERALITY AND THE LEVEL WHERE THE PROCEDURE WAS GOING TO BE PERFORMED WITH THE PATIENT AND THE SUPPORTING STAFF AT THE MOMENT OF THE TIME OUT IN THE PROCEDURE ROOM. USING A 25-GAUGE NEEDLE, TRIGGER POINTS WERE INJECTED AT THE RIGHT AND LEFT NECK AREA AND RIGHT AND LEFT SHOULDER AREA WITH A TOTAL OF 40 ML OF BUPIVACAINE 0.25% AND KENALOG 40 MG. THERE WAS NO EVIDENCE OF BLOOD, PARESTHESIA OR CEREBROSPINAL FLUID DURING THE PROCEDURE. THE PATIENT WAS SENT TO THE RECOVERY ROOM. THE PATIENT WAS MOVING THE EXTREMITIES AND DOING WELL. THERE WAS NO COMPLICATION DURING THE PROCEDURE POST PROCEDURE NOTE THE PATIENT WILL BE SEEN IN A FOLLOW UP IN THE NEXT FEW WEEKS. INSTRUCTIONS WERE GIVEN, QUESTIONS WERE ANSWERED, AND THE PATIENT EXPRESSED UNDERSTANDING AND AGREES WITH THE PLAN. I, MANDA NASH, DOCUMENTED THE ABOVE INFORMATION ACTING A SCRIBE FOR DR. LOPEZ. I HAVE REVIEWED THE ABOVE DOCUMENT, WRITTEN BY MANDA HATFIELD AND I VERIFY THAT IT IS ACCURATE. PROCEDURE CODES 53902 INJECT TRIGGER POINTS 3/> DISPOSITION & COMMUNICATION FOLLOW UP 3 WEEKS ELECTRONICALLY SIGNED BY SANJIV LOPEZ MD, MD ON 02/24/2019 AT 03:31 PM EST DISCLAIMER : THIS IS A VISIT SUMMARY EXTRACTED FROM THE ECLINICALWORKS CHART. IT IS NOT A COPY OF THE ECLINICALWORKS PROGRESS NOTE. HENOK
== END ==
LOC: M PAIN 09:45
PROVIDERS: ATTEND Anesthesiology
DX: M79.18 Myalgia, other site (principal); E03.9 Hypothyroidism, unspecified; Z96.643 Presence of artificial hip joint, bilateral; Z95.0 Presence of cardiac pacemaker; Z88.0 Allergy status to penicillin; Z88.2 Allergy status to sulfonamides; Z88.5 Allergy status to narcotic agent; Z79.01 Long term (current) use of anticoagulants; Z79.899 Other long term (current) drug therapy
CPT/HCPCS: 20553; J3301

== ENCOUNTER → 2019-03-05 | Outpatient (CLI) | payer MEDICARE ==
[~2019-03-05] MED LIST changes: -ACET-683 PO; -AZIT-12 PO; -BUPIVACAINE HCL 0.25% 10 ML VIAL As Ordered ONE; -BUPIVACAINE HCL 0.25% 30 ML VIAL As Ordered ONE; -DIGO0.123 PO; -FURO20TA2 PO; -POTA20TA6 PO; -TIZA4TAB4 PO; -TRIAMCINOLONE ACETONIDE SUSP 40 MG/ML VIAL (J3301) As Ordered ONE
--- NOTE | 2019-03-24 04:36 | ECWPNPC ---
PATIENT NAME: HARITHA CAMERON : 1930 GENDER: FEMALE VISIT DATE: 03/05/2019 DISCHARGE DATE: 03/05/19 1157 VISIT LOCKED DATE TIME: PHYSICIAN: LILI BEAULIEU RESOURCE: LILI BEAULIEU REASON FOR APPOINTMENT 1. POST TPI HISTORY OF PRESENT ILLNESS HISTORY OF PRESENT ILLNESS: HERE FOR POST PROCEDURE FOLLOW-UP. ACCOMPANIED IN THE EXAM ROOM WITH HER SON. 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 SHE FEELS THAT SHE HAS BENEFITED FROM TRIGGER POINT INJECTIONS IN HER NECK AND BILATERAL SHOULDERS. CHIEF COMPLAINT IS MOBILITY OF HER NECK. DENIES DISRUPTION IN SLEEP DUE TO PAIN AT NIGHT. RATING PAIN VAS 4/10. PAIN IS INTERMITTENT ONLY WITH SPECIFIC ACTIVITIES. PAIN THE PATIENT DESCRIBES THE PAIN... FALL RISK SCREENING: SCREENING :NO FALLS REPORTED IN THE LAST YEAR CURRENT MEDICATIONS TAKING POTASSIUM CHLORIDE ER 20 MEQ TABLET EXTENDED RELEASE 1 TABLET WITH FOOD ORALLY ONCE A DAY TAKING FUROSEMIDE 20 MG TABLET 1 TABLET ORALLY ONCE A DAY TAKING ATENOLOL 50 MG TABLET 1 TABLET ORALLY BID TAKING ELIQUIS 2.5 MG TABLET DIRECTED ORALLY BID TAKING DIGOXIN 125 MCG TABLET DIRECTED ORALLY ONCE A DAY TAKING LOSARTAN POTASSIUM 50 MG TABLET 1 TABLET ORALLY ONCE A DAY TAKING ATORVASTATIN CALCIUM 40 MG TABLET 1 TABLET ORALLY ONCE A DAY TAKING CITRACAL +D3 250-107-500 MG-MG-UNIT TABLET CHEWABLE DIRECTED ORALLY TAKING SLOW-MAG 535 (64 MG) MG TABLET EXTENDED RELEASE 1 TABLET ORALLY TWICE A DAY TAKING FERROUS SULFATE 325 MG CAPSULE DIRECTED ORALLY TAKING OMEPRAZOLE 20 MG CAPSULE DELAYED RELEASE 1 CAPSULE ORALLY ONCE A DAY TAKING LEVOTHYROXINE SODIUM 25 MCG TABLET 1 TABLET ON AN EMPTY STOMACH IN THE MORNING ORALLY ONCE A DAY TAKING ACETAMINOPHEN EXTRA STRENGTH 500 MG TABLET 1 TABLET NEEDED ORALLY EVERY 6 HRS TAKING TIZANIDINE HCL 4 MG TABLET 1 TABLET NEEDED ORALLY BEFORE BEDTIME NOT-TAKING HYDROCORTISONE ACETATE 2.5 % CREAM 1 APPLICATION TO AFFECTED AREA EXTERNALLY TWICE A DAY MEDICATION LIST REVIEWED AND RECONCILED WITH THE PATIENT PAST MEDICAL HISTORY ATRIAL FIB 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 4 SON(S) , 3 DAUGHTER(S) . 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 SOCIAL HISTORY GENERAL: TOBACCO USE ARE YOU A:NONSMOKER PAIN CLINIC PFS, CLERGY, PUBLIC HEALTH REFERRALS HAS THE PATIENT BEEN EDUCATED REGARDING HIS/HER PLAN OF CARE?YES HAS THE PATIENT BEEN EDUCATED REGARDING PAIN, THE RISK FOR PAIN, THE IMPORTANCE OF EFFECTIVE PAIN MANAGEMENT, AND THE PAIN ASSESSMENT PROCESS?YES LATEX QUESTIONNAIRE LATEX ALLERGY : HAVE YOU EVER DEVELOPED ANY TYPE OF REACTION AFTER HANDLING LATEX PRODUCTS SUCH RUBBER GLOVES, CONDOMS, DIAPHRAGMS, BALLOONS, SOCKS, OR UNDERWEAR?NO LATEX ALLERGY : HAVE YOU EVER DEVELOPED ANY TYPE OF REACTION DURING OR AFTER DENTAL APPOINTMENT, VAGINAL/RECTAL EXAMINATION, SURGICAL PROCEDURE, OR ANY OTHER EXPOSURE?NO LATEX RISK : HAVE YOU EVER HAD ANY DIFFICULTY BREATHING OR HIVES AFTER EATING OR HANDLING ANY FRUITS, OR VEGETABLES; SUCH KIWI, BANANAS, STONE FRUITS, OR CHESTNUTSNO LATEX RISK : DO YOU HAVE A PREVIOUS PERSONAL HISTORY OF MORE THAN NINE SURGERIES, SPINA BIFIDA, OR REPEATED CATHERIZATIONS? NO LATEX RISK : ARE YOU FREQUENTLY EXPOSED TO LATEX PRODUCTS IN YOUR OCCUPATION?NO DATE ASKED : 05/23/2018 ADVANCE DIRECTIVE ADVANCE DIRECTIVE DISCUSSED WITH PATIENT:YES HCP IS DAUGHTER LAURA MCBRIDE [phone] EDUCATION LEVEL OF EDUCATION:HIGH SCHOOL YAZDANISM [id number] [facility] LANGUAGE LANGUAGES SPOKEN:CZECH RECREATIONAL DRUG USE DRUG USE?NO LEARNING BARRIERS / SPECIAL NEEDS BARRIERS TO LEARNING?NO HEARING IMPAIRED?NO VISION IMPAIRED?YES COGNITIVELY IMPAIRED?NO :CORRECTIVE LENSES READINESS TO LEARN?YES LEARNING PREFERENCES?NO EMOTIONAL BARRIERS?NO SPECIAL DEVICES?YES :RALPH ARAGON REVIEWED WITH PT 11/28/17 1149 BVREVIEWED WITH PATIENT 12/23/17 1118 JSREVIEWED WITH PATIENT 09/16/18 1155 LASPRE SCREENIHG PHONE CALL 02-10-19 MAYAIEWED WITH PATIENT 03/05/19 1117 JS. HOSPITALIZATION/MAJOR DIAGNOSTIC PROCEDURE SURGERY RELATED REVIEW OF SYSTEMS REVIEWED BY: PROVIDER: LILI ABDUL . CONSTITUTIONAL: ANY CHANGE IN YOUR MEDICAL CONDITION? NO . CHILLS NO . FEVER NO . INFECTION: DO YOU HAVE NEW INFECTIONS? NO . DO YOU HAVE HISTORY OF MRSA? NO . MUSCULOSKELETAL: ANY NEW PATTERNS OF PAIN OR NUMBNESS? NO . GASTROENTEROLOGY: ANY NEW CHANGE IN BOWEL CONTROL? YES, STATES SOME DIARRHEA ON OCCASSION . GENITOURINARY: ANY NEW CHANGE IN BLADDER CONTROL? NO . IS THERE A CHANCE YOU COULD BE ? NO . HEMATOLOGY/LYMPH: DO YOU TAKE ANY BLOOD THINNERS? (FOR EXAMPLE- COUMADIN, PLAVIX, AGGRENOX, PLATEL, PRADAXA, OR XARELTO) YES, ELIQUIS . WHEN WAS YOUR LAST DOSE? DATE: 03/05/19TIME: 0800 . NEUROLOGY: HAVE YOU FALLEN IN THE PAST 12 MONTHS? NO . ANY NEW EXTREMITY NUMBNESS OR WEAKNESS? NO . CARDIOLOGY: DO YOU HAVE A PACEMAKER OR DEFIBRILLATOR? YES, PACEMAKER . RESPIRATORY: HAVE YOU BEEN SICK IN THE PAST WEEK? NO . FEVER NO . FLU LIKE SYMPTOMS? NO . COUGH NO . INTEGUMENTARY: DO YOU HAVE ANY RASHES OR OPEN SORES? NO . ALLERGIC/IMMUNO: ARE YOU ALLERGIC TO IV DYE? NO . ANY NEW ALLERGIES? NO . PSYCHIATRIC: DO YOU HAVE THOUGHTS OF HURTING YOURSELF OR SOMEONE ELSE? NO . ARE YOU ABUSED, NEGLECTED, OR IN AN UNSAFE ENVIRONMENT? NO . ENDOCRINOLOGY: ARE YOU DIABETIC? NO . OTHER: DO YOU NEED ANY PRESCRIPTIONS? NO . IF YES, PLEASE LIST: ____ . ANY NEW PROBLEMS WITH YOUR MEDICATIONS? NO . WHEN DID YOU LAST EAT? ____ . WHEN DID YOU LAST DRINK? ____ . WHAT DID YOU LAST DRINK? ____ . NAME OF PERSON DRIVING YOU HOME? ____ . DO YOU HAVE ANY OTHER QUESTIONS OR CONCERNS NO . VITAL SIGNS WT 138 LBS, HT 62 IN, BMI 25.24 INDEX, BP 140/65 MM HG, HR 70 /MIN, RR 16 /MIN, TEMP 98.7 F, OXYGEN SAT % 97%, SAFE IN ENV? (Y/N) YES, NA INITIALS SC 11:14, REVIEWED BY: KRISTIAN. EXAMINATION GENERAL EXAMINATION: GENERALAWAKE,ALERT ,PLEAASANT . PSYCHAFFECT NORMAL . LUNGS:LUNG HADDAD ARE CLEAR TO AUSCULTATION BILATERALLY. GOOD MOVEMENT OF AIR . HEART:S1, S2 IN A REGULAR RATE AND RHYTHM. NO SIGNIFICANT MURMURS, RUBS OR GALLOPS NOTED . CERVICALTRIGGER POINTS: CERVICAL AND TRAPEZIUS BILAT..PAIN IS AGGREVATED WITH ROJM NECK. ASSESSMENTS MYALGIA, OTHER SITE - M79.18 (PRIMARY) TREATMENT MYALGIA, OTHER SITE REFILL TIZANIDINE HCL TABLET, 4 MG, 1 TABLET NEEDED, ORALLY, BEFORE BEDTIME, 30 DAYS, 30, REFILLS 1 NOTES: DISCUSSED TREATMENT OPTIONS WITH HARITHA AND HER SON.SHE HAS HAD THREE ROUNDS OF TPI TO NECK IN HOPES TO IMPROVE MOBILITY BUT UNFORTUNATLEY SHE HASNT RECIEVED MUCH IN THE WAY OF IMPROVEMENT WITH NECK MOBILLITY.SHE IS NOT COMPLAINING OF PAIN AND IS REPORTING GOOD SLEEP AT NIGHT.SHE IS NOT ABLE TO BE OFF ELOQUIS FOR US TO CONSIDER ANYMORE INJECTIONS THAT ARE MORE INVASIVE.AT THIS POINT WE WILL REFER BACK TO PRIMARY CARE FOR FURTHER RECOMMENDATIONS.THANK YOU FOR ALLOWING US TO PARTICIPATE IN HER CARE. PROCEDURE CODES FA211 ESTABILISHED PATIENT [facility] FACILITY CHARGE DISPOSITION & COMMUNICATION FOLLOW UP DISCHARGE TO DR HOUSTON ELECTRONICALLY SIGNED BY FRANKO AMIN ON 03/23/2019 AT 04:06 PM EST DISCLAIMER : THIS IS A VISIT SUMMARY EXTRACTED FROM THE [employer] CHART. IT IS NOT A COPY OF THE [employer] PROGRESS NOTE. HENOK
== END ==
LOC: M PAIN 10:45
PROVIDERS: ATTEND Nurse Practitioner Family
DX: M79.18 Myalgia, other site (principal); E03.9 Hypothyroidism, unspecified; Z96.643 Presence of artificial hip joint, bilateral; Z88.0 Allergy status to penicillin; Z88.2 Allergy status to sulfonamides; Z88.5 Allergy status to narcotic agent; Z79.01 Long term (current) use of anticoagulants; Z95.0 Presence of cardiac pacemaker; Z79.899 Other long term (current) drug therapy

== ENCOUNTER → 2019-03-24 | Outpatient (REF) | payer MEDICARE | LOC: M LAB REF 13:05 | PROVIDERS: ATTEND Internal Medicine | DX: I48.20 Chronic atrial fibrillation, unspecified (principal) ==

== ENCOUNTER 2019-03-27 08:00 | Inpatient (IN) | payer MEDICARE ==
[~2019-03-27] VITALS: Ht 154.9 cm; Wt 63.0 kg
[2019-03-27] MEDS ORDERED: IPRATROPIUM 0.5MG/ALBUTEROL 2.5MG INH SOL UD 3ML (DUONEB)(J7620) NEB ONE (08:15)
[2019-03-27] MEDS ORDERED: ALBUTEROL SULFATE 2.5 MG/0.5 ML INH NEB SOLN INH ONE (08:15)
[2019-03-27 08:27] LABS: BASO # 0.1 10^3/uL (0.0-0.2); BASO % 0.5 % (0.0-1.0); EOS # 0.3 10^3/uL (0.0-0.5); EOS % 1.9 % (0.0-3.0); HEMATOCRIT 48.1 % (36.0-47.0); HEMOGLOBIN 14.7 g/dl (12.0-15.5); LYMPH % 14.4 % (24.0-44.0); MEAN CORPUSCULAR HEMOGLOBIN 28.7 pg (27.0-33.0); MEAN CORPUSCULAR HGB CONC 30.6 g/dl (32.0-36.5); MEAN CORPUSCULAR VOLUME 93.8 fl (80.0-96.0); MONO # 0.7 10^3/uL (0.0-0.8); NEUTROPHILS % 77.6 % (36.0-66.0); PLATELET COUNT, AUTOMATED 273 10^3/uL (150-450); RED BLOOD COUNT 5.13 10^6/uL (4.00-5.40); WHITE BLOOD COUNT 14.1 10^3/uL (4.0-10.0)
[2019-03-27] MEDS ORDERED: FUROSEMIDE 100 MG/10 ML VIAL (J1940) IV ONE (08:30)
[2019-03-27] MEDS ORDERED: NITROGLYCERIN 2% OINT 1 GM *U/D* PKT TOP ONE (08:30)
--- NOTE | 2019-03-27 08:39 | REP ---
Portable chest x-ray: Single view. History: Dyspnea. Comparison study: November 09, 2018. Findings: A bipolar pacemaker is again noted in the right heart via the left side. Monitoring electrodes are seen. Cardiomegaly is observed essentially unchanged. There is extensive pulmonary parenchymal opacity within fairly confluent infiltrate in the left perihilar region. Diffuse interstitial edema pattern is seen throughout the lung de paz. There is another area of confluent consolidation in the right apex and probably a third in the left apex. There is diffuse osteopenia. Old healed rib fractures are noted. Impression: Diffuse interstitial pulmonary edema pattern superimposed on patchy bilateral infiltrates, left perihilar region and both apices. Cardiomegaly with pacemaker. Electronically Signed by Viktor Gates MD 03/27/2019 08:31 A
[2019-03-27 08:57] LABS: ALBUMIN 3.9 GM/DL (3.2-5.2); ALT/SGPT 25 U/L (12-78); BILIRUBIN,DIRECT 0.2 MG/DL (0.0-0.2); BILIRUBIN,TOTAL 0.9 MG/DL (0.2-1.0); BLOOD UREA NITROGEN 22 MG/DL (7-18); CARBON DIOXIDE LEVEL 26 MEQ/L (21-32); CHLORIDE LEVEL 105 MEQ/L (98-107); CK-MB VALUE MASS 1.1 NG/ML (<3.6); CPK CREATINE PHOSPHOKINASE 56 U/L (26-192); CREATININE FOR GFR 0.91 MG/DL (0.55-1.30); GLOMERULAR FILTRATION RATE > 60.0 (>32); GLUCOSE, FASTING 162 MG/DL (70-100); MB/CK RELATIVE INDEX 1.96 (< OR =4); NT-PRO BNP 4846 PG/ML (<450); POTASSIUM SERUM 3.9 MEQ/L (3.5-5.1); SODIUM LEVEL 141 MEQ/L (136-145); THYROXINE (T4) 9.1 UG/DL (4.5-12.0); TOTAL PROTEIN 7.1 GM/DL (6.4-8.2); TROPONIN I 0.02 NG/ML (< 0.10)
[2019-03-27] MEDS ORDERED: APIXABAN 2.5 MG TAB (ELIQUIS) PO SCH (09:00)
--- NOTE | 2019-03-27 09:39 | REP ---
CT CHEST WITHOUT IV CONTRAST: CT chest performed without IV contrast. Sagittal and coronal reconstruction images are performed. There are no comparison studies. There are diffuse bilateral interstitial and alveolar infiltrates. There are moderate bilateral pleural effusions. There is mild cardiomegaly. No gross mediastinal adenopathy is seen. No axillary adenopathy is seen. There is a left-sided pacemaker. There is a large hiatal hernia. No pericardial effusion is seen. In the visualized portions of the upper abdomen, there appears to be a cystic structure in the left lobe of the liver 1 cm in diameter. There are bilateral renal cysts. There are degenerative changes of the spine. IMPRESSION: Diffuse bilateral infiltrates. Moderate bilateral pleural effusions. Cardiomegaly. Electronically Signed by Jos Moirn MD 04/01/2019 09:33 A
[2019-03-27] MEDS ORDERED: FURO20TA2 PO (10:14)
[2019-03-27] MEDS ORDERED: DIGO0.123 PO (10:14)
[2019-03-27] MEDS ORDERED: TIZA4TAB4 PO (10:14)
[2019-03-27] MEDS ORDERED: ELIQ2.5T PO (10:14)
[2019-03-27] MEDS ORDERED: POTA20TA6 PO (10:14)
[2019-03-27] MEDS ORDERED: ACET-683 PO (10:14)
[2019-03-27] MEDS ORDERED: ATEN50TA2 PO (10:14)
[2019-03-27] MEDS ORDERED: ALBUTEROL SULFATE 2.5 MG/0.5 ML INH NEB SOLN NEB PRN (13:00)
--- NOTE | 2019-03-27 13:06 | HPEPDOC ---
General Date of Admission 03/27/19 Date of Service: Mar 27, 2019 Chief Complaint The patient is a 88-year-old female admitted with a reason for visit of difficulty breathing. Source: Patient, Family, Old records History of Present Illness 88 year old female from home lives with son with PMH of CHF, chronic AFib with h/o sick sinus syndrome/ tachy- marcy syndrome s/p pacemaker , hypertension, hyperlipidemia, hypothyroid, bilateral frozen shoulder, chronic neck pain s/p tr igger point injections follows with pain management, osteoporosis, osteoarthritis presented to ED with 1 day of worsening cough and sudden onset of severe shortness of breath early this am around 5 after she came back from the bath room. EMS was called and as per ED physician EMS found her to be cyanotic was started on oxygen then as soon as she was taken outside to the ambulance she went into extreme SOB and could not even talk she was put on CPAP by EMS and brought to the ED. On arrival to ED as per ED physician she was in extremis. ABG showed severe hypoxia, she was started on nebs, CPAP was continued, CXR showed bilateral infiltrates, She was given lasix [address] chest shows Diffuse liz ateral infiltrates. Moderate bilateral pleural effusions. Cardiomegaly. After lasix she had an output of bout 1.5 liters int he ED and patient started feeling better. She was admitted for acute respiratory failure with hypoxia due to Diastolic CHF exacerbation. Patient says her cough really became bad yesterday though as per daughter she has been coughing for several days, she is bringing up greenish phlegm. No associated chest pain or wheezing. Home Medications Scheduled Apixaban (Eliquis) 2.5 Mg Tablet, 2.5 MG PO BID, (Reported) Atenolol (Atenolol) 50 Mg Tablet, 50 MG PO BID, (Reported) Atorvastatin Calcium (Atorvastatin Calcium) 40 Mg Tab, 40 MG PO QHS, (Reported) Calcium Carb, Citrate/Vit D3 (Citracal + D ER Tablet) 1 Tab Tab, 1 TAB PO DAILY, (Reported) TAKES AT NOON Digoxin (Digoxin) 125 Mcg Tablet, 125 MCG PO DAILY, (Reported) Ferrous Sulfate (Ferrous Sulfate) 325 Mg Tab, 325 MG PO DAILY, (Reported) Furosemide (Furosemide) 20 Mg Tablet, 20 MG PO DAILY, (Reported) Levothyroxine Sodium (Levothyroxine Sodium) 25 Mcg Tab, 25 MCG PO DAILY, (Reported) Losartan Potassium (Losartan Potassium) 50 Mg Tab, 50 MG PO QHS, (Reported) Magnesium Chloride (Slow-Mag) 1 Tab Tab, 1 TAB PO BID, (Reported) Omeprazole (Omeprazole) 20 Mg Cap, 20 MG PO DAILY, (Reported) Potassium Chloride (Potassium Chloride) 20 Meq Tab.er.prt, 20 MEQ PO DAILY, (Reported) Tizanidine HCl (Tizanidine HCl) 4 Mg Tablet, 4 MG PO QHS, (Reported) Scheduled PRN Acetaminophen (Acetaminophen) 500 Mg Tablet, 1,000 MG PO TID PRN for PAIN, (Reported) Allergies Coded Allergies: codeine (Verified Allergy, Severe, airway closes, n/v, 06/06/18) Sulfa (Sulfonamide Antibiotics) (Verified Allergy, Intermediate, rash, n/v, 06/06/18) morphine (Verified Allergy, Intermediate, RASH, 03/27/19) Penicillins (Verified Adverse Reaction, Mild, MOUTH GETS SORE, 03/27/19) Past Medical History Medical History CHF, AFib with h/o sick sinus syndrome/ tachy- marcy syndrome s/p pacemaker , hypertension, hyperlipidemia, hypothyroid, bilateral frozen shoulder, chronic neck pain s/p trigger point injections follows with pain management, osteoporosis, osteoarthritis, Dilated aortic root, Mitral Annular Calcification/Mitral Regurgitation, History of stroke (12/27/2016), Vitamin D deficiency, Mane's esophagus, Anemia Surgical History LEFT HIP REPLACEMENT 1976 LEFT HIP REPLACEMENT 1987 RIGHT HIP REPLACEMENT 1989 BACK SURGERY L4-L5 1951 BACK SURGERY L4-L5 1968 BACK SURGERY L4-L5 1974 BILATERAL CARPAL TUNNEL 2002 APPENDECTOMY TUBAL LIGATION HYSTERECTOMY RIGHT EYE LASIK 2016 LEFT EYE LASIK 2018 PACEMAKER PLACEMENT 05/2018 Family History FATHER: MOTHER: 9 BROTHER(S) , 8 SISTER(S) - HEALTHY. 4 SON(S) , 3 DAUGHTER(S) . BOTH PARENTS OF OLD AGE, NO KNOWN HEALTH ISSUES SIBLINGS HX OF ALZHEIMER'S, KIDNEY STONES, STROKES CHILDREN- BRAIN TUMOR, GRAVES DISEASE, THYROID CANCER, BACK PROBLEMS, PARKINSON'S DISEASE, AUTISTIC 2012 DAUGHTER BRAIN CANCER. Social History * Smoker: Denies Alcohol: Denies Drugs: denies A-FIB/CHADSVASC A-FIB History Current/History of A-Fib/PAF?: Yes Current PO Anticoag Therapy: Yes Review of Systems Constitutional: Denies: Chills, Fever, Night Sweats Eyes: Denies: Pain, Vision change ENT: Denies: Head Aches, Ear Pain, Dysphagia Skin: Denies: Rash, Lesions, Breakdown Pulmonary: Reports: Dyspnea, Cough Cardiovascular: Reports: Orthopnea, Edema Gastrointestinal: Denies: Nausea, Vomiting, Abdominal Pain, Diarrhea Genitourinary: Denies: Dysuria, Frequency, Incontinence, Retention Hematologic: Denies: Bruising, Bleeding Excessively Musculoskeletal: Reports: Neck Pain, Back Pain, Shoulder Pain (bilateral) Psych: Reports: Anxiety Physical Examination General Exam: Positive: Alert, Cooperative, Mild Distress Eye Exam: Positive: PERRLA, Conjunctiva & lids normal, EOMI; Negative: Sclera icteric ENT Exam: Positive: Atraumatic, Mucous membr. moist/pink, Pharynx Normal Neck Exam: Positive: JVD, Other (tender and stiff unable to turn to left) Chest Exam: Positive: Diminished, Other (bilateral diffuse fine and coarse crackles.) Heart Exam: Positive: Rate Normal, Regular Rhythm, Normal S1, Normal S2; Negative: Murmurs, Rubs Telemetry: Positive: Other Telemetry: (paced) Abdomen Exam: Positive: Normal bowel sounds, Soft; Negative: Tenderness, Hepatospenomegaly Extremity Exam: Positive: Edema (trace edema in boththe legs right grater than left), Normal pulses; Negative: Clubbing, Cyanosis Neuro Exam: Positive: Normal Speech Psych Exam: Positive: Anxiety, Memory Intact, Oriented x 3 Vital Signs Vital Signs Date Time Temp Pulse Resp B/P (MAP) Pulse Ox O2 Delivery O2 Flow Rate FiO2 03/27/19 11:00 69 34 129/71 (90) 96 NIPPV (BIPAP/CPAP) 03/27/19 08:21 40 03/27/19 08:07 96.9 Laboratory Data Labs 24H Laboratory Tests 2 03/27/19 08:10: POC pH (Misc Panel) 7.394, POC Base Excess (Misc Panel) -2.0, POC Saturated Pe rcent O2 (Misc) 90L, POC pO2 (Misc Panel) 59.0L, POC pCO2 (Misc Panel) 36.9, POC HCO3 (Misc Panel) 22.5, POC Total CO2 (Misc Panel) 24.0 03/27/19 08:11: Immature Granulocyte % (Auto) 0.6, Neutrophils (%) (Auto) 77.6H, Lymphocytes (%) (Auto) 14.4L, Monocytes (%) (Auto) 5.0, Eosinophils (%) (Auto) 1.9, Basophils (%) (Auto) 0.5, Neutrophils # (Auto) 11.0H, Lymphocytes # (Auto) 2.0, Monocytes # (Auto) 0.7, Eosinophils # (Auto) 0.3, Basophils # (Auto) 0.1, Nucleated Red Blood Cells % (auto) 0.0, Anion Gap 10, Glomerular Filtration Rate > 60.0, Lactic Acid Level 3.0*H, Calcium Level 9.0, Total Bilirubin 0.9, Direct Bilirubin 0.2, Aspartate Amino Transf (AST/SGOT) 18, Alanine Aminotransferase (ALT/SGPT) 25, Alkaline Phosphatase 108, Total Creatine Kinase 56, Creatine Kinase MB 1.1, Creatine Kinase MB Relative Index 1.96, Troponin I 0.02, ZR-[id number]-Type Natriuretic Peptide 4846H, Total Protein 7.1, Albumin 3.9, Albumin/Globulin Ratio 1.22, Thyroid Stimulating Hormone (TSH) 3.220, Thyroxine (T4) 9.1 03/27/19 09:51: Urine Color STRAW, Urine Appearance CLEAR, Urine pH 7.0, Urine Specific Benedict 1.008, Urine Protein NEGATIVE, Urine Glucose (UA) NEGATIVE, Urine Ketones NEGATIVE, Urine Blood NEGATIVE, Urine Nitrite NEGATIVE, Urine Bilirubin NEGATIVE, Urine Urobilinogen 0.2, Urine Leukocyte Esterase NEGATIVE, Urine WBC (Auto) 0, Urine RBC (Auto) 1, Urine Hyaline Casts (Auto) 0, Urine Bacteria (Auto) NEGATIVE, Urine Squamous Epithelial Cells 0, Urine Sperm (Auto) CBC/BMP Laboratory Tests 03/27/19 08:11 Microbiology Microbiology 03/27/19 Blood Culture, Received Pending 03/27/19 Respiratory Virus Panel (PCR) ([facility]) - Final, Complete 03/27/19 Blood Culture, Received Pending Assessment/Plan 88 year old female from home lives with son with PMH of CHF, AFib with h/o sick sinus syndrome/ tachy- marcy syndrome s/p pacemaker , hypertension, hyperlipidemia, hypothyroid, bilateral frozen shoulder, chronic neck pain s/p trigger point injections follows with pain management, osteoporosis, osteoarthritis presented to ED with 1 day of worsening cough and sudden onset of severe shortness of breath early this am around 5 after she came back from the bath room. EMS was called and as per ED physician EMS found her to be cyanotic was started on oxygen then as soon as she was taken outside to the ambulance she went into extreme SOB and could not even talk she was put on CPAP by EMS and brought to the ED. On arrival to ED as per ED physician she was in extremis. ABG showed severe hypoxia, she was started on nebs, CPAP was continued, CXR showed bilateral infiltrates, She was given lasix [address] chest shows Diffuse bilateral infiltrates. Moderate bilateral pleural effusions. Cardiomegaly. After lasix she had an output of bout 1.5 liters int he ED and patient started feeling better. SHe was admitted for acute respiratory failure with hypoxia due to CHF exacerbation. Acute on chronic Diastolic CHF needed CPAP on presentation now doing better after lasix with 1.5 liters of diuresis will continue with lasix bid. Lactic acidosis due to increased work of breathing. Acute hypoxic respiratory failure due to CHF excerbation needing CPAP support improved after about 4 hours of CPAP with large amount of diuresis. Chronic A fib with pacemaker now all paced continue digoxin, atenolol and eliquis Hypertension will hold losartan at present to allow room for diuresis. continue atenolol Hypothyroid continue synthroid Hyperlipidemia continue statin. Bilateral frozen shoulder, and chronic neck pain ans stiffness will continue tizanidine. tylenol GERD/Mane's continue omeprazole. Plan / VTE VTE Prophylaxis Ordered?: Yes NICOLAS COTTRELL MD Mar 27, 2019 12:55
[2019-03-27 14:15] VITALS: BP 145/72
[2019-03-27 16:00] VITALS: BP 120/58
[2019-03-27] MEDS ORDERED: FUROSEMIDE 40 MG/4 ML VIAL (J1940) IV SCH (17:00)
[2019-03-27] MEDS: DOCUSATE SODIUM 100 MG CAP PO SCH (20:28)
[2019-03-27] MEDS: ATORVASTATIN 20 MG TAB PO SCH (20:28)
[2019-03-27] MEDS: tiZANidine 4 MG TAB PO SCH (20:29)
[2019-03-27] MEDS: APIXABAN 2.5 MG TAB (ELIQUIS) PO SCH (20:29)
[2019-03-27] MEDS ORDERED: atenoloL 50 MG TAB PO SCH (21:00)
[2019-03-27 23:59] VITALS: BP 96/51
[2019-03-28 03:52] VITALS: BP 92/52
[2019-03-28] MEDS ORDERED: AZITHROMYCIN INJ 500 MG, VIAL MATE ADAPTER 1 EACH in D5W 250 ML IV SCH (04:00)
[2019-03-28] MEDS: cefTRIAXone SOD 1 GM in D5W MINI-BAG PLUS 50 ML IV SCH (04:49)
[2019-03-28 05:27] LABS: BASO % 0.4 % (0.0-1.0); EOS # 0.1 10^3/uL (0.0-0.5); EOS % 0.8 % (0.0-3.0); HEMATOCRIT 35.2 % (36.0-47.0); LYMPH # 1.5 10^3/uL (1.5-5.0); LYMPH % 19.9 % (24.0-44.0); MEAN CORPUSCULAR HEMOGLOBIN 28.9 pg (27.0-33.0); MEAN CORPUSCULAR HGB CONC 31.8 g/dl (32.0-36.5); MONO # 0.8 10^3/uL (0.0-0.8); MONO % 10.5 % (0.0-5.0); NEUTROPHILS # 5.2 10^3/uL (1.5-8.5); NEUTROPHILS % 67.9 % (36.0-66.0); RED BLOOD COUNT 3.87 10^6/uL (4.00-5.40); WHITE BLOOD COUNT 7.7 10^3/uL (4.0-10.0)
[2019-03-28 05:33] LABS: HEMOGLOBIN 11.2 g/dl (12.0-15.5); PLATELET COUNT, AUTOMATED 166 10^3/uL (150-450)
[2019-03-28] MEDS: LEVOTHYROXINE 25MCG TABLET (0.025MG) PO SCH (06:00)
[2019-03-28 06:01] LABS: CALCIUM LEVEL 8.6 MG/DL (8.8-10.2); CREATININE FOR GFR 1.32 MG/DL (0.55-1.30); GLOMERULAR FILTRATION RATE 40.4 (>32)
[2019-03-28 07:46] VITALS: BP 128/58
[2019-03-28] MEDS: DOCUSATE SODIUM 100 MG CAP PO SCH ×2 (08:47→21:45)
[2019-03-28] MEDS: APIXABAN 2.5 MG TAB (ELIQUIS) PO SCH ×2 (08:47→21:45)
[2019-03-28] MEDS: OMEPRAZOLE 20 MG CAP PO SCH (08:47)
[2019-03-28] MEDS: atenoloL 50 MG TAB PO SCH ×2 (08:48→21:44)
[2019-03-28] MEDS: DIGOXIN 0.125 MG TAB PO SCH (08:48)
--- NOTE | 2019-03-28 09:47 | ECGEPIP ---
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
[2019-03-28 11:40] VITALS: BP 131/56
--- NOTE | 2019-03-28 12:16 | IPNPDOC ---
Subjective Date Seen The patient was seen on 03/28/19. Subjective Chief Complaint/HPI feeling better, SOb much improved, cough less. No fever or chills, no chest pain. No abdominal pain nausea or vomiting. Objective Physical Examination General Exam: Positive: Alert, Cooperative, Mild Distress Eye Exam: Positive: PERRLA, Conjunctiva & lids normal, EOMI; Negative: Sclera icteric ENT Exam: Positive: Atraumatic, Mucous membr. moist/pink, Pharynx Normal Neck Exam: Positive: JVD, Other (tender and stiff unable to turn to left) Chest Exam: Positive: Diminished, Other (bilateral diffuse fine and coarse crackles.) Heart Exam: Positive: Rate Normal, Regular Rhythm, Normal S1, Normal S2; Negative: Murmurs, Rubs Telemetry: Positive: Other Telemetry: (paced) Abdomen Exam: Positive: Normal bowel sounds, Soft; Negative: Tenderness, Hepatospenomegaly Extremity Exam: Positive: Edema (trace edema in boththe legs right grater than left), Normal pulses; Negative: Clubbing, Cyanosis Neuro Exam: Positive: Normal Speech Psych Exam: Positive: Anxiety, Memory Intact, Oriented x 3 Assessment /Plan Assessment 88 year old female from home lives with son with PMH of CHF, AFib with h/o sick sinus syndrome/ tachy- marcy syndrome s/p pacemaker , hypertension, hyperlipidemia, hypothyroid, bilateral frozen shoulder, chronic neck pain s/p trigger point injections follows with pain management, osteoporosis, osteoarthritis presented to ED with 1 day of worsening cough and sudden onset of severe shortness of breath early this am around 5 after she came back from the bath room. EMS was called and as per ED physician EMS found her to be cyanotic was started on oxygen then as soon as she was taken outside to the ambulance she went into extreme SOB and could not even talk she was put on CPAP by EMS and brought to the ED. On arrival to ED as per ED physician she was in extremis. ABG showed severe hypoxia, she was started on nebs, CPAP was continued, CXR showed bilateral infiltrates, She was given lasix [address] chest shows Diffuse bilateral infiltrates. Moderate bilateral pleural effusions. Cardiomegaly. After lasix she had an output of bout 1.5 liters int he ED and patient started feeling better. SHe was admitted for acute respiratory failure with hypoxia due to CHF exacerbation. Acute on chronic Diastolic CHF needed CPAP on presentation now doing better after lasix with 1.5 liters of diuresis will stop lasix today as had greater than [address] chest with patchy infiltrates possible underlying pneumonia with CHF will empirically treat with ceftriaxone and azithromycin. Lactic acidosis due to increased work of breathing. Acute hypoxic respiratory failure due to CHF excerbation needing CPAP support improved after about 4 hours of CPAP with large amount of diuresis. Chronic A fib with pacemaker now all paced continue digoxin, atenolol and eliquis Hypertension will hold losartan at present to allow room for diuresis. continue atenolol Hypothyroid continue synthroid Hyperlipidemia continue statin. Bilateral frozen shoulder, and chronic neck pain ans stiffness will continue tizanidine. tylenol GERD/Mane's continue omeprazole. Plan/VTE VTE Prophylaxis Ordered?: Yes VS, I&O, 24H, Fishbone Vital Signs/I&O Vital Signs Date Time Temp Pulse Resp B/P (MAP) Pulse Ox O2 Delivery O2 Flow Rate FiO2 03/28/19 11:40 98.3 70 21 131/56 (81) 97 Nasal Cannula 3.0 03/27/19 08:21 40 I&O- Last 24 Hours up to 6 AM 03/28/19 05:59 Intake Total 600 ml Output Total 2550 ml Balance -1950 ml Laboratory Data 24H LABS Laboratory Tests 2 03/27/19 13:04: Lactic Acid Followup at 4 Hours 1.1 03/28/19 04:59: Immature Granulocyte % (Auto) 0.5, Neutrophils (%) (Auto) 67.9H, Lymphocytes (%) (Auto) 19.9L, Monocytes (%) (Auto) 10.5H, Eosinophils (%) (Auto) 0.8, Basophils (%) (Auto) 0.4, Neutrophils # (Auto) 5.2, Lymphocytes # (Auto) 1.5, Monocytes # (Auto) 0.8, Eosinophils # (Auto) 0.1, Basophils # (Auto) 0.0, Nucleated Red Blood Cells % (auto) 0.0, Anion Gap 7L, Glomerular Filtration Rate 40.4, Calcium Level 8.6L, VE-Hpa-I-Type Natriuretic Peptide 67783I CBC/BMP Laboratory Tests 03/28/19 04:59 Microbiology Microbiology 03/27/19 Blood Culture - Preliminary, Resulted No growth after 24 hours . All specim... 03/27/19 Respiratory Virus Panel (PCR) ([facility]) - Final, Complete 03/27/19 Blood Culture - Preliminary, Resulted No growth after 24 hours . All specim... NICOLAS COTTRELL MD Mar 28, 2019 12:16
[2019-03-28 14:00] VITALS: BP 130/56
[2019-03-28] MEDS: ATORVASTATIN 20 MG TAB PO SCH (21:45)
[2019-03-28] MEDS: tiZANidine 4 MG TAB PO SCH (21:45)
[2019-03-28 22:00] VITALS: BP 127/81
[2019-03-29] MEDS: cefTRIAXone SOD 1 GM in D5W MINI-BAG PLUS 50 ML IV SCH (03:34)
[2019-03-29] MEDS: LEVOTHYROXINE 25MCG TABLET (0.025MG) PO SCH (05:30)
[2019-03-29 06:00] VITALS: BP 130/76
[2019-03-29 06:21] LABS: BASO # 0.1 10^3/uL (0.0-0.2); BASO % 0.7 % (0.0-1.0); EOS # 0.2 10^3/uL (0.0-0.5); HEMATOCRIT 36.9 % (36.0-47.0); HEMOGLOBIN 11.7 g/dl (12.0-15.5); LYMPH # 1.5 10^3/uL (1.5-5.0); LYMPH % 22.9 % (24.0-44.0); MEAN CORPUSCULAR HGB CONC 31.7 g/dl (32.0-36.5); MEAN CORPUSCULAR VOLUME 91.3 fl (80.0-96.0); MONO # 0.6 10^3/uL (0.0-0.8); MONO % 8.2 % (0.0-5.0); NEUTROPHILS # 4.3 10^3/uL (1.5-8.5); NEUTROPHILS % 64.5 % (36.0-66.0); PLATELET COUNT, AUTOMATED 182 10^3/uL (150-450); RED BLOOD COUNT 4.04 10^6/uL (4.00-5.40); WHITE BLOOD COUNT 6.7 10^3/uL (4.0-10.0)
[2019-03-29 06:42] LABS: BLOOD UREA NITROGEN 33 MG/DL (7-18); CALCIUM LEVEL 8.4 MG/DL (8.8-10.2); CARBON DIOXIDE LEVEL 28 MEQ/L (21-32); CHLORIDE LEVEL 108 MEQ/L (98-107); CREATININE FOR GFR 0.87 MG/DL (0.55-1.30); GLOMERULAR FILTRATION RATE > 60.0 (>32); GLUCOSE, FASTING 112 MG/DL (70-100); POTASSIUM SERUM 4.2 MEQ/L (3.5-5.1); SODIUM LEVEL 141 MEQ/L (136-145)
[2019-03-29] MEDS: atenoloL 50 MG TAB PO SCH ×2 (08:35→20:44)
[2019-03-29] MEDS: APIXABAN 2.5 MG TAB (ELIQUIS) PO SCH ×2 (08:36→20:43)
[2019-03-29] MEDS: DOCUSATE SODIUM 100 MG CAP PO SCH ×2 (08:36→20:42)
[2019-03-29] MEDS: FUROSEMIDE 40 MG TAB PO SCH ×2 (08:36→17:11)
[2019-03-29] MEDS: AZITHROMYCIN 250 MG TAB PO SCH (08:36)
[2019-03-29] MEDS: OMEPRAZOLE 20 MG CAP PO SCH (08:36)
[2019-03-29] MEDS: DIGOXIN 0.125 MG TAB PO SCH (08:37)
--- NOTE | 2019-03-29 08:49 | IPNPDOC ---
Subjective Date Seen The patient was seen on 03/29/19. Subjective Chief Complaint/HPI Patient seen sitting up in chair. Still on 2 liters oxygen will try to wean. No fever or chills, has some cough not much phlegm production. No abdominal pain , nausea or vomiting . Objective Physical Examination General Exam: Positive: Alert, Cooperative, Mild Distress Eye Exam: Positive: PERRLA, Conjunctiva & lids normal, EOMI; Negative: Sclera icteric ENT Exam: Positive: Atraumatic, Mucous membr. moist/pink, Pharynx Normal Neck Exam: Positive: JVD, Other (tender and stiff unable to turn to left) Chest Exam: Positive: Diminished, Other (bilateral diffuse fine and coarse crackles.) Heart Exam: Positive: Rate Normal, Regular Rhythm, Normal S1, Normal S2; Negative: Murmurs, Rubs Telemetry: Positive: Other Telemetry: (paced) Abdomen Exam: Positive: Normal bowel sounds, Soft; Negative: Tenderness, Hepatospenomegaly Extremity Exam: Positive: Edema (trace edema in boththe legs right grater than left), Normal pulses; Negative: Clubbing, Cyanosis Neuro Exam: Positive: Normal Speech Psych Exam: Positive: Anxiety, Memory Intact, Oriented x 3 Assessment /Plan Assessment 88 year old female from home lives with son with PMH of CHF, AFib with h/o sick sinus syndrome/ tachy- marcy syndrome s/p pacemaker , hypertension, hyperlipide david, hypothyroid, bilateral frozen shoulder, chronic neck pain s/p trigger point injections follows with pain management, osteoporosis, osteoarthritis presented to ED with 1 day of worsening cough and sudden onset of severe shortness of breath early this am around 5 after she came back from the bath room. EMS was called and as per ED physician EMS found her to be cyanotic was started on oxygen then as soon as she was taken outside to the ambulance she went into extreme SOB and could not even talk she was put on CPAP by EMS and brought to the ED. On arrival to ED as per ED physician she was in extremis. ABG showed severe hypoxia, she was started on nebs, CPAP was continued, CXR showed bilater al infiltrates, She was given lasix [address] chest shows Diffuse bilateral infiltrates. Moderate bilateral pleural effusions. Cardiomegaly. After lasix she had an output of bout 1.5 liters int he ED and patient started feeling better. SHe was admitted for acute respiratory failure with hypoxia due to CHF exacerbation. Acute on chronic Diastolic CHF needed CPAP on presentation restart po lasix CT chest with patchy infiltrates possible underlying pneumonia with CHF will empirically treat with ceftriaxone and azithromycin. blood cultures negative till date. Lactic acidosis due to increased work of breathing. resolved. Acute hypoxic respiratory failure due to CHF excerbation needing CPAP support improved after about 4 hours of CPAP with large amount of diuresis. Chronic A fib with pacemaker now all paced continue digoxin, atenolol and eliquis Hypertension will hold losartan at present to allow room for diuresis. continue atenolol Hypothyroid continue synthroid Hyperlipidemia continue statin. Bilateral frozen shoulder, and chronic neck pain ans stiffness will continue tizanidine. tylenol GERD/Mane's continue omeprazole. Plan/VTE VTE Prophylaxis Ordered?: Yes VS, I&O, 24H, Fishbone Vital Signs/I&O Vital Signs Date Time Temp Pulse Resp B/P (MAP) Pulse Ox O2 Delivery O2 Flow Rate FiO2 03/29/19 08:37 76 03/29/19 08:35 130/76 03/29/19 06:00 98.2 18 97 Nasal Cannula 3.0 03/27/19 08:21 40 I&O- Last 24 Hours up to 6 AM 03/29/19 06:00 Intake Total 1000 ml Balance 1000 ml Laboratory Data 24H LABS Laboratory Tests 2 03/29/19 06:03: Immature Granulocyte % (Auto) 0.7, Neutrophils (%) (Auto) 64.5, Lymphocytes (%) (Auto) 22.9L, Monocytes (%) (Auto) 8.2H, Eosinophils (%) (Auto) 3.0, Basophils (%) (Auto) 0.7, Neutrophils # (Auto) 4.3, Lymphocytes # (Auto) 1.5, Monocytes # (Auto) 0.6, Eosinophils # (Auto) 0.2, Basophils # (Auto) 0.1, Nucleated Red Blood Cells % (auto) 0.0, Anion Gap 5L, Glomerular Filtration Rate > 60.0, Calcium Level 8.4L CBC/BMP Laboratory Tests 03/29/19 06:03 Microbiology Microbiology 03/27/19 Blood Culture - Preliminary, Resulted No growth after 24 hours . All specim... 03/27/19 Respiratory Virus Panel (PCR) ([facility]) - Final, Complete 03/27/19 Blood Culture - Preliminary, Resulted No Growth after 48 hours. All Specime... NICOLAS COTTRELL MD Mar 29, 2019 08:49
[2019-03-29] MEDS ORDERED: AZITHROMYCIN 250 MG TAB PO SCH (09:00)
[2019-03-29 14:00] VITALS: BP 146/71
[2019-03-29] MEDS: ATORVASTATIN 20 MG TAB PO SCH (20:42)
[2019-03-29] MEDS: tiZANidine 4 MG TAB PO SCH (20:43)
[2019-03-29 22:00] VITALS: BP 150/80
[2019-03-30] MEDS: cefTRIAXone SOD 1 GM in D5W MINI-BAG PLUS 50 ML IV SCH (03:04)
[2019-03-30] MEDS: LEVOTHYROXINE 25MCG TABLET (0.025MG) PO SCH (05:42)
[2019-03-30 05:54] LABS: HEMATOCRIT 37.9 % (36.0-47.0); HEMOGLOBIN 11.9 g/dl (12.0-15.5); MEAN CORPUSCULAR HEMOGLOBIN 28.3 pg (27.0-33.0); MEAN CORPUSCULAR HGB CONC 31.4 g/dl (32.0-36.5); PLATELET COUNT, AUTOMATED 187 10^3/uL (150-450); RED BLOOD COUNT 4.21 10^6/uL (4.00-5.40); WHITE BLOOD COUNT 6.9 10^3/uL (4.0-10.0)
[2019-03-30 06:00] VITALS: BP 149/77
[2019-03-30 06:23] LABS: BLOOD UREA NITROGEN 25 MG/DL (7-18); CALCIUM LEVEL 8.7 MG/DL (8.8-10.2); CARBON DIOXIDE LEVEL 29 MEQ/L (21-32); CHLORIDE LEVEL 107 MEQ/L (98-107); CREATININE FOR GFR 0.78 MG/DL (0.55-1.30); GLOMERULAR FILTRATION RATE > 60.0 (>32); GLUCOSE, FASTING 100 MG/DL (70-100); POTASSIUM SERUM 3.8 MEQ/L (3.5-5.1); SODIUM LEVEL 143 MEQ/L (136-145)
[2019-03-30 06:41] LABS: ATYPICAL LYMPH 2 % (0-5); EOSINOPHILS 3 % (0-3); LYMPHOCYTES 20 % (16-44); MONOCYTES 1 % (0-5); NEUTROPHILS 74 % (28-66)
[2019-03-30 06:42] LABS: PLATELET ESTIMATE NORMAL (NORMAL)
[2019-03-30] MEDS: DOCUSATE SODIUM 100 MG CAP PO SCH ×2 (09:29→20:09)
[2019-03-30] MEDS: FUROSEMIDE 40 MG TAB PO SCH ×2 (09:30→17:34)
[2019-03-30] MEDS: OMEPRAZOLE 20 MG CAP PO SCH (09:30)
[2019-03-30] MEDS: AZITHROMYCIN 250 MG TAB PO SCH (09:30)
[2019-03-30] MEDS: APIXABAN 2.5 MG TAB (ELIQUIS) PO SCH ×2 (09:30→20:09)
[2019-03-30] MEDS: DIGOXIN 0.125 MG TAB PO SCH (09:31)
[2019-03-30] MEDS: atenoloL 50 MG TAB PO SCH ×2 (09:31→20:10)
--- NOTE | 2019-03-30 11:05 | REP ---
Chest x-ray: Two views. History: CHF exacerbation. Comparison chest x-ray: March 27, 2019. Findings: Mild cardiomegaly. Bipolar pacemaker remains in place. There is blunting of the pleural angles bilaterally consistent with small bilateral effusions, right a little larger than left. There is diffuse osteopenia. Old healed rib fractures are noted on the right. No acute infiltrate is seen. There is no evidence of pulmonary edema. Impression: Small bilateral effusions. Cardiomegaly. No evidence of pulmonary edema. Pacemaker in place. Electronically Signed by Viktor Gates MD 03/30/2019 10:57 A
--- NOTE | 2019-03-30 13:45 | IPNPDOC ---
Subjective Date Seen The patient was seen on 03/30/19. Subjective Chief Complaint/HPI Pt is an 88 year old female who presented to the ED with worsening SOB 2/2 acute on chronic diastolic CHF. Seen sitting up in her recliner this morning. Pt reported she is doing better than she was when she first presented to the ED but she doesn't feel at her baseline as yet. She is worried if she goes home too quickly she will have to return to the hospital for shortness of breath pretty soon. General: Denies: Chills, Night Sweats, Malaise Constitutional: Denies: Chills, Fever, Malaise, Night Sweats Eyes: Denies: Pain ENT: Denies: Head Aches Skin: Denies: Rash, Lesions Pulmonary: Reports: Dyspnea (improved since admission ), Cough Cardiovascular: Reports: Edema; Denies: Chest Pain, Palpitations, Orthopnea, Lt Headedness Gastrointestinal: Denies: Abdominal Pain Genitourinary: Denies: Dysuria Hematologic: Denies: Bruising Musculoskeletal: Denies: Neck Pain, Back Pain, Joint Pain, Muscle Pain, Spasms Neurological: Denies: Change in speech, Confusion Psych: Reports: Anxiety Objective Physical Examination General Exam: Positive: Alert, Cooperative, No Acute Distress Eye Exam: Positive: PERRLA, Conjunctiva & lids normal, EOMI; Negative: Sclera icteric ENT Exam: Positive: Atraumatic, Mucous membr. moist/pink, Pharynx Normal Neck Exam: Positive: Supple, JVD, Other; Negative: thyromegaly Chest Exam: Positive: Diminished (L > R ); Negative: Rales, Rhonchi, Wheezing Heart Exam: Positive: Rate Normal, Regular Rhythm, Murmurs (2/6 SM S1S2 intact ); Negative: Gallops Abdomen Exam: Positive: Normal bowel sounds, Soft; Negative: Tenderness Extremity Exam: Positive: Edema (b/l pitting edema ), Normal pulses; Negative: Clubbing, Cyanosis, Tenderness Skin Exam: Positive: Nl turgor and temperature Neuro Exam: Positive: Normal Speech Psych Exam: Positive: Anxiety, Memory Intact, Oriented x 3 Assessment /Plan Assessment 88 year old female from home lives with son with PMH of CHF, AFib with h/o sick sinus syndrome/ tachy- marcy syndrome s/p pacemaker , hypertension, hyperlipidemia, hypothyroid, bilateral frozen shoulder, chronic neck pain s/p trigger point injections follows with pain management, osteoporosis, osteoarthritis presented to ED with 1 day of worsening cough and sudden onset of severe shortness of breath around 5a after she had been to the bathroom. EMS was called and as per ED physician EMS found her to be cyanotic was started on oxygen then as soon as she was taken outside to the ambulance she became ext remely SOB and unable to talk, she was put on CPAP by EMS and brought to the ED. On arrival to ED, pt reportedly in extremis. ABG showed severe hypoxia; nebs started, CPAP continued, CXR showed bilateral infiltrates, Lasix 60mg given IV. CT chest showed diffuse bilateral infiltrates, moderate bilateral pleural effusions and cardiomegaly. After Lasix she had an output of about 1.5 liters in the ED and started feeling better. She was admitted for acute respiratory failure with hypoxia due to CHF e xacerbation. Acute on chronic Diastolic CHF - f/u CXR showed mild effusions and cardiomegaly; improved vs presentation where ct showed moderate effusions - continue PO Lasix; - daily weights; so far 65 - 63kg - check BMP qam with continued diuresis CT chest with patchy infiltrates - possible underlying pneumonia with CHF - will empirically treat with ceftriaxone and azithromycin. - blood cultures negative - see f/u CXR results Lactic acidosis - due to increased work of breathing. - resolved. Acute hypoxic respiratory failure - due to CHF exacerbation - improved with aggressive diuresis and CPAP - pt not on home O2. wean off O2; now 1/2 L while at rest. Will assess O2 with exertion for signs of hypoxia Chronic A fib with pacemaker - paced; continue digoxin, atenolol and eliquis Hypertension - Losartan on hold for diuresis - continue Atenolol Hypothyroid -continue Synthroid Hyperlipidemia -continue statin. Bilateral frozen shoulder, and chronic neck pain ans stiffness -continue tizanidine and prn Tylenol GERD/Mane's -continue omeprazole. Plan/VTE VTE Prophylaxis Ordered?: Yes VS, I&O, 24H, Fishbone Vital Signs/I&O Vital Signs Date Time Temp Pulse Resp B/P (MAP) Pulse Ox O2 Delivery O2 Flow Rate FiO2 03/30/19 09:32 1.0 03/30/19 09:31 71 146/87 03/30/19 06:00 98.0 18 94 Nasal Cannula 03/27/19 08:21 40 I&O- Last 24 Hours up to 6 AM 03/30/19 06:00 Intake Total 990 ml Output Total 1350 ml Balance -360 ml Laboratory Data 24H LABS Laboratory Tests 2 03/30/19 05:23: Nucleated Red Blood Cells % (auto) 0.0, Neutrophils 74H, Lymphocytes (Manual) 20, Monocytes (Manual) 1, Eosinophils (Manual) 3, Atypical Lymphocytes 2, Red Blood Cell Morphology NORMAL, Platelet Estimate NORMAL, Anion Gap 7L, Glomerular Filtration Rate > 60.0, Calcium Level 8.7L CBC/BMP Laboratory Tests 03/30/19 05:23 Microbiology Microbiology 03/27/19 Blood Culture - Preliminary, Resulted No Growth after 72 hours. All specime... 03/27/19 Respiratory Virus Panel (PCR) ([facility]) - Final, Complete 03/27/19 Blood Culture - Preliminary, Resulted No Growth after 72 hours. All specime... LAUREN ROQUE PA-C Mar 30, 2019 13:45
[2019-03-30 14:00] VITALS: BP 150/83
[2019-03-30] MEDS: ATORVASTATIN 20 MG TAB PO SCH (20:09)
[2019-03-30] MEDS: tiZANidine 4 MG TAB PO SCH (20:09)
[2019-03-30 22:00] VITALS: BP 137/63
[2019-03-31 06:00] VITALS: BP 129/59
[2019-03-31 06:14] LABS: BASO # 0.1 10^3/uL (0.0-0.2); BASO % 0.9 % (0.0-1.0); EOS # 0.2 10^3/uL (0.0-0.5); EOS % 2.6 % (0.0-3.0); HEMATOCRIT 36.8 % (36.0-47.0); HEMOGLOBIN 12.1 g/dl (12.0-15.5); LYMPH # 1.8 10^3/uL (1.5-5.0); MEAN CORPUSCULAR HEMOGLOBIN 29.2 pg (27.0-33.0); MEAN CORPUSCULAR HGB CONC 32.9 g/dl (32.0-36.5); MEAN CORPUSCULAR VOLUME 88.9 fl (80.0-96.0); MONO # 0.7 10^3/uL (0.0-0.8); MONO % 10.4 % (0.0-5.0); NEUTROPHILS # 3.7 10^3/uL (1.5-8.5); PLATELET COUNT, AUTOMATED 209 10^3/uL (150-450); RED BLOOD COUNT 4.14 10^6/uL (4.00-5.40); WHITE BLOOD COUNT 6.4 10^3/uL (4.0-10.0)
[2019-03-31] MEDS: LEVOTHYROXINE 25MCG TABLET (0.025MG) PO SCH (06:22)
[2019-03-31 06:35] LABS: BLOOD UREA NITROGEN 26 MG/DL (7-18); CARBON DIOXIDE LEVEL 29 MEQ/L (21-32); CHLORIDE LEVEL 103 MEQ/L (98-107); CREATININE FOR GFR 0.81 MG/DL (0.55-1.30); GLOMERULAR FILTRATION RATE > 60.0 (>32); GLUCOSE, FASTING 94 MG/DL (70-100); POTASSIUM SERUM 3.7 MEQ/L (3.5-5.1); SODIUM LEVEL 139 MEQ/L (136-145)
[2019-03-31] MEDS: APIXABAN 2.5 MG TAB (ELIQUIS) PO SCH (09:00)
[2019-03-31] MEDS: AZITHROMYCIN 250 MG TAB PO SCH (09:00)
[2019-03-31] MEDS: DOCUSATE SODIUM 100 MG CAP PO SCH (09:00)
[2019-03-31] MEDS: OMEPRAZOLE 20 MG CAP PO SCH (09:00)
[2019-03-31] MEDS: FUROSEMIDE 40 MG TAB PO SCH (09:00)
[2019-03-31 09:01] VITALS: BP 137/62
[2019-03-31] MEDS: DIGOXIN 0.125 MG TAB PO SCH (09:01)
[2019-03-31] MEDS: atenoloL 50 MG TAB PO SCH (09:01)
[2019-03-31] MEDS ORDERED: AZIT-12 PO ×2 (11:01→11:15)
--- NOTE | 2019-03-31 16:04 | DS.PDOC ---
Discharge Summary General Date of Admission Mar 27, 2019 at 12:20 Date of Discharge 03/31/2019 Discharge Summary PROCEDURES PERFORMED DURING STAY: [None]. ADMITTING DIAGNOSES: 1. Acute on Chronic Diastolic CHF 2. Lactic Acidosis 3. Acute Hypoxic Respiratory Failure 4. Chronic A fib with pacemaker 5. Hypertension 6. Hypothyroid 7. Hyperlipidemia 8. Bilateral frozen shoulder, with chronic neck pain and stiffness 9. GERD/Mane's Esophagus DISCHARGE DIAGNOSES: 1. Acute on Chronic Diastolic CHF 2. Lactic Acidosis 3. Acute Hypoxic Respiratory Failure SECONDARY DIAGNOSIS: Chronic AFib with h/o sick sinus syndrome/ tachy- maryc syndrome s/p pacemaker , hypertension, hyperlipidemia, hypothyroid, bilateral frozen shoulder, chronic neck pain s/p trigger point injections follows with pain management, osteoporosis, osteoarthritis, Dilated aortic root, Mitral Annular Calcification/Mitral Regurgitation, History of stroke (12/27/2016), Vitamin D deficiency, Mane's esophagus, Anemia COMPLICATIONS/CHIEF COMPLAINT: Chf Exacerbation. HISTORY OF PRESENT ILLNESS: "88 year old female from home lives with son with PMH of CHF, chronic AFib with h/o sick sinus syndrome/ tachy- marcy syndrome s/p pacemaker , hypertension, hyperlipidemia, hypothyroid, bilateral frozen shoulder, chronic neck pain s/p trigger point injections follows with pain management, osteoporosis, osteoarthritis presented to ED with 1 day of worsening cough and sudden onset of severe shortness of breath early this am around 5 a fter she came back from the bath room. EMS was called and as per ED physician EMS found her to be cyanotic was started on oxygen then as soon as she was taken outside to the ambulance she went into extreme SOB and could not even talk she was put on CPAP by EMS and brought to the ED. On arrival to ED as per ED physician she was in extremis. ABG showed severe hypoxia, she was started on nebs, CPAP was continued, CXR showed bilateral infiltrates, She was given lasix [address] chest shows Diffuse bilateral infiltrates. Moderate bilateral pleural effusions. Cardiomegaly. After lasix she had an output of bout 1.5 liters int he ED and patient started feeling better. She was admitted for acute respiratory failure with hypoxia due to Diastolic CHF exacerbation. Patient says her cough really became bad yesterday though as per daughter she has been coughing for several days, she is bringing up greenish phlegm. No associated chest pain or wheezing." HOSPITAL COURSE: Pt was admitted per above. She recovered remarkable well with CPAP (x 4 hrs) and diuresis over 48 hours. Up until d/c, several liters of fluid were removed via diuresis and pt returned to her baseline breathing. She was successfully weaned off her supplemental O2 in hospital. Follow-up CXR showed minimal (from moderate) pleural effusions. Chest CT showed patchy infiltrates and pt had a WBC count of 14.1; pt treated presumptively with Rocephin and Azithromycin to which her white count responded favorably over 24 hours. Pt reported she felt back at her baseline this morning and agreed to be d/c with HH and/or PT services. Atenolol 50mg BID was lowered to 25mg BID and pt d/c on the lower dose as her BP well managed and no episodes of hypotension reported with lower dose Atenolol. Prophy Azithromycin to be completed outpatient for a total 5 days therapy. She will f/u with PCP on d/c. DISCHARGE MEDICATIONS: Please see below. ALLERGIES: Please see below. PHYSICAL EXAMINATION ON DISCHARGE: VITAL SIGNS: Please see below. General Exam: Positive: Alert, Cooperative, No Acute Distress Eye Exam: Positive: PERRLA, Conjunctiva & lids normal, EOMI; Negative: Sclera icteric ENT Exam: Positive: Atraumatic, Mucous membr. moist/pink, Pharynx Normal Neck Exam: Positive: Supple, JVD, Other; Negative: thyromegaly Chest Exam: Positive: Clear to auscultation; Negative: Rales, Rhonchi, Wheezing Heart Exam: Positive: Rate Normal, Regular Rhythm, Murmurs (2/6 SM S1S2 intact ); Negative: Gallops Abdomen Exam: Positive: Normal bowel sounds, Soft; Negative: Tenderness Extremity Exam: Positive: Normal pulses; Negative: Clubbing, Cyanosis, Tenderness Skin Exam: Positive: Nl turgor and temperature Neuro Exam: Positive: Normal Speech Psych Exam: Positive: Anxiety, Memory Intact, Oriented x 3 LABORATORY DATA: Please see below. IMAGING: PORTABLE CHEST X-RAY Impression: Diffuse interstitial pulmonary edema pattern superimposed on patchy bilateral infiltrates, left perihilar region and both apices. Cardiomegaly with pacemaker. CT Chest without contrast IMPRESSION: Diffuse bilateral infiltrates. Moderate bilateral pleural effusions. Cardiomegaly. Chest, 2 view PA, Lat Impression: Small bilateral effusions. Cardiomegaly. No evidence of pulmonary edema. Pacemaker in place. ACTIVITY: Wal with walker per PT DIET: As tolerated DISCHARGE PLAN: Discharge with HH and PT services DISPOSITION: 01 Home, Self-Care. DISCHARGE INSTRUCTIONS: 1. PCP within 3-5 days 2. Atenolol 25mg inpatient continued; please discuss with your HCP ITEMS TO FOLLOWUP ON ON OUTPATIENT: 1. PCP within 3-5 days 2. Atenolol 25mg inpatient continued; please discuss with your HCP DISCHARGE CONDITION: [Stable]. TIME SPENT ON DISCHARGE: 31 minutes Vital Signs/I&Os Vital Signs Date Time Temp Pulse Resp B/P (MAP) Pulse Ox O2 Delivery O2 Flow Rate FiO2 03/31/19 09:01 71 137/62 03/31/19 06:00 97.9 20 95 Nasal Cannula 2.0 03/27/19 08:21 40 I&O- Last 24 Hours up to 6 AM 03/31/19 06:00 Intake Total 990 ml Output Total 2250 ml Balance -1260 ml Laboratory Data Labs 24H Laboratory Tests 2 03/31/19 05:37: Immature Granulocyte % (Auto) 1.1, Neutrophils (%) (Auto) 57.0, Lymphocytes (%) (Auto) 28.0, Monocytes (%) (Auto) 10.4H, Eosinophils (%) (Auto) 2.6, Basophils (%) (Auto) 0.9, Neutrophils # (Auto) 3.7, Lymphocytes # (Auto) 1.8, Monocytes # (Auto) 0.7, Eosinophils # (Auto) 0.2, Basophils # (Auto) 0.1, Nucleated Red Blood Cells % (auto) 0.0, Anion Gap 7L, Glomerular Filtration Rate > 60.0, Calcium Level 9.0 CBC/BMP Laboratory Tests 03/31/19 05:37 Microbiology Microbiology 03/27/19 Blood Culture - Preliminary, Resulted No Growth after 72 hours. All specime... 03/27/19 Respiratory Virus Panel (PCR) ([facility]) - Final, Complete 03/27/19 Blood Culture - Preliminary, Resulted No Growth after 72 hours. All specime... Discharge Medications Scheduled Apixaban (Eliquis) 2.5 Mg Tablet, 2.5 MG PO BID, (Reported) Atenolol (Atenolol) 50 Mg Tablet, 50 MG PO BID, (Reported) Atorvastatin Calcium (Atorvastatin Calcium) 40 Mg Tab, 40 MG PO QHS, (Reported) Azithromycin (Azithromycin) 250 Mg Tablet, 500 MG PO DAILY Calcium Carb, Citrate/Vit D3 (Citracal + D ER Tablet) 1 Tab Tab, 1 TAB PO DAILY, (Reported) TAKES AT NOON Digoxin (Digoxin) 125 Mcg Tablet, 125 MCG PO DAILY, (Reported) Ferrous Sulfate (Ferrous Sulfate) 325 Mg Tab, 325 MG PO DAILY, (Reported) Furosemide (Furosemide) 20 Mg Tablet, 20 MG PO DAILY, (Reported) Levothyroxine Sodium (Levothyroxine Sodium) 25 Mcg Tab, 25 MCG PO DAILY, (Reported) Losartan Potassium (Losartan Potassium) 50 Mg Tab, 50 MG PO QHS, (Reported) Magnesium Chloride (Slow-Mag) 1 Tab Tab, 1 TAB PO BID, (Reported) Omeprazole (Omeprazole) 20 Mg Cap, 20 MG PO DAILY, (Reported) Potassium Chloride (Potassium Chloride) 20 Meq Tab.er.prt, 20 MEQ PO DAILY, (Reported) Tizanidine HCl (Tizanidine HCl) 4 Mg Tablet, 4 MG PO QHS, (Reported) Scheduled PRN Acetaminophen (Acetaminophen) 500 Mg Tablet, 1,000 MG PO TID PRN for PAIN, (Reported) Allergies Coded Allergies: codeine (Verified Allergy, Severe, airway closes, n/v, 06/06/18) Sulfa (Sulfonamide Antibiotics) (Verified Allergy, Intermediate, rash, n/v, 06/06/18) morphine (Verified Allergy, Intermediate, RASH, 03/27/19) Penicillins (Verified Adverse Reaction, Mild, MOUTH GETS SORE, 03/27/19) LAUREN ROQUE PA-C Mar 31, 2019 16:04 NICOLAS COTTRELL MD Mar 31, 2019 22:01
[2019-03-31] MEDS ORDERED: FURO20TA2 PO (22:04)
== END 2019-03-31 14:20 | disposition home health service (06) | DRG 291 ==
LOC: M ED 08:00 → EDBD 08:00 → M ED INP 12:20 → ENRESERV 12:42 → M PCU 14:14 → M MSPAV 03-28 11:37
PROVIDERS: ADMIT Internal Medicine Nephrology; ATTEND Internal Medicine Nephrology
DX: I11.0 Hypertensive heart disease with heart failure (principal); J96.01 Acute respiratory failure with hypoxia; J18.9 Pneumonia, unspecified organism; I48.20 Chronic atrial fibrillation, unspecified; E87.2 Acidosis; I50.33 Acute on chronic diastolic (congestive) heart failure; I49.5 Sick sinus syndrome; E78.5 Hyperlipidemia, unspecified; K22.70 Barrett's esophagus without dysplasia; Z66 Do not resuscitate; M75.01 Adhesive capsulitis of right shoulder; E03.9 Hypothyroidism, unspecified; M54.2 Cervicalgia; D64.9 Anemia, unspecified; I08.0 Rheumatic disorders of both mitral and aortic valves; E55.9 Vitamin D deficiency, unspecified; M75.02 Adhesive capsulitis of left shoulder; M81.0 Age-related osteoporosis without current pathological fracture; M19.90 Unspecified osteoarthritis, unspecified site; Z79.01 Long term (current) use of anticoagulants; Z79.899 Other long term (current) drug therapy; Z88.0 Allergy status to penicillin; Z88.2 Allergy status to sulfonamides; Z88.5 Allergy status to narcotic agent; Z86.73 Personal history of transient ischemic attack (TIA), and cerebral infarction without residual deficits; Z96.643 Presence of artificial hip joint, bilateral; Z90.49 Acquired absence of other specified parts of digestive tract; Z95.0 Presence of cardiac pacemaker

== ENCOUNTER → 2019-05-14 | Outpatient (REF) | payer MEDICARE ==
[~2019-05-14] MED LIST changes: +ACET-683 PO; +AZIT-12 PO; +DIGO0.123 PO; +FURO20TA2 PO; +POTA20TA6 PO; +TIZA4TAB4 PO
[2019-05-14 13:22] LABS: BLOOD UREA NITROGEN 28 MG/DL (7-18); CALCIUM LEVEL 9.2 MG/DL (8.8-10.2); CARBON DIOXIDE LEVEL 27 MEQ/L (21-32); CHLORIDE LEVEL 106 MEQ/L (98-107); CREATININE FOR GFR 0.88 MG/DL (0.55-1.30); GLOMERULAR FILTRATION RATE > 60.0 (>32); GLUCOSE, FASTING 83 MG/DL (70-100); POTASSIUM SERUM 5.1 MEQ/L (3.5-5.1); SODIUM LEVEL 138 MEQ/L (136-145)
== END ==
LOC: M SHH 12:22
PROVIDERS: ATTEND Nurse Practitioner Adult Health
DX: I50.32 Chronic diastolic (congestive) heart failure (principal)

== ENCOUNTER → 2019-09-22 | Outpatient (REF) | payer MEDICARE ==
[2019-09-29 12:13] LABS: LDL DIRECT 72 mg/dL (0-99)
== END ==
LOC: M LAB REF 12:01
PROVIDERS: ATTEND Internal Medicine
DX: I48.20 Chronic atrial fibrillation, unspecified (principal); E78.00 Pure hypercholesterolemia, unspecified

== ENCOUNTER 2019-12-20 20:46 | Emergency (ER) | payer MEDICARE ==
[~2019-12-20] VITALS: Ht 152.4 cm; Wt 63.6 kg
[2019-12-20 22:22] LABS: BASO % 0.3 % (0.0-1.0); EOS # 0.1 10^3/uL (0.0-0.5); EOS % 0.7 % (0.0-3.0); HEMATOCRIT 36.9 % (36.0-47.0); HEMOGLOBIN 11.8 g/dl (12.0-15.5); LYMPH # 0.3 10^3/uL (1.5-5.0); LYMPH % 2.9 % (24.0-44.0); MEAN CORPUSCULAR HEMOGLOBIN 28.4 pg (27.0-33.0); MEAN CORPUSCULAR VOLUME 88.9 fl (80.0-96.0); MONO # 0.5 10^3/uL (0.0-0.8); MONO % 3.9 % (0.0-5.0); NEUTROPHILS # 10.9 10^3/uL (1.5-8.5); NEUTROPHILS % 91.9 % (36.0-66.0); PLATELET COUNT, AUTOMATED 184 10^3/uL (150-450); RED BLOOD COUNT 4.15 10^6/uL (4.00-5.40); WHITE BLOOD COUNT 11.9 10^3/uL (4.0-10.0)
--- NOTE | 2019-12-20 22:38 | REPVR ---
PROCEDURE INFORMATION: Exam: XR Chest, 2 Views Exam date and time: 12/20/2019 10:08 PM Age: 89 years old Clinical indication: Weakness TECHNIQUE: Imaging protocol: XR of the chest Views: 2 views. COMPARISON: 1. CT Chest without contrast 03/27/2019 8:56 AM 2. AL - Chest, 2 view PA, Lat 03/30/2019 10:45:22 AM 3. AL - PORTABLE CHEST X-RAY 03/27/2019 8:15:36 AM FINDINGS: Lungs: Unremarkable. No consolidation. No pulmonary edema. Pleural space: Unremarkable. No pleural effusion or pneumothorax is identified. Heart/Mediastinum: There is a left-sided pacemaker device in place with intact leads projecting over the expected locations of the right atrium and right ventricle. Vasculature: There are atherosclerotic calcifications of the aorta. Bones/joints: There are endplate spurs in the thoracic spine. There is an old healed right posterior 5th rib fracture. There is severe osteoarthritis of both glenohumeral joints. Both humeral heads are high-riding, indicating chronic bilateral full-thickness rotator cuff tears. IMPRESSION: No radiographic evidence for an acute cardiopulmonary process. Electronically signed by: Wilbert Jiang On 12/20/2019 22:37:44 PM
[2019-12-20 22:45] LABS: CK-MB VALUE MASS 1.3 NG/ML (<3.6); MB/CK RELATIVE INDEX 2.24 (< OR =4); TROPONIN I 0.03 NG/ML (< 0.10)
[2019-12-21 01:04] VITALS: BP 162/76
--- NOTE | 2019-12-21 07:07 | ECGEPIP ---
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
== END 2019-12-21 01:07 | disposition home or self-care (01) ==
LOC: M ED 20:46
DX: R53.1 Weakness (principal); T50.Z95A Adverse effect of other vaccines and biological substances, initial encounter; I48.91 Unspecified atrial fibrillation; I10 Essential (primary) hypertension; E78.5 Hyperlipidemia, unspecified; Z79.01 Long term (current) use of anticoagulants; Z88.0 Allergy status to penicillin; Z88.1 Allergy status to other antibiotic agents; Z88.2 Allergy status to sulfonamides; Z88.6 Allergy status to analgesic agent; Z88.8 Allergy status to other drugs, medicaments and biological substances; Z95.0 Presence of cardiac pacemaker

== ENCOUNTER → 2019-12-20 | Outpatient (REF) | payer MEDICARE | LOC: M LAB REF 14:42 | PROVIDERS: ATTEND Internal Medicine | DX: I48.21 Permanent atrial fibrillation (principal) ==

== ENCOUNTER 2020-09-11 08:39 | Observation (INO) | payer MEDICARE ==
[~2020-09-11] VITALS: Ht 154.9 cm; Wt 60.3 kg
[2020-09-11 09:18] LABS: HEMATOCRIT 41.8 % (36.0-47.0); HEMOGLOBIN 13.6 g/dl (12.0-15.5); MEAN CORPUSCULAR HEMOGLOBIN 28.4 pg (27.0-33.0); MEAN CORPUSCULAR HGB CONC 32.5 g/dl (32.0-36.5); MEAN CORPUSCULAR VOLUME 87.3 fl (80.0-96.0); PLATELET COUNT, AUTOMATED 201 10^3/uL (150-450); RED BLOOD COUNT 4.79 10^6/uL (4.00-5.40); WHITE BLOOD COUNT 6.7 10^3/uL (4.0-10.0)
[2020-09-11] MEDS ORDERED: ISOVUE-370 76% 100ML VIAL As Ordered ONE (09:34)
[2020-09-11 09:45] LABS: ATYPICAL LYMPH 4 % (0-5); BASOPHILS 1 % (0-1); EOSINOPHILS 3 % (0-3); LYMPHOCYTES 14 % (16-44); MONOCYTES 5 % (0-5); NEUTROPHILS 73 % (28-66)
[2020-09-11 09:48] LABS: OVALOCYTES 1+; PLATELET ESTIMATE NORMAL (NORMAL); SCHISTOCYTES 1+
[2020-09-11 09:52] LABS: ALBUMIN 3.6 GM/DL (3.2-5.2); BILIRUBIN,DIRECT 0.1 MG/DL (0.0-0.2); BILIRUBIN,TOTAL 0.6 MG/DL (0.2-1.0); FREE T4 0.81 NG/DL (0.76-1.46); THYROID STIMULATING HORMONE 2.71 uIU/ML (0.358-3.740); TOTAL PROTEIN 6.8 GM/DL (6.4-8.2)
--- NOTE | 2020-09-11 09:59 | REP ---
INDICATION: CHEST PAIN COMPARISON: 12/20/2019 TECHNIQUE: Portable AP view of the chest FINDINGS: The mediastinum and cardiac silhouette are stable and cardiomegaly is again appreciated. The lung de paz are demonstrate chronic interstitial changes. No focal consolidation or effusion. No pneumothorax. Skeletal structures demonstrate significant osteopenia and degenerative changes primarily involving the thoracic spine and right shoulder. Previously noted hiatal hernia is not visible on current exam. IMPRESSION: Chronic appearing changes. No acute cardiopulmonary process appreciated. <Electronically signed by Kamron Adams > 09/11/20 [id number]
[2020-09-11] MEDS ORDERED: FUROSEMIDE 20MG/2ML VIAL (J1940) IV ONE ×2 (10:35→15:00)
--- NOTE | 2020-09-11 10:56 | REP ---
INDICATION: chest pain COMPARISON: Noncontrast chest CT dated 03/30/2019 TECHNIQUE: Axial contrast enhanced images from the thoracic inlet to the upper abdomen using pulmonary embolus technique with multiplanar re-formations. 75 ml Isovue 370 intravenous contrast material administered without complication. This CT examination was performed using the following dose reduction techniques: Automated exposure control, adjustment of mA and/or kv according to the patient's size, and use of iterative reconstruction technique. FINDINGS: Evaluation is somewhat limited due to respiratory motion artifact. Satisfactory enhancement of the pulmonary vasculature is achieved and no filling defects are identified to suggest pulmonary embolus. Further evaluation of the mediastinum demonstrates atherosclerotic changes to the thoracic aorta and coronary arteries along with cardiomegaly. No aortic aneurysm. No pericardial effusion. The bilateral lung de paz demonstrate increased chronic interstitial markings, increased pulmonary vascular markings, trace basilar atelectasis and very small pleural effusions raising the possibility of early pulmonary vascular congestion/interstitial edema. No adenopathy. No bronchiectasis. Moderate to large Megan off a geode gastric hiatal hernia noted. A 3 cm cyst in the right thyroid bed appears increased from prior exam. Musculoskeletal structures demonstrate advanced osteopenia and degenerative changes. IMPRESSION: 1. No evidence for pulmonary embolus. 2. Findings suggest pulmonary vascular congestion/interstitial edema. 3. A 3 cm cystic structure in the right thyroid bed may warrant nonemergent outpatient follow-up examination. <Electronically signed by Kamron Adams > 09/11/20 [id number]
[2020-09-11 11:02] LABS: DIGOXIN LEVEL 0.6 NG/ML (0.5-2.0); MAGNESIUM LEVEL 2.4 MG/DL (1.8-2.4)
[2020-09-11 13:06] LABS: RSV AMPLIFICATION NEGATIVE (NEGATIVE)
[2020-09-11] MEDS ORDERED: FURO20TA2 PO (13:12)
[2020-09-11] MEDS ORDERED: MOM 30ML SUSPENSION UDC PO PRN (14:35)
[2020-09-11] MEDS ORDERED: MAALOX 30 ML SUSP *UDC PO PRN (14:35)
[2020-09-11] MEDS ORDERED: ACETAMINOPHEN TAB 650MG DOSE (2X325MG) PO PRN (14:35)
[2020-09-11] MEDS ORDERED: LABETALOL 100MG/20ML VIAL IV STA (14:38)
[2020-09-11] MEDS ORDERED: tiZANidine 4 MG TAB PO PRN (15:00)
[2020-09-11] MEDS ORDERED: ACETAMINOPHEN 500 MG TAB PO PRN (15:00)
--- NOTE | 2020-09-11 15:08 | HPEPDOC ---
[facility] Medical History & Physical Date of Admission Sep 11, 2020 Date of Service: Sep 11, 2020 History and Physical CHIEF COMPLAINT: Chest pain HISTORY OF PRESENT ILLNESS: Mrs. Nagel is a pleasant 88-year-old female with a past medical history of diastolic congestive heart failure, chronic atrial fibrillation with a history of sick sinus syndrome as well as tachybradycardia syndrome status post pacemaker on Eliquis, CVA with residual left-sided weakness, hyperlipidemia, hypertension, hypothyroidism, bilateral frozen sh oulder, as well as chronic neck pain, presented to the ER with a 3 hour history of retrosternal as well as left-sided intermittent chest pain without radiation to the left arm of the left jaw. Patient describes the pain as intermittently sharp and not dependent on breathing. Patient also reports mild shortness of breath without any palpitations, lightheadedness, dizziness, orthopnea. Patient cardiac enzymes showed troponin 0.03, followed by 0.05, 3 hours later. EKG showed a paced rhythm without acute ischemic changes. At the time of evaluation, patient was no longer having any chest pain. Chest x-ray showed cardiomegaly. CT angiography of the chest was performed, showed no evidence for pulmonary embolism but did indicate pulmonary vascular congestion/interstitial edema. Patients BNP was elevated at 1900. Patient will be admitted to hospitalist service for rule out of ACS as well as management of acute on chronic diastolic congestive heart failure exacerbation PAST MEDICAL HISTORY: CHF, AFib with h/o sick sinus syndrome/ tachy- marcy syndrome s/p pacemaker , hypertension, hyperlipidemia, hypothyroid, bilateral frozen shoulder, chronic neck pain s/p trigger point injections follows with pain management, osteoporosis, osteoarthritis, Dilated aortic root, Mitral Annular Calcificati on/Mitral Regurgitation, History of stroke (12/27/2016), Vitamin D deficiency, Mane's esophagus, Anemia PAST SURGICAL HISTORY: LEFT HIP REPLACEMENT 1976 LEFT HIP REPLACEMENT 1987 RIGHT HIP REPLACEMENT 1989 BACK SURGERY L4-L5 1951 BACK SURGERY L4-L5 1968 BACK SURGERY L4-L5 1974 BILATERAL CARPAL TUNNEL 2003 APPENDECTOMY TUBAL LIGATION HYSTERECTOMY RIGHT EYE LASIK 2016 LEFT EYE LASIK 2018 PACEMAKER PLACEMENT 05/2018 FAMILY HISTORY: FATHER: MOTHER: 9 BROTHER(S) , 8 SISTER(S) - HEALTHY. 4 SON(S) , 3 DAUGHTER(S) . 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 SOCIAL HISTORY: Patient denies smoking Patient denies etoh use Patient denies illicit drug use ALLERGIES: Please see below. REVIEW OF SYSTEMS: 10 point ROS was conducted, relevant findings were noted in the HPI. HOME MEDICATIONS: Please see below. PHYSICAL EXAMINATION: VITAL SIGNS: please see below General: NAD, comfortable HEENT: PERRLA, EOMI, sclerae clear. Mild dysarthria. Neck: supple, normal ROM, no JVD Respiratory: fair air entry bilaterally, bibasilar crackles appreciated, no rales, no wheeze CVS: RRR, normal S1, S2, no murmurs Abdo: soft, no masses, no hepatosplenomegaly, BS+, no rebound tenderness Extremities: no edema, pulses 2+ MSK: no joint deformities, normal ROM Neuro: no focal neuro deficits, moving all 4 extremities, CN2-12 intact. Slightly diminished strength on the LUE and LLE (4/5), 5/5 strength in the RUE and RLE. Psych: calm, cooperative, AAO x 3 LABORATORY DATA: See below. IMAGING: CTA chest (09/11/20): 1. No evidence for pulmonary embolus. 2. Findings suggest pulmonary vascular congestion/interstitial edema. 3. A 3 cm cystic structure in the right thyroid bed may warrant nonemergent outpatient follow-up examination. CXR (09/11/20): FINDINGS: The mediastinum and cardiac silhouette are stable and cardiomegaly is again appreciated. The lung de paz are demonstrate chronic interstitial changes. No focal consolidation or effusion. No pneumothorax. Skeletal structures demonstrate significant osteopenia and degenerative changes primarily involving the thoracic spine and right shoulder. Previously noted hiatal hernia is not visible on current exam. IMPRESSION: Chronic appearing changes. No acute cardiopulmonary process appreciated. MICROBIOLOGY: Please see below. ASSESSMENT: . . PLAN: Acute on chronic Diastolic CHF exacerbation - patient is saturating well on RA - physical exam showing bilateral pitting LE edema, crackles on lung exam - CT chest showing insterstitial edema and vascular congestion. - Last available echo from 05/2018, LVEF 65%. Mildly eveleated RV systolic pressures. Normal LV function. - BNP elevated to 1900 - received 40 mg IV lasix on admission from ER - will c/w IV diuresis, 40 mg IV lasix q8h - monitor UOP q4h - weight daily - 2L PO fluid intake restriction - repeat 2D echo Atypical chest pain - resolved at the time of examination - EKG in ER showing paced rhythm - initial trop 0.03, 0.05 - will continue to cycle troponin q4h, ekg Chronic A fib with pacemaker - paced rhythm on EKG - continue digoxin, atenolol and eliquis - digoxin level 0.6 in ER Hypertension - BP elevated to 172/75 - given 20 mg IV labetolol - continue with losartan - resume atenolol Hypothyroidism - continue synthroid Hyperlipidemia - continue statin. Bilateral frozen shoulder, and chronic neck pain and stiffness - will continue tizanidine. - tylenol prn GERD/Mane's - continue omeprazole. #thyroid cyst -3 mm cystic structure in R thyroid bed -Requires outpatient follow up CODE STATUS: patient wishes to be FULL CODE. Dispo: admission expect to last > 2 midnights Vital Signs Vital Signs Date Time Temp Pulse Resp B/P (MAP) Pulse Ox O2 Delivery O2 Flow Rate FiO2 09/11/20 12:15 69 172/75 (107) 97 Room Air 09/11/20 10:01 18 09/11/20 09:02 96.5 Laboratory Data Labs 24H Laboratory Tests 2 09/11/20 08:46: Neutrophils (%) (Auto) , Nucleated Red Blood Cells % (auto) 0.0, Neutrophils 73H, Lymphocytes (Manual) 14L, Monocytes (Manual) 5, Eosinophils (Manual) 3, Ba sophils (Manual) 1, Atypical Lymphocytes 4, Schistocytes 1+, Ovalocytes 1+, Platelet Estimate NORMAL, Magnesium Level 2.4, Total Bilirubin 0.6, Direct Bilirubin 0.1, Aspartate Amino Transf (AST/SGOT) 16, Alanine Aminotransferase (ALT/SGPT) 31, Alkaline Phosphatase 90, HR-Kds-M-Type Natriuretic Peptide 1870H, Total Protein 6.8, Albumin 3.6, Albumin/Globulin Ratio 1.1L, Lipase 182, Thyroid Stimulating Hormone (TSH) 2.710, Free Thyroxine 0.81, Digoxin Level 0.6 09/11/20 09:01: POC Glucose (Misc Panel) 121H, POC Sodium (Misc Panel) 142, POC Potassium (Misc Panel) 4.1, POC Chloride (Misc Panel) 104, POC Total CO2 (Misc Panel) 23.0, POC Blood Urea Nitrogen (Misc Panel 22, POC Ionized Calcium (Misc Panel) 4.8, POC Creatinine (Misc Panel) 0.9, POC Hematocrit (Misc Panel) 40.0 09/11/20 09:02: POC Troponin I (Misc) 0.03 09/11/20 12:09: Coronavirus (COVID-19)(PCR) NEGATIVE, Influenza Type A (RT-PCR) NEGATIVE, Influenza Type B (RT-PCR) NEGATIVE, Respiratory Syncytial Virus (PCR) NEGATIVE 09/11/20 12:14: POC Troponin I (Misc) 0.05 CBC/BMP Laboratory Tests 09/11/20 08:46 Home Medications Scheduled Apixaban (Eliquis) 2.5 Mg Tablet, 2.5 MG PO BID Atenolol (Atenolol) 50 Mg Tablet, 50 MG PO BID Atorvastatin Calcium (Atorvastatin Calcium) 40 Mg Tab, 40 MG PO QHS Calcium Carb, Citrate/Vit D3 (Citracal + D ER Tablet) 1 Tab Tab, 1 TAB PO DAILY TAKES AT NOON Digoxin (Digoxin) 125 Mcg Tablet, 125 MCG PO DAILY Furosemide (Furosemide) 20 Mg Tablet, 20 MG PO DAILY Levothyroxine Sodium (Levothyroxine Sodium) 25 Mcg Tab, 25 MCG PO DAILY Magnesium Chloride (Slow-Mag) 1 Tab Tab, 1 TAB PO BID Omeprazole (Omeprazole) 20 Mg Cap, 20 MG PO DAILY Potassium Chloride (Potassium Chloride) 20 Meq Tab.er.prt, 20 MEQ PO DAILY Scheduled PRN Acetaminophen (Acetaminophen) 500 Mg Tablet, 1,000 MG PO TID PRN for PAIN Tizanidine HCl (Tizanidine HCl) 4 Mg Tablet, 4 MG PO QHS PRN for SPASMS Allergies Coded Allergies: codeine (Verified Allergy, Severe, airway closes, n/v, 09/11/20) Sulfa (Sulfonamide Antibiotics) (Verified Allergy, Intermediate, rash, n/v, 09/11/20) morphine (Verified Allergy, Intermediate, RASH, 09/11/20) Penicillins (Verified Adverse Reaction, Mild, MOUTH GETS SORE, 09/11/20) KRISHNA ROD MD Sep 11, 2020 15:08
[2020-09-11 16:00] VITALS: BP 146/77
[2020-09-11] MEDS: POTASSIUM CHLORIDE 10 MEQ SR TABLET PO SCH (17:25)
[2020-09-11] MEDS: OMEPRAZOLE 20 MG CAP PO SCH (17:25)
[2020-09-11] MEDS: DIGOXIN 0.125 MG TAB PO SCH (17:26)
[2020-09-11 18:58] LABS: INR 1.01; PARTIAL THROMBOPLASTIN TIME 29.2 SECONDS (24.2-38.5); PROTHROMBIN TIME 13.5 SECONDS (12.5-14.3)
--- NOTE | 2020-09-11 19:14 | ECGEPIP ---
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
--- NOTE | 2020-09-11 19:18 | ECGEPIP ---
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
[2020-09-11 20:00] VITALS: BP 143/65
[2020-09-11] MEDS ORDERED: ATORVASTATIN 20 MG TAB PO SCH (21:00)
[2020-09-11] MEDS: DOCUSATE SODIUM 100MG CAPSULE PO SCH (21:28)
[2020-09-11] MEDS: atenoloL 50 MG TAB PO SCH (21:29)
[2020-09-11] MEDS: APIXABAN 2.5 MG TAB (ELIQUIS) PO SCH (21:29)
[2020-09-12] VITALS: BP 133/61
[2020-09-12 04:00] VITALS: BP 125/59
[2020-09-12 05:08] LABS: BASO % 0.4 % (0.0-1.0); EOS # 0.1 10^3/uL (0.0-0.5); EOS % 1.3 % (0.0-3.0); HEMATOCRIT 39.6 % (36.0-47.0); HEMOGLOBIN 12.8 g/dl (12.0-15.5); LYMPH # 1.2 10^3/uL (1.5-5.0); LYMPH % 12.8 % (24.0-44.0); MEAN CORPUSCULAR HGB CONC 32.3 g/dl (32.0-36.5); MEAN CORPUSCULAR VOLUME 86.7 fl (80.0-96.0); MONO # 0.7 10^3/uL (0.0-0.8); MONO % 7.6 % (2.0-8.0); NEUTROPHILS # 7.4 10^3/uL (1.5-8.5); NEUTROPHILS % 77.5 % (36.0-66.0); PLATELET COUNT, AUTOMATED 211 10^3/uL (150-450); RED BLOOD COUNT 4.57 10^6/uL (4.00-5.40); WHITE BLOOD COUNT 9.5 10^3/uL (4.0-10.0)
[2020-09-12 05:38] LABS: ALBUMIN 3.5 GM/DL (3.2-5.2); BILIRUBIN,TOTAL 0.8 MG/DL (0.2-1.0); CREATININE FOR GFR 0.94 MG/DL (0.55-1.30); GLOMERULAR FILTRATION RATE 59.7 (>32); MAGNESIUM LEVEL 2.2 MG/DL (1.8-2.4); POTASSIUM SERUM 4.1 MEQ/L (3.5-5.1); TOTAL PROTEIN 6.6 GM/DL (6.4-8.2)
[2020-09-12] MEDS ORDERED: LEVOTHYROXINE 25MCG TABLET (0.025MG) PO SCH (06:00)
[2020-09-12 08:00] VITALS: BP 156/61
[2020-09-12] MEDS: DOCUSATE SODIUM 100MG CAPSULE PO SCH (08:06)
[2020-09-12] MEDS: OMEPRAZOLE 20 MG CAP PO SCH (08:07)
[2020-09-12 08:09] VITALS: BP 156/61
[2020-09-12] MEDS: APIXABAN 2.5 MG TAB (ELIQUIS) PO SCH (08:09)
[2020-09-12] MEDS: atenoloL 50 MG TAB PO SCH (08:09)
[2020-09-12] MEDS: POTASSIUM CHLORIDE 10 MEQ SR TABLET PO SCH (08:09)
[2020-09-12] MEDS: DIGOXIN 0.125 MG TAB PO SCH (08:09)
[2020-09-12 08:43] VITALS: BP 140/70
[2020-09-12] MEDS ORDERED: FUROSEMIDE 40MG/4ML VIAL (J1940) IV SCH (09:00)
[2020-09-12] MEDS ORDERED: POTA20TA6 PO (11:04)
[2020-09-12] MEDS ORDERED: FURO20TA2 PO (11:04)
--- NOTE | 2020-09-12 11:06 | DS.PDOC ---
Discharge Summary General Date of Admission Sep 11, 2020 at 08:40 Date of Discharge 09/12/20 Discharge Summary PROCEDURES PERFORMED DURING STAY: [None]. ADMITTING DIAGNOSES: 1. . DISCHARGE DIAGNOSES: 1. . COMPLICATIONS/CHIEF COMPLAINT: Chf Exacerbation. HISTORY OF PRESENT ILLNESS: . HOSPITAL COURSE: . DISCHARGE MEDICATIONS: Please see below. ALLERGIES: Please see below. PHYSICAL EXAMINATION ON DISCHARGE: VITAL SIGNS: Please see below. GENERAL: HEENT: NECK: CARDIOVASCULAR EXAMINATION: RESPIRATORY EXAMINATION: ABDOMINAL EXAMINATION: EXTREMITIES: SKIN: NEUROLOGICAL EXAMINATION: PSYCHIATRIC EXAMINATION: LABORATORY DATA: Please see below. IMAGING: PROGNOSIS: ACTIVITY: [As tolerated]. DIET: DISCHARGE PLAN: DISPOSITION: . DISCHARGE INSTRUCTIONS: 1. . ITEMS TO FOLLOWUP ON ON OUTPATIENT: 1. . DISCHARGE CONDITION: [Stable]. TIME SPENT ON DISCHARGE: Greater than minutes. Vital Signs/I&Os Vital Signs Date Time Temp Pulse Resp B/P (MAP) Pulse Ox O2 Delivery O2 Flow Rate FiO2 09/12/20 08:43 69 140/70 (93) 09/12/20 08:00 97.8 18 94 Room Air I&O- Last 24 Hours up to 6 AM 09/12/20 06:00 Intake Total 120 ml Output Total 1600 ml Balance -1480 ml Laboratory Data Labs 24H Laboratory Tests 2 09/11/20 12:09: Coronavirus (COVID-19)(PCR) NEGATIVE, Influenza Type A (RT-PCR) NEGATIVE, Influenza Type B (RT-PCR) NEGATIVE, Respiratory Syncytial Virus (PCR) NEGATIVE 09/11/20 12:14: POC Troponin I (Misc) 0.05 09/11/20 15:34: Troponin I 0.02 09/11/20 18:36: Troponin I 0.02, Prothrombin Time 13.5, Prothromb Time International Ratio 1.01, Activated Partial Thromboplast Time 29.2 09/11/20 22:35: Troponin I 0.02 09/12/20 04:53: Immature Granulocyte % (Auto) 0.4, Neutrophils (%) (Auto) 77.5H, Lymphocytes (%) (Auto) 12.8L, Monocytes (%) (Auto) 7.6, Eosinophils (%) (Auto) 1.3, Basophils (%) (Auto) 0.4, Neutrophils # (Auto) 7.4, Lymphocytes # (Auto) 1.2L, Monocytes # (Auto) 0.7, Eosinophils # (Auto) 0.1, Basophils # (Auto) 0.0, Nucleated Red Blood Cells % (auto) 0.0, Anion Gap 8, Glomerular Filtration Rate 59.7, Calcium Level 9.0, Magnesium Level 2.2, Total Bilirubin 0.8, Aspartate Amino Transf (AST/SGOT) 13, Alanine Aminotransferase (ALT/SGPT) 27, Alkaline Phosphatase 91, Total Protein 6.6, Albumin 3.5, Albumin/Globulin Ratio 1.1L CBC/BMP Laboratory Tests 09/12/20 04:53 Discharge Medications Scheduled Apixaban (Eliquis) 2.5 Mg Tablet, 2.5 MG PO BID, (Reported) Atenolol (Atenolol) 50 Mg Tablet, 50 MG PO BID, (Reported) Atorvastatin Calcium (Atorvastatin Calcium) 40 Mg Tab, 40 MG PO QHS, (Reported) Calcium Carb, Citrate/Vit D3 (Citracal + D ER Tablet) 1 Tab Tab, 1 TAB PO DAILY, (Reported) TAKES AT NOON Digoxin (Digoxin) 125 Mcg Tablet, 125 MCG PO DAILY, (Reported) Furosemide (Furosemide) 20 Mg Tablet, 20 MG PO BID Levothyroxine Sodium (Levothyroxine Sodium) 25 Mcg Tab, 25 MCG PO DAILY, (Reported) Magnesium Chloride (Slow-Mag) 1 Tab Tab, 1 TAB PO BID, (Reported) Omeprazole (Omeprazole) 20 Mg Cap, 20 MG PO DAILY, (Reported) Potassium Chloride (Potassium Chloride) 20 Meq Tab.er.prt, 20 MEQ PO DAILY Scheduled PRN Acetaminophen (Acetaminophen) 500 Mg Tablet, 1,000 MG PO TID PRN for PAIN, (Reported) Tizanidine HCl (Tizanidine HCl) 4 Mg Tablet, 4 MG PO QHS PRN for SPASMS, (Reported) Allergies Coded Allergies: codeine (Verified Allergy, Severe, airway closes, n/v, 09/11/20) Sulfa (Sulfonamide Antibiotics) (Verified Allergy, Intermediate, rash, n/v, 09/11/20) morphine (Verified Allergy, Intermediate, RASH, 09/11/20) Penicillins (Verified Adverse Reaction, Mild, MOUTH GETS SORE, 09/11/20) KRISHNA ROD MD Sep 12, 2020 11:05
--- NOTE | 2020-09-13 07:15 | ECGEPIP ---
[facility] Test Date: 2020-09-11 Pat Name: HARITHA CAMERON Department: Room: [place] [address] Gender: Female Junior Art Director: LISY : 1930 Requested By: KRISHNA ROD Order Number: [id number] Reading MD: Kp Roque Measurements Intervals [place] Rate: 69 P: [place]: 220 QRS: -72 QRSD: 140 T: 93 QT: 460 QTc: 492 Interpretive Statements AV dual-paced rhythm with prolonged AV conduction with occasional ventricular- paced complexes Similar to tracing done 11:58 on same date Electronically Signed on 09-13-2020 7:14:50 EDT by Kp Roque
--- NOTE | 2020-09-13 07:18 | ECGEPIP ---
[facility] Test Date: 2020-09-12 Pat Name: HARITHA CAMERON Department: Room: [place] [address] Gender: Female Supervisor Looping: JUAN CARLOS : 1930 Requested By: KRISHNA ROD Order Number: [id number] Reading MD: Kp Roque Measurements Intervals [place] Rate: 72 P: 47 MN: 196 QRS: -74 QRSD: 172 T: 92 QT: 480 QTc: 525 Interpretive Statements AV dual-paced rhythm with occasional premature ventricular complexes Electronically Signed on 09-13-2020 7:18:27 EDT by Kp Roque
== END 2020-09-12 13:27 | disposition home health service (06) ==
LOC: EDBD 08:39 → M ED 08:39 → EDSEX 08:39 → UNDOADMOB 08:40 → M ED INP 08:40 → M PCU 16:06
PROVIDERS: ADMIT Family Medicine; ATTEND Family Medicine
DX: I50.33 Acute on chronic diastolic (congestive) heart failure (principal); R07.89 Other chest pain; I48.20 Chronic atrial fibrillation, unspecified; Z95.0 Presence of cardiac pacemaker; I11.0 Hypertensive heart disease with heart failure; E03.9 Hypothyroidism, unspecified; E78.5 Hyperlipidemia, unspecified; M75.01 Adhesive capsulitis of right shoulder; M75.02 Adhesive capsulitis of left shoulder; M54.2 Cervicalgia; G89.29 Other chronic pain; K21.9 Gastro-esophageal reflux disease without esophagitis; K22.70 Barrett's esophagus without dysplasia; E04.1 Nontoxic single thyroid nodule; R06.02 Shortness of breath; Z79.899 Other long term (current) drug therapy; Z79.01 Long term (current) use of anticoagulants; Z88.5 Allergy status to narcotic agent; Z88.2 Allergy status to sulfonamides; Z88.0 Allergy status to penicillin; Z86.73 Personal history of transient ischemic attack (TIA), and cerebral infarction without residual deficits
CPT/HCPCS: 36415; 71045; 71275; 80047; 80053; 80076; 80162; 83690; 83735; 83880; 84439; 84443; 84484; 85025; 85610; 85730; 87631; 93005; 93041; 94760; 96374; 96375; 96376; 97161; 97165; 99285; G0378; J1940; Q9967